=== PATIENT | female | born 1975 ===

== ENCOUNTER 2020-05-13 10:59 | Outpatient (REF) | payer OTHER, SELFPAY | END 2020-05-13 11:00 | disposition home or self-care (01) | LOC: HO.LAB 10:59 | PROVIDERS: Visit Provider Internal Medicine | DX: Z20.828 Contact with and (suspected) exposure to other viral communicable diseases (principal) | CPT/HCPCS: 87635 ==

== ENCOUNTER 2020-05-29 10:59 | Outpatient (REF) | payer OTHER, SELFPAY ==
[2020-05-29 16:51] LABS: CT PCR NOT DETECTED (Not Detect.); NG PCR NOT DETECTED (Not Detect.)
[2020-05-30 04:03] LABS: Syphilis Screen Nonreactive (Nonreactive)
[2020-05-30 04:22] LABS: ~HepC Num1 7.84 S/CO (0.00-0.79); ~Hepatitis C Antibody Reactive (Nonreactive)
[2020-05-30 04:34] LABS: HIV AB/AG Nonreactive (Nonreactive); HIV Num 1 0.31 S/CO (0.00-0.99)
[2020-05-30 13:12] LABS: BV Int Neg Control Negative (Negative); BV Int Pos Control Positive (Positive)
== END 2020-05-29 11:00 | disposition home or self-care (01) ==
LOC: HO.LAB 10:59
PROVIDERS: Visit Provider Advanced Practice Midwife
DX: N89.8 Other specified noninflammatory disorders of vagina (principal); Z20.2 Contact with and (suspected) exposure to infections with a predominantly sexual mode of transmission
CPT/HCPCS: 86780; 86803; 87389; 87480; 87491; 87510; 87591; 87660; 99212

== ENCOUNTER 2020-06-26 15:56 | Outpatient (REF) | payer OTHER, SELFPAY | END 2020-06-26 15:57 | disposition home or self-care (01) | LOC: HO.LAB 15:56 | PROVIDERS: Visit Provider Internal Medicine | DX: Z20.828 Contact with and (suspected) exposure to other viral communicable diseases (principal) | CPT/HCPCS: C9803; U0003 ==

== ENCOUNTER 2020-09-09 11:51 | Outpatient (REF) | payer OTHER, SELFPAY ==
--- NOTE | ~2020-09-09 | XR_ITS ---
EXAMINATION: XR LUMBOSACRAL SPINE CLINICAL INFORMATION: Low back pain COMPARISON: Lumbar spine radiographs 03/14/2019 TECHNIQUE: Three views of the lumbosacral spine. FINDINGS: The vertebral bodies are normal in height and there is normal lumbar lordosis. There is normal lumbar segmentation with 5 nonrib-bearing lumbar vertebrae. There is no lumbar vertebral compression, spondylolisthesis, focal disc narrowing, or erosive change. Some minor anterior vertebral spurring again noted at L3-L4. The SI joints and visualized sacrum are unremarkable. There are surgical clips again seen upper abdomen. XR/XR lumbar spine 2-3V IMPRESSION: Unremarkable examination.
== END 2020-09-09 11:52 | disposition home or self-care (01) ==
LOC: HO.XRAY 11:51
PROVIDERS: PCP Internal Medicine; Visit Provider Physician Assistant
DX: M54.5 Low back pain (principal)
CPT/HCPCS: 72100

== ENCOUNTER 2020-09-11 15:16 | Outpatient (REF) | payer OTHER, SELFPAY ==
--- NOTE | ~2020-09-11 | XR_ITS ---
EXAMINATION: XR SHOULDER, LEFT CLINICAL INFORMATION: Left shoulder pain. COMPARISON: None TECHNIQUE: AP external rotation, Grashey, scapular Y, and axillary views of the left shoulder. FINDINGS: No acute fracture or dislocation. Tiny acromioclavicular marginal osteophytes. No glenohumeral joint space narrowing or marginal osteophytes. No osseous erosion. No abnormal soft tissue calcification. XR/XR shoulder LT min 2V IMPRESSION: Mild acromioclavicular osteoarthritis.
[2020-09-12 08:22] LABS: HBc Num1 0.16 S/CO (0.00-0.79); HBsAGNum1 0.24 S/CO (0.00-0.99); HIV AB/AG Nonreactive (Nonreactive); HIV Num 1 0.18 S/CO (0.00-0.99); Hepatitis B Core Antibody Nonreactive (Nonreactive); Hepatitis B Surface Antigen Negative (Negative); ~HepC Num1 5.62 S/CO (0.00-0.79); ~Hepatitis C Antibody Reactive (Nonreactive)
[2020-09-12 08:32] LABS: ~Hepatitis B Surface Antibody REACTIVE (Nonreactive)
[2020-09-12 09:46] LABS: Syphilis Screen Nonreactive (Nonreactive)
[2020-09-14 03:56] LABS: C. trachomatis RNA TMA NOT DETECTED (NOT DETECTED); N. gonorrhoeae RNA TMA NOT DETECTED (NOT DETECTED)
== END 2020-09-11 15:17 | disposition home or self-care (01) ==
LOC: HO.LAB 15:16
PROVIDERS: PCP Internal Medicine; Visit Provider Internal Medicine
DX: M25.512 Pain in left shoulder (principal); Z20.2 Contact with and (suspected) exposure to infections with a predominantly sexual mode of transmission
CPT/HCPCS: 36415; 73030; 86704; 86706; 86780; 86803; 87340; 87389; 87491; 87591

== ENCOUNTER 2020-10-31 10:00 | Outpatient (RCR) | payer OTHER, SELFPAY ==
--- NOTE | 2020-10-03 11:34 | MHC.PT.EP ---
[facility] [place] Office [place] Office [place] Office [address] Elton Simmons [address] [phone] F: [phone] F: [phone] F: [phone] F: [phone] Physical Therapy Plan of Care Date of Evaluation: 10/03/20 Date of Surgery: N/A Diagnosis: pain in left shoulder Assessment: pt presents to physical therapy with pain, decreased range of motion, decreased strength, impaired functional mobility, and impaired postural awareness. pt is a good candidate for skilled PT due to age, potential remediation of impairments, typical disease/condition progression and prognosis, comorbidities, and motivation. pt would benefit from tailored strengthening and stretching exercise program, functional training, postural re-training, neuromuscular re-education, and modalities as needed for pain. Frequency and Duration: The patient will be seen 2x/wk for 4 wks Short Term Goals: pt will be I w/ HEP to promote self-management of condition. pt will improve L shoulder abduction by 10 degrees to facilitate ease in reaching for objects on higher shelves. Mcc Goals: pt will report a statistically significant improvement in self-reported outcome measure, SPADI, to promote return to PLOF. pt will report <1/10 L shoulder pain w/ lifting >10# to promote return to lifting and carrying grocery bags. Treatment Plan: Modalities to reduce pain, spasms and effusion. Manual therapy to restore motion and function. Therapeutic exercise to improve strength and flexibility. Neuromuscular re-education for posture and balance. Therapeutic activities to return to functional activities of daily living. Electronically signed by: Alee Candelaria PT, DPT Please sign and return to therapist. Thank you for your referral.
--- NOTE | 2020-10-31 14:33 | MHC.PT.DC ---
[facility] [place] Office [place] Office [place] Office [address] Elton Simmons 140 [facility] [phone] F: [phone] F: [phone] F: [phone] F: [phone] Physical Therapy Discharge Report Diagnosis: pain in left shoulder Date of Surgery: N/A Date of Evaluation: 10/03/20 Date of Discharge: 10/31/20 Treatments to Date: 4 Cancellations to Date: 3 No Shows to Date: 0 Discharge Status: Patient Elected to Stop Recommend MD Follow-up Discharge Summary: The patient was not reporting any improvement of her pain with physical therapy to this point. She has only attended four sessions in the course of three weeks. After her visit today she informed us she would like to discharge herself from physical therapy at this time. For that reason, she is discharged from this plan of care. Electronically signed by: Alee Candelaria PT, DPT Please sign and return to therapist. Thank you for your referral.
== END 2020-10-31 14:36 | disposition other institution (70) ==
LOC: HO.PT 10:00
PROVIDERS: PCP Internal Medicine; Visit Provider Internal Medicine
DX: M25.512 Pain in left shoulder (principal)
CPT/HCPCS: 97033; 97110; 97112; 97140; 97162

== ENCOUNTER 2020-10-31 11:51 | Outpatient (REF) | payer OTHER, SELFPAY ==
[2020-10-31 13:31] LABS: COVID-19 Test Negative (Negative); IDNOW Serial# 55D5AD1C
== END 2020-10-31 11:52 | disposition home or self-care (01) ==
LOC: HO.LAB 11:51
PROVIDERS: Visit Provider Internal Medicine
DX: Z20.822 Contact with and (suspected) exposure to COVID-19 (principal)
CPT/HCPCS: 36415; 87635; C9803

== ENCOUNTER 2020-11-20 08:37 | Outpatient (REF) | payer OTHER, SELFPAY ==
[2020-11-21 08:59] LABS: BV Int Neg Control Negative (Negative); BV Int Pos Control Positive (Positive)
== END 2020-11-20 08:38 | disposition home or self-care (01) ==
LOC: HO.LAB 08:37
PROVIDERS: PCP Internal Medicine; Visit Provider Advanced Practice Midwife
DX: Z12.4 Encounter for screening for malignant neoplasm of cervix (principal); N89.8 Other specified noninflammatory disorders of vagina
CPT/HCPCS: 87480; 87510; 87660; 99212

== ENCOUNTER 2020-12-20 01:07 | Emergency (ER) | payer OTHER, SELFPAY ==
--- NOTE | 2020-12-20 | ECG_ITS ---
Test Reason : CHEST PAIN Blood Pressure : / mmHG Vent. Rate : 070 BPM Atrial Rate : 070 BPM P-R Int : 170 ms QRS Dur : 078 ms QT Int : 410 ms P-R-T Axes : 080 -05 038 degrees QTc Int : 442 ms Normal sinus rhythm Cannot rule out Anterior infarct , age undetermined ; more likely from body habitus and lead placement Borderline ECG No significant changes when compared with the previous EKG of 08 apr 2019 Referred By: Generic ED Physician Electronically Signed By:MARISELA NOVAK
--- NOTE | ~2020-12-20 | XR_ITS ---
EXAMINATION: XR CHEST CLINICAL INFORMATION: Chest pain COMPARISON: 04/08/2019 TECHNIQUE: 2 views of the chest were obtained. FINDINGS: The lungs are well expanded. There is no focal consolidation, edema, or effusion. No pneumothorax. The cardiomediastinal silhouette is within normal limits. No acute osseous abnormality. XR/XR chest 2V IMPRESSION: Clear lungs.
[2020-12-20 01:12] VITALS: BP 147/84; PULSE 70; RESP 20; TEMP 36.7; O2SAT 100; BMI 29.0
--- NOTE | 2020-12-20 01:43 | ED_ITS ---
HPI - Chest Pain General Chief Complaint: Chest Pain Stated Complaint: Chest pain Time Seen by Provider: 12/20/20 01:38 Source: patient Mode of arrival: ambulatory Limitations: no limitations History of Present Illness HPI narrative: Patient comes emergency room complaining of chest pain. Patient states he feels very anxious, states that she has had panic attacks in the past, however this chest pain is stronger than usual. Patient denies shortness of breath, no vomiting, no diarrhea. Related Data Home Medications Medication Instructions Recorded Confirmed albuterol sulfate 90 mcg/actuation 2 puff PO Q4H PRN 05/29/20 09/11/20 aerosol inhaler budesonide-formoterol HFA 160 INHALATION 05/29/20 09/11/20 mcg-4.5 mcg/actuation aerosol inhaler hydroxyzine HCl 50 mg tablet 50 mg PO TID 05/29/20 09/11/20 meloxicam 15 mg tablet 15 mg PO DAILY PRN 05/29/20 09/11/20 trazodone 100 mg tablet 100 mg PO BEDTIME 05/29/20 09/11/20 rizatriptan 10 mg tablet See Rx Instructions PO .COMPLEX 08/20/20 09/11/20 bupropion HCl 150 mg 24 hr tablet, 150 mg PO QAM 09/11/20 09/11/20 extended release cetirizine 10 mg tablet 10 mg PO BID tab 09/11/20 09/11/20 clonazepam 0.5 mg tablet 0.5 mg PO DAILY 09/11/20 09/11/20 fluoxetine 20 mg tablet 20 mg PO BID 09/11/20 09/11/20 fremanezumab-vfrm 225 mg/1.5 mL mg SUBCUT 09/11/20 09/11/20 subcutaneous auto-injector metoclopramide HCl 5 mg tablet 5 mg PO BID tab 09/11/20 09/11/20 metronidazole 0.75 % topical cream 1 appl TOPICAL BEDTIME 09/11/20 09/11/20 montelukast 10 mg tablet 10 mg PO BEDTIME 09/11/20 09/11/20 vitamin A 2,400 mcg capsule 8,000 unit PO DAILY 09/11/20 09/11/20 Previous Rx's Medication Instructions Recorded diclofenac sodium 1 % topical gel 4 g TOPICAL TID PRN #200 g 12/21/20 pregabalin 100 mg capsule 100 mg PO BID #60 cap 09/11/20 lansoprazole 30 mg capsule,delayed 30 mg PO DAILY #90 cap 11/12/20 release metronidazole 0.75 % vaginal gel 1 appful VAGINAL BEDTIME 5 Days 11/21/20 #70 g cyclobenzaprine 10 mg tablet 10 mg PO Q8H PRN #90 tab 12/01/20 ackmlvvp-kmfqewfmj-aiekiyuzg 3.5 4 drp OTIC (EARS) TID 10 Days #10 12/17/20 mg-10,000 unit/mL-1 % ear ml drops,susp Allergies Allergy/AdvReac Type Severity Reaction Status Date / Time acetaminophen [Percocet] Allergy Unknown Tachycardia Verified 12/20/20 01:18 oxycodone [From PERCOCET] Allergy Unknown TACHYCARDIA, Verified 12/20/20 01:18 HEADACHE Sausage Allergy Unknown Unknown Uncoded 12/20/20 01:18 Review of Systems Review of Systems: Constitutional : No Weight loss, No Fever, No Chills, No Night Sweats, No Fatigue, No Malaise ENT/Mouth : No Hearing loss, No Ear Pain, No Nasal Congestion, No Sinus Pain, No Hoarseness, No sore throat, No Rhinorrhea, No Swallowing Difficulty Eyes: No Eye Pain, No Swelling, No Redness, No Foreign Body, No Discharge, No Vision Changes Cardiovascular : Complaining of left-sided chest pain No SOB, No Dyspnea on Exertion, No Orthopnea, No Edema, No Palpitations Respiratory : No Cough, No Sputum, No Wheezing, No Smoke Exposure, No Dyspnea Gastrointestinal : No Nausea, No Vomiting, No Diarrhea, No Constipation, No abdominal Pain, No Hematochezia, No Melena Genitourinary : no irregular bleeding, No Dysuria, No Urinary Frequency, No Hematuria, No Urinary Incontinence, No Urgency, No Flank Pain, No Urinary Flow Changes, No Hesitancy Musculoskeletal : No joint pain, No Myalgias, No Joint Swelling Skin : No Skin Lesions, No rash Neuro : No Weakness, No Numbness, No Paresthesias, No Loss of Consciousness, No Dizziness, No Headache Psych : Complaining of anxiety and panic attack. No Depression, No SI/HI/AH/VH, No Social Issues, Heme/Lymph: No Bruising, No Bleeding,No Lymphadenopathy Endocrine : No Polyuria, No Polydipsia, No Temperature Intolerance PMFSH Past Medical History Medical History Anxiety and depression Asthma Carpal tunnel syndrome Degenerative joint disease of cervical spine Fatty liver GERD (gastroesophageal reflux disease) Hepatitis C antibody test positive Migraine Overweight (BMI 25.0-29.9) Seasonal allergies Ulnar neuropathy Surgical History H/O: hysterectomy History of carpal tunnel release History of sleeve gastrectomy Hx of rotator cuff surgery Hx of tonsillectomy Hx of tubal ligation Family History Family History Father HTN (hypertension) Diabetes mellitus Stroke High cholesterol Mother HTN (hypertension) Diabetes mellitus High cholesterol Sister Diabetes mellitus Breast cancer Stroke Kidney disease Maternal Grandmother Liver cancer Maternal Grandfather Heart disease Social History Social History Alcohol intake: never Advance Directives: No Advance Directives Information Provided: No Patient : No Gender identity: female Physical Exam Vital Signs: Vital Signs: Last Vital Signs Temp 98.1 F 12/20/20 01:12 Pulse 70 12/20/20 01:12 Resp 20 12/20/20 01:12 BP 147/84 H 12/20/20 01:12 Pulse Ox 100 12/20/20 01:12 Body Mass Index 29.0 Appearance: Alert. Oriented X3. No acute distress. Eyes: Pupils equal, round and reactive to light. ENT: Pharynx normal. Neck: Normal inspection. Neck supple. No lymph nodes noted. No crepitus CVS: Normal heart rate and rhythm. Pulses normal. Normal S1 and S2, reproducible chest pain on palpation on the right side Respiratory: No respiratory distress. Breath sounds normal. No Wheezing. No rales Abdomen: Soft and nontender. No rigidity. No distention. good BS x4 Skin: Skin warm and dry. Normal skin color. Normal skin turgor. Extremities: No lower extremity edema. No lower extremity edema. No Lacerations. No Rash Neuro: Oriented X 3. No motor deficit. No sensory deficit. Moving all extermities. No slurred speech. Course Course Course Narrative: Patient's troponin 1. Is negative. EKG within normal limits. Patient received 1 dose of aspirin. Patient states that she feels much better but she still has mild left-sided chest pain. Patient is well appearing, talking on the phone laughing. I discussed with the patient that we will get a 2nd set of troponin, due at 05:30 in the morning Patient states that she no longer wants to wait for the 2nd troponin. I discussed with the patient that we cannot rule out cardiac etiology with 1 set of troponins, especially since the blood was taken couple of hours after the onset of symptoms. Patient understands. Patient will be leaving against medical advice, patient understands the risks of leaving AMA, including cardiac arrest and MDM - Chest Pain Lab Data Result diagrams: 12/20/20 02:23 12/20/20 02:23 Labs: Lab Results 12/20/20 12/20/20 12/20/20 Range/Units 02:23 02:23 02:23 WBC 10.1 (4.8-10.8) X10*3/uL RBC 4.89 (4.20-5.50) X10*6/uL Hgb 14.3 (12.0-16.0) g/dl Hct 43.9 (37-47) % MCV 89.8 (80-98) fL MCH 29.2 (27.0-33.0) pg MCHC 32.6 (31.0-35.0) g/dl RDW 13.0 (11.0-16.0) % Plt Count 333 (160-400) X10*3/uL MPV 8.9 L (9.4-12.3) fL Immature Gran % (Auto) 0.3 (0.0-0.4) % Neut % (Auto) 61.0 (45-73) % Lymph % (Auto) 29.0 (20-40) % [place] % (Auto) 6.1 (2-11) % Eos % (Auto) 2.8 (0-4) % Baso % (Auto) 0.8 (0-2) % Lymph # (Auto) 2.9 (1.2-4.9) X10*3/uL [place] # (Auto) 0.6 (0.1-1.2) X10*3/uL Eos # (Auto) 0.3 (0.0-0.4) X10*3/uL Baso # (Auto) 0.1 (0.0-0.2) X10*3/uL Abs Immat Gran (auto) 0.03 (0.00-0.03) X10*3/uL Absolute Neuts (auto) 6.2 (2.0-8.3) X10*3/uL Absolute Nucleated RBC 0.000 (0.0-0.012) X10*3/uL Nucleated RBC % (auto) 0.0 (0.0-0.2) /100WBC Sodium 140 (135-145) mmol/L Potassium 4.2 (3.3-5.1) mmol/L Chloride 104 (96-108) mmol/L Carbon Dioxide 28 (22-29) mmol/L Anion Gap 12 (12-20) BUN 8 L (9-16) mg/dL Creatinine 0.76 (0.5-1.4) mg/dL Estim Creat Clear Calc 102.9 Estimated GFR > 60 Random Glucose 120 H (60-115) mg/dL Calcium 9.4 (8.4-10.2) mg/dL Troponin I High Sens < 3.5 (<3.5-17.0) ng/L Imaging Data Chest x-ray: Radiologist's impression: The lungs are well expanded. There is no focal consolidation, edema, or effusion. No pneumothorax. The cardiomediastinal silhouette is within normal limits. No acute osseous abnormality. XR/XR chest 2V IMPRESSION: Clear lungs. ECG Data ECG #1: Attestation: I personally reviewed and interpreted this ECG as follows: (Sinus rhythm, heart rate 70, no ST segment depression or elevation, no T-wave inversion) Discharge Plan Discharge Clinical Impression: Chest pain Qualifiers: Chest pain type: unspecified Qualified Code(s): R07.9 - Chest pain, unspecified Patient Disposition: Left Against Medical Advice Instructions: Chest Pain (ED) Additional Instructions: You are leaving against medical advice. At this time, it cannot be ruled out if you are having a heart attack. Please follow-up with your primary care physician tomorrow. If you have any worsening or new symptoms, please return to the emergency room or call 911 Prescriptions: No Action diclofenac sodium 1 % gel 4 g topical TID PRN (Reason: pain) Qty: 200 RF: 5 lansoprazole 30 mg capsule,delayed release(DR/EC) 30 mg PO DAILY Qty: 90 RF: 2 metronidazole [Metrogel Vaginal] 0.75 % gel 1 appful vaginal BEDTIME 5 Days Qty: 70 RF: 0 cyclobenzaprine 10 mg tablet 10 mg PO Q8H PRN (Reason: for muscle spasm) Qty: 90 RF: 2 rizatriptan 10 mg tablet See Rx Instructions PO .COMPLEX RF: 0 djaphgmk-sayfjosfa-QR 3.5-10,000-1 mg/mL-unit/mL-% drops,suspension 4 drp otic (ears) TID 10 Days Qty: 10 RF: 0 clonazepam [Klonopin] 0.5 mg tablet 0.5 mg PO DAILY RF: 0 bupropion HCl 150 mg tablet extended release 24 hr 150 mg PO QAM RF: 0 metoclopramide HCl 5 mg tablet 5 mg PO BID RF: 0 fluoxetine 20 mg tablet 20 mg PO BID RF: 0 montelukast [Singulair] 10 mg tablet 10 mg PO BEDTIME RF: 0 Ajovy Autoinjector 225 mg/1.5 mL auto-injector subcut RF: 0 metronidazole [MetroCream] 0.75 % cream 1 appl topical BEDTIME RF: 0 vitamin A 8,000 unit capsule 8,000 unit PO DAILY RF: 0 pregabalin [Lyrica] 100 mg capsule 100 mg PO BID Qty: 60 RF: 0 trazodone 100 mg tablet 100 mg PO BEDTIME RF: 0 hydroxyzine HCl 50 mg tablet 50 mg PO TID RF: 0 meloxicam 15 mg tablet 15 mg PO DAILY PRN (Reason: pain) RF: 0 albuterol sulfate 90 mcg/actuation HFA aerosol inhaler 2 puff PO Q4H PRNRF: 0 budesonide-formoterol 160-4.5 mcg/actuation HFA aerosol inhaler inhalation RF: 0 cetirizine 10 mg tablet 10 mg PO BID RF: 0 Stand Alone Forms: Against Medical Advice
[2020-12-20] MEDS: Aspirin Enteric Coated 325 MG TABLET.DR PO (02:05)
[2020-12-20 02:29] LABS: Basophils Absolute Auto 0.1 X10*3/uL (0.0-0.2); Basophils Percent Auto 0.8 % (0-2); Eosinophils Absolute Auto 0.3 X10*3/uL (0.0-0.4); Eosinophils Percent Auto 2.8 % (0-4); Hematocrit 43.9 % (37-47); Hemoglobin 14.3 g/dl (12.0-16.0); Imm Gran Abs Auto 0.03 X10*3/uL (0.00-0.03); Imm Gran Pct Auto 0.3 % (0.0-0.4); Lymphocytes Absolute Auto 2.9 X10*3/uL (1.2-4.9); Mean Corpuscular HGB Conc 32.6 g/dl (31.0-35.0); Mean Corpuscular Hemoglobin 29.2 pg (27.0-33.0); Mean Corpuscular Volume 89.8 fL (80-98); Mean Platelet Volume 8.9 fL (9.4-12.3); Monocytes Absolute Auto 0.6 X10*3/uL (0.1-1.2); Monocytes Percent Auto 6.1 % (2-11); Neutrophils Absolute Auto 6.2 X10*3/uL (2.0-8.3); Platelet Count 333 X10*3/uL (160-400); Red Blood Count 4.89 X10*6/uL (4.20-5.50); White Blood Count 10.1 X10*3/uL (4.8-10.8)
[2020-12-20 02:30] LABS: MANUAL DIFF FLAG NO
[2020-12-20 03:06] LABS: Anion Gap 12 (12-20); Blood Urea Nitrogen 8 mg/dL (9-16); Calcium 9.4 mg/dL (8.4-10.2); Carbon Dioxide 28 mmol/L (22-29); Chloride 104 mmol/L (96-108); Creatinine Clr Calc Pharmacy 102.9; Estimated Glomerular Filt Rate > 60; Glucose Random 120 mg/dL (60-115); Potassium 4.2 mmol/L (3.3-5.1); Sodium 140 mmol/L (135-145)
[2020-12-20 03:12] LABS: Troponin-I High Sensitivity < 3.5 ng/L (<3.5-17.0)
== END 2020-12-20 03:46 | disposition left against medical advice (07) ==
PROVIDERS: Emergency Provider Emergency Medicine; PCP Internal Medicine
DX: R07.9 Chest pain, unspecified (principal); Z79.899 Other long term (current) drug therapy
CPT/HCPCS: 36415; 71046; 80048; 84484; 85025; 93005; 99283

== ENCOUNTER 2021-02-02 15:53 | Outpatient (REF) | payer OTHER, SELFPAY ==
--- NOTE | ~2021-02-02 | MM_ITS ---
EXAMINATION: MM SCREENING DIGITAL BREAST TOMOSYNTHESIS, BILATERAL CLINICAL INFORMATION: Screening. Asymptomatic. The lifetime risk of breast cancer based on the Tyrer-Cuzick Model is 11%. COMPARISON: Mammography: 06/28/2019, 06/22/2018, 09/28/2016 TECHNIQUE: Digital breast tomosynthesis is performed in both the craniocaudal and mediolateral oblique views along with computer-aided detection (CAD). Synthesized 2D images are generated from the tomosynthesis. Additional left MLO view is provided. FINDINGS: The breasts are heterogeneously dense, which may obscure small masses (ACR BI-RADS breast composition Category c). Breast tissue composition borders on average fibroglandular. The left breast parenchymal pattern is similar to prior studies. There is no interval mass or architectural abnormality. Neither breast shows abnormal calcifications. The axilla and skin contours are unremarkable. The right MLO view has subtle oval asymmetric density upper quadrant 7 cm from nipple. There is no correlate on CC view and this may represent summation artifact. Patient will be recalled for additional imaging. MM/MM tomosynthesis screening BI IMPRESSION: 1. Right: Asymmetric density MLO view upper quadrant mid depth, possibly summation artifact. 2. Left: No mammographic evidence of malignancy. ASSESSMENT: BI-RADS 0: Incomplete - Need Additional Imaging Evaluation RECOMMENDATION: 1. Additional views of the right breast (3-D spot MLO, 3-D ML). 2. Targeted ultrasound if warranted after review of the additional views. 3. Radiology department staff will contact the patient for additional imaging. This patient's information was entered into a reminder system with a target due date for their next mammogram.
== END 2021-02-02 15:54 | disposition home or self-care (01) ==
LOC: HO.MAMMO 15:53
PROVIDERS: Visit Provider Advanced Practice Midwife
DX: Z12.31 Encounter for screening mammogram for malignant neoplasm of breast (principal)
CPT/HCPCS: 77063; 77067

== ENCOUNTER 2021-02-11 13:11 | Outpatient (REF) | payer OTHER, SELFPAY ==
--- NOTE | ~2021-02-11 | MM_ITS ---
EXAMINATION: MM DIAGNOSTIC DIGITAL BREAST TOMOSYNTHESIS, RIGHT CLINICAL INFORMATION: Asymmetric density upper breast on MLO view, likely summation artifact. Family history breast cancer, sister. TC score 11%. COMPARISON: Mammography: 02/02/2021, 06/28/2019, 06/22/2018 TECHNIQUE: Digital breast tomosynthesis is performed. 2D images are generated from the tomosynthesis. The following views are obtained: Spot MLO x2, standard ML. FINDINGS: The breasts are heterogeneously dense, which may obscure small masses (ACR BI-RADS breast composition Category c). The additional views show no persistent asymmetric density. There is no mass or architectural abnormality. Parenchymal pattern is similar to prior studies. Results are discussed with the patient at time of visit. MM/MM tomosynthesis added views R IMPRESSION: Additional views show no persistent asymmetric density. ASSESSMENT: BI-RADS 1: Negative RECOMMENDATION: Routine annual mammography screening. This patient's information was entered into a reminder system with a target due date for their next mammogram.
== END 2021-02-11 13:12 | disposition home or self-care (01) ==
LOC: HO.MAMMO 13:11
PROVIDERS: Visit Provider Advanced Practice Midwife
DX: R92.2 Inconclusive mammogram (principal)
CPT/HCPCS: 77061; 77065

== ENCOUNTER 2021-03-26 13:15 | Outpatient (REF) | payer OTHER, SELFPAY ==
[2021-03-26 14:58] LABS: Alanine Aminotransferase 11 U/L (0-31); Albumin Level 4.2 g/dL (3.5-5.0); Alkaline Phosphatase 88 U/L (39-117); Anion Gap 10 (12-20); Aspartate Amino Transferase 13 U/L (5-31); Bilirubin Total 0.3 mg/dL (0.0-1.0); Blood Urea Nitrogen 10 mg/dL (9-16); Calcium 9.1 mg/dL (8.4-10.2); Carbon Dioxide 28 mmol/L (22-29); Chloride 108 mmol/L (96-108); Estimated Glomerular Filt Rate > 60; Glucose Random 91 mg/dL (60-115); Potassium 4.1 mmol/L (3.3-5.1); Sodium 142 mmol/L (135-145)
== END 2021-03-26 13:16 | disposition home or self-care (01) ==
LOC: HO.LAB 13:15
PROVIDERS: PCP Internal Medicine; Visit Provider Nurse Practitioner Family
DX: M79.7 Fibromyalgia (principal)
CPT/HCPCS: 36415; 80053; 99212

== ENCOUNTER 2021-04-05 22:19 | Emergency (ER) | payer OTHER, SELFPAY | END 2021-04-06 02:38 | disposition left against medical advice (07) | PROVIDERS: Emergency Provider Emergency Medicine; PCP Internal Medicine | DX: R10.9 Unspecified abdominal pain (principal) ==

== ENCOUNTER 2021-04-06 10:03 | Emergency (ER) | payer OTHER, SELFPAY | END 2021-04-06 11:53 | disposition left against medical advice (07) | PROVIDERS: Emergency Provider Emergency Medicine; PCP Internal Medicine | DX: R10.9 Unspecified abdominal pain (principal) ==

== ENCOUNTER 2021-04-08 19:29 | Emergency (ER) | payer OTHER, SELFPAY ==
--- NOTE | ~2021-04-08 | CT_ITS ---
EXAMINATION: CT ABDOMEN AND PELVIS WITH CONTRAST CLINICAL INFORMATION: Mid left abdominal pain COMPARISON: None TECHNIQUE: Multidetector volumetric images were obtained from the superior aspect of the liver through the pubic symphysis following administration 85 mL of Omnipaque 350 intravenous contrast. Sagittal and coronal reformatted images were obtained on the technologist's workstation. Oral contrast: No This CT examination was performed using dose optimization techniques as appropriate, variously including the following: *Automated exposure control *Adjustment of mA and/or kV according to patient size (this includes techniques or standardized protocols for targeted exams where dose is matched to indication/reason for exam; i.e. extremities or head) *Use of iterative reconstruction technique DLP: 667 mGy-cm FINDINGS: LUNG BASES: The visualized lung bases are unremarkable. LIVER, GALLBLADDER, AND BILIARY TREE: The liver is enlarged measuring 20.7 cm in greatest length and most likely demonstrates hepatic steatosis which has been seen on prior ultrasound studies. No focal hepatic lesion or biliary ductal dilatation is present. The gallbladder is unremarkable with no evidence of radiopaque gallstones, gallbladder wall thickening, or obvious pericholecystic inflammatory changes. PANCREAS: Unremarkable. SPLEEN: Unremarkable. ADRENAL GLANDS: Unremarkable. KIDNEYS AND URETERS: The kidneys are normal in size, shape, and attenuation. A 4 mm nonobstructing left renal calculus is present. There is mild fullness in the left renal collecting system compared to the prior study but no gross hydronephrosis or hydroureter seen. No other calculi seen. No perinephric stranding. BLADDER: Empty but no stones are seen. GASTROINTESTINAL TRACT: Status post gastric sleeve procedure. The sigmoid is narrowed, but probably just empty. No inflammatory changes are seen. The small and large bowel are otherwise unremarkable. The appendix is unremarkable. ABDOMINAL WALL: No significant hernia is appreciated. LYMPH NODES: Normal. VASCULAR: Unremarkable. PELVIC VISCERA: Surgically removed OSSEOUS STRUCTURES: Unremarkable. CT/CT abdomen pelvis w con IMPRESSION: 1. There is a nonobstructing 4 mm left renal calculus present with mild prominence of the left-sided collecting system but no cause of obstruction is seen. 2. Definitive etiology for the patient's mid left abdominal pain has not been found. 3. Incidental note made of enlarged fatty liver, gastric sleeve, now rectosigmoid probably secondary to poor distention and hysterectomy.
[2021-04-08 21:37] VITALS: BP 158/86; PULSE 87; RESP 16; TEMP 36.4; O2SAT 99; BMI 28.9
--- NOTE | 2021-04-08 22:20 | ED.ABDPAIN ---
HPI - Abdominal Pain General Chief Complaint: Abdominal Pain Stated Complaint: Abd pain Time Seen by Provider: 04/08/21 21:53 Source: patient, family and old records reviewed Mode of arrival: ambulatory Limitations: no limitations History of Present Illness HPI narrative: Patient states she has had approximately 3 days of left mid abdominal pain. She went to an urgent care 2 days ago on November 29 told her to come to the emergency department for CT scan. The way was very long so she went home. She returns today on the advice of her PCP. Positive nausea but no vomiting. Decreased p.o. intake. Constipation. No diarrhea. No prior history of similar issues. No fevers or chills. No urinary symptoms. No alleviating or exacerbating factors. Other medical issues include migraines, fibromyalgia, depression and anxiety. She takes omeprazole for gastritis. This does not feel like her gastritis pain Related Data Home Medications Medication Instructions Recorded Confirmed albuterol sulfate 90 mcg/actuation 2 puff PO Q4H PRN 05/29/20 09/11/20 aerosol inhaler budesonide-formoterol HFA 160 INHALATION 05/29/20 09/11/20 mcg-4.5 mcg/actuation aerosol inhaler trazodone 100 mg tablet 100 mg PO BEDTIME 05/29/20 09/11/20 cetirizine 10 mg tablet 10 mg PO BID tab 09/11/20 09/11/20 fremanezumab-vfrm 225 mg/1.5 mL mg SUBCUT 09/11/20 09/11/20 subcutaneous auto-injector (Ajovy) vitamin A 2,400 mcg capsule 8,000 unit PO DAILY 09/11/20 09/11/20 bupropion HCl 150 mg 24 hr tablet, 300 mg PO QAM tab 03/26/21 extended release buspirone 5 mg tablet 5 mg PO TID 03/26/21 clonazepam 0.5 mg tablet (Klonopin) 0.5 mg PO DAILY PRN 03/26/21 multivitamin 1 tab PO DAILY 03/26/21 Previous Rx's Medication Instructions Recorded diclofenac sodium 1 % topical gel 4 g TOPICAL TID PRN #200 g 01/05/21 meloxicam 15 mg tablet 15 mg PO DAILY PRN 90 Days #90 tab 02/12/21 montelukast 10 mg tablet 10 mg PO BEDTIME 90 Days #90 tab 02/12/21 (Singulair) cyclobenzaprine 10 mg tablet 10 mg PO Q8H PRN #90 tab 03/04/21 lansoprazole 30 mg capsule,delayed 30 mg PO DAILY #90 cap 03/11/21 release ondansetron HCl 4 mg tablet 4 mg PO Q8H PRN #14 tab 04/09/21 (Zofran) Allergies Allergy/AdvReac Type Severity Reaction Status Date / Time acetaminophen [Percocet] Allergy Unknown Tachycardia Verified 04/06/21 11:34 oxycodone [From PERCOCET] Allergy Unknown TACHYCARDIA, Verified 04/06/21 11:34 HEADACHE Sausage Allergy Unknown Unknown Uncoded 12/20/20 01:18 Review of Systems Constitutional: Denies fever(s) Cardiovascular: Denies chest pain and Denies dyspnea Respiratory: Denies dyspnea Gastrointestinal: Reports as per HPI Comments: No urinary symptoms Physical Exam Vital Signs: Vital Signs: Last Vital Signs Temp 97.6 F 04/08/21 21:37 Pulse 71 04/09/21 00:10 Resp 16 04/09/21 00:10 BP 135/86 04/09/21 00:10 Pulse Ox 100 04/09/21 00:10 Body Mass Index 28.9 Const: General: cooperative, healthy appearing, comfortable and no acute distress HENMT: Other: Mucosa dry Resp: Other: Clear and equal bilaterally without wheezes rales or rhonchi Cardio: Other: Regular rate and rhythm without murmurs rubs or gallops GI: Other: Tenderness to palpation left mid to upper abdomen without guarding or rebound. No right-sided abdominal tenderness. Mild distention. Abdomen is soft. Normoactive bowel sounds Skin: Other: Warm pink and dry Neuro: Other: Alert oriented without focal deficit Course Course Course Narrative: Abdominal pain Colitis Diverticulitis Gastroenteritis Constipation Fibromyalgia pain Urinary tract infection Labs and CT scan ordered IV fluids IV Toradol IV Zofran 12:46 a.m.. Patient states she is feeling much better after treatment here in the emergency department. Workup in the emergency department is reassuring. CT scan shows no acute findings which would account for her pain. Urinalysis is normal as are the rest of her labs. She has a history of back pain for which she has seen physiatry in the past. I suspect her pain is more radicular in nature at this point. Will have her continue her current outpatient medications which include meloxicam and Flexeril. Follow up with physiatry. I will add Deepak. I will also refer to gastroenterology in case this does shirt turner to be GI in origin, but she is already on Prilosec for gastritis. I do not think there is any other GI treatment we need to start out of the emergency department MDM - Abdominal Pain Lab Data Result diagrams: 04/08/21 22:56 04/08/21 22:56 Labs: Lab Results 04/08/21 04/08/21 04/09/21 Range/Units 22:56 22:56 00:12 WBC 9.4 (4.8-10.8) X10*3/uL RBC 4.56 (4.20-5.50) X10*6/uL Hgb 13.3 (12.0-16.0) g/dl Hct 40.4 (37-47) % MCV 88.6 (80-98) fL MCH 29.2 (27.0-33.0) pg MCHC 32.9 (31.0-35.0) g/dl RDW 13.1 (11.0-16.0) % Plt Count 285 (160-400) X10*3/uL MPV 8.8 L (9.4-12.3) fL Immature Gran % (Auto) 0.2 (0.0-0.4) % Neut % (Auto) 53.7 (45-73) % Lymph % (Auto) 36.0 (20-40) % [place] % (Auto) 7.1 (2-11) % Eos % (Auto) 2.4 (0-4) % Baso % (Auto) 0.6 (0-2) % Lymph # (Auto) 3.4 (1.2-4.9) X10*3/uL [place] # (Auto) 0.7 (0.1-1.2) X10*3/uL Eos # (Auto) 0.2 (0.0-0.4) X10*3/uL Baso # (Auto) 0.1 (0.0-0.2) X10*3/uL Abs Immat Gran (auto) 0.02 (0.00-0.03) X10*3/uL Absolute Neuts (auto) 5.1 (2.0-8.3) X10*3/uL Absolute Nucleated RBC 0.000 (0.0-0.012) X10*3/uL Nucleated RBC % (auto) 0.0 (0.0-0.2) /100WBC Sodium 141 (135-145) mmol/L Potassium 4.0 (3.3-5.1) mmol/L Chloride 107 (96-108) mmol/L Carbon Dioxide 28 (22-29) mmol/L Anion Gap 10 L (12-20) BUN 9 (9-16) mg/dL Creatinine 0.87 (0.5-1.4) mg/dL Estim Creat Clear Calc 92.9 Estimated GFR > 60 Random Glucose 99 (60-115) mg/dL Calcium 9.0 (8.4-10.2) mg/dL Total Bilirubin 0.6 (0.0-1.0) mg/dL Direct Bilirubin 0.2 (0.0-0.5) mg/dL AST 12 (5-31) U/L ALT 9 (0-31) U/L Alkaline Phosphatase 87 (39-117) U/L Total Protein 6.8 (6.5-8.0) g/dL Albumin 4.2 (3.5-5.0) g/dL Lipase 19 (8-78) U/L Urine Color YELLOW Urine Appearance CLEAR Urine pH 6.0 (5.0-8.0) Ur Specific [place] 1.025 (1.005-1.025) Urine Protein NEG (NEG-TRACE) MG/DL Urine Glucose (UA) NEG (NEG) MG/DL Urine Ketones NEG (NEG) MG/DL Urine Blood NEG (NEG) Urine Nitrite NEG (NEG) Ur Leukocyte Esterase NEG (NEG) Urine Test (NEGATIVE) 04/09/21 Range/Units 00:12 WBC (4.8-10.8) X10*3/uL RBC (4.20-5.50) X10*6/uL Hgb (12.0-16.0) g/dl Hct (37-47) % MCV (80-98) fL MCH (27.0-33.0) pg MCHC (31.0-35.0) g/dl RDW (11.0-16.0) % Plt Count (160-400) X10*3/uL MPV (9.4-12.3) fL Immature Gran % (Auto) (0.0-0.4) % Neut % (Auto) (45-73) % Lymph % (Auto) (20-40) % [place] % (Auto) (2-11) % Eos % (Auto) (0-4) % Baso % (Auto) (0-2) % Lymph # (Auto) (1.2-4.9) X10*3/uL [place] # (Auto) (0.1-1.2) X10*3/uL Eos # (Auto) (0.0-0.4) X10*3/uL Baso # (Auto) (0.0-0.2) X10*3/uL Abs Immat Gran (auto) (0.00-0.03) X10*3/uL Absolute Neuts (auto) (2.0-8.3) X10*3/uL Absolute Nucleated RBC (0.0-0.012) X10*3/uL Nucleated RBC % (auto) (0.0-0.2) /100WBC Sodium (135-145) mmol/L Potassium (3.3-5.1) mmol/L Chloride (96-108) mmol/L Carbon Dioxide (22-29) mmol/L Anion Gap (12-20) BUN (9-16) mg/dL Creatinine (0.5-1.4) mg/dL Estim Creat Clear Calc Estimated GFR Random Glucose (60-115) mg/dL Calcium (8.4-10.2) mg/dL Total Bilirubin (0.0-1.0) mg/dL Direct Bilirubin (0.0-0.5) mg/dL AST (5-31) U/L ALT (0-31) U/L Alkaline Phosphatase (39-117) U/L Total Protein (6.5-8.0) g/dL Albumin (3.5-5.0) g/dL Lipase (8-78) U/L Urine Color Urine Appearance Urine pH (5.0-8.0) Ur Specific [place] (1.005-1.025) Urine Protein (NEG-TRACE) MG/DL Urine Glucose (UA) (NEG) MG/DL Urine Ketones (NEG) MG/DL Urine Blood (NEG) Urine Nitrite (NEG) Ur Leukocyte Esterase (NEG) Urine Test NEGATIVE (NEGATIVE) Discharge Plan Discharge Clinical Impression: Abdominal pain Qualifiers: Abdominal location: left upper quadrant Qualified Code(s): R10.12 - Left upper quadrant pain Radiculopathy Qualifiers: Spinal region: thoracolumbar Qualified Code(s): M54.15 - Radiculopathy, thoracolumbar region Patient Disposition: Home, Self-Care Instructions: Abdominal Pain (ED), Back Pain (ED) Prescriptions: New ondansetron HCl [Zofran] 4 mg tablet 4 mg PO Q8H PRN (Reason: nausea and vomiting) Qty: 14 RF: 0 No Action diclofenac sodium 1 % gel 4 g topical TID PRN (Reason: pain) Qty: 200 RF: 11 montelukast [Singulair] 10 mg tablet 10 mg PO BEDTIME 90 Days Qty: 90 RF: 1 meloxicam 15 mg tablet 15 mg PO DAILY PRN (Reason: pain) 90 Days Qty: 90 RF: 1 cyclobenzaprine 10 mg tablet 10 mg PO Q8H PRN (Reason: for muscle spasm) Qty: 90 RF: 2 lansoprazole 30 mg capsule,delayed release(DR/EC) 30 mg PO DAILY Qty: 90 RF: 2 Ajovy Autoinjector 225 mg/1.5 mL auto-injector subcut RF: 0 vitamin A 8,000 unit capsule 8,000 unit PO DAILY RF: 0 clonazepam [Klonopin] 0.5 mg tablet 0.5 mg PO DAILY PRNRF: 0 bupropion HCl 150 mg tablet extended release 24 hr 300 mg PO QAM RF: 0 multivitamin Tablet 1 tab PO DAILY RF: 0 buspirone 5 mg tablet 5 mg PO TID RF: 0 trazodone 100 mg tablet 100 mg PO BEDTIME RF: 0 albuterol sulfate 90 mcg/actuation HFA aerosol inhaler 2 puff PO Q4H PRNRF: 0 budesonide-formoterol 160-4.5 mcg/actuation HFA aerosol inhaler inhalation RF: 0 cetirizine 10 mg tablet 10 mg PO BID RF: 0 Referrals: Naeem Connell [Physician] - 2 days [facility] Past Medical History [facility] Narrative: No sick contacts Medical History Anxiety and depression Asthma Carpal tunnel syndrome Degenerative joint disease of cervical spine Fatty liver GERD (gastroesophageal reflux disease) Hepatitis C antibody test positive Migraine Overweight (BMI 25.0-29.9) Seasonal allergies Ulnar neuropathy Surgical History H/O: hysterectomy History of carpal tunnel release History of sleeve gastrectomy Hx of rotator cuff surgery Hx of tonsillectomy Hx of tubal ligation Family History Family History Father HTN (hypertension) Diabetes mellitus Stroke High cholesterol Mother HTN (hypertension) Diabetes mellitus High cholesterol Sister Diabetes mellitus Breast cancer Stroke Kidney disease Maternal Grandmother Liver cancer Maternal Grandfather Heart disease Social History Social History Alcohol intake: never Patient Tobacco Use Status: Never used Tobacco Advance Directives: No Advance Directives Information Provided: No Patient : No Gender identity: Female
[2021-04-08 23:01] LABS: MANUAL DIFF FLAG NO
[2021-04-08 23:02] LABS: Basophils Absolute Auto 0.1 X10*3/uL (0.0-0.2); Basophils Percent Auto 0.6 % (0-2); Eosinophils Absolute Auto 0.2 X10*3/uL (0.0-0.4); Eosinophils Percent Auto 2.4 % (0-4); Hematocrit 40.4 % (37-47); Hemoglobin 13.3 g/dl (12.0-16.0); Imm Gran Abs Auto 0.02 X10*3/uL (0.00-0.03); Imm Gran Pct Auto 0.2 % (0.0-0.4); Lymphocytes Absolute Auto 3.4 X10*3/uL (1.2-4.9); Mean Corpuscular HGB Conc 32.9 g/dl (31.0-35.0); Mean Corpuscular Hemoglobin 29.2 pg (27.0-33.0); Mean Corpuscular Volume 88.6 fL (80-98); Mean Platelet Volume 8.8 fL (9.4-12.3); Monocytes Absolute Auto 0.7 X10*3/uL (0.1-1.2); Monocytes Percent Auto 7.1 % (2-11); Neutrophils Absolute Auto 5.1 X10*3/uL (2.0-8.3); Neutrophils Percent Auto 53.7 % (45-73); Platelet Count 285 X10*3/uL (160-400); Red Blood Count 4.56 X10*6/uL (4.20-5.50); Red Cell Distribution Width 13.1 % (11.0-16.0); White Blood Count 9.4 X10*3/uL (4.8-10.8)
[2021-04-08 23:18] LABS: Alanine Aminotransferase 9 U/L (0-31); Albumin Level 4.2 g/dL (3.5-5.0); Alkaline Phosphatase 87 U/L (39-117); Anion Gap 10 (12-20); Aspartate Amino Transferase 12 U/L (5-31); Bilirubin Direct 0.2 mg/dL (0.0-0.5); Bilirubin Total 0.6 mg/dL (0.0-1.0); Blood Urea Nitrogen 9 mg/dL (9-16); Carbon Dioxide 28 mmol/L (22-29); Chloride 107 mmol/L (96-108); Creatinine Clr Calc Pharmacy 92.9; Estimated Glomerular Filt Rate > 60; Glucose Random 99 mg/dL (60-115); Lipase 19 U/L (8-78); Sodium 141 mmol/L (135-145); Total Protein 6.8 g/dL (6.5-8.0)
[2021-04-08] MEDS: iohexoL 350 MG/ML 100 ML INFUS..BTL 85 ML IV (23:45)
[2021-04-09] MEDS: 0.9 % Sodium Chloride 1,000 ML 999 ML IV (00:07)
[2021-04-09] MEDS: ondansetron HCL 4 MG/2 ML VIAL IVPUSH (00:08)
[2021-04-09] MEDS: Ketorolac Tromethamine 30 MG/ML VIAL IVPUSH (00:08)
[2021-04-09 00:10] VITALS: BP 135/86; PULSE 71; RESP 16; O2SAT 100
[2021-04-09 00:17] LABS: Appearance Urine CLEAR; Color Urine YELLOW; Glucose Urine UA NEG (NEG); Leukocyte Esterase Urine NEG (NEG); Nitrite Urine NEG (NEG); Specific Gravity - Urine 1.025 (1.005-1.025); Urine Blood NEG (NEG); Urine Ketones NEG (NEG); Urine Protein NEG (NEG-TRACE)
[2021-04-09 00:18] LABS: UACC Culture Trigger NO
[2021-04-09 00:19] LABS: Urine Pregnancy NEGATIVE (NEGATIVE)
[2021-04-09 00:20] LABS: UPreg QC Valid YES
== END 2021-04-09 00:59 | disposition home or self-care (01) ==
PROVIDERS: Emergency Provider Emergency Medicine; PCP Internal Medicine
DX: M54.15 Radiculopathy, thoracolumbar region (principal); R10.12 Left upper quadrant pain; Z79.899 Other long term (current) drug therapy
CPT/HCPCS: 36415; 74177; 80048; 80076; 81003; 81025; 83690; 85025; 96361; 96374; 96375; 99284; J1885; J2405; Q9967

== ENCOUNTER 2021-05-09 14:02 | Emergency (ER) | payer OTHER, SELFPAY ==
--- NOTE | ~2021-05-09 | CT_ITS ---
EXAMINATION: CT ABDOMEN AND PELVIS WITHOUT CONTRAST CLINICAL INFORMATION: Flank pain COMPARISON: 04/08/2021 TECHNIQUE: Multidetector volumetric imaging was performed from the superior aspect of the liver through the pubic symphysis. Sagittal and coronal reformatted images were obtained on the technologist's workstation. This CT examination was performed using dose optimization techniques as appropriate, variously including the following: *Automated exposure control *Adjustment of mA and/or kV according to patient size (this includes techniques or standardized protocols for targeted exams where dose is matched to indication/reason for exam; i.e. extremities or head) *Use of iterative reconstruction technique DLP: 706 mGy-cm FINDINGS: LUNG BASES: The visualized lung bases are unremarkable. LIVER, GALLBLADDER, AND BILIARY TREE: The liver is normal in size, shape, and attenuation. No focal hepatic lesion or biliary ductal dilatation is present. The gallbladder is unremarkable with no evidence of radiopaque gallstones, gallbladder wall thickening, or obvious pericholecystic inflammatory changes. PANCREAS: Unremarkable. SPLEEN: Unremarkable. ADRENAL GLANDS: Unremarkable. KIDNEYS AND URETERS: There continues to be stable appearance of a nonobstructing left lower pole calyceal stone measuring 4 mm. Parapelvic cysts suspected. There is minimal fullness of the left renal collecting system without any obstructing source seen down to level the pelvis. No right-sided abnormality. No perinephric collection. BLADDER: Unremarkable. GASTROINTESTINAL TRACT: Gastric sleeve surgical changes again noted. Normal appendix. No other change. No acute inflammatory changes. Of note is within the root of mesentery mildly prominent lymph nodes and haziness to the mesenteric fat. ABDOMINAL WALL: No significant hernia is appreciated. LYMPH NODES: As above. VASCULAR: Unremarkable. PELVIC VISCERA: Surgically absent OSSEOUS STRUCTURES: Unremarkable. CT/CT abdomen pelvis wo con IMPRESSION: 1. Stable appearance of nonobstructing left-sided lower pole calyceal stone. 2. Stable mild fullness of the left renal collecting system without any obstructing source. Patient has urinary symptoms, consider urologic assessment. 3. 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
[2021-05-09 14:41] VITALS: BP 150/74; PULSE 76; RESP 16; TEMP 36.8; O2SAT 99; BMI 28.8
[2021-05-09 15:57] LABS: Appearance Urine CLOUDY; Color Urine ORANGE; Glucose Urine UA 100 MG/DL (NEG); Leukocyte Esterase Urine 3+ (NEG); Nitrite Urine POS (NEG); PH 5.5 (5.0-8.0); UACC Culture Trigger YES; Urine Blood 2+ (NEG); Urine Ketones NEG (NEG); Urine Protein 1+ MG/DL (NEG-TRACE)
[2021-05-09 16:08] LABS: WBC Urine TNTC /HPF (0-4)
[2021-05-09 16:09] LABS: Bacteria Urine 1+ /LPF; Mucus Urine 1+ /LPF; Squamous Epithelial Cell Urine 2+ /LPF
[2021-05-09 16:38] LABS: MANUAL DIFF FLAG NO
[2021-05-09 16:39] LABS: Basophils Absolute Auto 0.1 X10*3/uL (0.0-0.2); Basophils Percent Auto 0.6 % (0-2); Eosinophils Absolute Auto 0.2 X10*3/uL (0.0-0.4); Eosinophils Percent Auto 1.5 % (0-4); Hematocrit 40.7 % (37-47); Hemoglobin 13.5 g/dl (12.0-16.0); Imm Gran Abs Auto 0.03 X10*3/uL (0.00-0.03); Imm Gran Pct Auto 0.2 % (0.0-0.4); Lymphocytes Absolute Auto 2.8 X10*3/uL (1.2-4.9); Lymphocytes Percent Auto 22.3 % (20-40); Mean Corpuscular HGB Conc 33.2 g/dl (31.0-35.0); Mean Corpuscular Hemoglobin 29.5 pg (27.0-33.0); Mean Corpuscular Volume 88.9 fL (80-98); Mean Platelet Volume 8.9 fL (9.4-12.3); Monocytes Absolute Auto 0.9 X10*3/uL (0.1-1.2); Monocytes Percent Auto 7.2 % (2-11); Neutrophils Absolute Auto 8.4 X10*3/uL (2.0-8.3); Neutrophils Percent Auto 68.2 % (45-73); Platelet Count 325 X10*3/uL (160-400); Red Blood Count 4.58 X10*6/uL (4.20-5.50); Red Cell Distribution Width 13.2 % (11.0-16.0); White Blood Count 12.3 X10*3/uL (4.8-10.8)
[2021-05-09 16:56] LABS: Alanine Aminotransferase 12 U/L (0-31); Albumin Level 4.2 g/dL (3.5-5.0); Alkaline Phosphatase 91 U/L (39-117); Anion Gap 11 (12-20); Aspartate Amino Transferase 14 U/L (5-31); Bilirubin Total 0.2 mg/dL (0.0-1.0); Blood Urea Nitrogen 8 mg/dL (9-16); Calcium 9.2 mg/dL (8.4-10.2); Carbon Dioxide 29 mmol/L (22-29); Chloride 105 mmol/L (96-108); Creatinine Clr Calc Pharmacy 105.7; Estimated Glomerular Filt Rate > 60; Glucose Random 87 mg/dL (60-115); Potassium 4.6 mmol/L (3.3-5.1); Sodium 140 mmol/L (135-145)
[2021-05-09] MEDS: 0.9 % Sodium Chloride 1,000 ML 999 ML IVCONT (19:05)
[2021-05-09] MEDS: Ketorolac Tromethamine 15 MG/ML VIAL 30 MG IVPUSH (19:05)
--- NOTE | 2021-05-09 20:04 | ED.ABDPAIN ---
HPI - Abdominal Pain General Chief Complaint: Abdominal Pain Stated Complaint: VAGINAL BLEEDING SIDE PAIN LEG SWELLING Time Seen by Provider: 05/09/21 18:44 Source: patient Mode of arrival: ambulatory Limitations: no limitations History of Present Illness HPI narrative: 46-year-old female with a past medical history of kidney stones, GERD, recurrent UTIs, asthma, anxiety and depression presenting to the ED with complaints of 3 weeks of left flank pain with associated increased urinary urgency/frequency with dysuria and hematuria. She reports that the hematuria started last night all other symptoms started 3 weeks ago. She reports the pain initially started in her left back/left flank and is now radiated to her left lower quadrant/suprapubic area where she reports the pain as sharp/pressure sensation. The pain has subsided at this time due to her daughter gave her pyridium prior to arrival Although when it does come on it is sudden onset 10/10 pain. She denies any dizziness, headaches, change in vision, sore throat, cough, neck pain/stiffness, chest pain or shortness of breath, dyspnea on exertion, orthopnea, palpitations, nausea/vomiting/diarrhea/constipation, black or bloody stools, abnormal vaginal discharge, vaginal bleeding, focal or general weakness, recent travel or sick contacts, lower extremity edema or calf tenderness or any other symptoms complaints or concerns at this time. MD elicited complaint: abdominal pain and flank pain Pertinent past history: kidney stones Onset (ago): week(s) (3 weeks worse since yesterday) Pain Consistency: constant Location: L flank Severity: severe Pain scale (0-10): 10 Quality: stabbing, aching and sharp Radiation: LLQ and suprapubic Exacerbating factors: nothing Relieving factors: nothing Associated symptoms: dysuria Related Data Patient : No Home Medications Medication Instructions Recorded Confirmed albuterol sulfate 90 mcg/actuation 2 puff PO Q4H PRN 05/29/20 09/11/20 aerosol inhaler budesonide-formoterol HFA 160 INHALATION 05/29/20 09/11/20 mcg-4.5 mcg/actuation aerosol inhaler trazodone 100 mg tablet 100 mg PO BEDTIME 05/29/20 09/11/20 cetirizine 10 mg tablet 10 mg PO BID tab 09/11/20 09/11/20 fremanezumab-vfrm 225 mg/1.5 mL mg SUBCUT 09/11/20 09/11/20 subcutaneous auto-injector ([facility]) vitamin A 2,400 mcg capsule 8,000 unit PO DAILY 09/11/20 09/11/20 bupropion HCl 150 mg 24 hr tablet, 300 mg PO QAM tab 03/26/21 extended release buspirone 5 mg tablet 5 mg PO TID 03/26/21 clonazepam 0.5 mg tablet (Klonopin) 0.5 mg PO DAILY PRN 03/26/21 multivitamin 1 tab PO DAILY 03/26/21 Previous Rx's Medication Instructions Recorded diclofenac sodium 1 % topical gel 4 g TOPICAL TID PRN #200 g 01/05/21 meloxicam 15 mg tablet 15 mg PO DAILY PRN 90 Days #90 tab 02/12/21 montelukast 10 mg tablet 10 mg PO BEDTIME 90 Days #90 tab 02/12/21 (Singulair) cyclobenzaprine 10 mg tablet 10 mg PO Q8H PRN #90 tab 03/04/21 lansoprazole 30 mg capsule,delayed 30 mg PO DAILY #90 cap 03/11/21 release ondansetron HCl 4 mg tablet 4 mg PO Q8H PRN #14 tab 04/09/21 (Zofran) pregabalin 100 mg capsule (Lyrica) 100 mg PO BID 30 Days #60 cap 04/20/21 ibuprofen 800 mg tablet 800 mg PO Q8H PRN #14 tab 05/09/21 levofloxacin 750 mg tablet 750 mg PO DAILY 7 Days #7 tab 05/09/21 tramadol 50 mg tablet 50 mg PO Q8H PRN #14 tab 05/09/21 Allergies Allergy/AdvReac Type Severity Reaction Status Date / Time acetaminophen [Percocet] Allergy Unknown Tachycardia Verified 04/20/21 17:40 oxycodone [From PERCOCET] Allergy Unknown TACHYCARDIA, Verified 04/20/21 17:40 HEADACHE Sausage Allergy Unknown Unknown Uncoded 12/20/20 01:18 Review of Systems Review of Systems Constitutional : No Weight loss, No Fever, No Chills, No Night Sweats, No Fatigue, NoMalaise ENT/Mouth: No ear pain, No sore throat, No Difficulty swallowing Cardiovascular : No Chest Pain, No SOB, No Dyspnea on Exertion, No Orthopnea, NoEdema, No Palpitations Respiratory : No Cough, No Sputum, No Wheezing, No Dyspnea Gastrointestinal : Positive flank/left lower quadrant/suprapubic abdominal pain, No Nausea, No Vomiting, No Diarrhea, No blood streaked emesis, No coffee-ground emesis, No gross hematemesis, No blood streak stool, No gross hematochezia, No Melena Genitourinary : Positive dysuria/hematuria/increased urinary urgency/frequency, No irregular bleeding, No Urinary Incontinence Musculoskeletal : No joint pain, No Myalgias, No Joint Swelling Skin : No Skin Lesions, No rash Neuro : No Weakness, No Numbness, No Paresthesias, No Loss of Consciousness, NoDizziness, No Headache Psych : No Social Issues, Heme/Lymph: No Bruising, No Bleeding,No Lymphadenopathy Endocrine : No Polyuria, No Polydipsia, No Temperature Intolerance Yes all other systems are reviewed and are negative Physical Exam Vital Signs: Vital Signs: Last Vital Signs Temp 98.2 F 05/09/21 14:41 Pulse 76 05/09/21 14:41 Resp 16 05/09/21 14:41 BP 150/74 H 05/09/21 14:41 Pulse Ox 99 05/09/21 14:41 Body Mass Index 28.8 vital signs have been reviewed as normal and appeared to be correct. Blood pressure hypertensive 150/74. Heart rate normal. Respiration rate normal. Temperature normal. Oxygen saturation normal. Appearance: Alert. Oriented X3. No acute distress. Head: Normal external exam. Normocephalic. Eyes: PERRLA. EOMI. Conjunctiva and sclera normal. Eyelids normal. ENT: Pharynx normal. Uvula midline. Moist mucous membranes. No trismus noted. No drooling noted. No muffled voice noted. Neck: Normal inspection. Neck supple. FROM. No adenopathy. No meningeal signs. CVS: Normal heart rate and rhythm. Heart sound normal. No murmurs noted. Pulses normal throughout. Respiratory: No respiratory distress. Painless inspiration. Breath sounds normal. No wheezes/rales/rhonchi noted. Chest nontender. No accessory muscle usage noted or decreased air movement noted. Abdomen: Soft and mild tenderness palpation to left flank/left lower quadrant/suprapubic area. Nondistended. No guarding. No rigidity. Bowel sounds normal in all 4 quadrants. No distention noted. No organomegaly noted. No visible injury noted. No rebound tenderness. Negative Rovsing sign. Negative obturator's sign. Negative psoas sign. Negative Horner sign. Back: Positive left CVA tenderness. No right CVA tenderness is noted. Normal range of motion noted. No rashes are noted. Skin: Skin warm and dry. Normal skin color. Normal skin turgor. No rashes/lesions/lacerations noted. Extremities: Extremities exhibit normal range of motion. Extremities nontender. Neuro: Oriented X 3. No motor deficit. No sensory deficit. Reflexes normal. Normal steady gait. Course Course Course Narrative: 19pm - 46-year-old female with a past medical history of kidney stones, GERD, recurrent UTIs, asthma, anxiety and depression presenting to the ED with complaints of 3 weeks of left flank pain with associated increased urinary urgency/frequency with dysuria and hematuria. She reports that the hematuria started last night all other symptoms started 3 weeks ago. She reports the pain initially started in her left back/left flank and is now radiated to her left lower quadrant/suprapubic area where she reports the pain as sharp/pressure sensation. The pain has subsided at this time due to her daughter gave her pyridium prior to arrival Although when it does come on it is sudden onset 10/10 pain. Labs were obtained in triage and patient noted to [place] an [place] [id number]. Anion gap 11. BUN 8. Otherwise all other labs were within normal limits. UA revealed 100 glucose +2 blood and positive nitrates therefore will treat for UTI. Plan: Therefore at this time will provide a L of IV fluids, 30 mg of IV Toradol and a CT scan abdomen pelvis without IV contrast to evaluate for possible kidney stones and re-evaluate. Reevaluation(s) Reevaluation #1: - CT scan abdomen and pelvis without IV contrast revealed stable appearing of nonobstructing left-sided lower pole calculi stone and mild fullness of the left renal collecting system without any obstructing source. Otherwise no other acute processes. - therefore at this time patient will be treated for pyelonephritis due to she has an elevated white blood cell count has positive left CVA tenderness and has a positive nitrate. - therefore will DC home with Levaquin along with instructions to return if any new or worsening symptoms to follow up with primary care provider. As patient is tolerating p.o. fluids and solids therefore no indication for admission at this time although I explained to her if she develops this and cannot tolerate the p.o. antibiotic she will need to return DILAN. Patient understands agrees with this plan. Time: 20:43 MDM - Abdominal Pain Medical Records Attestation: I reviewed the patient's medical records. Lab Data Attestation: I reviewed the patient's lab results. Result diagrams: 05/09/21 16:32 05/09/21 16:32 Labs: Lab Results 05/09/21 05/09/21 05/09/21 Range/Units 15:48 16:32 16:32 WBC 12.3 H (4.8-10.8) X10*3/uL RBC 4.58 (4.20-5.50) X10*6/uL Hgb 13.5 (12.0-16.0) g/dl Hct 40.7 (37-47) % MCV 88.9 (80-98) fL MCH 29.5 (27.0-33.0) pg MCHC 33.2 (31.0-35.0) g/dl RDW 13.2 (11.0-16.0) % Plt Count 325 (160-400) X10*3/uL MPV 8.9 L (9.4-12.3) fL Immature Gran % (Auto) 0.2 (0.0-0.4) % Neut % (Auto) 68.2 (45-73) % Lymph % (Auto) 22.3 (20-40) % [place] % (Auto) 7.2 (2-11) % Eos % (Auto) 1.5 (0-4) % Baso % (Auto) 0.6 (0-2) % Lymph # (Auto) 2.8 (1.2-4.9) X10*3/uL [place] # (Auto) 0.9 (0.1-1.2) X10*3/uL Eos # (Auto) 0.2 (0.0-0.4) X10*3/uL Baso # (Auto) 0.1 (0.0-0.2) X10*3/uL Abs Immat Gran (auto) 0.03 (0.00-0.03) X10*3/uL Absolute Neuts (auto) 8.4 H (2.0-8.3) X10*3/uL Absolute Nucleated RBC 0.000 (0.0-0.012) X10*3/uL Nucleated RBC % (auto) 0.0 (0.0-0.2) /100WBC Sodium 140 (135-145) mmol/L Potassium 4.6 (3.3-5.1) mmol/L Chloride 105 (96-108) mmol/L Carbon Dioxide 29 (22-29) mmol/L Anion Gap 11 L (12-20) BUN 8 L (9-16) mg/dL Creatinine 0.73 (0.5-1.4) mg/dL Estim Creat Clear Calc 105.7 Estimated GFR > 60 Random Glucose 87 (60-115) mg/dL Calcium 9.2 (8.4-10.2) mg/dL Total Bilirubin 0.2 (0.0-1.0) mg/dL AST 14 (5-31) U/L ALT 12 (0-31) U/L Alkaline Phosphatase 91 (39-117) U/L Total Protein 7.0 (6.5-8.0) g/dL Albumin 4.2 (3.5-5.0) g/dL Urine Color ORANGE Urine Appearance CLOUDY Urine pH 5.5 (5.0-8.0) Ur Specific [place] 1.010 (1.005-1.025) Urine Protein 1+ H (NEG-TRACE) MG/DL Urine Glucose (UA) 100 H (NEG) MG/DL Urine Ketones NEG (NEG) MG/DL Urine Blood 2+ H (NEG) Urine Nitrite POS H (NEG) Ur Leukocyte Esterase 3+ H (NEG) Urine RBC 10-14 H (0) /HPF Urine WBC TNTC H (0-4) /HPF Ur Squamous Epith Cells 2+ /LPF Urine Bacteria 1+ /LPF Urine Mucus 1+ /LPF Imaging Data CT scan abdomen pelvis without IV contrast: Attestation: I personally reviewed and interpreted this imaging study as follows: Radiologist's impression: FINDINGS: LUNG BASES: The visualized lung bases are unremarkable.? LIVER, GALLBLADDER, AND BILIARY TREE: The liver is normal in size, shape, and attenuation. No focal hepatic lesion or biliary ductal dilatation is present. The gallbladder is unremarkable with no evidence of radiopaque gallstones, gallbladder wall thickening, or obvious pericholecystic inflammatory changes.? PANCREAS: Unremarkable.? SPLEEN: Unremarkable.? ADRENAL GLANDS: Unremarkable.? KIDNEYS AND URETERS: There continues to be stable appearance of a nonobstructing left lower pole calyceal stone measuring 4 mm. Parapelvic cysts suspected. There is minimal fullness of the left renal collecting system without any obstructing source seen down to level the pelvis. No right-sided abnormality. No perinephric collection.? BLADDER: Unremarkable.? GASTROINTESTINAL TRACT: Gastric sleeve surgical changes again noted. Normal appendix. No other change. No acute inflammatory changes. Of note is within the root of mesentery mildly prominent lymph nodes and haziness to the mesenteric fat.? ABDOMINAL WALL: No significant hernia is appreciated.? LYMPH NODES: As above. VASCULAR: Unremarkable. PELVIC VISCERA: Surgically absent? OSSEOUS STRUCTURES: Unremarkable.? CT/CT abdomen pelvis wo con IMPRESSION: ? 1. Stable appearance of nonobstructing left-sided lower pole calyceal stone. 2. Stable mild fullness of the left renal collecting system without any obstructing source. Patient has urinary symptoms, consider urologic assessment. 3. 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 Discharge Plan Discharge Clinical Impression: UTI (urinary tract infection), Kidney calculus, Pyelonephritis Patient Disposition: Home, Self-Care Instructions: Kidney Stones (ED), Urinary Tract Infection in Women (ED), Kidney Infection (ED) Prescriptions: New levofloxacin 750 mg tablet 750 mg PO DAILY 7 Days Qty: 7 RF: 0 tramadol 50 mg tablet 50 mg PO Q8H PRN (Reason: pain) Qty: 14 RF: 0 ibuprofen 800 mg tablet 800 mg PO Q8H PRN (Reason: pain) Qty: 14 RF: 0 No Action diclofenac sodium 1 % gel 4 g topical TID PRN (Reason: pain) Qty: 200 RF: 11 montelukast [Singulair] 10 mg tablet 10 mg PO BEDTIME 90 Days Qty: 90 RF: 1 meloxicam 15 mg tablet 15 mg PO DAILY PRN (Reason: pain) 90 Days Qty: 90 RF: 1 cyclobenzaprine 10 mg tablet 10 mg PO Q8H PRN (Reason: for muscle spasm) Qty: 90 RF: 2 lansoprazole 30 mg capsule,delayed release(DR/EC) 30 mg PO DAILY Qty: 90 RF: 2 ondansetron HCl [Zofran] 4 mg tablet 4 mg PO Q8H PRN (Reason: nausea and vomiting) Qty: 14 RF: 0 Ajovy Autoinjector 225 mg/1.5 mL auto-injector subcut RF: 0 vitamin A 8,000 unit capsule 8,000 unit PO DAILY RF: 0 clonazepam [Klonopin] 0.5 mg tablet 0.5 mg PO DAILY PRNRF: 0 bupropion HCl 150 mg tablet extended release 24 hr 300 mg PO QAM RF: 0 pregabalin [Lyrica] 100 mg capsule 100 mg PO BID 30 Days Qty: 60 RF: 0 multivitamin Tablet 1 tab PO DAILY RF: 0 buspirone 5 mg tablet 5 mg PO TID RF: 0 trazodone 100 mg tablet 100 mg PO BEDTIME RF: 0 albuterol sulfate 90 mcg/actuation HFA aerosol inhaler 2 puff PO Q4H PRNRF: 0 budesonide-formoterol 160-4.5 mcg/actuation HFA aerosol inhaler inhalation RF: 0 cetirizine 10 mg tablet 10 mg PO BID RF: 0 Referrals: Po,Lizandro Conley MD [Primary Care Provider] - 2 days Stand Alone Forms: Work/School Release Print Language: [place] [facility] Past Medical History Attestation statement: The following information was validated with the patient. Medical History Anxiety and depression Asthma Carpal tunnel syndrome Degenerative joint disease of cervical spine Fatty liver GERD (gastroesophageal reflux disease) Hepatitis C antibody test positive Migraine Overweight (BMI 25.0-29.9) Seasonal allergies Ulnar neuropathy Surgical History H/O: hysterectomy History of carpal tunnel release History of sleeve gastrectomy Hx of rotator cuff surgery Hx of tonsillectomy Hx of tubal ligation Family History Family History Father HTN (hypertension) Diabetes mellitus Stroke High cholesterol Mother HTN (hypertension) Diabetes mellitus High cholesterol Sister Diabetes mellitus Breast cancer Stroke Kidney disease Maternal Grandmother Liver cancer Maternal Grandfather Heart disease Social History Social History Alcohol intake: never Patient Tobacco Use Status: Never used Tobacco e-Cigarette/Vaping Use: Never Used Second Hand Smoke Exposure: No Advance Directives: Yes Advance Directives Information Provided: Yes Advance Directives on File: No Patient : No Current occupational status: disabled Gender identity: Female
[2021-05-09 21:04] LABS: HCG Quantitative < 2 mIU/mL
[2021-05-09] MEDS: levoFLOXacin 750 MG TABLET PO (21:39)
== END 2021-05-09 21:43 | disposition home or self-care (01) ==
PROVIDERS: Physician Assistant Medical; Emergency Provider Internal Medicine; PCP Internal Medicine
DX: N12 Tubulo-interstitial nephritis, not specified as acute or chronic (principal); N20.0 Calculus of kidney; N39.0 Urinary tract infection, site not specified
CPT/HCPCS: 36415; 74176; 80053; 81001; 81003; 84702; 85025; 87086; 87088; 87186; 96361; 96374; 99284; J1885

== ENCOUNTER → 2021-05-20 11:25 | Outpatient (BNVA) | payer OTHER, SELFPAY | PROVIDERS: PCP Internal Medicine; Referring Provider Internal Medicine; Visit Provider Nurse Practitioner Family | DX: Z12.11 Encounter for screening for malignant neoplasm of colon (principal); K21.9 Gastro-esophageal reflux disease without esophagitis; R13.10 Dysphagia, unspecified | CPT/HCPCS: 99212 ==

== ENCOUNTER → 2021-05-22 15:24 | Outpatient (BNVA) | payer OTHER, SELFPAY | PROVIDERS: PCP Internal Medicine; Referring Provider Surgery; Visit Provider Physician Assistant | DX: K21.9 Gastro-esophageal reflux disease without esophagitis (principal); Z90.3 Acquired absence of stomach [part of] | CPT/HCPCS: 99212 ==

== ENCOUNTER 2021-06-03 08:57 | Outpatient (REF) | payer OTHER, SELFPAY ==
[2021-06-03 10:12] LABS: Vitamin D 25-OH Total 19.8 ng/mL (>30)
[2021-06-03 10:33] LABS: Folate 7.2 ng/mL (> or = 4.0); Vitamin B12 403 pg/mL (200-900)
[2021-06-04 15:36] LABS: PTHI 70 pg/mL (14-64)
[2021-06-06 11:06] LABS: Zinc 66 mcg/dL (60-130)
[2021-06-06 13:05] LABS: Vitamin B1 8 nmol/L (8-30)
[2021-06-08 09:46] LABS: Vitamin A 48 mcg/dL (38-98)
== END 2021-06-03 08:58 | disposition home or self-care (01) ==
LOC: HO.LAB 08:57
PROVIDERS: Visit Provider Physician Assistant
DX: Z90.3 Acquired absence of stomach [part of] (principal)
CPT/HCPCS: 36415; 82306; 82607; 82746; 83970; 84425; 84590; 84630

== ENCOUNTER 2021-06-24 10:31 | Outpatient (REF) | payer OTHER, SELFPAY ==
--- NOTE | ~2021-06-24 | FL_ITS ---
EXAMINATION: FL BARIUM SWALLOW CLINICAL INFORMATION: R13.10 - Dysphagia, unspecified. Prior history gastric sleeve 2018. Patient notes dysphagia mid chest with solids and tablets. No aspiration or regurgitation. Intermittent heartburn. COMPARISON: Postop GI series 08/17/2017, upper GI series 12/03/2016 TECHNIQUE: Barium swallow examination is performed using fluoroscopic evaluation in addition to multiple fluoroscopic spot views, including cine images during swallowing. The patient is imaged both upright and prone and using both thick and thin sulfate along with effervescent granules. Evaluation with barium tablet also performed. Fluoroscopy time: 1.9 minutes DAP: 6.748 Gycm2 Images: 38 FINDINGS: Swallowing function is normal and there is no aspiration. The cervical esophagus has no web or diverticulum or stricture. The cervical thoracic junction appears normal. The thoracic esophagus shows normal motility with no obstruction, stricture, or ulceration. There is some delay in the transit of the barium tablet with some holding mid thoracic esophagus requiring additional dry swallows to advanced the stomach. There is small sliding hiatal hernia. There is spontaneous gastroesophageal reflux with patient supine extending to the proximal thoracic esophagus. There is been prior gastric sleeve. No gastric outlet obstruction on fluoroscopy assessment upper abdomen. FL/FL barium swallow IMPRESSION: 1. Small sliding hiatal hernia. 2. Spontaneous gastroesophageal reflux to the proximal thoracic esophagus. 3. No stricture or ulceration. 4. Swelling function unremarkable.
== END 2021-06-24 10:32 | disposition home or self-care (01) ==
LOC: HO.XRAY 10:31
PROVIDERS: Visit Provider Nurse Practitioner Family
DX: R13.10 Dysphagia, unspecified (principal)
CPT/HCPCS: 74220

== ENCOUNTER 2021-08-03 11:23 | Outpatient (REF) | payer OTHER, SELFPAY ==
[2021-08-03 12:23] LABS: Appearance Urine CLEAR; Color Urine YELLOW; Glucose Urine UA NEG (NEG); Leukocyte Esterase Urine NEG (NEG); Nitrite Urine NEG (NEG); Specific Gravity - Urine >= 1.030 (1.005-1.025); Urine Blood NEG (NEG); Urine Ketones NEG (NEG); Urine Protein NEG (NEG-TRACE)
== END 2021-08-03 11:24 | disposition home or self-care (01) ==
LOC: HO.LAB 11:23
PROVIDERS: PCP Internal Medicine; Visit Provider Internal Medicine
DX: R30.0 Dysuria (principal)
CPT/HCPCS: 81003

== ENCOUNTER → 2021-08-04 14:27 | Outpatient (BNVA) | payer OTHER, SELFPAY | PROVIDERS: PCP Internal Medicine | DX: N20.0 Calculus of kidney (principal) | CPT/HCPCS: 99202 ==

== ENCOUNTER 2021-08-11 08:55 | Outpatient (REF) | payer OTHER, SELFPAY ==
[2021-08-11 09:26] LABS: MANUAL DIFF FLAG NO
[2021-08-11 10:00] LABS: Basophils Percent Auto 0.2 % (0-2); Eosinophils Percent Auto 0.1 % (0-4); Hemoglobin 14.3 g/dl (12.0-16.0); Imm Gran Abs Auto 0.13 X10*3/uL (0.00-0.03); Lymphocytes Absolute Auto 2.7 X10*3/uL (1.2-4.9); Lymphocytes Percent Auto 20.7 % (20-40); Mean Corpuscular HGB Conc 31.8 g/dl (31.0-35.0); Mean Corpuscular Hemoglobin 28.7 pg (27.0-33.0); Mean Corpuscular Volume 90.4 fL (80.0-98.0); Mean Platelet Volume 9.1 fL (9.4-12.3); Monocytes Absolute Auto 0.9 X10*3/uL (0.1-1.2); Monocytes Percent Auto 6.8 % (2-11); Neutrophils Absolute Auto 9.2 x10*3/uL (2.0-8.3); Neutrophils Percent Auto 71.2 % (45-73); Platelet Count 498 X10*3/uL (160-400); Red Blood Count 4.98 X10*6/uL (4.20-5.50); Red Cell Distribution Width 13.2 % (11.0-16.0); White Blood Count 12.9 X10*3/uL (4.8-10.8)
[2021-08-11 10:29] LABS: Alanine Aminotransferase 23 U/L (0-31); Albumin Level 4.2 g/dL (3.5-5.0); Alkaline Phosphatase 84 U/L (39-117); Anion Gap 12 (12-20); Aspartate Amino Transferase 17 U/L (5-31); Bilirubin Total 0.4 mg/dL (0.0-1.0); Blood Urea Nitrogen 15 mg/dL (9-16); Calcium 9.7 mg/dL (8.4-10.2); Carbon Dioxide 29 mmol/L (22-29); Chloride 104 mmol/L (96-108); Cholesterol 184 mg/dL; Estimated Glomerular Filt Rate > 60; Glucose Random 97 mg/dL (60-115); HDL Cholesterol 58 mg/dL; LDL Cholesterol Calculated 85 mg/dl; Potassium 5.1 mmol/L (3.3-5.1); Sodium 140 mmol/L (135-145); Total Protein 7.3 g/dL (6.5-8.0); Triglycerides 206 mg/dL; Uric Acid 3.5 mg/dL (2.4-5.7)
[2021-08-11 10:48] LABS: HBc Num1 0.13 S/CO (0.00-0.79); HIV AB/AG Nonreactive (Nonreactive); HIV Num 1 0.12 S/CO (0.00-0.99); Hepatitis B Core Antibody Nonreactive (Nonreactive); ~HepC Num1 6.49 S/CO (0.00-0.79); ~Hepatitis C Antibody Reactive (Nonreactive)
[2021-08-11 10:50] LABS: Free T4 (Free Thyroxine) 0.89 ng/dL (0.71-1.85); Thyroid Stimulating Hormone 0.62 uIU/mL (0.32-4.0); Vitamin D 25-OH Total 26.3 ng/mL (>30)
[2021-08-11 11:02] LABS: Folate 9.7 ng/mL (> or = 4.0); Vitamin B12 408 pg/mL (200-900)
[2021-08-11 11:06] LABS: HBS Num1 15.61 mIU/mL (0-7.99); HBsAGNum1 0.29 S/CO (0.00-0.99); Hepatitis B Surface Antigen Negative (Negative); ~Hepatitis B Surface Antibody REACTIVE (Nonreactive)
== END 2021-08-11 08:56 | disposition home or self-care (01) ==
LOC: HO.LAB 08:55
PROVIDERS: PCP Internal Medicine; Visit Provider Internal Medicine
DX: Z00.00 Encounter for general adult medical examination without abnormal findings (principal); Z11.4 Encounter for screening for human immunodeficiency virus [HIV]; K59.04 Chronic idiopathic constipation; K21.9 Gastro-esophageal reflux disease without esophagitis; R14.0 Abdominal distension (gaseous); N20.0 Calculus of kidney; E78.00 Pure hypercholesterolemia, unspecified; R79.89 Other specified abnormal findings of blood chemistry
CPT/HCPCS: 36415; 80053; 80061; 82306; 82607; 82746; 84439; 84443; 84550; 85025; 86704; 86706; 86803; 87340; 87389; 99212

== ENCOUNTER → 2021-09-01 08:55 | Outpatient (REF) | payer OTHER, SELFPAY ==
--- NOTE | 2021-09-01 08:57 | CA_ITS ---
Acquisition Time: 2021-09-01 09:01:07 Total Exercise Time: 00:06:26 Test Indications: CP Medications: SEE CHART Protocol: MIGUEL ANGEL Max HR: 148 BPM 85% of Pred: 173 BPM Max BP: 122/062 mmHG Max Work Load: 7.6 METS Exercise stress test with exercise 6 min 26 sec of Miguel Angel protocol, with mild sob, no chest discomfort, without arrythmia, with normotensive response to exercise, without EKG changes meeting criteria for ischemia. Test reviewed with Dr Allison. Referred By: Lizandro Simon Overread By: MADIHA FIGUEROA
== END ==
LOC: HO.CARD 08:55
PROVIDERS: PCP Internal Medicine; Visit Provider Internal Medicine
DX: R07.9 Chest pain, unspecified (principal)
CPT/HCPCS: 93017

== ENCOUNTER 2021-09-02 18:23 | Emergency (ER) | payer OTHER, SELFPAY ==
--- NOTE | ~2021-09-02 | CT_ITS ---
EXAMINATION: CT ABDOMEN AND PELVIS WITHOUT CONTRAST CLINICAL INFORMATION: Left flank pain with history of stone COMPARISON: Multiple prior CT scans of the abdomen and pelvis the most recent of which was 05/09/2021 TECHNIQUE: Multidetector volumetric imaging was performed from the superior aspect of the liver through the pubic symphysis. Sagittal and coronal reformatted images were obtained on the technologist's workstation. This CT examination was performed using dose optimization techniques as appropriate, variously including the following: *Automated exposure control *Adjustment of mA and/or kV according to patient size (this includes techniques or standardized protocols for targeted exams where dose is matched to indication/reason for exam; i.e. extremities or head) *Use of iterative reconstruction technique DLP: 752 mGy-cm FINDINGS: LUNG BASES: The visualized lung bases are unremarkable. LIVER, GALLBLADDER, AND BILIARY TREE: The liver is again noted to be enlarged measuring 20 cm in greatest cephalocaudad dimension. On this exam, attenuation of the liver is significantly higher than the spleen which does not suggest hepatic steatosis. Normal in size, shape, and attenuation. No focal hepatic lesion or biliary ductal dilatation is present. The gallbladder is unremarkable with no evidence of radiopaque gallstones, gallbladder wall thickening, or obvious pericholecystic inflammatory changes. PANCREAS: Unremarkable. SPLEEN: Unremarkable. ADRENAL GLANDS: Unremarkable. KIDNEYS AND URETERS: The kidneys are normal in size, shape, and attenuation. Left midpole 4 mm stone is seen in the slightly different position than previously noted. No other calculi are seen. There is some mild fullness of both renal collecting systems but obstruction or hydronephrosis. This finding has been present on both studies dating back to 2005. No hydroureter or ureteral calculi seen. No renal masses are detected. No perinephric stranding. BLADDER: Unremarkable. GASTROINTESTINAL TRACT: There has been a gastric sleeve procedure The small and large bowel are unremarkable. The appendix is unremarkable. ABDOMINAL WALL: No significant hernia is appreciated. LYMPH NODES: Normal. VASCULAR: Unremarkable. PELVIC VISCERA: Uterus is not seen. An abnormal adnexal mass or free pelvic fluid is not present. OSSEOUS STRUCTURES: Unremarkable. CT/CT abdomen pelvis wo con IMPRESSION: 1. A cause for the patient's left flank pain is not seen. There is a nonobstructing 4 mm left renal calculus present, unchanged in size. 2. Other incidental findings described above including an enlarged liver and gastric sleeve procedure. Fleischner guidelines were followed.
[2021-09-02 19:31] VITALS: BP 136/83; PULSE 88; RESP 16; TEMP 36.6; O2SAT 99; BMI 29.7
[2021-09-02 19:55] LABS: Appearance Urine CLOUDY; Color Urine ORANGE; Glucose Urine UA 100 MG/DL (NEG); PH 6.5 (5.0-8.0); UACC Culture Trigger YES; Urine Blood 3+ (NEG); Urine Ketones NEG (NEG); Urine Protein 2+ MG/DL (NEG-TRACE)
[2021-09-02 20:05] LABS: UPreg QC Valid YES; Urine Pregnancy NEGATIVE (NEGATIVE)
[2021-09-02 20:11] LABS: WBC Clumps Urine NOTED; WBC Urine 50-75 /HPF (0-4)
[2021-09-02 20:12] LABS: Bacteria Urine TRACE /LPF; Squamous Epithelial Cell Urine TRACE /LPF
[2021-09-02 21:01] LABS: MANUAL DIFF FLAG NO
[2021-09-02 21:02] LABS: Basophils Absolute Auto 0.1 X10*3/uL (0.0-0.2); Basophils Percent Auto 0.6 % (0-2); Eosinophils Absolute Auto 0.2 X10*3/uL (0.0-0.4); Eosinophils Percent Auto 1.4 % (0-4); Hematocrit 40.7 % (37.0-47.0); Hemoglobin 13.3 g/dl (12.0-16.0); Imm Gran Abs Auto 0.07 X10*3/uL (0.00-0.03); Imm Gran Pct Auto 0.4 % (0.0-0.4); Lymphocytes Absolute Auto 4.4 X10*3/uL (1.2-4.9); Lymphocytes Percent Auto 27.4 % (20-40); Mean Corpuscular HGB Conc 32.7 g/dl (31.0-35.0); Mean Corpuscular Hemoglobin 29.4 pg (27.0-33.0); Mean Corpuscular Volume 89.8 fL (80.0-98.0); Mean Platelet Volume 8.5 fL (9.4-12.3); Monocytes Absolute Auto 1.5 X10*3/uL (0.1-1.2); Monocytes Percent Auto 9.2 % (2-11); Neutrophils Absolute Auto 9.7 x10*3/uL (2.0-8.3); Platelet Count 313 X10*3/uL (160-400); Red Blood Count 4.53 X10*6/uL (4.20-5.50); Red Cell Distribution Width 13.7 % (11.0-16.0); White Blood Count 15.9 X10*3/uL (4.8-10.8)
[2021-09-02 21:18] LABS: Anion Gap 12 (12-20); Blood Urea Nitrogen 9 mg/dL (9-16); Carbon Dioxide 25 mmol/L (22-29); Chloride 106 mmol/L (96-108); Creatinine Clr Calc Pharmacy 96.8; Estimated Glomerular Filt Rate > 60; Glucose Random 108 mg/dL (60-115); Potassium 3.6 mmol/L (3.3-5.1); Sodium 139 mmol/L (135-145)
--- NOTE | 2021-09-02 21:21 | ED.ABDPAIN ---
HPI - Abdominal Pain General Chief Complaint: Abdominal Pain Stated Complaint: kidney stones Time Seen by Provider: 09/02/21 21:16 Source: patient Mode of arrival: ambulatory Limitations: no limitations History of Present Illness HPI narrative: Patient's history of nonobstructive left kidney stone was seen here last time on 05/14, stair a similar pain on the left flank area now feels a pain in the left lower quadrant also since 16:00 today also had some blood in the urine no dysuria patient feels nauseated no vomiting also patient complaining of frequency and dysuria taking Pyridium [id number] today Related Data Home Medications Medication Instructions Recorded Confirmed albuterol sulfate 90 mcg/actuation 2 puff PO Q4H PRN 05/29/20 08/05/21 aerosol inhaler budesonide-formoterol HFA 160 INHALATION 05/29/20 08/05/21 mcg-4.5 mcg/actuation aerosol inhaler cetirizine 10 mg tablet 10 mg PO BID tab 09/11/20 08/05/21 fremanezumab-vfrm 225 mg/1.5 mL mg SUBCUT 09/11/20 08/05/21 subcutaneous auto-injector (Ajovy) bupropion HCl 150 mg 24 hr tablet, 300 mg PO QAM tab 03/26/21 08/05/21 extended release buspirone 5 mg tablet 5 mg PO TID 03/26/21 08/05/21 clonazepam 0.5 mg tablet (Klonopin) 0.5 mg PO DAILY PRN 03/26/21 08/05/21 multivitamin 1 tab PO DAILY 03/26/21 08/05/21 Previous Rx's Medication Instructions Recorded diclofenac sodium 1 % topical gel 4 g TOPICAL TID PRN #200 g 01/05/21 meloxicam 15 mg tablet 15 mg PO DAILY PRN 90 Days #90 tab 02/12/21 montelukast 10 mg tablet 10 mg PO BEDTIME 90 Days #90 tab 02/12/21 (Singulair) ondansetron HCl 4 mg tablet 4 mg PO Q8H PRN #14 tab 04/09/21 (Zofran) pregabalin 100 mg capsule (Lyrica) 100 mg PO BID 30 Days #60 cap 04/20/21 tramadol 50 mg tablet 50 mg PO Q8H PRN #14 tab 05/09/21 cholecalciferol (vitamin D3) 50 50 mcg PO DAILY #30 cap 06/08/21 mcg (2,000 unit) capsule cyclobenzaprine 10 mg tablet 10 mg PO Q8H PRN #90 tab 07/31/21 tramadol 50 mg tablet 50 mg PO Q8H #20 tab 08/04/21 psyllium husk (aspartame) 3.4 4.851496 g PO DAILY 30 Days #660 g 08/05/21 gram/5.8 gram oral powder (Metamucil [facility] Fiber) magnesium citrate (Citrate of 150 ml PO DAILY PRN #296 ml 08/11/21 Magnesia) sucralfate 1 gram tablet 1 g PO BID #60 tab 08/11/21 omeprazole 40 mg capsule,delayed 40 mg PO DAILY #90 cap 08/18/21 release lubiprostone 24 mcg capsule 24 mcg PO BID 30 Days #60 cap 08/27/21 (Amitiza) ciprofloxacin HCl 500 mg tablet 500 mg PO BID #14 tab 09/02/21 (Cipro) tramadol 50 mg tablet 50 mg PO Q6H PRN #20 tab 09/02/21 Allergies Allergy/AdvReac Type Severity Reaction Status Date / Time oxycodone [From PERCOCET] Allergy Unknown TACHYCARDIA, Verified 08/11/21 09:50 HEADACHE Sausage Allergy Unknown Unknown Uncoded 05/22/21 15:34 Review of Systems Review of Systems Yes all other systems are reviewed and are negative Physical Exam Vital Signs: Vital Signs: Last Vital Signs Temp 97.6 F 09/02/21 22:00 Pulse 82 09/02/21 22:00 Resp 15 09/02/21 22:00 BP 148/93 H 09/02/21 22:00 Pulse Ox 100 09/02/21 22:00 BMI result Body Mass Index 29.7 Appearance: Alert. Oriented X3. No acute distress. Eyes: PERRLA, No Nystagmus ENT: Pharynx normal. Oral Mucosa moist Neck: Normal inspection. Neck supple. CVS: Normal heart rate and rhythm. Pulses normal. Respiratory: No respiratory distress. Equal air entry bilateral, no wheezing/rales/rhonchi Abdomen: Soft and nontender. Bowel sounds are present, no mass palpable, + L CVA tenderness Skin: Skin warm and dry. Normal skin color. Normal skin turgor. Extremities: No lower extremity edema. No calf tenderness Neuro: Oriented X 3. No motor deficit. No sensory deficit.No cerebellar signs , cranial nerves II-XII intact MDM - Abdominal Pain Lab Data Attestation: I reviewed the patient's lab results. Result diagrams: 09/02/21 20:55 09/02/21 20:55 Labs: Lab Results 09/02/21 09/02/21 09/02/21 Range/Units 19:48 19:48 20:55 WBC 15.9 H (4.8-10.8) X10*3/uL RBC 4.53 (4.20-5.50) X10*6/uL Hgb 13.3 (12.0-16.0) g/dl Hct 40.7 (37.0-47.0) % MCV 89.8 (80.0-98.0) fL MCH 29.4 (27.0-33.0) pg MCHC 32.7 (31.0-35.0) g/dl RDW 13.7 (11.0-16.0) % Plt Count 313 D (160-400) X10*3/uL MPV 8.5 L (9.4-12.3) fL Immature Gran % (Auto) 0.4 (0.0-0.4) % Neut % (Auto) 61.0 (45-73) % Lymph % (Auto) 27.4 (20-40) % [place] % (Auto) 9.2 (2-11) % Eos % (Auto) 1.4 (0-4) % Baso % (Auto) 0.6 (0-2) % Lymph # (Auto) 4.4 (1.2-4.9) X10*3/uL [place] # (Auto) 1.5 H (0.1-1.2) X10*3/uL Eos # (Auto) 0.2 (0.0-0.4) X10*3/uL Baso # (Auto) 0.1 (0.0-0.2) X10*3/uL Abs Immat Gran (auto) 0.07 H (0.00-0.03) X10*3/uL Absolute Neuts (auto) 9.7 H (2.0-8.3) x10*3/uL Absolute Nucleated RBC 0.000 (0.0-0.012) X10*3/uL Nucleated RBC % (auto) 0.0 (0.0-0.2) /100WBC Sodium (135-145) mmol/L Potassium (3.3-5.1) mmol/L Chloride (96-108) mmol/L Carbon Dioxide (22-29) mmol/L Anion Gap (12-20) BUN (9-16) mg/dL Creatinine (0.5-1.4) mg/dL Estim Creat Clear Calc Estimated GFR Random Glucose (60-115) mg/dL Calcium (8.4-10.2) mg/dL Urine Color ORANGE A Urine Appearance CLOUDY Urine pH 6.5 (5.0-8.0) Ur Specific [place] 1.010 (1.005-1.025) Urine Protein 2+ H (NEG-TRACE) MG/DL Urine Glucose (UA) 100 H (NEG) MG/DL Urine Ketones NEG (NEG) MG/DL Urine Blood 3+ H (NEG) Urine Nitrite Not Reportable Ur Leukocyte Esterase Not Reportable Urine RBC 76-150 H (0) /HPF Urine WBC 50-75 H (0-4) /HPF Urine WBC Clumps NOTED Ur Squamous Epith Cells TRACE /LPF Urine Bacteria TRACE /LPF Urine Test NEGATIVE (NEGATIVE) 09/02/21 Range/Units 20:55 WBC (4.8-10.8) X10*3/uL RBC (4.20-5.50) X10*6/uL Hgb (12.0-16.0) g/dl Hct (37.0-47.0) % MCV (80.0-98.0) fL MCH (27.0-33.0) pg MCHC (31.0-35.0) g/dl RDW (11.0-16.0) % Plt Count (160-400) X10*3/uL MPV (9.4-12.3) fL Immature Gran % (Auto) (0.0-0.4) % Neut % (Auto) (45-73) % Lymph % (Auto) (20-40) % [place] % (Auto) (2-11) % Eos % (Auto) (0-4) % Baso % (Auto) (0-2) % Lymph # (Auto) (1.2-4.9) X10*3/uL [place] # (Auto) (0.1-1.2) X10*3/uL Eos # (Auto) (0.0-0.4) X10*3/uL Baso # (Auto) (0.0-0.2) X10*3/uL Abs Immat Gran (auto) (0.00-0.03) X10*3/uL Absolute Neuts (auto) (2.0-8.3) x10*3/uL Absolute Nucleated RBC (0.0-0.012) X10*3/uL Nucleated RBC % (auto) (0.0-0.2) /100WBC Sodium 139 (135-145) mmol/L Potassium 3.6 D (3.3-5.1) mmol/L Chloride 106 (96-108) mmol/L Carbon Dioxide 25 (22-29) mmol/L Anion Gap 12 (12-20) BUN 9 (9-16) mg/dL Creatinine 0.81 (0.5-1.4) mg/dL Estim Creat Clear Calc 96.8 Estimated GFR > 60 Random Glucose 108 (60-115) mg/dL Calcium 9.0 D (8.4-10.2) mg/dL Urine Color Urine Appearance Urine pH (5.0-8.0) Ur Specific [place] (1.005-1.025) Urine Protein (NEG-TRACE) MG/DL Urine Glucose (UA) (NEG) MG/DL Urine Ketones (NEG) MG/DL Urine Blood (NEG) Urine Nitrite Ur Leukocyte Esterase Urine RBC (0) /HPF Urine WBC (0-4) /HPF Urine WBC Clumps Ur Squamous Epith Cells /LPF Urine Bacteria /LPF Urine Test (NEGATIVE) Discharge Plan Discharge Clinical Impression: UTI (urinary tract infection), Flank pain Patient Disposition: Home, Self-Care Instructions: Kidney Stones (ED), Urinary Tract Infection in Women (DC) Additional Instructions: You still have 4 mm kidney stone on the left side follow with urologist for further care Drink plenty of fluids You might have mild infection in the bladder take antibiotic as prescribed Prescriptions: New tramadol 50 mg tablet 50 mg PO Q6H PRN (Reason: pain) Qty: 20 0RF ciprofloxacin HCl [Cipro] 500 mg tablet 500 mg PO BID Qty: 14 0RF No Action diclofenac sodium 1 % gel 4 g topical TID PRN (Reason: pain) Qty: 200 11RF montelukast [Singulair] 10 mg tablet 10 mg PO BEDTIME 90 Days Qty: 90 1RF meloxicam 15 mg tablet 15 mg PO DAILY PRN (Reason: pain) 90 Days Qty: 90 1RF cholecalciferol (vitamin D3) 50 mcg (2,000 unit) capsule 50 mcg PO DAILY Qty: 30 11RF cyclobenzaprine 10 mg tablet 10 mg PO Q8H PRN (Reason: for muscle spasm) Qty: 90 2RF omeprazole 40 mg capsule,delayed release(DR/EC) 40 mg PO DAILY Qty: 90 3RF lubiprostone [Amitiza] 24 mcg capsule 24 mcg PO BID 30 Days Qty: 60 6RF ondansetron HCl [Zofran] 4 mg tablet 4 mg PO Q8H PRN (Reason: nausea and vomiting) Qty: 14 0RF tramadol 50 mg tablet 50 mg PO Q8H PRN (Reason: pain) Qty: 14 0RF Ajovy Autoinjector 225 mg/1.5 mL auto-injector subcut 0RF clonazepam [Klonopin] 0.5 mg tablet 0.5 mg PO DAILY PRN0RF bupropion HCl 150 mg tablet extended release 24 hr 300 mg PO QAM 0RF pregabalin [Lyrica] 100 mg capsule 100 mg PO BID 30 Days Qty: 60 0RF Metamucil [facility] Fiber 3.4 gram/5.8 gram powder 4.926783 g PO DAILY 30 Days Qty: 660 3RF multivitamin Tablet 1 tab PO DAILY 0RF buspirone 5 mg tablet 5 mg PO TID 0RF albuterol sulfate 90 mcg/actuation HFA aerosol inhaler 2 puff PO Q4H PRN0RF budesonide-formoterol 160-4.5 mcg/actuation HFA aerosol inhaler inhalation 0RF cetirizine 10 mg tablet 10 mg PO BID 0RF tramadol 50 mg tablet 50 mg PO Q8H Qty: 20 0RF magnesium citrate [Citrate of Magnesia] Solution 150 ml PO DAILY PRN (Reason: constipation) Qty: 296 5RF sucralfate 1 gram tablet 1 g PO BID Qty: 60 1RF Referrals: Chaparro Florence MD [Physician] - 1 week [facility] Past Medical History Medical History Anxiety and depression Asthma Carpal tunnel syndrome Degenerative joint disease of cervical spine Fatty liver GERD (gastroesophageal reflux disease) Hepatitis C antibody test positive Migraine Overweight (BMI 25.0-29.9) Seasonal allergies Ulnar neuropathy Surgical History H/O: hysterectomy History of carpal tunnel release History of sleeve gastrectomy Hx of rotator cuff surgery Hx of tonsillectomy Hx of tubal ligation Family History Family History Father HTN (hypertension) Diabetes mellitus Stroke High cholesterol Mother HTN (hypertension) Diabetes mellitus High cholesterol Sister Diabetes mellitus Breast cancer Stroke Kidney disease Maternal Grandmother Liver cancer Maternal Grandfather Heart disease Social History Social History Housing: Apartment Alcohol intake: never Patient Tobacco Use Status: Never used Tobacco e-Cigarette/Vaping Use: Never Used Second Hand Smoke Exposure: No Advance Directives: No Advance Directives Information Provided: No Patient : No Current occupational status: disabled Gender identity: Female
[2021-09-02 21:29] VITALS: BP 159/90; PULSE 95; RESP 18; TEMP 36.4; O2SAT 100
[2021-09-02 22:00] VITALS: BP 148/93; PULSE 82; RESP 15; TEMP 36.4; O2SAT 100
[2021-09-02] MEDS: traMADoL HCL 50 MG TABLET PO (22:30)
[2021-09-02] MEDS: Ketorolac Tromethamine 60 MG/2 ML VIAL IM (22:30)
[2021-09-02] MEDS: levoFLOXacin 500 MG TABLET PO (22:31)
== END 2021-09-02 23:32 | disposition home or self-care (01) ==
PROVIDERS: Emergency Provider Internal Medicine; PCP Internal Medicine
DX: N39.0 Urinary tract infection, site not specified (principal); R10.9 Unspecified abdominal pain; N20.0 Calculus of kidney; Z90.3 Acquired absence of stomach [part of]
CPT/HCPCS: 36415; 74176; 80048; 81001; 81025; 85025; 87086; 87088; 87186; 96372; 99284; J1885

== ENCOUNTER → 2021-09-09 08:58 | Outpatient (BNVA) | payer OTHER, SELFPAY | PROVIDERS: PCP Internal Medicine; Referring Provider Internal Medicine; Visit Provider Nurse Practitioner Family | DX: Z12.11 Encounter for screening for malignant neoplasm of colon (principal); K59.04 Chronic idiopathic constipation; K21.9 Gastro-esophageal reflux disease without esophagitis; R14.0 Abdominal distension (gaseous) | CPT/HCPCS: 99212 ==

== ENCOUNTER 2021-10-06 07:56 | Outpatient (REF) | payer OTHER, SELFPAY ==
[2021-10-07 08:44] LABS: BV Int Neg Control Negative (Negative); BV Int Pos Control Positive (Positive)
== END 2021-10-06 07:57 | disposition home or self-care (01) ==
LOC: HO.LAB 07:56
PROVIDERS: PCP Internal Medicine; Visit Provider Advanced Practice Midwife
DX: R10.2 Pelvic and perineal pain (principal); R23.2 Flushing
CPT/HCPCS: 81003; 87480; 87510; 87660; 99212

== ENCOUNTER → 2021-10-14 13:14 | Outpatient (BNVA) | payer OTHER, SELFPAY | PROVIDERS: PCP Internal Medicine; Referring Provider Internal Medicine; Visit Provider Physician Assistant | DX: E66.9 Obesity, unspecified (principal); K59.04 Chronic idiopathic constipation; K21.9 Gastro-esophageal reflux disease without esophagitis; K44.9 Diaphragmatic hernia without obstruction or gangrene; Z90.3 Acquired absence of stomach [part of]; Z68.30 Body mass index [BMI] 30.0-30.9, adult | CPT/HCPCS: 99212 ==

== ENCOUNTER 2021-10-23 09:38 | Outpatient (REF) | payer OTHER, SELFPAY ==
[2021-10-27 22:13] LABS: Vitamin A 51 mcg/dL (38-98)
[2021-10-29 16:36] LABS: Vitamin B1 16 nmol/L (8-30)
== END 2021-10-23 09:39 | disposition home or self-care (01) ==
LOC: HO.LAB 09:38
PROVIDERS: PCP Internal Medicine; Visit Provider Physician Assistant
DX: Z98.84 Bariatric surgery status (principal)
CPT/HCPCS: 36415; 84425; 84590

== ENCOUNTER 2021-10-29 10:49 | Outpatient (REF) | payer OTHER, SELFPAY ==
--- NOTE | ~2021-10-29 | US_ITS ---
EXAM: Pelvic Ultrasound CLINICAL INDICATION: Pelvic and perineal pain. COMPARISON: CT abdomen pelvis 09/02/2021 and pelvic ultrasound 01/04/2013 TECHNIQUE: The pelvis was evaluated using transabdominal and transvaginal imaging. FINDINGS: The uterus is surgically absent. The left ovary measures approximately 3.9 x 2.9 x 3.1 cm and contains either two adjacent simple appearing cysts or one large cyst with a mildly thickened but avascular septation. If measured as separate cysts, the dominant cyst measures 3.5 cm, however, if this is a single septated cyst, the cyst measures 4 cm in maximum dimension. The right ovary was not clearly visualized. There is no free fluid in the pelvis. US/US pelvic and transvaginal IMPRESSION: The left ovary measures approximately 3.9 x 2.9 x 3.1 cm and contains either two adjacent simple appearing cysts or one large cyst with a mildly thickened but avascular septation. If measured as separate cysts, the dominant cyst measures 3.5 cm, however, if this is a single septated cyst, the cyst measures 4 cm in maximum dimension.
== END 2021-10-29 10:50 | disposition home or self-care (01) ==
LOC: HO.US 10:49
PROVIDERS: PCP Internal Medicine; Visit Provider Advanced Practice Midwife
DX: R10.2 Pelvic and perineal pain (principal)
CPT/HCPCS: 76830; 76856

== ENCOUNTER 2021-11-04 09:06 | Day surgery (SDC) | payer OTHER, SELFPAY ==
[2021-10-01 09:06] VITALS: BMI 30.5
[2021-10-29 19:56] VITALS: BMI 31.0
--- NOTE | 2021-11-03 09:48 | P.CONAN_ITS ---
Documented by User: Jessica Helm NP 11/03/21 09:55 HPI - Anesthesia Eval Consult details Narrative: 46yo F for Colonoscopy PMFSH Active Problems Active Problems: All Active Problems (Updated 10/29/21 @ 19:55 by Sera Tate RN) Fibromyalgia (Acute) Grief reaction (Acute) UTI (urinary tract infection) (Acute) Lumbar radiculopathy (Acute) Shoulder pain, left (Acute) Sexually transmitted disease exposure (Acute) Vaginal discharge (Acute) Vaginal dryness (Acute) Screening mammogram, encounter for (Acute) Otitis externa (Acute) Generalized anxiety disorder (Acute) Left renal stone (Acute) Colon cancer screening (Acute) Dysuria (Acute) Microscopic hematuria (Acute) Annual physical exam (Acute) Obesity (BMI 30.0-34.9) (Acute) Constipation (Acute) Chest pain (Acute) Chronic idiopathic constipation (Acute) Pelvic pain in female (Acute) Hot flashes (Acute) Hiatal hernia (Acute) History of sleeve gastrectomy (Acute) Overweight (BMI 25.0-29.9) (Acute) Asthma (Acute) GERD (gastroesophageal reflux disease) (Acute) Past Medical History Medical History Anxiety and depression Asthma Carpal tunnel syndrome Degenerative joint disease of cervical spine Fatty liver GERD (gastroesophageal reflux disease) Hepatitis C antibody test positive History of renal calculi Migraine Overweight (BMI 25.0-29.9) Seasonal allergies Ulnar neuropathy Family History Family History Father HTN (hypertension) Diabetes mellitus Stroke High cholesterol Mother HTN (hypertension) Diabetes mellitus High cholesterol Sister Diabetes mellitus Breast cancer Stroke Kidney disease Maternal Grandmother Liver cancer Maternal Grandfather Heart disease Surgical History Surgical History H/O colonoscopy H/O: hysterectomy History of carpal tunnel release History of esophagogastroduodenoscopy (EGD) History of sleeve gastrectomy Hx of rotator cuff surgery Hx of tonsillectomy Hx of tubal ligation Social History Social History Housing: Apartment Alcohol intake: current Alcohol intake frequency: holidays/special occasions only Patient Tobacco Use Status: Never used Tobacco e-Cigarette/Vaping Use: Never Used Second Hand Smoke Exposure: No Use of substances other than those prescribed or required for medical reasons: No Are you DNR?: No Advance Directives: Yes (HCP dated 04/21/16) Advance Directives Information Provided: Yes Advance Directives on File: Yes Advance Directives Date on File: 02/11/21 Recently lost weight without trying: No Nutrition Risks: No Nutritional Risk Patient : No Current occupational status: disabled Gender identity: Female Meds Allergies Allergy/AdvReac Type Severity Reaction Status Date / Time oxycodone [From PERCOCET] Allergy Intermediate TACHYCARDIA, Verified 10/14/21 13:19 HEADACHE Sausage Allergy Unknown Unknown Uncoded 09/09/21 09:16 Home Medications Medication Instructions Recorded Confirmed Last Taken Type albuterol sulfate 90 mcg/actuation 2 puff PO Q4H PRN 05/29/20 10/29/21 Unknown History aerosol inhaler budesonide-formoterol HFA 160 1 puff INHALATION DAILY 05/29/20 10/29/21 Unknown History mcg-4.5 mcg/actuation aerosol inhaler cetirizine 10 mg tablet 10 mg PO BID tab 09/11/20 10/29/21 Unknown History fremanezumab-vfrm 225 mg/1.5 mL 1 mg SUBCUT DAILY 09/11/20 10/29/21 Unknown History subcutaneous auto-injector (Ajovy) bupropion HCl 150 mg 24 hr tablet, 300 mg PO QAM tab 03/26/21 10/29/21 Unknown History extended release clonazepam 0.5 mg tablet (Klonopin) 0.5 mg PO DAILY PRN 03/26/21 10/29/21 Unknown History multivitamin 1 tab PO DAILY 03/26/21 10/29/21 Unknown History Exam Exam Date and Time: November 03, 2021 0948 Height,Weight and Vital Signs: Height 5 ft 7 in Weight 89.811 kg Pertinent Lab Results Pertinent Lab Results: Laboratory Tests 09/02/21 09/02/21 20:55 20:55 WBC 15.9 H Hgb 13.3 Hct 40.7 Plt Count 313 D Sodium 139 Potassium 3.6 D Chloride 106 Carbon Dioxide 25 BUN 9 Creatinine 0.81 Narrative Narrative: Exercise Stress 08/2021 Protocol: TOMÁS ? Max HR: 148 BPM? 85% of? Pred: 173 BPM Max BP: 122/062 mmHG Max Work Load: 7.6 METS ? Exercise stress test with exercise 6 min 26 sec of Tomás protocol, with mild ?sob, no chest discomfort, without arrythmia, with normotensive response to ?exercise, without EKG changes meeting criteria for ischemia. Test reviewed with ?Dr Allison. EKG 11/2020 Vent. Rate : 070 BPM ? ? Atrial Rate : 070 BPM ?? P-R Int : 170 ms? QRS Dur : 078 ms ? ? QT Int : 410 ms ? ? ? P-R-T Axes : 080 -05 038 degrees ?? QTc Int : 442 ms ? Normal sinus rhythm Cannot rule out Anterior infarct , age undetermined ; more likely from body habitus and lead placement Borderline ECG No significant changes when compared with the previous EKG? of 08 apr 2019 Assessment and Plan Assessment Anesthesia Assessment: Chart Reviewed Documented by User: Marisol Snyder MD 11/04/21 09:40 [facility] Past Medical History Medical History Anxiety and depression Asthma Carpal tunnel syndrome Degenerative joint disease of cervical spine Fatty liver GERD (gastroesophageal reflux disease) Hepatitis C antibody test positive History of renal calculi Migraine Overweight (BMI 25.0-29.9) Seasonal allergies Ulnar neuropathy Family History Family History Father HTN (hypertension) Diabetes mellitus Stroke High cholesterol Mother HTN (hypertension) Diabetes mellitus High cholesterol Sister Diabetes mellitus Breast cancer Stroke Kidney disease Maternal Grandmother Liver cancer Maternal Grandfather Heart disease Surgical History Surgical History H/O colonoscopy H/O: hysterectomy History of carpal tunnel release History of esophagogastroduodenoscopy (EGD) History of sleeve gastrectomy Hx of rotator cuff surgery Hx of tonsillectomy Hx of tubal ligation History of Problems with Anesthesia: No Social History Social History Housing: Apartment Alcohol intake: current Alcohol intake frequency: holidays/special occasions only Patient Tobacco Use Status: Never used Tobacco e-Cigarette/Vaping Use: Never Used Second Hand Smoke Exposure: No Use of substances other than those prescribed or required for medical reasons: No Are you DNR?: No Advance Directives: Yes (HCP dated 04/21/16) Advance Directives Information Provided: Yes Advance Directives on File: Yes Advance Directives Date on File: 02/11/21 Recently lost weight without trying: No Nutrition Risks: No Nutritional Risk Patient : No Current occupational status: disabled Gender identity: Female Meds Allergies Allergy/AdvReac Type Severity Reaction Status Date / Time oxycodone [From PERCOCET] Allergy Intermediate TACHYCARDIA, Verified 10/14/21 13:19 HEADACHE Sausage Allergy Unknown Unknown Uncoded 09/09/21 09:16 Home Medications Medication Instructions Recorded Confirmed Last Taken Type albuterol sulfate 90 mcg/actuation 2 puff PO Q4H PRN 05/29/20 10/29/21 Unknown History aerosol inhaler budesonide-formoterol HFA 160 1 puff INHALATION DAILY 05/29/20 10/29/21 Unknown History mcg-4.5 mcg/actuation aerosol inhaler cetirizine 10 mg tablet 10 mg PO BID tab 09/11/20 10/29/21 Unknown History fremanezumab-vfrm 225 mg/1.5 mL 1 mg SUBCUT DAILY 09/11/20 10/29/21 Unknown History subcutaneous auto-injector (Ajovy) bupropion HCl 150 mg 24 hr tablet, 300 mg PO QAM tab 03/26/21 10/29/21 Unknown History extended release clonazepam 0.5 mg tablet (Klonopin) 0.5 mg PO DAILY PRN 03/26/21 10/29/21 Unknown History multivitamin 1 tab PO DAILY 03/26/21 10/29/21 Unknown History Exam Airway Mallampati Class: II TM Dist: >3cm Neck ROM: Full Loose/Missing/Broken Teeth: No Heart: RRR Lungs: CTA Assessment and Plan Assessment Anesthesia Assessment: Anesthesia Plan Discussed Final Anesthetic Review History of Problems with Anesthesia: No NPO: Yes ASA Class: II Final Preanesthetic Review: Consent Obtained/Reviewed and Anes Risks/Benef Reviewed Patient Risk: Low Procedure Risk: Low Anesthetic Plan Anesthetic Plan: MAC: Disposition: Standard PACU
[2021-11-04 09:44] VITALS: BP 127/75; PULSE 78; RESP 16; TEMP 36.4; O2SAT 99
[2021-11-04] MEDS: Lactated Ringers 1,000 ML 100 ML IVCONT (09:47)
--- NOTE | 2021-11-04 10:33 | P.HPSUR_ITS ---
Pre-Procedural Eval Section A Date of Service: 11/04/21 Section B Chief Complaint: Screening Details of Present Illness: sister and uncle with colon cancer Relevant Family History (Specify if Yes): Yes Relevant Social History: None Present Medications: see Short Stay Collaborative assessment Medical History: Significant History (Anxiety and depression Asthma Carpal tunnel syndrome Degenerative joint disease of cervical spine Fatty liver GERD (gastroesophageal reflux disease) Hepatitis C antibody test positive History of renal calculi Migraine Overweight (BMI 25.0-29.9) Seasonal allergies Ulnar neuropathy) History of Previous Operations: Relevant previous surgery/procedure and date(s) (H/O colonoscopy H/O: hysterectomy History of carpal tunnel release History of esophagogastroduodenoscopy (EGD) History of sleeve gastrectomy Hx of rotator cuff surgery Hx of tonsillectomy Hx of tubal ligation) Allergies: Allergies Allergy/AdvReac Type Severity Reaction Status Date / Time oxycodone [From PERCOCET] Allergy Intermediate TACHYCARDIA, Verified 10/14/21 13:19 HEADACHE Sausage Allergy Unknown Unknown Uncoded 09/09/21 09:16 Review of Systems Sugical H&P ROS: Negative: Constitution, Cardiovascular, Respiratory, Neurologic al, Psychiatric, Hem-Onc, Allergic/Immunologic, Gastrointestinal, Genitourinary, Musculoskeletal, Integumentary, Endocrine and Eyes/Ears/Nose/Throat Exam Surgical H&P Exam: Normal: HEENT, Normal: Heart, Normal: Lungs, Normal: Extremities, Normal: Abdomen, Normal: Skin and Normal: Neurological Plan Diagnosis/Plan: Unchanged I have reviewed the history and physical and performed a pertinent physical examination on my patient. No changes have occurred unless specified.
--- NOTE | 2021-11-04 10:34 | P.BOP_ITS ---
Brief Operative Note Date of Service: 11/04/21 Pre-op diagnosis: FH of colon cancer Post-op diagnosis: same Procedure: see op note Surgeon: Jennifer Rawls MD Anesthesia: MAC Was an Billing And Insurance Coordinator used for this Procedure?: No Estimated blood loss (mL): 0 Condition: stable Disposition: PACU
--- NOTE | 2021-11-04 10:34 | P.OP_ITS ---
Operative Note Operative Note Date of Service: 11/04/21 Narrative: Operative Information Procedure Description: Colonoscopy Indication: FH of CRC, -screening--high risk Anesthesia: MAC COLONOSCOPY Instrument: Olympus variable stiffness adult scope 190L Colonoscopy Monitoring: Vital signs and clinical assessment, continuous EKG monitoring, Pulse oximetry, Carbon Dioxide monitoring and blood pressure monitoring were done throughout the procedure. Colon withdrawal time was 14 minutes. Procedure: The patient was placed in the left lateral decubitis position and pre-procedure medications were administered. After a digital rectal examination of the ano-rectum, the video colonoscope was inserted into the rectum and advanced through the colon to the cecum/TI. The colonoscope was slowly withdrawn in a retrograde panoramic fashion and the colon mucosa was carefully examined including a retroflexed view of the rectum. Findings and interventions are described below. Procedure Difficulty: easy Findings: Terminal Ileum-normal Right sided retroflexion-nml Cecum:normal Ascending Colon: normal Transverse Colon -normal Descending Colon:normal Sigmoid Colon: 4-6 mm sessile polyp removed with cold forceps Rectum: Retroflexion with small internal hemorrhoids, grade I Anorectum - normal Colon preparation: [place] Bowel Preparation Scale Right colon; 3 Transverse colon: 2 Left colon; 2 (0 = Unprepared colon segment with mucosa not seen due to solid stool that c annot be cleared. 1 = Portion of mucosa of the colon segment seen, but other areas of the colon segment not well seen due to staining, residual stool and/or opaque liquid. 2 = Minor amount of residual staining, small fragments of stool and/or opaque liquid, but mucosa of colon segment seen well. 3 = Entire mucosa of colon segment seen well with no residual staining, small fragments of stool or opaque liquid) Impression and Post Procedure Diagnosis: polyp internal hemorrhoids Plan: High fiber diet leaflet Avoid straining at stool, epsom salts and sitz bath, anusol supps or cream Repeat Colonoscopy in 5 years due to FH of CRC or earlier if clinically indicated Above findings were reviewed with the patient and relevant handouts were provided if indicated.
[2021-11-04 11:33] VITALS: BP 108/68; PULSE 77; RESP 18; TEMP 36.4; O2SAT 98
[2021-11-04 11:48] VITALS: BP 120/73; PULSE 69; RESP 18; O2SAT 99
[2021-11-04 12:03] VITALS: BP 130/80; PULSE 70; RESP 18; TEMP 36.7; O2SAT 99
== END 2021-11-04 13:09 | disposition home or self-care (01) ==
PROVIDERS: PCP Internal Medicine; Visit Provider Internal Medicine Gastroenterology
PROC: 0DJD8ZZ Inspection of Lower Intestinal Tract, Via Natural or Artificial Opening Endoscopic (ICD-10-PCS; CPT 45378; principal; 2021-11-04 11:00)
DX: Z12.11 Encounter for screening for malignant neoplasm of colon (principal); Z80.0 Family history of malignant neoplasm of digestive organs; K63.5 Polyp of colon; K64.0 First degree hemorrhoids; K59.00 Constipation, unspecified; K21.9 Gastro-esophageal reflux disease without esophagitis; K76.0 Fatty (change of) liver, not elsewhere classified; J45.909 Unspecified asthma, uncomplicated; Z79.899 Other long term (current) drug therapy; Z88.8 Allergy status to other drugs, medicaments and biological substances; Z98.84 Bariatric surgery status
CPT/HCPCS: 45380; 88305

== ENCOUNTER → 2021-11-12 11:32 | Outpatient (BNVA) | payer OTHER, SELFPAY | PROVIDERS: PCP Internal Medicine; Visit Provider Advanced Practice Midwife | DX: Z13.89 Encounter for screening for other disorder (principal) ==

== ENCOUNTER 2021-11-13 09:35 | Outpatient (REF) | payer OTHER, SELFPAY ==
[2021-11-16 14:56] LABS: CA 125 New Method 5 U/mL (<35); CA-125 4 U/mL (<35)
== END 2021-11-13 09:36 | disposition home or self-care (01) ==
LOC: HO.LAB 09:35
PROVIDERS: PCP Internal Medicine; Visit Provider Advanced Practice Midwife
DX: N83.292 Other ovarian cyst, left side (principal)
CPT/HCPCS: 36415; 86304

== ENCOUNTER → 2021-11-20 15:07 | Outpatient (BNVA) | payer OTHER, SELFPAY | PROVIDERS: PCP Internal Medicine; Referring Provider Internal Medicine; Visit Provider Nurse Practitioner Family | DX: K59.04 Chronic idiopathic constipation (principal); K21.9 Gastro-esophageal reflux disease without esophagitis | CPT/HCPCS: 99212 ==

== ENCOUNTER 2021-12-24 10:40 | Outpatient (REF) | payer OTHER, SELFPAY ==
--- NOTE | ~2021-12-24 | US_ITS ---
EXAMINATION: US PELVIS CLINICAL INFORMATION: Follow-up left ovarian cyst. Hysterectomy and tubal ligation. COMPARISON: Pelvic ultrasound dated from 10/29/2021. TECHNIQUE: Ultrasound of the pelvis is performed using both transabdominal and transvaginal transducers along with Doppler. Transvaginal imaging is performed due to inadequate visualization transabdominally. FINDINGS: The uterus is surgically absent. The left ovary measures 3.4 x 2.9 x 3.2 cm, volume of 16.7 mL. There is a 2.8 x 2.5 x 2.3 cm anechoic thin-walled cyst, previously measuring 3.5 x 2.5 cm. The additional previously described inseparable smaller cyst has resolved. No free fluid. US/US pelvic and transvaginal IMPRESSION: Decreased size of a left ovarian cyst now measuring 2.8 cm. No suspicious septations or nodularity are identified. Continue follow-up per discretion of the referring provider.
== END 2021-12-24 10:41 | disposition home or self-care (01) ==
LOC: HO.US 10:40
PROVIDERS: Visit Provider Advanced Practice Midwife
DX: N83.292 Other ovarian cyst, left side (principal)
CPT/HCPCS: 76830; 76856

== ENCOUNTER 2022-01-07 10:38 | Outpatient (REF) | payer OTHER, SELFPAY ==
[2022-01-08 08:32] LABS: BV Int Neg Control Negative (Negative); BV Int Pos Control Positive (Positive)
== END 2022-01-07 10:39 | disposition home or self-care (01) ==
LOC: HO.LAB 10:38
PROVIDERS: Visit Provider Advanced Practice Midwife
DX: R10.2 Pelvic and perineal pain (principal); N89.8 Other specified noninflammatory disorders of vagina; N94.9 Unspecified condition associated with female genital organs and menstrual cycle; Z71.2 Person consulting for explanation of examination or test findings
CPT/HCPCS: 87480; 87510; 87660; 99212

== ENCOUNTER 2022-02-08 10:41 | Outpatient (REF) | payer OTHER, SELFPAY ==
--- NOTE | ~2022-02-08 | US_ITS ---
EXAMINATION: US RETROPERITONEAL LIMITED (RENAL ONLY) CLINICAL INFORMATION: Calculus of kidney. COMPARISON: CT abdomen and pelvis 09/02/2021. Ultrasound abdomen 03/21/2017 and 09/17/2014. TECHNIQUE: Real-time imaging of the kidneys. FINDINGS: RIGHT KIDNEY: 10.5 x 5.4 x 4.9 cm (SAG x AP x TRV). The kidney is normal in size, contour, and echogenicity. Renal cortical thickness is normal. No calculi or focal parenchymal lesions. No hydronephrosis. LEFT KIDNEY: 10.5 x 5.1 x 5.0 cm (SAG x AP x TRV). The kidney is normal in size, contour, and echogenicity. Renal cortical thickness is normal. There is redemonstration of fullness of the lower pole of the collecting system, unchanged. No hydronephrosis. A 0.5 cm calculus is noted in the mid to lower pole. US/US renal BI IMPRESSION: Nonobstructive 0.5 cm left renal calculus.
== END 2022-02-08 10:42 | disposition home or self-care (01) ==
LOC: HO.US 10:41
DX: N20.0 Calculus of kidney (principal)
CPT/HCPCS: 76775

== ENCOUNTER 2022-03-15 19:49 | Inpatient (IN) | payer OTHER, SELFPAY ==
[2022-03-15 20:03] VITALS: BP 148/100; PULSE 100; RESP 16; TEMP 37.1; O2SAT 99; BMI 30.5
--- NOTE | 2022-03-15 20:19 | ED.PSYCH ---
HPI - Psych General Chief Complaint: Psychiatric Symptoms Stated Complaint: SI, told family she wont live anymore Time Seen by Provider: 03/15/22 20:11 Source: patient and EMS Mode of arrival: EMS Limitations: no limitations History of Present Illness HPI Narrative: Patient comes to the emergency room complaining of depression. Patient states that she has a longstanding history of depression. But 2 years ago when her father , the depression got much worse, states that she has not been able to recuperate since then. Patient goes to psychology therapy every 2 weeks. Today, her therapist decided that she needed to come in for further evaluation. Patient states that she ?does not want to live anymore?. However, patient states that she has never considered suicide or hurting herself, no homicidal ideation. Patient does not have any specific triggers. Patient states that everything that she does she does it wrong. Patient denies substance abuse Related Data Home Medications Medication Instructions Recorded Confirmed albuterol sulfate 90 mcg/actuation 2 puff PO Q4H PRN Shortness Of 05/29/20 11/05/21 aerosol inhaler Breath Or Wheezing budesonide-formoterol HFA 160 1 puff inhalation DAILY 05/29/20 11/05/21 mcg-4.5 mcg/actuation aerosol inhaler cetirizine 10 mg tablet 10 mg PO BID 09/11/20 11/05/21 fremanezumab-vfrm 225 mg/1.5 mL 1 mg subcut DAILY 09/11/20 11/05/21 subcutaneous auto-injector (Ajovy) bupropion HCl 150 mg 24 hr tablet, 300 mg PO QAM 03/26/21 11/05/21 extended release multivitamin 1 tab PO DAILY 03/26/21 11/05/21 clonazepam 0.5 mg tablet (Klonopin) 0.5 mg PO BID PRN Anxiety 11/05/21 11/05/21 albuterol sulfate 2.5 mg/3 mL 2.5 mg inhalation Q6H PRN 02/15/22 (0.083 %) solution for nebulization ketotifen fumarate 0.025 % (0.035 1 drp ophthalmic (eye) BID 02/15/22 %) eye drops (Alaway) metronidazole 0.75 % topical cream appl topical DAILY 02/15/22 Previous Rx's Medication Instructions Recorded meloxicam 15 mg tablet 15 mg PO DAILY PRN pain 90 days 02/12/21 #90 tabs montelukast 10 mg tablet 10 mg PO BEDTIME 90 days #90 tabs 02/12/21 (Singulair) cholecalciferol (vitamin D3) 50 50 mcg PO DAILY #30 caps 06/08/21 mcg (2,000 unit) capsule omeprazole 40 mg capsule,delayed 40 mg PO DAILY #90 caps 08/18/21 release cyclobenzaprine 10 mg tablet 10 mg PO Q8H PRN for muscle spasm 10/28/21 #90 tabs lubiprostone 24 mcg capsule 24 mcg PO BID #180 caps 11/20/21 (Amitiza) sucralfate 1 gram tablet 1 g PO BID #180 tabs 11/20/21 metronidazole 0.75 % (37.5 mg/5 1 appful vaginal BEDTIME 5 days 01/11/22 gram) vaginal gel #70 grams prednisone 20 mg tablet 20 mg PO DAILY 5 days #5 tabs 01/29/22 naproxen 500 mg tablet (Naprosyn) 500 mg PO BID PRN pain 5 days #10 02/02/22 tabs tamsulosin 0.4 mg capsule 0.4 mg PO DAILY 14 days #14 caps 02/15/22 tramadol 50 mg tablet 50 mg PO Q8H PRN pain #20 tabs 02/15/22 tramadol 50 mg tablet 50 mg PO Q8H PRN pain #20 tabs 02/15/22 tramadol 50 mg tablet 50 mg PO Q8H PRN pain #20 tabs 02/15/22 pregabalin 100 mg capsule (Lyrica) 100 mg PO BID 30 days #60 caps 02/22/22 polyethylene glycol 3350 17 238 g PO ONCE 1 day #238 grams 03/10/22 gram/dose oral powder (Miralax) Allergies Allergy/AdvReac Type Severity Reaction Status Date / Time oxycodone [From PERCOCET] Allergy Intermediate TACHYCARDIA, Verified 03/15/22 20:03 HEADACHE Sausage Allergy Unknown Unknown Uncoded 02/15/22 11:26 Review of Systems Review of Systems: Constitutional : No Weight loss, No Fever, No Chills, No Night Sweats, No Fatigue, No Malaise ENT/Mouth : No Hearing loss, No Ear Pain, No Nasal Congestion, No Sinus Pain, No Hoarseness, No sore throat, No Rhinorrhea, No Swallowing Difficulty Eyes: No Eye Pain, No Swelling, No Redness, No Foreign Body, No Discharge, No Vision Changes Cardiovascular : No Chest Pain, No SOB, No Dyspnea on Exertion, No Orthopnea, No Edema, No Palpitations Respiratory : No Cough, No Sputum, No Wheezing, No Smoke Exposure, No Dyspnea Gastrointestinal : No Nausea, No Vomiting, No Diarrhea, No Constipation, No abdominal Pain, No Hematochezia, No Melena Genitourinary : no irregular bleeding, No Dysuria, No Urinary Frequency, No Hematuria, No Urinary Incontinence, No Urgency, No Flank Pain, No Urinary Flow Changes, No Hesitancy Musculoskeletal : No joint pain, No Myalgias, No Joint Swelling Skin : No Skin Lesions, No rash Neuro : No Weakness, No Numbness, No Paresthesias, No Loss of Consciousness, No Dizziness, No Headache Psych : Complaining of anxiety, depression, vague suicidal ideation with no plan, no homicidal ideation Heme/Lymph: No Bruising, No Bleeding,No Lymphadenopathy Endocrine : No Polyuria, No Polydipsia, No Temperature Intolerance PMFSH Past Medical History Medical History Anxiety and depression Asthma Carpal tunnel syndrome Chest pain Colon cancer screening Complex cyst of left ovary Degenerative joint disease of cervical spine Encounter to discuss test results Fatty liver GERD (gastroesophageal reflux disease) Grief reaction Hepatitis C antibody test positive History of renal calculi Hot flashes Migraine Otitis externa Overweight (BMI 25.0-29.9) Pelvic cramping Pelvic pain in female Seasonal allergies Sexually transmitted disease exposure Ulnar neuropathy UTI (urinary tract infection) Vaginal burning Vaginal discharge Vaginal dryness Vaginal itching Surgical History H/O colonoscopy H/O: hysterectomy History of carpal tunnel release History of esophagogastroduodenoscopy (EGD) History of sleeve gastrectomy Hx of rotator cuff surgery Hx of tonsillectomy Hx of tubal ligation Family History Family History Father HTN (hypertension) Diabetes mellitus Stroke High cholesterol Mother HTN (hypertension) Diabetes mellitus High cholesterol Sister Diabetes mellitus Breast cancer Stroke Kidney disease Maternal Grandmother Liver cancer Maternal Grandfather Heart disease Social History Social History Housing: Apartment Alcohol intake: current Alcohol intake frequency: holidays/special occasions only Patient Tobacco Use Status: Never used Tobacco e-Cigarette/Vaping Use: Never Used Second Hand Smoke Exposure: No Advance Directives Date on File: 02/11/21 Current occupational status: disabled Gender identity: Female Cognitive needs: No Hearing needs: No Vision needs: Yes Physical Exam Vital Signs: Vital Signs: Last Vital Signs Temp 98.8 F 03/15/22 20:03 Pulse 100 03/15/22 20:03 Resp 16 03/15/22 20:03 BP 148/100 H 03/15/22 20:03 Pulse Ox 99 03/15/22 20:03 O2 Del Method 03/15/22 20:03 BMI result Body Mass Index 30.5 Const: Other: Appearance: Alert. Oriented X3. No acute distress. Eyes: Pupils equal, round and reactive to light. ENT: Pharynx normal. Neck: Normal inspection. Neck supple. No lymph nodes noted. No crepitus CVS: Normal heart rate and rhythm. Pulses normal. Normal S1 and S2 Respiratory: No respiratory distress. Breath sounds normal. No Wheezing. No rales Abdomen: Soft and nontender. No rigidity. No distention. Skin: Skin warm and dry. Normal skin color. Normal skin turgor. Extremities: No lower extremity edema. No Lacerations. No Rash Neuro: Oriented X 3. No motor deficit. No sensory deficit. Moving all extremities. No slurred speech. CN 2 through 12 grossly intact Psych: calm, cooperative, depressed, crying Course Course Course Narrative: Patient has vague suicidal ideation. Patient states that she does not want to live anymore, but also states that she has not consider hurting herself. At this time, patient is not on a Section 12. All of her labs are pending. Physician observation started at 20:23 Discharge Plan Discharge Clinical Impression: Generalized anxiety disorder, Major depression Patient Disposition: Still a Patient Prescriptions: No Action montelukast [Singulair] 10 mg tablet 10 mg PO BEDTIME 90 Days Qty: 90 1RF meloxicam 15 mg tablet 15 mg PO DAILY PRN (Reason: pain) 90 Days Qty: 90 1RF cholecalciferol (vitamin D3) 50 mcg (2,000 unit) capsule 50 mcg PO DAILY Qty: 30 11RF omeprazole 40 mg capsule,delayed release(DR/EC) 40 mg PO DAILY Qty: 90 3RF cyclobenzaprine 10 mg tablet 10 mg PO Q8H PRN (Reason: for muscle spasm) Qty: 90 2RF metronidazole 0.75 % gel 1 appful vaginal BEDTIME 5 Days Qty: 70 0RF prednisone 20 mg tablet 20 mg PO DAILY 5 Days Qty: 5 0RF naproxen [Naprosyn] 500 mg tablet 500 mg PO BID PRN (Reason: pain) 5 Days Qty: 10 0RF pregabalin [Lyrica] 100 mg capsule 100 mg PO BID 30 Days Qty: 60 0RF polyethylene glycol 3350 [Miralax] 17 gram/dose powder 238 g PO ONCE 1 Days Qty: 238 0RF Rx Instructions: take orally as directed prior to colonoscopy Ajovy Autoinjector 225 mg/1.5 mL auto-injector 1 mg subcut DAILY bupropion HCl 150 mg tablet extended release 24 hr 300 mg PO QAM clonazepam [Klonopin] 0.5 mg tablet 0.5 mg PO BID PRN (Reason: Anxiety) multivitamin Tablet 1 tab PO DAILY albuterol sulfate 90 mcg/actuation HFA aerosol inhaler 2 puff PO Q4H PRN (Reason: Shortness Of Breath Or Wheezing) budesonide-formoterol 160-4.5 mcg/actuation HFA aerosol inhaler 1 puff inhalation DAILY cetirizine 10 mg tablet 10 mg PO BID sucralfate 1 gram tablet 1 g PO BID Qty: 180 3RF lubiprostone [Amitiza] 24 mcg capsule 24 mcg PO BID Qty: 180 3RF ketotifen fumarate [Alaway] 0.025 % (0.035 %) drops 1 drp ophthalmic (eye) BID metronidazole 0.75 % cream topical DAILY albuterol sulfate 2.5 mg /3 mL (0.083 %) solution for nebulization 2.5 mg inhalation Q6H PRN tamsulosin 0.4 mg capsule 0.4 mg PO DAILY 14 Days Qty: 14 0RF tramadol 50 mg tablet 50 mg PO Q8H PRN (Reason: pain) Qty: 20 0RF tramadol 50 mg tablet 50 mg PO Q8H PRN (Reason: pain) Qty: 20 0RF tramadol 50 mg tablet 50 mg PO Q8H PRN (Reason: pain) Qty: 20 0RF
[2022-03-15 20:47] LABS: MANUAL DIFF FLAG NO
[2022-03-15 20:50] LABS: Appearance Urine Clear; Basophils Absolute Auto 0.1 X10*3/uL (0.0-0.2); Basophils Percent Auto 0.8 % (0-2); Color Urine Yellow; Eosinophils Absolute Auto 0.2 X10*3/uL (0.0-0.4); Eosinophils Percent Auto 1.3 % (0-4); Glucose Urine UA Negative (Negative); Hematocrit 43.8 % (37.0-47.0); Hemoglobin 14.2 g/dl (12.0-16.0); Imm Gran Abs Auto 0.03 X10*3/uL (0.00-0.03); Imm Gran Pct Auto 0.3 % (0.0-0.4); Leukocyte Esterase Urine Trace (Negative); Lymphocytes Absolute Auto 2.4 X10*3/uL (1.2-4.9); Lymphocytes Percent Auto 20.3 % (20-40); Mean Corpuscular HGB Conc 32.4 g/dl (31.0-35.0); Mean Corpuscular Hemoglobin 28.8 pg (27.0-33.0); Mean Corpuscular Volume 88.8 fL (80.0-98.0); Mean Platelet Volume 9.3 fL (9.4-12.3); Monocytes Absolute Auto 0.9 X10*3/uL (0.1-1.2); Monocytes Percent Auto 7.2 % (2-11); Neutrophils Absolute Auto 8.4 x10*3/uL (2.0-8.3); Neutrophils Percent Auto 70.1 % (45-73); Nitrite Urine Negative (Negative); PH 5.5 (5.0-8.0); Platelet Count 322 X10*3/uL (160-400); Red Blood Count 4.93 X10*6/uL (4.20-5.50); Red Cell Distribution Width 13.7 % (11.0-16.0); Specific Gravity - Urine 1.015 (1.005-1.025); Urine Blood Negative (Negative); Urine Ketones Negative (Negative); Urine Protein Negative (Neg-Trace)
[2022-03-15 20:55] LABS: Bacteria Urine None Seen (None Seen); Hyaline Casts Urine 0-2 /LPF (0-2); RBC Urine 0-2 /HPF (0-2); Squamous Epithelial Cell Urine 0-2 /HPF (0-2); UACC Culture Trigger YES
[2022-03-15 21:03] LABS: Ethanol < 10 mg/dL
[2022-03-15 21:06] LABS: Amphetamine Screen Urine Not Detected (Not Detect); Barbiturates, Urine Not Detected (Not Detect); Benzodiazepines Screen Urine Not Detected (Not Detect); Cannabinoid Screen Urine Not Detected (Not Detect); Cocaine Screen Urine Not Detected (Not Detect); Fentanyl, urine POSITIVE (Not Detect); Opiate Screen Urine Not Detected (Not Detect); Phencyclidine Screen Urine Not Detected (Not Detect)
[2022-03-15 21:07] LABS: Alanine Aminotransferase 12 U/L (0-31); Albumin Level 4.5 g/dL (3.5-5.0); Alkaline Phosphatase 104 U/L (39-117); Anion Gap 14 (12-20); Aspartate Amino Transferase 16 U/L (5-31); Bilirubin Total 0.3 mg/dL (0.0-1.0); Blood Urea Nitrogen 13 mg/dL (9-16); Calcium 9.5 mg/dL (8.4-10.2); Carbon Dioxide 26 mmol/L (22-29); Chloride 104 mmol/L (96-108); Creatinine Clr Calc Pharmacy 87.2; Estimated Glomerular Filt Rate > 60; Glucose Random 95 mg/dL (60-115); Potassium 3.9 mmol/L (3.3-5.1); Sodium 140 mmol/L (135-145); Total Protein 7.4 g/dL (6.5-8.0)
[2022-03-15 21:08] LABS: COVID-19 Test Negative (Negative); IDNOW Serial# 16C4AD1C
[2022-03-15 21:13] LABS: HCG Quantitative < 2 mIU/mL
[2022-03-15] MEDS: hydrOXYzine HCL 50 MG TABLET PO (23:24)
[2022-03-15] MEDS: clonazePAM 1 MG TABLET PO (23:24)
[2022-03-15 23:29] VITALS: BP 140/88; PULSE 80; RESP 16; TEMP 36.6; O2SAT 100
--- NOTE | 2022-03-16 07:04 | PC.NURSE ---
Patient slept through the night, no distress observed/reported, disposition per [facility] is section 12 inpatient bed search, VSS, medication compliant, will continue to monitor.
--- NOTE | 2022-03-16 07:21 | PC.NURSE ---
patient appears to remain asleep at present respirations are even and unlabored patient appears in no distress
--- NOTE | 2022-03-16 10:08 | PHA.MEDREC ---
Pharmacy Consult ? Medication Reconciliation Pharmacy has completed the medication reconciliation. Overnight pharmacist passed over a note stating that nursing staff (Mihcel) had talked to patient and patient claimed to use [facility]. Called [facility] and they stated the patient does not fill their, but rather [id number] on [facility]. Contacted patient's daughter which had a list of medications on them that patient currently takes. All meds could be cross referenced with claim history outside of select few (Buspirone 10mg, Amitriptyline 50mg, and Buproprion HCl ER 450mg), however daughter claims that patient takes these medications. Imitrex is said to be taken twice a day 50mg as well, with clonazepam 0.5mg being used TID.
[2022-03-16 13:46] VITALS: BP 127/80; PULSE 89; TEMP 36.8; O2SAT 100
[2022-03-16 16:30] VITALS: BP 131/85; PULSE 84; TEMP 36.7; O2SAT 100
--- NOTE | 2022-03-16 19:43 | PC.ADMIT ---
Addendum entered by Keturah Marion RN 03/16/22 22:49: Patient also mentioned that she was raised in [employer] and had rebuked the AH in the name of [place] and she said she believes that her boyfriend now is afflicted with AH; she cried when she was relaying this information and said she felt guilty for her boyfriends AH. Original Note: Patient is a 46 year old , mostly [place] speaking female, admitted as a CV admission to at 1515 and placed on 15 minute safety checks. Patient was medically cleared in the [facility], evaluated by [facility] and deemed in need of IPLOC secondary to depression with suicide attempts, taking more of her medication each night in hopes of not waking up. Patient has a diagnosis of Schizoaffective Disorder, Bipolar type; she also has medical issues: s/p gastric sleeve surgery, asthma, sciatic pain, fibromyalgia,and GERD. Patient denied any previous in patient psychiatric treatment or substance abuse history. The patient was dismissive when this screen writer asked her about feeling suicidal. Patient said I just took a little bit more of my medications each night to help me sleep, not to end my life . Patient said that she wanted to block out all of her stress by going to sleep and the extra medication helped her sleep. Patient did acknowledge that she had made mention of not waking up, but did not seem that concerned how her daughter might interpret her statements. Patient did mention that she was feeling very sad since her father's in 2019. She was sad because she was not able to be with him in the senior care, due to COVID, and still feels guilty. Patient was also dismissive of the AH and described them as the sound of her father's voice, at which point she started to cry. Patient denied any VH, or HI. With regards to her explosive behavior, patient said that her boyfriend drinks alcohol and uses other substances but feels she is the one with mental health issues. When her boyfriend speaks about her mental health issues she said that she gets angry and starts yelling and her boyfriend says You should see the way your face looks when you are screaming at me . Patient was cooperative and polite during the admission process and said she was glad to be in the hospital to get help; she is not sure if her current medications are working.
[2022-03-16] MEDS: Amitriptyline HCl 50 MG TABLET PO (20:30)
[2022-03-16] MEDS: busPIRone HCl 10 MG TABLET PO (20:31)
[2022-03-16] MEDS: Pregabalin 100 MG CAPSULE PO (20:31)
[2022-03-16] MEDS: hydrOXYzine HCL 25 MG TABLET PO (20:31)
[2022-03-16] MEDS: Loratadine 10 MG TABLET PO (20:32)
[2022-03-16] MEDS: Montelukast Sodium 10 MG TABLET PO (20:32)
[2022-03-16] MEDS: Cyclobenzaprine HCl 10 MG TABLET PO (20:46)
[2022-03-16] MEDS: clonazePAM 0.5 MG TABLET PO (20:47)
--- NOTE | 2022-03-17 | ECG_ITS ---
Test Reason : qtc check Blood Pressure : / mmHG Vent. Rate : 090 BPM Atrial Rate : 090 BPM P-R Int : 164 ms QRS Dur : 088 ms QT Int : 378 ms P-R-T Axes : 055 -17 050 degrees QTc Int : 462 ms Normal sinus rhythm Minimal voltage criteria for LVH, may be normal variant ( R in aVL ) Inferior infarct , age undetermined Abnormal ECG When compared with ECG of 20-DEC-2020 01:15, Inferior infarct is now Present Referred By: Clementina Youngblood Electronically Signed By:NHI PORTER
[2022-03-17 08:33] LABS: Estimated Average Glucose 100 mg/dL; Hemoglobin A1c % 5.1 %
[2022-03-17 08:38] LABS: Cholesterol 206 mg/dL; HDL Cholesterol 66 mg/dL; LDL Cholesterol Calculated 108 mg/dl; Magnesium 2.4 mg/dL (1.6-2.6); Triglycerides 161 mg/dL
[2022-03-17] MEDS: Azelastine HCl Nasal 137 MCG/Spray 30 ML 1 SPRAY NOSTRIL-B ×2 (08:44→22:05)
[2022-03-17] MEDS: Multivitamin TABLET 1 TAB PO (08:45)
[2022-03-17] MEDS: Pregabalin 100 MG CAPSULE PO ×2 (08:45→22:03)
[2022-03-17] MEDS: Sucralfate 1 GM TABLET PO ×2 (08:45→22:02)
[2022-03-17] MEDS: busPIRone HCl 10 MG TABLET PO ×2 (08:45→22:03)
[2022-03-17] MEDS: Loratadine 10 MG TABLET PO ×2 (08:45→22:02)
[2022-03-17] MEDS: buPROPion HCl XL 150 MG TAB.ER.24H 450 MG PO (08:45)
[2022-03-17] MEDS: Omeprazole 40 MG CAPSULE.DR PO (08:45)
[2022-03-17] MEDS: NaPROXEN 500 MG TABLET PO ×2 (08:50→22:03)
[2022-03-17 08:58] LABS: Free T4 (Free Thyroxine) 1.01 ng/dL (0.71-1.85); Thyroid Stimulating Hormone 0.92 uIU/mL (0.32-4.0)
[2022-03-17 09:01] LABS: Folate 13.2 ng/mL (> or = 4.0); Vitamin B12 445 pg/mL (200-900)
[2022-03-17 09:14] VITALS: BP 125/87; PULSE 84; RESP 18; TEMP 36.1; O2SAT 97
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
[2022-03-17 18:00] VITALS: BP 125/86; PULSE 82; TEMP 36.7; O2SAT 100
[2022-03-17] MEDS: Cyclobenzaprine HCl 10 MG TABLET PO (18:11)
[2022-03-17] MEDS: Amitriptyline HCl 50 MG TABLET PO (22:02)
[2022-03-17] MEDS: clonazePAM 0.5 MG TABLET PO (22:02)
[2022-03-17] MEDS: Montelukast Sodium 10 MG TABLET PO (22:03)
[2022-03-17] MEDS: OXcarbazepine 300 MG TABLET PO (22:03)
[2022-03-17] MEDS: Acetaminophen 325 MG TABLET 650 MG PO (22:05)
[2022-03-18 06:00] VITALS: BP 124/77; PULSE 18; RESP 16; TEMP 36.5; O2SAT 98
[2022-03-18] MEDS: Multivitamin TABLET 1 TAB PO (08:59)
[2022-03-18] MEDS: Sucralfate 1 GM TABLET PO ×2 (08:59→20:17)
[2022-03-18] MEDS: Azelastine HCl Nasal 137 MCG/Spray 30 ML 1 SPRAY NOSTRIL-B ×2 (08:59→20:20)
[2022-03-18] MEDS: busPIRone HCl 10 MG TABLET PO ×2 (08:59→20:17)
[2022-03-18] MEDS: Loratadine 10 MG TABLET PO ×2 (08:59→20:17)
[2022-03-18] MEDS: OXcarbazepine 300 MG TABLET PO (08:59)
[2022-03-18] MEDS: Omeprazole 40 MG CAPSULE.DR PO (08:59)
[2022-03-18] MEDS: buPROPion HCl XL 150 MG TAB.ER.24H 450 MG PO (08:59)
[2022-03-18] MEDS: Pregabalin 100 MG CAPSULE PO ×2 (08:59→20:18)
[2022-03-18] MEDS: NaPROXEN 500 MG TABLET PO ×2 (09:02→20:18)
[2022-03-18] MEDS: QUEtiapine Fumarate 50 MG TABLET PO (13:32)
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
[2022-03-18 17:18] VITALS: BP 125/84; PULSE 89; RESP 16; TEMP 36.6; O2SAT 99
[2022-03-18 18:48] VITALS: BP 139/65; PULSE 95; RESP 18; TEMP 36.7; O2SAT 100
[2022-03-18] MEDS: Montelukast Sodium 10 MG TABLET PO (20:17)
[2022-03-18] MEDS: Amitriptyline HCl 50 MG TABLET PO (20:17)
[2022-03-18] MEDS: OXcarbazepine 300 MG TABLET 600 MG PO (20:19)
[2022-03-18] MEDS: clonazePAM 0.5 MG TABLET PO (20:56)
[2022-03-19] MEDS: buPROPion HCl XL 150 MG TAB.ER.24H 450 MG PO (09:12)
[2022-03-19] MEDS: Azelastine HCl Nasal 137 MCG/Spray 30 ML 1 SPRAY NOSTRIL-B ×2 (09:12→19:40)
[2022-03-19] MEDS: OXcarbazepine 300 MG TABLET 600 MG PO ×2 (09:13→19:32)
[2022-03-19] MEDS: Loratadine 10 MG TABLET PO ×2 (09:13→19:33)
[2022-03-19] MEDS: Multivitamin TABLET 1 TAB PO (09:14)
[2022-03-19] MEDS: Sucralfate 1 GM TABLET PO ×2 (09:14→19:32)
[2022-03-19] MEDS: busPIRone HCl 10 MG TABLET PO ×2 (09:14→19:32)
[2022-03-19] MEDS: Pregabalin 100 MG CAPSULE PO ×2 (09:14→19:32)
[2022-03-19 09:19] VITALS: BP 145/82; PULSE 85; RESP 18; TEMP 36.7; O2SAT 97
[2022-03-19] MEDS: Milk of Magnesia 30 ML ORAL.SUSP PO (09:33)
[2022-03-19] MEDS: QUEtiapine Fumarate 50 MG TABLET PO (14:25)
[2022-03-19] MEDS: bisacodyL 5 MG TABLET.DR 10 MG PO (14:25)
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
[2022-03-19 18:00] VITALS: BP 118/78; PULSE 68; RESP 16; TEMP 36.4; O2SAT 99
[2022-03-19] MEDS: Amitriptyline HCl 50 MG TABLET PO (19:33)
[2022-03-19] MEDS: Montelukast Sodium 10 MG TABLET PO (19:33)
[2022-03-19] MEDS: clonazePAM 0.5 MG TABLET PO (20:41)
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
[2022-03-20] MEDS: Loratadine 10 MG TABLET PO ×2 (08:42→21:08)
[2022-03-20] MEDS: Multivitamin TABLET 1 TAB PO (08:42)
[2022-03-20] MEDS: busPIRone HCl 10 MG TABLET PO ×2 (08:42→21:08)
[2022-03-20] MEDS: buPROPion HCl XL 150 MG TAB.ER.24H 450 MG PO (08:42)
[2022-03-20] MEDS: Azelastine HCl Nasal 137 MCG/Spray 30 ML 1 SPRAY NOSTRIL-B (08:42)
[2022-03-20] MEDS: Sucralfate 1 GM TABLET PO ×2 (08:42→21:08)
[2022-03-20] MEDS: OXcarbazepine 300 MG TABLET 600 MG PO ×2 (08:42→21:08)
[2022-03-20] MEDS: Pregabalin 100 MG CAPSULE PO ×2 (08:42→21:08)
[2022-03-20] MEDS: Omeprazole 40 MG CAPSULE.DR PO (08:42)
[2022-03-20 08:45] VITALS: BP 119/81; PULSE 92; RESP 18; TEMP 36.2; O2SAT 99
[2022-03-20] MEDS: Cyclobenzaprine HCl 10 MG TABLET PO (13:04)
[2022-03-20] MEDS: QUEtiapine Fumarate 50 MG TABLET PO (13:05)
[2022-03-20 18:00] VITALS: BP 124/82; PULSE 75; RESP 16; TEMP 36.8; O2SAT 97
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
[2022-03-20] MEDS: Montelukast Sodium 10 MG TABLET PO (21:08)
[2022-03-20] MEDS: Amitriptyline HCl 50 MG TABLET PO (21:08)
[2022-03-20] MEDS: clonazePAM 0.5 MG TABLET PO (21:15)
[2022-03-21 08:30] VITALS: BP 128/80; RESP 16; TEMP 36.3; O2SAT 96
[2022-03-21] MEDS: NaPROXEN 500 MG TABLET PO ×2 (08:52→19:48)
[2022-03-21] MEDS: busPIRone HCl 10 MG TABLET PO ×2 (08:52→19:48)
[2022-03-21] MEDS: Pregabalin 100 MG CAPSULE PO ×2 (08:52→19:48)
[2022-03-21] MEDS: buPROPion HCl XL 150 MG TAB.ER.24H 450 MG PO (08:52)
[2022-03-21] MEDS: Loratadine 10 MG TABLET PO ×2 (08:53→19:49)
[2022-03-21] MEDS: Azelastine HCl Nasal 137 MCG/Spray 30 ML 1 SPRAY NOSTRIL-B (08:53)
[2022-03-21] MEDS: Multivitamin TABLET 1 TAB PO (08:53)
[2022-03-21] MEDS: Sucralfate 1 GM TABLET PO ×2 (08:53→19:48)
[2022-03-21] MEDS: Omeprazole 40 MG CAPSULE.DR PO (08:53)
[2022-03-21] MEDS: OXcarbazepine 300 MG TABLET 600 MG PO ×2 (08:53→19:49)
[2022-03-21] MEDS: QUEtiapine Fumarate 50 MG TABLET PO (13:18)
[2022-03-21 18:00] VITALS: BP 122/82; PULSE 99; RESP 16; TEMP 36.6; O2SAT 99
[2022-03-21] MEDS: Montelukast Sodium 10 MG TABLET PO (19:47)
[2022-03-21] MEDS: Amitriptyline HCl 50 MG TABLET PO (19:48)
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
[2022-03-22 08:40] VITALS: BP 122/66; PULSE 107; RESP 18; TEMP 36.7; O2SAT 97
[2022-03-22] MEDS: Loratadine 10 MG TABLET PO (08:48)
[2022-03-22] MEDS: buPROPion HCl XL 150 MG TAB.ER.24H 450 MG PO (08:48)
[2022-03-22] MEDS: Pregabalin 100 MG CAPSULE PO (08:48)
[2022-03-22] MEDS: OXcarbazepine 300 MG TABLET 600 MG PO (08:48)
[2022-03-22] MEDS: Sucralfate 1 GM TABLET PO (08:48)
[2022-03-22] MEDS: NaPROXEN 500 MG TABLET PO (08:48)
[2022-03-22] MEDS: Multivitamin TABLET 1 TAB PO (08:49)
[2022-03-22] MEDS: Omeprazole 40 MG CAPSULE.DR PO (08:49)
[2022-03-22] MEDS: busPIRone HCl 10 MG TABLET PO (08:49)
[2022-03-22] MEDS: Cyclobenzaprine HCl 10 MG TABLET PO (09:35)
[2022-03-22] MEDS: Sennosides 8.6 MG TABLET 17.2 MG PO (13:54)
[2022-03-22] MEDS: clonazePAM 0.5 MG TABLET PO (13:54)
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
--- NOTE | 2022-03-23 19:27 | PM.PSYDC ---
DS: Providers Provider Date of admission: 03/16/22 14:50 Primary care physician: Lizandro Simon MD DS: Diagnosis Discharge Diagnosis (1) PTSD (post-traumatic stress disorder): Status: Acute (2) Mood disorder: Status: Acute DS: Medications Discharge Medications Home Medications: Home Medications Medication Instructions Recorded Confirmed cetirizine 10 mg tablet 10 mg PO BID 09/11/20 03/15/22 bupropion HCl 150 mg 24 hr tablet, 450 mg PO DAILY 03/26/21 03/16/22 extended release clonazepam 0.5 mg tablet (Klonopin) 0.5 mg PO TID PRN Anxiety 11/05/21 03/16/22 pregabalin 100 mg capsule 1 cap PO BID 03/15/22 03/15/22 albuterol sulfate 90 mcg/actuation 2 puff PO Q4H PRN Shortness Of 03/16/22 03/16/22 aerosol inhaler (ProAir HFA) Breath amitriptyline 50 mg tablet 50 mg PO BEDTIME 03/16/22 03/16/22 azelastine 137 mcg (0.1 %) nasal 1 spray intranasal BID 03/16/22 03/16/22 spray aerosol buspirone 10 mg tablet 10 mg PO BID 03/16/22 03/16/22 cyclobenzaprine 10 mg tablet 1 tab PO Q8H PRN Muscle Spasm 03/16/22 03/16/22 fremanezumab-vfrm 225 mg/1.5 mL 225 mg subcut QMONTH 03/16/22 03/16/22 subcutaneous auto-injector (Ajovy) hydroxyzine HCl 25 mg tablet 1 tab PO Q8H 03/16/22 03/16/22 lubiprostone 24 mcg capsule 1 cap PO BID 03/16/22 03/16/22 meloxicam 15 mg tablet 1 tab PO SUMOTUWETH@0900 03/16/22 03/16/22 montelukast 10 mg tablet 1 tab PO BEDTIME 03/16/22 03/16/22 multivitamin 1 tab PO DAILY 03/16/22 03/16/22 omeprazole 40 mg capsule,delayed 40 mg PO DAILY@0630 03/16/22 03/16/22 release sucralfate 1 gram tablet 1 tab PO BID 03/16/22 03/16/22 sumatriptan succinate 50 mg tablet 1 tab PO BID 03/16/22 03/16/22 tramadol 50 mg tablet 1 tab PO Q8H PRN pain 03/16/22 03/16/22 Previous Rx's Medication Instructions Recorded oxcarbazepine 600 mg tablet 600 mg PO BID #60 tabs 03/22/22 (Trileptal) quetiapine 50 mg tablet 50 mg PO BID PRN perceptual 03/22/22 alterations, anxiety #30 tabs sennosides 8.6 mg tablet (Senna 17.2 mg PO BID #30 tabs 03/22/22 Lax) Data Data Completed and Pending Completed studies during hospitalization [Text1]: 03/17/22 03/17/22 03/17/22 07:59 07:59 07:59 Estimat Average Glucose 100 Hemoglobin A1c % 5.1 Magnesium 2.4 Triglycerides 161 Cholesterol 206 LDL Cholesterol, Calc 108 HDL Cholesterol 66 Vitamin B12 445 Folate 13.2 TSH 0.92 Free T4 1.01 03/15/22 Unknown Urine clean catch - Urine ospina top Urine Culture - Final DS: Summary Time Spent with Patient Time attestation: Total time spent providing and/or coordinating discharge services: Discharge Plan Discharge Patient Disposition: Home, Self-Care Discharge Diagnosis: Mood Disorder PTSD Referrals: Jo Ann Romano [Other] - 04/02/22 2:15 pm (Follow-up discharge appointment with therapist in office at [facility] ) Emory Willams [Other] - 04/08/22 11:00 am (Appointment with outpatient psychiatric medication provider following discharge from [facility]. Appointment is by tele-health. Check your email for a link to the appointment ) Lizandro Simon MD [Primary Care Provider] - 1 Week (office will call her with f/u appointment) Discharge Medications: New sennosides [Senna Lax] 8.6 mg Tablet 17.2 mg PO BID Qty: 30 0RF quetiapine 50 mg Tablet 50 mg PO BID PRN (Reason: perceptual alterations, anxiety) Qty: 30 1RF oxcarbazepine [Trileptal] 600 mg tablet 600 mg PO BID Qty: 60 0RF Continued pregabalin 100 mg capsule 1 cap PO BID meloxicam 15 mg tablet 1 tab PO SUMOTUWETH@0900 sucralfate 1 gram tablet 1 tab PO BID sumatriptan succinate 50 mg tablet 1 tab PO BID tramadol 50 mg tablet 1 tab PO Q8H PRN (Reason: pain) montelukast 10 mg tablet 1 tab PO BEDTIME azelastine 137 mcg (0.1 %) aerosol,spray 1 spray intranasal BID albuterol sulfate [ProAir HFA] 90 mcg/actuation HFA aerosol inhaler 2 puff PO Q4H PRN (Reason: Shortness Of Breath) lubiprostone 24 mcg capsule 1 cap PO BID Ajovy Autoinjector 225 mg/1.5 mL auto-injector 225 mg subcut QMONTH multivitamin Tablet 1 tab PO DAILY cyclobenzaprine 10 mg tablet 1 tab PO Q8H PRN (Reason: Muscle Spasm) amitriptyline 50 mg Tablet 50 mg PO BEDTIME buspirone 10 mg Tablet 10 mg PO BID hydroxyzine HCl 25 mg tablet 1 tab PO Q8H omeprazole 40 mg capsule,delayed release(DR/EC) 40 mg PO DAILY@0630 bupropion HCl 150 mg tablet extended release 24 hr 450 mg PO DAILY clonazepam [Klonopin] 0.5 mg tablet 0.5 mg PO TID PRN (Reason: Anxiety) cetirizine 10 mg tablet 10 mg PO BID Discharge Orders: Discharge Order (Routine); Ordered 03/22/22 Ordered By: Clementina Youngblood Diet: Advance to usual diet Activity on Discharge: As tolerated Stand Alone Forms: Patient Portal Discharge page, Community Support Care Plan Goals: Maintain mood and safe behaviors Take medications as prescribed Practice coping skills Continue with out pt providers Health Concerns: Mood stabilization Plan of Treatment: Follow up with primary care physician, psychiatric provider and out patient providers Take medications as prescribed You will need lab work the week of March 29, 2022. to monitor Trileptal. Please call [phone] for a lab order or discuss with your primary care physician. Discharge Date/Time: 03/22/22 17:45
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
== END 2022-03-22 17:45 | disposition home or self-care (01) | DRG 753 ==
LOC: HO.ED 20:52 → HO.PM5 03-16 14:53
PROVIDERS: Admitting Provider Psychiatry & Neurology Psychiatry; Emergency Provider Emergency Medicine; PCP Internal Medicine; Visit Provider Clinical Nurse Specialist Psychiatric/Mental Health, Adult
DX: F39 Unspecified mood [affective] disorder (principal); R45.851 Suicidal ideations; K75.81 Nonalcoholic steatohepatitis (NASH); F43.10 Post-traumatic stress disorder, unspecified; Z20.822 Contact with and (suspected) exposure to COVID-19; Z91.51 Personal history of suicidal behavior; Z88.5 Allergy status to narcotic agent; Z79.899 Other long term (current) drug therapy
CPT/HCPCS: 36415; 80053; 80061; 80307; 81001; 82077; 82607; 82746; 83036; 83735; 84439; 84443; 84702; 85025; 87086; 87635; 93005; 99284

== ENCOUNTER 2022-03-26 23:59 | Emergency (ER) | payer OTHER, SELFPAY ==
[2022-03-27] VITALS (7 sets, daily range): BP systolic 128–160; BP diastolic 69–90; PULSE 70–90; RESP 18–22; TEMP 36.1–36.8; O2SAT 97–100; BMI 27.1
--- NOTE | 2022-03-27 02:18 | ED_ITS ---
HPI - Psych General Chief Complaint: Psychiatric Symptoms Stated Complaint: crisis Time Seen by Provider: 03/27/22 02:18 Source: patient and deep tissue massage therapist Mode of arrival: EMS History of Present Illness HPI Narrative: 46-year-old female who is brought in by EMS after the daughter called, patient was recently discharged from and since being home has been very sleepy with lack of motivation. However, patient states that she has been unable to sleep and did not take additional pills but states that she took her prescribed medication but all together . She denies suicidal ideation but states that she is very depressed, eat hardly anything, and has no energy. Related Data Home Medications Medication Instructions Recorded Confirmed cetirizine 10 mg tablet 10 mg PO BID 09/11/20 03/15/22 bupropion HCl 150 mg 24 hr tablet, 450 mg PO DAILY 03/26/21 03/16/22 extended release clonazepam 0.5 mg tablet (Klonopin) 0.5 mg PO TID PRN Anxiety 11/05/21 03/16/22 pregabalin 100 mg capsule 1 cap PO BID 03/15/22 03/15/22 albuterol sulfate 90 mcg/actuation 2 puff PO Q4H PRN Shortness Of 03/16/22 03/16/22 aerosol inhaler (ProAir HFA) Breath amitriptyline 50 mg tablet 50 mg PO BEDTIME 03/16/22 03/16/22 azelastine 137 mcg (0.1 %) nasal 1 spray intranasal BID 03/16/22 03/16/22 spray aerosol buspirone 10 mg tablet 10 mg PO BID 03/16/22 03/16/22 cyclobenzaprine 10 mg tablet 1 tab PO Q8H PRN Muscle Spasm 03/16/22 03/16/22 fremanezumab-vfrm 225 mg/1.5 mL 225 mg subcut QMONTH 03/16/22 03/16/22 subcutaneous auto-injector (Ajovy) hydroxyzine HCl 25 mg tablet 1 tab PO Q8H 03/16/22 03/16/22 lubiprostone 24 mcg capsule 1 cap PO BID 03/16/22 03/16/22 meloxicam 15 mg tablet 1 tab PO SUMOTUWETH@0900 03/16/22 03/16/22 montelukast 10 mg tablet 1 tab PO BEDTIME 03/16/22 03/16/22 multivitamin 1 tab PO DAILY 03/16/22 03/16/22 omeprazole 40 mg capsule,delayed 40 mg PO DAILY@0630 03/16/22 03/16/22 release sucralfate 1 gram tablet 1 tab PO BID 03/16/22 03/16/22 sumatriptan succinate 50 mg tablet 1 tab PO BID 03/16/22 03/16/22 tramadol 50 mg tablet 1 tab PO Q8H PRN pain 03/16/22 03/16/22 Previous Rx's Medication Instructions Recorded oxcarbazepine 600 mg tablet 600 mg PO BID #60 tabs 03/22/22 (Trileptal) quetiapine 50 mg tablet 50 mg PO BID PRN perceptual 03/22/22 alterations, anxiety #30 tabs sennosides 8.6 mg tablet (Senna 17.2 mg PO BID #30 tabs 03/22/22 Lax) Allergies Allergy/AdvReac Type Severity Reaction Status Date / Time oxycodone [From PERCOCET] Allergy Intermediate TACHYCARDIA, Verified 03/15/22 20:03 HEADACHE Sausage Allergy Unknown Unknown Uncoded 02/15/22 11:26 Review of Systems Review of Systems: Pertinent positives and negatives as stated in HPI 10 point review of systems is otherwise negative. [facility] Past Medical History Source: nursing notes reviewed Medical History Anxiety and depression Asthma Carpal tunnel syndrome Chest pain Colon cancer screening Complex cyst of left ovary Degenerative joint disease of cervical spine Encounter to discuss test results Fatty liver GERD (gastroesophageal reflux disease) Grief reaction Hepatitis C antibody test positive History of renal calculi Hot flashes Migraine Mood disorder Otitis externa Overweight (BMI 25.0-29.9) Pelvic cramping Pelvic pain in female PTSD (post-traumatic stress disorder) Seasonal allergies Sexually transmitted disease exposure Ulnar neuropathy UTI (urinary tract infection) Vaginal burning Vaginal discharge Vaginal dryness Vaginal itching Surgical History H/O colonoscopy H/O: hysterectomy History of carpal tunnel release History of esophagogastroduodenoscopy (EGD) History of sleeve gastrectomy Hx of rotator cuff surgery Hx of tonsillectomy Hx of tubal ligation Family History Family History Father HTN (hypertension) Diabetes mellitus Stroke High cholesterol Mother HTN (hypertension) Diabetes mellitus High cholesterol Sister Diabetes mellitus Breast cancer Stroke Kidney disease Maternal Grandmother Liver cancer Maternal Grandfather Heart disease Social History Social History Household Members: Family Housing: House Do you presently have visiting nurse or other home services: No Alcohol intake: current Alcohol intake frequency: holidays/special occasions only Patient Tobacco Use Status: Never used Tobacco e-Cigarette/Vaping Use: Never Used Second Hand Smoke Exposure: Yes Advance Directives Date on File: 02/11/21 service: No Current occupational status: disabled Sexual orientation: Straight/Heterosexual Gender identity: Female Cognitive needs: No Hearing needs: No Vision needs: Yes Physical Exam Vital Signs: Vital Signs: Last Vital Signs Temp 97 F 03/27/22 00:16 Pulse 81 03/27/22 00:16 Resp 22 H 03/27/22 00:16 Pulse Ox 97 03/27/22 00:16 O2 Del Method 03/27/22 00:16 BMI result Body Mass Index 28.3 VITAL SIGNS: Reviewed. GENERAL: Well developed, well nourished, in no acute distress. HEAD: Normocephalic/atraumatic EYES: PERRLA, EOMI EARS: Ext canals without abnormality OROPHARYNX: no oral lesions noted, posterior pharynx clear LUNGS: Normal breath sounds. No adventitious sounds or accessory muscle use. SpO2<97> CARDIOVASCULAR: Regular rate and rhythm without noted murmurs ABDOMEN: Soft, non-tender, non-distended with bowel sounds. MUSCULOSKELETAL: No tenderness, deformities, or effusions noted on gross inspection. EXTREMITIES: No cyanosis, clubbing or edema. SKIN: Inspection of the skin reveals no rashes NEUROLOGIC: Alert and oriented x 4. Strength and sensation to light touch were grossly intact x 4, cranial nerves 2-12 are grossly intact. PSYCH: Depressed affect, cooperative Course Course Course Narrative: 46-year-old female with history and clinical presentation consistent with major depression. As patient took all medications simultaneously but did not exceed the pill number will perform basic lab work and tox screen to include EKG for medical clearance. Signed out to Dr Bains. Reevaluation(s) Reevaluation #1: Patient placed in physician observation because the patient needed more time for medical clearance and N evaluation.. At the time observation was started the patient's vital signs were stable, patient is alert and oriented, neuro: Nonfocal, CV RRR, lungs clear Time: 02:26 Discharge Plan Discharge Clinical Impression: Depression, Bipolar II disorder Patient Disposition: Still a Patient Prescriptions: No Action pregabalin 100 mg capsule 1 cap PO BID meloxicam 15 mg tablet 1 tab PO SUMOTUWETH@0900 sucralfate 1 gram tablet 1 tab PO BID sumatriptan succinate 50 mg tablet 1 tab PO BID tramadol 50 mg tablet 1 tab PO Q8H PRN (Reason: pain) montelukast 10 mg tablet 1 tab PO BEDTIME azelastine 137 mcg (0.1 %) aerosol,spray 1 spray intranasal BID albuterol sulfate [ProAir HFA] 90 mcg/actuation HFA aerosol inhaler 2 puff PO Q4H PRN (Reason: Shortness Of Breath) lubiprostone 24 mcg capsule 1 cap PO BID Ajovy Autoinjector 225 mg/1.5 mL auto-injector 225 mg subcut QMONTH multivitamin Tablet 1 tab PO DAILY cyclobenzaprine 10 mg tablet 1 tab PO Q8H PRN (Reason: Muscle Spasm) amitriptyline 50 mg Tablet 50 mg PO BEDTIME buspirone 10 mg Tablet 10 mg PO BID hydroxyzine HCl 25 mg tablet 1 tab PO Q8H omeprazole 40 mg capsule,delayed release(DR/EC) 40 mg PO DAILY@0630 sennosides [Senna Lax] 8.6 mg Tablet 17.2 mg PO BID Qty: 30 0RF quetiapine 50 mg Tablet 50 mg PO BID PRN (Reason: perceptual alterations, anxiety) Qty: 30 1RF oxcarbazepine [Trileptal] 600 mg tablet 600 mg PO BID Qty: 60 0RF bupropion HCl 150 mg tablet extended release 24 hr 450 mg PO DAILY clonazepam [Klonopin] 0.5 mg tablet 0.5 mg PO TID PRN (Reason: Anxiety) cetirizine 10 mg tablet 10 mg PO BID
--- NOTE | 2022-03-27 02:18 | ECG_ITS ---
Test Reason : OVERDOSE Blood Pressure : / mmHG Vent. Rate : 081 BPM Atrial Rate : 081 BPM P-R Int : 190 ms QRS Dur : 096 ms QT Int : 400 ms P-R-T Axes : 035 -07 016 degrees QTc Int : 464 ms Normal sinus rhythm Inferior infarct (cited on or before 18-MAR-2022) Abnormal ECG When compared with ECG of 18-MAR-2022 22:34, No significant change was found Referred By: Marisol Rocha Electronically Signed By:NHI PORTER
[2022-03-27 02:46] LABS: Appearance Urine Clear; Color Urine Yellow; Glucose Urine UA Negative (Negative); Leukocyte Esterase Urine Small (1+) (Negative); Nitrite Urine Negative (Negative); PH 6.5 (5.0-9.0); Specific Gravity - Urine <= 1.005 (1.005-1.025); Urine Blood Negative (Negative); Urine Ketones Negative (Negative); Urine Protein Negative (Neg-Trace)
[2022-03-27 02:50] LABS: Bacteria Urine 1+ (None Seen); Hyaline Casts Urine 0-2 /LPF (0-2); MANUAL DIFF FLAG NO; RBC Urine 0-2 /HPF (0-2); Squamous Epithelial Cell Urine 0-2 /HPF (0-2); UACC Culture Trigger YES; WBC Urine 0-5 /HPF (0-5)
[2022-03-27 02:51] LABS: Basophils Absolute Auto 0.1 X10*3/uL (0.0-0.2); Basophils Percent Auto 1.1 % (0-2); Eosinophils Absolute Auto 0.3 X10*3/uL (0.0-0.4); Eosinophils Percent Auto 3.1 % (0-4); Hematocrit 36.4 % (37.0-47.0); Hemoglobin 12.3 g/dl (12.0-16.0); Imm Gran Abs Auto 0.02 X10*3/uL (0.00-0.03); Imm Gran Pct Auto 0.2 % (0.0-0.4); Lymphocytes Absolute Auto 2.5 X10*3/uL (1.2-4.9); Mean Corpuscular HGB Conc 33.8 g/dl (31.0-35.0); Mean Corpuscular Volume 88.8 fL (80.0-98.0); Mean Platelet Volume 8.6 fL (9.4-12.3); Monocytes Absolute Auto 0.8 X10*3/uL (0.1-1.2); Monocytes Percent Auto 9.2 % (2-11); Neutrophils Absolute Auto 5.1 x10*3/uL (2.0-8.3); Neutrophils Percent Auto 58.4 % (45-73); Platelet Count 251 X10*3/uL (160-400); Red Cell Distribution Width 13.5 % (11.0-16.0); White Blood Count 8.8 X10*3/uL (4.8-10.8)
[2022-03-27 02:56] LABS: Prothrombin Time 11.7 SEC (10.0-13.1)
[2022-03-27 03:08] LABS: Acetaminophen LAB < 1 mcg/mL (<30); COVID-19 Test Negative (Negative); IDNOW Serial# 16C4AD1C; Salicylate < 5.0 mg/dL (15-30)
[2022-03-27 03:12] LABS: Alanine Aminotransferase 10 U/L (0-31); Alkaline Phosphatase 108 U/L (39-117); Anion Gap 13 (12-20); Aspartate Amino Transferase 14 U/L (5-31); Bilirubin Total < 0.2 mg/dL (0.0-1.0); Blood Urea Nitrogen 13 mg/dL (9-16); Calcium 8.6 mg/dL (8.4-10.2); Carbon Dioxide 25 mmol/L (22-29); Chloride 107 mmol/L (96-108); Creatinine Clr Calc Pharmacy 113.9; Estimated Glomerular Filt Rate > 60; Glucose Random 98 mg/dL (60-115); Potassium 3.5 mmol/L (3.3-5.1); Sodium 141 mmol/L (135-145); Total Protein 6.5 g/dL (6.5-8.0)
[2022-03-27 03:27] LABS: Amphetamine Screen Urine Not Detected (Not Detect); Barbiturates, Urine Not Detected (Not Detect); Benzodiazepines Screen Urine Not Detected (Not Detect); Cannabinoid Screen Urine Not Detected (Not Detect); Cocaine Screen Urine Not Detected (Not Detect); Fentanyl, urine Not Detected (Not Detect); Opiate Screen Urine Not Detected (Not Detect); Phencyclidine Screen Urine Not Detected (Not Detect)
--- NOTE | 2022-03-27 06:29 | PHA.MEDREC ---
Pharmacy Consult ? Medication Reconciliation Pharmacy has completed the medication reconciliation. Patient discharged from on 03/22/2022. Med rec completed by discharge summary. Amarilys De Los Santos, DougD
--- NOTE | 2022-03-27 10:12 | PC.NURSE ---
Pt aox3. Reports feeling depressed and agrees with plan of care for admission/observation. Food and drink provided. 1:1 monitor present. Will continue to monitor.
[2022-03-27] MEDS: Cyclobenzaprine HCl 5 MG TABLET PO (13:54)
[2022-03-27] MEDS: NaPROXEN 500 MG TABLET PO (13:55)
--- NOTE | 2022-03-27 16:23 | PC.NURSE ---
Pts daughter, Sesar Burciaga, called and updated on pts care with pts verbal consent.
[2022-03-27] MEDS: Sennosides 8.6 MG TABLET 17.2 MG PO (21:13)
[2022-03-27] MEDS: busPIRone HCl 10 MG TABLET PO (21:13)
[2022-03-27] MEDS: Pregabalin 100 MG CAPSULE PO (21:13)
[2022-03-27] MEDS: Loratadine 10 MG TABLET PO (21:13)
[2022-03-27] MEDS: Sucralfate 1 GM TABLET PO (21:13)
[2022-03-27] MEDS: OXcarbazepine 300 MG TABLET 600 MG PO (21:13)
[2022-03-27] MEDS: hydrOXYzine HCL 25 MG TABLET PO (21:13)
[2022-03-27] MEDS: Montelukast Sodium 10 MG TABLET PO (21:13)
[2022-03-27] MEDS: Cyclobenzaprine HCl 10 MG TABLET PO (22:53)
[2022-03-28 00:19] VITALS: RESP 18
[2022-03-28] MEDS: clonazePAM 0.5 MG TABLET PO (01:53)
[2022-03-28] MEDS: Amitriptyline HCl 50 MG TABLET PO (01:53)
[2022-03-28 06:31] VITALS: BP 129/82; PULSE 74; RESP 18; TEMP 36.4; O2SAT 97
[2022-03-28] MEDS: OXcarbazepine 300 MG TABLET 600 MG PO (07:59)
[2022-03-28] MEDS: buPROPion HCl XL 150 MG TAB.ER.24H 450 MG PO (07:59)
[2022-03-28] MEDS: Omeprazole 40 MG CAPSULE.DR PO (08:00)
[2022-03-28] MEDS: Multivitamin TABLET 1 TAB PO (08:00)
[2022-03-28] MEDS: Loratadine 10 MG TABLET PO (08:00)
[2022-03-28] MEDS: busPIRone HCl 10 MG TABLET PO (08:00)
[2022-03-28] MEDS: Sennosides 8.6 MG TABLET 17.2 MG PO (08:00)
[2022-03-28] MEDS: Pregabalin 100 MG CAPSULE PO (08:00)
[2022-03-28] MEDS: Sucralfate 1 GM TABLET PO (08:00)
[2022-03-28] MEDS: Cyclobenzaprine HCl 10 MG TABLET PO (08:24)
[2022-03-28] MEDS: NaPROXEN 500 MG TABLET PO (08:25)
[2022-03-28] MEDS: hydrOXYzine HCL 25 MG TABLET PO (08:26)
== END 2022-03-28 10:31 | disposition home or self-care (01) ==
PROVIDERS: Student in an Organized Health Care Education/Training Program; Emergency Provider Emergency Medicine Emergency Medical Services; PCP Internal Medicine
DX: F31.81 Bipolar II disorder (principal); F43.10 Post-traumatic stress disorder, unspecified; N39.0 Urinary tract infection, site not specified; B96.89 Other specified bacterial agents as the cause of diseases classified elsewhere; Z79.899 Other long term (current) drug therapy; Z90.3 Acquired absence of stomach [part of]
CPT/HCPCS: 36415; 80053; 80143; 80179; 80307; 81001; 85025; 85610; 87086; 87088; 87186; 87635; 93005; 99285

== ENCOUNTER 2022-04-12 10:49 | Outpatient (REF) | payer OTHER, SELFPAY ==
--- NOTE | ~2022-04-12 | US_ITS ---
EXAMINATION: US PELVIS CLINICAL INFORMATION: Follow-up left ovarian cyst. COMPARISON: Prior pelvic ultrasound examinations, most recently 01/11/2022. TECHNIQUE: Ultrasound of the pelvis is performed using both transabdominal and transvaginal transducers along with Doppler. Transvaginal imaging is performed due to inadequate visualization transabdominally. FINDINGS: Uterus: The uterus is surgically absent. Adnexa: Both ovaries are visualized. There is normal color flow to the adnexa. There is no ovarian torsion. There is no pelvic ascites or fluid collection. Right ovary measures 3.2 x 2.5 x 1.8 cm (volume 7.5 mL). The right ovary contains a 1.5 x 1.3 x 1.3 cm simple, physiologic cyst. Left ovary measures 2.9 x 1.9 x 1.8 cm (volume 5.2 mL). The left ovary contains a 1.5 x 1.4 x 1.2 cm simple, physiologic cyst. US/US pelvic and transvaginal IMPRESSION: 1. The uterus is surgically absent. 2. Small simple, physiologic bilateral ovarian cysts are now noted, as detailed. These have benign appearances, and no imaging follow-up is recommended.
== END 2022-04-12 10:50 | disposition home or self-care (01) ==
LOC: HO.US 10:49
PROVIDERS: Visit Provider Advanced Practice Midwife
DX: N83.292 Other ovarian cyst, left side (principal)
CPT/HCPCS: 76830; 76856

== ENCOUNTER → 2022-04-19 08:55 | Outpatient (BNVA) | payer OTHER, SELFPAY | PROVIDERS: PCP Internal Medicine; Visit Provider Internal Medicine Rheumatology | DX: M79.7 Fibromyalgia (principal); G56.03 Carpal tunnel syndrome, bilateral upper limbs; M47.812 Spondylosis without myelopathy or radiculopathy, cervical region; F33.9 Major depressive disorder, recurrent, unspecified; K21.9 Gastro-esophageal reflux disease without esophagitis | CPT/HCPCS: 99212 ==

== ENCOUNTER 2022-04-26 08:47 | Outpatient (REF) | payer OTHER, SELFPAY ==
[2022-04-26 10:21] LABS: Appearance Urine Clear; Color Urine Dark Yellow; Glucose Urine UA Negative (Negative); Leukocyte Esterase Urine Small (1+) (Negative); Nitrite Urine Positive (Negative); PH 6.5 (5.0-9.0); Specific Gravity - Urine 1.025 (1.005-1.025); UMIC TRIGGER UACC YES; Urine Blood Negative (Negative); Urine Ketones Trace mg/dL (Negative); Urine Protein Negative (Neg-Trace)
[2022-04-26 10:28] LABS: Bacteria Urine 4+ (None Seen); Hyaline Casts Urine 0-2 /LPF (0-2); RBC Urine 0-2 /HPF (0-2); UACC Culture Trigger YES
== END 2022-04-26 08:48 | disposition home or self-care (01) ==
LOC: HO.LAB 08:47
PROVIDERS: PCP Internal Medicine; Visit Provider Internal Medicine
DX: N20.0 Calculus of kidney (principal); N39.0 Urinary tract infection, site not specified
CPT/HCPCS: 81001; 81003; 87086; 87088; 87186

== ENCOUNTER 2022-05-17 14:59 | Outpatient (REF) | payer OTHER, SELFPAY ==
[2022-05-17 15:38] LABS: Appearance Urine Clear; Color Urine Yellow; Glucose Urine UA Negative (Negative); Leukocyte Esterase Urine Negative (Negative); Nitrite Urine Negative (Negative); PH 6.5 (5.0-9.0); Specific Gravity - Urine 1.015 (1.005-1.025); Urine Blood Negative (Negative); Urine Ketones Negative (Negative); Urine Protein Negative (Neg-Trace)
== END 2022-05-17 15:00 | disposition home or self-care (01) ==
LOC: HO.LAB 14:59
PROVIDERS: PCP Internal Medicine; Visit Provider Internal Medicine
DX: N20.0 Calculus of kidney (principal)
CPT/HCPCS: 81003

== ENCOUNTER 2022-05-21 12:43 | Outpatient (REF) | payer OTHER, SELFPAY ==
[2022-05-21 13:06] LABS: MANUAL DIFF FLAG NO
[2022-05-21 13:39] LABS: Basophils Absolute Auto 0.1 X10*3/uL (0.0-0.2); Basophils Percent Auto 1.2 % (0-2); Eosinophils Absolute Auto 0.2 X10*3/uL (0.0-0.4); Eosinophils Percent Auto 2.1 % (0-4); Hematocrit 40.2 % (37.0-47.0); Hemoglobin 13.3 g/dl (12.0-16.0); Imm Gran Abs Auto 0.02 X10*3/uL (0.00-0.03); Imm Gran Pct Auto 0.3 % (0.0-0.4); Lymphocytes Absolute Auto 2.4 X10*3/uL (1.2-4.9); Lymphocytes Percent Auto 30.7 % (20-40); Mean Corpuscular HGB Conc 33.1 g/dl (31.0-35.0); Mean Corpuscular Hemoglobin 29.5 pg (27.0-33.0); Mean Corpuscular Volume 89.1 fL (80.0-98.0); Mean Platelet Volume 9.3 fL (9.4-12.3); Monocytes Absolute Auto 0.5 X10*3/uL (0.1-1.2); Monocytes Percent Auto 6.5 % (2-11); Neutrophils Absolute Auto 4.6 x10*3/uL (2.0-8.3); Neutrophils Percent Auto 59.2 % (45-73); Platelet Count 314 X10*3/uL (160-400); Red Blood Count 4.51 X10*6/uL (4.20-5.50); Red Cell Distribution Width 13.4 % (11.0-16.0); White Blood Count 7.7 X10*3/uL (4.8-10.8)
[2022-05-21 14:16] LABS: Alanine Aminotransferase 9 U/L (0-31); Albumin Level 4.3 g/dL (3.5-5.0); Alkaline Phosphatase 108 U/L (39-117); Anion Gap 15 (12-20); Aspartate Amino Transferase 15 U/L (5-31); Bilirubin Total 0.4 mg/dL (0.0-1.0); Blood Urea Nitrogen 13 mg/dL (9-16); Calcium 9.1 mg/dL (8.4-10.2); Carbon Dioxide 24 mmol/L (22-29); Chloride 105 mmol/L (96-108); Estimated Glomerular Filt Rate > 60; Glucose Random 86 mg/dL (60-115); Potassium 4.5 mmol/L (3.3-5.1); Sodium 139 mmol/L (135-145); Total Protein 7.1 g/dL (6.5-8.0)
[2022-05-21 14:25] LABS: Syphilis Screen Nonreactive (Nonreactive)
[2022-05-21 14:30] LABS: Erythrocyte Sedimentation Rate 22 MM/HR (0-20)
[2022-05-21 14:39] LABS: Thyroid Stimulating Hormone 0.68 uIU/mL (0.32-4.0)
[2022-05-21 14:56] LABS: Appearance Urine Turbid; Color Urine Yellow; Glucose Urine UA Negative (Negative); Leukocyte Esterase Urine Small (1+) (Negative); Nitrite Urine Positive (Negative); PH >= 9.0 (5.0-9.0); UMIC TRIGGER UACC YES; Urine Blood Negative (Negative); Urine Ketones Negative (Negative); Urine Protein Negative (Neg-Trace)
[2022-05-21 14:59] LABS: Bacteria Urine 4+ (None Seen); Hyaline Casts Urine 0-2 /LPF (0-2); RBC Urine 0-2 /HPF (0-2); UACC Culture Trigger YES; WBC Urine 21-50 /HPF (0-5)
[2022-05-24 09:30] LABS: HBS Num1 15.21 mIU/mL (0-7.99); HBsAGNum1 0.57 S/CO (0.00-0.99); HIV AB/AG Nonreactive (Nonreactive); HIV Num 1 0.12 S/CO (0.00-0.99); Hepatitis B Core Antibody Nonreactive (Nonreactive); Hepatitis B Surface Antigen Negative (Negative); ~HepC Num1 4.97 S/CO (0.00-0.79); ~Hepatitis B Surface Antibody REACTIVE (Nonreactive); ~Hepatitis C Antibody Reactive (Nonreactive)
== END 2022-05-21 12:44 | disposition home or self-care (01) ==
LOC: HO.LAB 12:43
PROVIDERS: PCP Internal Medicine; Visit Provider Internal Medicine
DX: Z11.4 Encounter for screening for human immunodeficiency virus [HIV] (principal); M79.7 Fibromyalgia; R79.89 Other specified abnormal findings of blood chemistry
CPT/HCPCS: 36415; 80053; 81001; 84443; 85025; 85652; 86704; 86706; 86780; 86803; 87086; 87088; 87186; 87340; 87389; 99212

== ENCOUNTER 2022-06-03 12:00 | Outpatient (REF) | payer OTHER, SELFPAY ==
--- NOTE | 2022-06-03 10:15 | EMG_ITS ---
Bilateral median and ulnar sensory studies were performed. Bilateral radial sensory studies were performed and paraspinal muscles were tested with a needle. IMPRESSION: Mild left ulnar neuropathy across cubital tunnel. Otherwise, this study did not reveal any significant abnormality. MD NASEEM Jasso/KATELYN / [id number]
== END 2022-06-03 12:01 | disposition home or self-care (01) ==
LOC: HO.NEURO 12:00
PROVIDERS: PCP Internal Medicine; Visit Provider Internal Medicine
DX: R20.0 Anesthesia of skin (principal); R20.2 Paresthesia of skin
CPT/HCPCS: 95886; 95911

== ENCOUNTER 2022-06-14 09:23 | Outpatient (REF) | payer OTHER, SELFPAY ==
[2022-06-15 12:04] LABS: BV Int Neg Control Negative (Negative); BV Int Pos Control Positive (Positive)
== END 2022-06-14 09:24 | disposition home or self-care (01) ==
LOC: HO.LNP 09:23
PROVIDERS: Visit Provider Advanced Practice Midwife
DX: Z71.2 Person consulting for explanation of examination or test findings (principal); N94.10 Unspecified dyspareunia; N83.201 Unspecified ovarian cyst, right side; N83.202 Unspecified ovarian cyst, left side
CPT/HCPCS: 87480; 87510; 87660; 99212

== ENCOUNTER 2022-08-05 14:30 | Outpatient (REF) | payer OTHER, SELFPAY ==
--- NOTE | ~2022-08-05 | US_ITS ---
EXAMINATION: US RETROPERITONEAL LIMITED (RENAL ONLY) CLINICAL INFORMATION: Calculus of kidney. COMPARISON: Ultrasound retroperitoneal limited (renal only) 02/08/2022. CT abdomen and pelvis without contrast 09/02/2021. Ultrasound abdomen complete 03/21/2017. TECHNIQUE: Real-time imaging of the kidneys. FINDINGS: RIGHT KIDNEY: 9.6 x 5.0 x 5.1 cm (SAG x AP x TRV). The kidney is normal in size, contour, and echogenicity. Renal cortical thickness is normal. No calculi or focal parenchymal lesions. No hydronephrosis. LEFT KIDNEY: 10.6 x 4.9 x 5.2 cm (SAG x AP x TRV). The kidney is normal in size, contour, and echogenicity. Renal cortical thickness is normal. No focal parenchymal lesions. Mild pelvocaliectasis, unchanged compared to 02/08/2022. There is a 0.4 cm calculus in the lower pole. US/US renal BI IMPRESSION: 1. Unchanged mild left pelvocaliectasis. 2. Redemonstration of a 0.4 cm calculus in the lower pole of the left kidney.
== END 2022-08-05 14:31 | disposition home or self-care (01) ==
LOC: HO.HMGCX 14:30
PROVIDERS: PCP Internal Medicine
DX: N20.0 Calculus of kidney (principal)
CPT/HCPCS: 76775

== ENCOUNTER 2022-08-23 01:07 | Emergency (ER) | payer OTHER, SELFPAY ==
--- NOTE | ~2022-08-23 | CT_ITS ---
EXAMINATION: CT HEAD WITHOUT CONTRAST CLINICAL INFORMATION: New onset high blood pressure, headache COMPARISON: 05/14/2019 TECHNIQUE: Contiguous axial imaging was performed from the skull base to vertex without intravenous administration of contrast. This CT examination was performed using dose optimization techniques as appropriate, variously including the following: *Automated exposure control *Adjustment of mA and/or kV according to patient size (this includes techniques or standardized protocols for targeted exams where dose is matched to indication/reason for exam; i.e. extremities or head) *Use of iterative reconstruction technique DLP: 679 mGy-cm FINDINGS: There is no evidence of acute intracranial hemorrhage or territorial infarction. No abnormal mass-effect or midline shift is seen. Delong to white matter differentiation is well preserved. No extra-axial fluid collections are identified. The ventricles are normal in size. There is no abnormal attenuation within the brain parenchyma. The osseous structures and soft tissues are normal. The mastoid air cells and visualized portions of the paranasal sinuses are well-aerated. CT/CT head/brain wo IV con IMPRESSION: No acute intracranial pathology.
[2022-08-23 01:24] VITALS: BP 163/81; PULSE 76; RESP 20; TEMP 36.8; O2SAT 99; BMI 31.3
--- NOTE | 2022-08-23 02:05 | ED_ITS ---
HPI - Headache General Chief Complaint: Headache Stated Complaint: High BP, Migraine Time Seen by Provider: 08/23/22 01:57 Source: patient Mode of arrival: ambulatory Limitations: no limitations History of Present Illness HPI Narrative: Patient comes to the emergency room complaining of high blood pressure and headache. Patient states that she is not known to have hypertension, but she does have migraine headaches. Patient states that for the last week to 2 weeks, she has noticed that her blood pressure has been high, maximum systolic 170, maximum diastolic 100. Patient uses monitor around the wrist. For the migraine, patient has tried multiple doses of Tylenol and sumatriptan. Patient cannot take NSAIDs due to history of gastric sleeve surgery. Patient complaining of photophobia Related Data Home Medications Medication Instructions Recorded Confirmed cetirizine 10 mg tablet 10 mg PO BID 09/11/20 08/05/22 clonazepam 0.5 mg tablet (Klonopin) 0.5 mg PO TID PRN Anxiety 11/05/21 08/05/22 pregabalin 100 mg capsule 1 cap PO BID 03/15/22 08/05/22 albuterol sulfate 90 mcg/actuation 2 puff PO Q4H PRN Shortness Of 03/16/22 0 08/05/22 aerosol inhaler (ProAir HFA) Breath amitriptyline 50 mg tablet 50 mg PO BEDTIME 03/16/22 08/05/22 fremanezumab-vfrm 225 mg/1.5 mL 225 mg subcut QMONTH 03/16/22 08/05/22 subcutaneous auto-injector (Ajovy) hydroxyzine HCl 25 mg tablet 1 tab PO Q8H 03/16/22 08/05/22 montelukast 10 mg tablet 1 tab PO BEDTIME 03/16/22 08/05/22 multivitamin 1 tab PO DAILY 03/16/22 08/05/22 sucralfate 1 gram tablet 1 tab PO BID 03/16/22 08/05/22 sumatriptan succinate 50 mg tablet 1 tab PO BID 03/16/22 08/05/22 fluoxetine 20 mg capsule 20 mg PO DAILY 04/15/22 08/05/22 bupropion HCl 150 mg 24 hr tablet, 150 mg PO BID 08/05/22 08/05/22 extended release Previous Rx's Medication Instructions Recorded arm brace (Wrist Brace Medium) #1 ea 04/19/22 diclofenac sodium 1 % topical gel 2 g topical BID PRN pain #100 grams 05/21/22 docusate sodium 100 mg capsule 100 mg PO DAILY #90 caps 05/21/22 polyethylene glycol 3350 17 17 g PO DAILY #510 grams 05/21/22 gram/dose oral powder (Miralax) cyclobenzaprine 10 mg tablet 10 mg PO Q8H PRN Muscle Spasm #90 07/09/22 tabs omeprazole 40 mg capsule,delayed 40 mg PO DAILY@0630 #30 caps 08/03/22 release CANE #1 ea 08/05/22 tramadol 50 mg tablet 50 mg PO Q8H PRN pain #20 tabs 08/17/22 jtousxlqke-xfgrafbvhdibg-gowsbqhb 1 cap PO TID PRN pain #10 caps 08/23/22 50 mg-300 mg-40 mg capsule (Fioricet) metoclopramide HCl 5 mg tablet 5 mg PO DAILY PRN nausea and 08/23/22 (Reglan) vomiting #10 tabs Allergies Allergy/AdvReac Type Severity Reaction Status Date / Time oxycodone [From PERCOCET] Allergy Intermediate TACHYCARDIA, Verified 08/05/22 09:50 HEADACHE Sausage Allergy Unknown Unknown Uncoded 08/05/22 09:50 Review of Systems Review of Systems: Constitutional : No Weight loss, No Fever, No Chills, No Night Sweats, No Fatigue, No Malaise ENT/Mouth : No Hearing loss, No Ear Pain, No Nasal Congestion, No Sinus Pain, No Hoarseness, No sore throat, No Rhinorrhea, No Swallowing Difficulty Eyes: No Eye Pain, No Swelling, No Redness, No Foreign Body, No Discharge, No Vision Changes Cardiovascular : No Chest Pain, No SOB, No Dyspnea on Exertion, No Orthopnea, No Edema, No Palpitations Respiratory : No Cough, No Sputum, No Wheezing, No Smoke Exposure, No Dyspnea Gastrointestinal : No Nausea, No Vomiting, No Diarrhea, No Constipation, No abdominal Pain, No Hematochezia, No Melena Genitourinary : no irregular bleeding, No Dysuria, No Urinary Frequency, No Hematuria, No Urinary Incontinence, No Urgency, No Flank Pain, No Urinary Flow Changes, No Hesitancy Musculoskeletal : No joint pain, No Myalgias, No Joint Swelling Skin : No Skin Lesions, No rash Neuro : No Weakness, No Numbness, No Paresthesias, No Loss of Consciousness, No Dizziness, complaining of migraine headache especially on the right side and photophobia Psych : No Anxiety/Panic, No Depression, No SI/HI/AH/VH, No Social Issues, Heme/Lymph: No Bruising, No Bleeding,No Lymphadenopathy Endocrine : No Polyuria, No Polydipsia, No Temperature Intolerance [facility] Past Medical History Medical History Anxiety and depression Asthma Bilateral hand numbness Carpal tunnel syndrome Chest pain Colon cancer screening Complex cyst of left ovary Degenerative joint disease of cervical spine Fatty liver Generalized anxiety disorder GERD (gastroesophageal reflux disease) Grief reaction Hepatitis C antibody test positive History of renal calculi Hot flashes Major depression Migraine Mood disorder Otitis externa Overweight (BMI 25.0-29.9) Pelvic cramping Pelvic pain in female PTSD (post-traumatic stress disorder) Seasonal allergies Sexually transmitted disease exposure Ulnar neuropathy UTI (urinary tract infection) Vaginal burning Vaginal discharge Vaginal dryness Vaginal itching Surgical History H/O colonoscopy H/O: hysterectomy History of carpal tunnel release History of esophagogastroduodenoscopy (EGD) History of sleeve gastrectomy Hx of rotator cuff surgery Hx of tonsillectomy Hx of tubal ligation Family History Family History Father HTN (hypertension) Diabetes mellitus Stroke High cholesterol Mother HTN (hypertension) Diabetes mellitus High cholesterol Sister Diabetes mellitus Breast cancer Stroke Kidney disease Maternal Grandmother Liver cancer Maternal Grandfather Heart disease Social History Social History (Updated 08/05/22 @ 10:42 by Lizandro Simon MD) Household Members: Family Housing: House Do you presently have visiting nurse or other home services: No Alcohol intake: current Alcohol intake frequency: holidays/special occasions only Patient Tobacco Use Status: Never used Tobacco e-Cigarette/Vaping Use: Never Used Second Hand Smoke Exposure: Yes Advance Directives: No Advance Directives Date on File: 02/11/21 Patient : No service: No Current occupational status: disabled Sexual orientation: Straight/Heterosexual Gender identity: Female Cognitive needs: No Hearing needs: No Vision needs: Yes Physical Exam Vital Signs: Vital Signs: Last Vital Signs Temp 98.3 F 08/23/22 02:36 Pulse 68 08/23/22 02:36 Resp 20 08/23/22 02:36 BP 125/76 08/23/22 02:36 Pulse Ox 97 08/23/22 02:36 O2 Del Method 08/23/22 02:36 BMI result Body Mass Index 31.3 Const: Other: Appearance: Alert. Oriented X3. No acute distress. Eyes: Pupils equal, round and reactive to light. Patient has photophobia ENT: Pharynx normal. Neck: Normal inspection. Neck supple. No lymph nodes noted. No crepitus CVS: Normal heart rate and rhythm. Pulses normal. Normal S1 and S2 Respiratory: No respiratory distress. Breath sounds normal. No Wheezing. No rales Abdomen: Soft and nontender. No rigidity. No distention. Skin: Skin warm and dry. Normal skin color. Normal skin turgor. Extremities: No lower extremity edema. No Lacerations. No Rash Neuro: Oriented X 3. No motor deficit. No sensory deficit. Moving all extremities. No slurred speech. CN 2 through 12 grossly intact Psych: calm, cooperative, normal affect Course Course Course Narrative: -patient reports new onset of high blood pressure and headache. We will go ahead and get a head CT. -patient receiving IV fluids, morphine, diphenhydramine and Reglan. Toradol not given since patient has history of gastric sleeve surgery Medications Administered Discontinued Medications Generic Name Dose Route Start Last Admin Trade Name Freq PRN Reason Stop Dose Admin Diphenhydramine HCl 25 mg 08/23/22 02:01 08/23/22 02:21 Diphenhydramine Hcl 50 Mg/Ml Vial IVPUSH 08/23/22 02:02 25 mg ONCE ONE Administration Sodium Chloride 1,000 mls @ 999 mls/hr 08/23/22 02:01 08/23/22 03:00 Ns IVCONT 08/23/22 03:01 Infused .Q1H1M ONE Infusion Metoclopramide HCl 10 mg 08/23/22 02:01 08/23/22 02:21 Metoclopramide Hcl 10 Mg/2 Ml Vial IVPUSH 08/23/22 02:02 10 mg ONCE ONE Administration Morphine Sulfate 4 mg 08/23/22 02:01 08/23/22 02:21 Morphine Sulfate 4 Mg/Ml Cartridge IVPUSH 08/23/22 02:02 4 mg ONCE ONE Administration Protocol Medical Decision Making Medical Decision Making MDM Narrative: -after IV treatment, patient feeling much better, patient ready for discharge. -his CT was negative for any acute pathology -without blood pressure medications, patient's blood pressure 125/76. I discussed with the patient to keep a log of her blood pressures and then shared with her primary care physician. At this time we will not start blood pressure medications. Differential Diagnosis Differential Diagnoses: The differential diagnosis associated with the presentation includes (Tension headache, migraine headache, intracranial bleed) Independent Interpretation I performed an independent interpretation of an: CT Scan (My head CT interpretation: No intracranial hemorrhage) Radiology Impression Discussion of test interpretation with radiology: I have reviewed the radiologist's reading. Radiologist Impression: INDINGS: There is no evidence of acute intracranial hemorrhage or territorial infarction. No abnormal mass-effect or midline shift is seen. Delong to white matter differentiation is well preserved. No extra-axial fluid collections are identified. The ventricles are normal in size. There is no abnormal attenuation within the brain parenchyma. The osseous structures and soft tissues are normal. The mastoid air cells and visualized portions of the paranasal sinuses are well-aerated. ? CT/CT head/brain wo IV con IMPRESSION: No acute intracranial pathology. Prescription Management I considered prescription management with: Other (Antihypertensive medication, hydrochlorothiazide. However, this is fairly new for the patient, I asked the patient to take blood pressure in different settings and keep a log and shared with her primary care physician.) Discharge Plan Discharge Clinical Impression: Migraine Patient Disposition: Home, Self-Care Instructions: Migraine Headache (ED) Additional Instructions: Please follow-up with your primary care physician tomorrow. If you have any worsening or new symptoms, please return to the emergency room or call 911 Prescriptions: New glpqxrlnhn-ryjhyssiauatd-cmlg [Fioricet] 50-300-40 mg capsule 1 cap PO TID PRN (Reason: pain) Qty: 10 0RF metoclopramide HCl [Reglan] 5 mg tablet 5 mg PO DAILY PRN (Reason: nausea and vomiting) Qty: 10 0RF No Action cyclobenzaprine 10 mg tablet 10 mg PO Q8H PRN (Reason: Muscle Spasm) Qty: 90 1RF omeprazole 40 mg capsule,delayed release(DR/EC) 40 mg PO DAILY@0630 Qty: 30 0RF tramadol 50 mg tablet 50 mg PO Q8H PRN (Reason: pain) Qty: 20 0RF pregabalin 100 mg capsule 1 cap PO BID sucralfate 1 gram tablet 1 tab PO BID sumatriptan succinate 50 mg tablet 1 tab PO BID montelukast 10 mg tablet 1 tab PO BEDTIME albuterol sulfate [ProAir HFA] 90 mcg/actuation HFA aerosol inhaler 2 puff PO Q4H PRN (Reason: Shortness Of Breath) Ajovy Autoinjector 225 mg/1.5 mL auto-injector 225 mg subcut QMONTH multivitamin Tablet 1 tab PO DAILY amitriptyline 50 mg Tablet 50 mg PO BEDTIME hydroxyzine HCl 25 mg tablet 1 tab PO Q8H clonazepam [Klonopin] 0.5 mg tablet 0.5 mg PO TID PRN (Reason: Anxiety) bupropion HCl 150 mg tablet extended release 24 hr 150 mg PO BID (DME) CANE See Rx Instructions .Route .MEDSUPPLY Qty: 1 0RF Rx Instructions: As directed diclofenac sodium 1 % gel 2 g topical BID PRN (Reason: pain) Qty: 100 3RF Rx Instructions: to affected joints fluoxetine 20 mg capsule 20 mg PO DAILY cetirizine 10 mg tablet 10 mg PO BID polyethylene glycol 3350 [Miralax] 17 gram/dose powder 17 g PO DAILY Qty: 510 2RF docusate sodium 100 mg capsule 100 mg PO DAILY Qty: 90 3RF (DME) Wrist Brace Medium Misc See Rx Instructions .Route Qty: 1 0RF Rx Instructions: use nightly
[2022-08-23] MEDS: Metoclopramide HCl 10 MG/2 ML VIAL IVPUSH (02:21)
[2022-08-23] MEDS: Morphine Sulfate 4 MG/ML CARTRIDGE IVPUSH (02:21)
[2022-08-23] MEDS: diphenhydrAMINE HCL 50 MG/ML VIAL 25 MG IVPUSH (02:21)
[2022-08-23] MEDS: 0.9 % Sodium Chloride 1,000 ML 999 ML IVCONT (02:22)
[2022-08-23 02:36] VITALS: BP 125/76; PULSE 68; RESP 20; TEMP 36.8; O2SAT 97
--- NOTE | 2022-08-23 02:42 | PC.NURSE ---
Assessment: Pt's V/V are stable, Pt was inserted IV 20g RAC. IVF are running as order and meds were given as order.
== END 2022-08-23 04:30 | disposition home or self-care (01) ==
PROVIDERS: Emergency Provider Emergency Medicine; PCP Internal Medicine
DX: G43.909 Migraine, unspecified, not intractable, without status migrainosus (principal); I10 Essential (primary) hypertension; Z79.899 Other long term (current) drug therapy
CPT/HCPCS: 70450; 96361; 96374; 96375; 99284; J1200; J2270; J2765

== ENCOUNTER → 2022-08-24 11:30 | Outpatient (BNVA) | payer OTHER, SELFPAY | PROVIDERS: PCP Internal Medicine; Visit Provider Nurse Practitioner Family | DX: N20.0 Calculus of kidney (principal) | CPT/HCPCS: 51798; 99212 ==

== ENCOUNTER 2022-09-16 10:15 | Outpatient (REF) | payer OTHER, SELFPAY ==
--- NOTE | ~2022-09-16 | XR_ITS ---
EXAMINATION: XR ABDOMEN KUB CLINICAL INDICATION: Kidney stone COMPARISON: Previous renal ultrasound July [address] of the abdomen and pelvis August 2021 TECHNIQUE: AP view of the abdomen. FINDINGS: 4 mm stone in the lower pole of the left kidney. There is question of a smaller 2 mm stone more superiorly in the left kidney. No other stone is seen. Normal bowel gas pattern. Postsurgical changes to the stomach. Degenerative changes of the spine. XR/XR KUB IMPRESSION: Left renal stone(s).
== END 2022-09-16 10:16 | disposition home or self-care (01) ==
LOC: HO.XRAY 10:15
PROVIDERS: PCP Internal Medicine; Visit Provider Nurse Practitioner Family
DX: N20.0 Calculus of kidney (principal)
CPT/HCPCS: 74018

== ENCOUNTER → 2022-10-12 10:46 | Outpatient (BNVA) | payer OTHER, SELFPAY | PROVIDERS: PCP Internal Medicine; Visit Provider Nurse Practitioner Family | DX: N20.0 Calculus of kidney (principal); R10.9 Unspecified abdominal pain | CPT/HCPCS: 51798; 99212 ==

== ENCOUNTER 2022-10-27 07:49 | Day surgery (SDC) | payer OTHER, SELFPAY ==
[2022-10-27] VITALS (7 sets, daily range): BP systolic 108–135; BP diastolic 67–79; PULSE 64–84; RESP 16–18; TEMP 36.1–36.8; O2SAT 97–100; BMI 30.4
--- NOTE | ~2022-10-27 | XR_ITS ---
EXAMINATION: XR ABDOMEN KUB CLINICAL INDICATION: Left kidney stone. COMPARISON: KUB dated 09/16/[address] scan of the abdomen and pelvis dated 09/02/2021, renal ultrasound dated 08/05/2022 TECHNIQUE: AP view of the abdomen. FINDINGS: The bowel gas pattern is normal with no evidence of ileus or obstruction. No unusual soft tissue calcifications are noted. The bones are unremarkable. Multiple surgical clips overlie the epigastric region. XR/XR KUB IMPRESSION: No radiopaque calculi.
--- NOTE | 2022-10-27 09:16 | MHC.SHP ---
Pre-Procedural Eval Section A Date of Service: 10/27/22 The patient is an INPATIENT: No The History & Physical has been completed within 30 days and I have reviewed it.: Yes Section B Chief Complaint: Calculus of kidney, Left Allergies: Allergies Allergy/AdvReac Type Severity Reaction Status Date / Time oxycodone [From PERCOCET] Allergy Intermediate TACHYCARDIA, Verified 10/15/22 12:26 HEADACHE Sausage Allergy Unknown Unknown Uncoded 10/12/22 20:20 Plan Diagnosis/Plan: Unchanged I have reviewed the history and physical and performed a pertinent physical examination on my patient. No changes have occurred unless specified. Left ESWL. Discussed risks to include but not limited to, blood in the urine, bruising to the skin, kidney hematoma, possible need for another procedure if a stone fragment obstructs the ureter while passing, possible need to repeat procedure if stone is not completely fragmented. Time Spent With Patient Time: Total time managing care of this patient today ____ minutes.
--- NOTE | 2022-10-27 09:36 | P.CONAN_ITS ---
HPI - Anesthesia Eval Consult details Narrative: ? Details Pattie is a 47-year-old female patient of Dr. Simon. Patient presents today for nephrolithiasis.? Of note, patient was previously seen approximately 2 months ago at which time a KUB was ordered for further assess ment evaluation of left-sided nephrolithiasis. These results were reviewed with the patient today. Left-sided 4 mm lower pole calculus consistent with most recent renal imaging from July 2022.? When asked patient continues with left- sided flank pain. She otherwise denies? urinary urgency, urinary frequency, incontinence, nocturia, hematuria, dysuria, foul smelling urine, changes to urinary stream, flank pain, fever, and or chills. Patient reports she continues with vitamin B6 daily and attempting to drink adequate amount of daily fluid intake. Discussed surgical intervention versus surveillance monitoring in the setting of left-sided flank pain.? Discussed risks and benefits of both surveillance monitoring versus surgical intervention. Patient reporting she would like to move forward with left-sided ESWL. ? PMFSH Active Problems Active Problems: All Active Problems (Updated 10/15/22 @ 13:00 by Lizandro Simon MD) Fibromyalgia (Acute) Lumbar radiculopathy (Acute) Shoulder pain, left (Acute) Screening mammogram, encounter for (Acute) Left renal stone (Acute) Obesity (BMI 30.0-34.9) (Acute) Constipation (Acute) Hiatal hernia (Acute) Recurrent major depression (Acute) Encounter to discuss test results (Acute) Carpal tunnel syndrome on both sides (Acute) Fibromyalgia (Acute) Ulnar neuropathy at elbow of left upper extremity (Acute) Annual physical exam (Acute) Low back pain (Acute) Sacroiliitis (Acute) Spinal stenosis in cervical region (Acute) COVID-19 virus infection (Acute) Flank pain (Acute) Preop exam for internal medicine (Acute) Lateral epicondylitis of left elbow (Acute) Sacroiliac joint pain (Acute) Bilateral nephrolithiasis (Acute) PTSD (post-traumatic stress disorder) (Acute) Complex cyst of left ovary (Acute) Degenerative joint disease of cervical spine (Acute) History of sleeve gastrectomy (Acute) Overweight (BMI 25.0-29.9) (Acute) Asthma (Acute) GERD (gastroesophageal reflux disease) (Acute) Past Medical History Medical History Anxiety and depression Asthma Bilateral hand numbness Bilateral nephrolithiasis Carpal tunnel syndrome Chest pain Colon cancer screening Complex cyst of left ovary Degenerative joint disease of cervical spine Fatty liver Generalized anxiety disorder GERD (gastroesophageal reflux disease) Grief reaction Hepatitis C antibody test positive History of renal calculi Hot flashes Major depression Migraine Mood disorder Otitis externa Overweight (BMI 25.0-29.9) Pelvic cramping Pelvic pain in female PTSD (post-traumatic stress disorder) Seasonal allergies Sexually transmitted disease exposure Ulnar neuropathy UTI (urinary tract infection) Vaginal burning Vaginal discharge Vaginal dryness Vaginal itching Family History Family History (Updated 10/15/22 @ 12:49 by Lizandro Simon MD) Father HTN (hypertension) Diabetes mellitus Stroke High cholesterol Mother HTN (hypertension) Diabetes mellitus High cholesterol Sister Diabetes mellitus Breast cancer Stroke Kidney disease Esophageal cancer Heart disease Maternal Grandmother Liver cancer Maternal Grandfather Heart disease Family history of problems with anesthesia: No Surgical History Surgical History (Updated 10/21/22 @ 15:52 by Mary Leon RN) H/O colonoscopy H/O: hysterectomy History of carpal tunnel release History of esophagogastroduodenoscopy (EGD) History of sleeve gastrectomy Hx of rotator cuff surgery Hx of tonsillectomy Hx of tubal ligation History of Problems with Anesthesia: No Social History Social History (Updated 10/15/22 @ 12:50 by Lizandro Simon MD) Household Members: Family Housing: House Do you presently have visiting nurse or other home services: No Alcohol intake: current Alcohol intake frequency: does not drink Patient Tobacco Use Status: Never used Tobacco e-Cigarette/Vaping Use: Never Used Second Hand Smoke Exposure: Yes Are you DNR?: No Advance Directives: Yes Advance Directives on File: Yes Advance Directives Date on File: 02/11/21 service: No Current occupational status: disabled Sexual orientation: Straight/Heterosexual Gender identity: Female Cognitive needs: No Hearing needs: No Vision needs: Yes Meds Allergies Allergy/AdvReac Type Severity Reaction Status Date / Time oxycodone [From PERCOCET] Allergy Intermediate TACHYCARDIA, Verified 10/15/22 12:26 HEADACHE Sausage Allergy Unknown Unknown Uncoded 10/12/22 20:20 Active Medications: Current Medications Lactated Ringer's (Lr) 1,000 mls @ 999 mls/hr IV .Q1H1M LAUREN Stop: 10/27/22 11:30 Home Medications Medication Instructions Recorded Confirmed Last Taken Type cetirizine 10 mg tablet 10 mg PO BID 09/11/20 10/21/22 03/14/22 History clonazepam 0.5 mg tablet (Klonopin) 0.5 mg PO TID PRN Anxiety 11/05/21 10/21/22 10/27/22 History pregabalin 100 mg capsule 1 cap PO BID 03/15/22 10/21/22 03/14/22 History albuterol sulfate 90 mcg/actuation 2 puff PO Q4H PRN Shortness Of 03/16/22 10/21/22 Unknown History aerosol inhaler (ProAir HFA) Breath amitriptyline 50 mg tablet 50 mg PO BEDTIME 03/16/22 10/21/22 03/14/22 History fremanezumab-vfrm 225 mg/1.5 mL 225 mg subcut QMONTH 03/16/22 10/21/22 Unknown History subcutaneous auto-injector (Ajovy) hydroxyzine HCl 25 mg tablet 1 tab PO Q8H 03/16/22 10/15/22 Unknown History montelukast 10 mg tablet 1 tab PO BEDTIME 03/16/22 10/21/22 03/14/22 History multivitamin 1 tab PO DAILY 03/16/22 10/21/22 03/14/22 History sucralfate 1 gram tablet 1 tab PO BID 03/16/22 10/21/22 03/14/22 History sumatriptan succinate 50 mg tablet 1 tab PO BID 03/16/22 10/21/22 03/14/22 History fluoxetine 20 mg capsule 20 mg PO DAILY 04/15/22 10/21/22 Unknown History bupropion HCl 150 mg 24 hr tablet, 150 mg PO BID 08/05/22 10/15/22 10/27/22 History extended release Exam Exam Date and Time: October 27, 2022 0936 Height,Weight and Vital Signs: Height 5 ft 7 in Weight 87.997 kg Last Vital Signs Temp 98.2 F 10/27/22 09:15 Pulse 84 10/27/22 09:15 Resp 18 10/27/22 09:15 BP 115/67 10/27/22 09:15 Pulse Ox 100 10/27/22 09:15 O2 Del Method Room Air 10/27/22 09:15 Airway Mallampati Class: II TM Dist: >3cm Neck ROM: Full Heart: rrr Lungs: cta Other: legally blind Assessment and Plan Assessment Anesthesia Assessment: Anesthesia Plan Discussed and Chart Reviewed Final Anesthetic Review Family History of Problems with Anesthesia: No History of Problems with Anesthesia: No NPO: Yes ASA Class: III Final Preanesthetic Review: No Changes in Pt Med Stat, Meds/Allgs Chart Reviewed, Consent Obtained/Reviewed and Anes Risks/Benef Reviewed Patient Risk: Low Procedure Risk: Low Anesthetic Plan Anesthetic Plan: GA Disposition: Standard PACU
[2022-10-27] MEDS: Lactated Ringers 1,000 ML 999 ML IV (09:37)
--- NOTE | 2022-10-27 11:10 | W.PM.OPN ---
Operative Note Operative Note Date of Service: 10/27/22 Narrative: PreOperative Diagnosis:? ? Left Renal stone Post Operative Diagnosis:? Left? Renal stone ProCedure:? Left? ESWL Surgeon:?Dr Hope More Anesthesia:? General Indications for procedure: The patient understands ESWL may be a staged procedure and subsequent intervention may be required based on imaging after ESWL.? They also understand? there is a risk of bleeding to the kidney, infection, damage to adjacent organs, and stone migration following the procedure. - Imaging with renal ultrasound 4 x 5 mm left lower pole stone, stone not visualized well on KUB or fluoroscopy. Procedure: After informed consent was verified the patient was brought to the operating room and placed in a supine position.? Anesthesia was performed per protocol. Safety pause time-out was performed. Imaging was displayed in the room and laterality confirmed. Left ESWL was performed.?The stone was visualized well on ultrasound.? Shockwave lithotripsy was performed, the first 300 shocks at 60 hertz.? A pause for 3 minutes.? A total of 2500 shocks to a maximum of power of 18 with a maximum rate of 120 hertz.? Some fragmentation of the stone was appreciated. The patient tolerated the procedure well and was transferred to the recovery area upon completion. Complications: None
== END 2022-10-27 13:01 | disposition home or self-care (01) ==
PROVIDERS: PCP Internal Medicine; Visit Provider Urology
PROC: (CPT 50590; principal; 2022-10-27 09:30)
DX: N20.0 Calculus of kidney (principal); R10.9 Unspecified abdominal pain; Z87.442 Personal history of urinary calculi; Z87.440 Personal history of urinary (tract) infections; J45.909 Unspecified asthma, uncomplicated; K76.0 Fatty (change of) liver, not elsewhere classified; K21.9 Gastro-esophageal reflux disease without esophagitis; F41.8 Other specified anxiety disorders; F43.20 Adjustment disorder, unspecified; F43.10 Post-traumatic stress disorder, unspecified; G43.909 Migraine, unspecified, not intractable, without status migrainosus; E66.3 Overweight; Z68.29 Body mass index [BMI] 29.0-29.9, adult; M48.02 Spinal stenosis, cervical region; Z79.899 Other long term (current) drug therapy; Z88.8 Allergy status to other drugs, medicaments and biological substances; Z98.84 Bariatric surgery status; Z90.3 Acquired absence of stomach [part of]
CPT/HCPCS: 50590; 74018; J0131; J0690; J1100; J2370; J2405; J3010

== ENCOUNTER 2022-11-19 12:41 | Outpatient (REF) | payer OTHER, SELFPAY ==
--- NOTE | ~2022-11-19 | US_ITS ---
EXAMINATION: US RETROPERITONEAL LIMITED (RENAL ONLY) CLINICAL INFORMATION: Left renal stones status post left ESWL COMPARISON: Bilateral renal ultrasound dated 08/05/2022 and 02/08/2022. CT abdomen and pelvis without contrast dated 09/02/2021. TECHNIQUE: Real-time imaging of the kidneys. FINDINGS: RIGHT KIDNEY: 10.2 x 4.5 x 5.2 cm (SAG x AP x TRV). The kidney is normal in size, contour, and echogenicity. Renal cortical thickness is normal. No calculi or focal parenchymal lesions. No hydronephrosis. LEFT KIDNEY: 10.5 x 5.2 x 6.7 cm (SAG x AP x TRV). The kidney is normal in size, contour, and echogenicity. Renal cortical thickness is normal. No focal parenchymal lesions. 4 mm nonobstructing calculus in the lower pole. Mild hydronephrosis is unchanged. US/US renal BI IMPRESSION: 4 mm nonobstructing calculus in the lower pole the left kidney. Persistent mild left hydronephrosis.
== END 2022-11-19 12:42 | disposition home or self-care (01) ==
LOC: HO.US 12:41
PROVIDERS: PCP Internal Medicine; Visit Provider Urology
DX: N20.0 Calculus of kidney (principal)
CPT/HCPCS: 76775

== ENCOUNTER → 2022-12-01 13:33 | Outpatient (BNVA) | payer OTHER, SELFPAY | PROVIDERS: PCP Internal Medicine; Visit Provider Urology | DX: R10.9 Unspecified abdominal pain (principal); N20.0 Calculus of kidney | CPT/HCPCS: 99212 ==

== ENCOUNTER 2022-12-06 23:24 | Inpatient (IN) | payer OTHER, SELFPAY ==
[2022-12-06 23:33] VITALS: BP 153/113; PULSE 107; RESP 18; TEMP 36.6; O2SAT 98; BMI 29.3
--- NOTE | 2022-12-07 | ECG_ITS ---
Test Reason : med clear Blood Pressure : / mmHG Vent. Rate : 063 BPM Atrial Rate : 063 BPM P-R Int : 184 ms QRS Dur : 094 ms QT Int : 418 ms P-R-T Axes : 016 -09 021 degrees QTc Int : 427 ms Normal sinus rhythm Inferior infarct (cited on or before 18-MAR-2022) Abnormal ECG When compared with ECG of 27-MAR-2022 02:27, No significant change was found Referred By: Jessica Louis Electronically Signed By:oYan Allison
[2022-12-07 00:16] LABS: MANUAL DIFF FLAG NO
[2022-12-07 00:24] LABS: Basophils Absolute Auto 0.1 X10*3/uL (0.0-0.2); Basophils Percent Auto 0.9 % (0-2); Eosinophils Absolute Auto 0.2 X10*3/uL (0.0-0.4); Eosinophils Percent Auto 1.6 % (0-4); Hematocrit 37.2 % (37.0-47.0); Hemoglobin 12.5 g/dl (12.0-16.0); Imm Gran Abs Auto 0.03 X10*3/uL (0.00-0.03); Imm Gran Pct Auto 0.3 % (0.0-0.4); Lymphocytes Absolute Auto 2.5 X10*3/uL (1.2-4.9); Lymphocytes Percent Auto 22.1 % (20-40); Mean Corpuscular HGB Conc 33.6 g/dl (31.0-35.0); Mean Corpuscular Hemoglobin 29.3 pg (27.0-33.0); Mean Corpuscular Volume 87.3 fL (80.0-98.0); Mean Platelet Volume 9.8 fL (9.4-12.3); Monocytes Absolute Auto 0.9 X10*3/uL (0.1-1.2); Monocytes Percent Auto 8.2 % (2-11); Neutrophils Absolute Auto 7.5 x10*3/uL (2.0-8.3); Neutrophils Percent Auto 66.9 % (45-73); Platelet Count 294 X10*3/uL (160-400); Red Blood Count 4.26 X10*6/uL (4.20-5.50); Red Cell Distribution Width 13.8 % (11.0-16.0); White Blood Count 11.2 X10*3/uL (4.8-10.8)
[2022-12-07 00:26] LABS: Appearance Urine Clear; Color Urine Yellow; Glucose Urine UA Negative (Negative); Leukocyte Esterase Urine Negative (Negative); Nitrite Urine Negative (Negative); UMIC TRIGGER UA YES; Urine Blood Negative (Negative); Urine Ketones Trace mg/dL (Negative); Urine Protein 100 (2+) mg/dL (Neg-Trace)
[2022-12-07 00:27] LABS: Amphetamine Screen Urine Not Detected (Not Detect); Barbiturates, Urine Not Detected (Not Detect); Benzodiazepines Screen Urine Not Detected (Not Detect); Cannabinoid Screen Urine Not Detected (Not Detect); Cocaine Screen Urine Not Detected (Not Detect); Fentanyl, urine POSITIVE (Not Detect); Opiate Screen Urine Not Detected (Not Detect); Phencyclidine Screen Urine Not Detected (Not Detect); UPreg QC Valid YES; Urine Pregnancy NEGATIVE (NEGATIVE)
[2022-12-07 00:29] LABS: Bacteria Urine None Seen (None Seen); Hyaline Casts Urine 0-2 /LPF (0-2); RBC Urine 0-2 /HPF (0-2); Squamous Epithelial Cell Urine 0-2 /HPF (0-2); WBC Urine 0-5 /HPF (0-5)
[2022-12-07 00:31] LABS: COVID-19 Test Negative (Negative); IDNOW Serial# BCCEAD1C
[2022-12-07 00:35] LABS: Alanine Aminotransferase 9 U/L (0-31); Alkaline Phosphatase 101 U/L (39-117); Anion Gap 9 (12-20); Aspartate Amino Transferase 13 U/L (5-31); Bilirubin Total 0.4 mg/dL (0.0-1.0); Blood Urea Nitrogen 6 mg/dL (9-16); Calcium 8.5 mg/dL (8.4-10.2); Carbon Dioxide 25 mmol/L (22-29); Chloride 108 mmol/L (96-108); Creatinine Clr Calc Pharmacy 93.1; Estimated Glomerular Filt Rate > 60; Ethanol < 10 mg/dL; Glucose Random 103 mg/dL (60-115); Potassium 3.3 mmol/L (3.3-5.1); Sodium 139 mmol/L (135-145); Total Protein 6.2 g/dL (6.5-8.0)
--- NOTE | 2022-12-07 01:53 | ED.PSYCH ---
HPI - Psych General Chief Complaint: Psychiatric Symptoms Stated Complaint: Crisis Time Seen by Provider: 12/07/22 00:17 Source: patient Mode of arrival: ambulatory Limitations: no limitations History of Present Illness HPI Narrative: The patient comes to the emergency room complaining of worsening depression, vague SI. Patient states that she wants to disappear from this world. No planned patient had an argument with her daughter prior to arrival. Patient states that she is tired of being told what to do by her daughters and her partner. Since the patient had an argument with a partner as well. Related Data Home Medications Medication Instructions Recorded Confirmed budesonide-formoterol HFA 160 2 puff inhalation BID 12/06/22 12/07/22 mcg-4.5 mcg/actuation aerosol inhaler (Symbicort) bupropion HCl 300 mg 24 hr tablet, 300 mg PO DAILY 12/06/22 12/07/22 extended release clonazepam 0.5 mg tablet 1 mg PO BID 12/06/22 12/07/22 cyclobenzaprine 10 mg tablet 10 mg PO Q8H PRN muscle spasm 12/06/22 12/07/22 fluoxetine 40 mg capsule 40 mg PO DAILY 12/06/22 12/07/22 fremanezumab-vfrm 225 mg/1.5 mL 225 mg subcut QMONTH 12/06/22 12/07/22 subcutaneous auto-injector (Fernandoovteodora) lidocaine 5 % topical patch 1 patch topical DAILY 12/06/22 12/07/22 omeprazole 40 mg capsule,delayed 40 mg PO DAILY 12/06/22 12/07/22 release sucralfate 1 gram tablet 1 g PO BID 12/06/22 12/07/22 sumatriptan succinate 50 mg tablet 50 mg PO BID 12/06/22 12/07/22 tamsulosin 0.4 mg capsule 0.4 mg PO BEDTIME 12/06/22 12/07/22 amitriptyline 50 mg tablet 50 mg PO BEDTIME 12/07/22 12/07/22 docusate sodium 100 mg capsule 100 mg PO DAILY 12/07/22 12/07/22 hydroxyzine HCl 25 mg tablet 25 mg PO DAILY 12/07/22 12/07/22 pregabalin 100 mg capsule 100 mg PO BID 12/07/22 12/07/22 Allergies Allergy/AdvReac Type Severity Reaction Status Date / Time oxycodone [From PERCOCET] Allergy Intermediate TACHYCARDIA, Verified 11/16/22 10:42 HEADACHE hydromorphone [From Dilaudid] AdvReac Mild Itchy Verified 11/16/22 10:42 Sausage Allergy Unknown Unknown Uncoded 11/16/22 10:42 Review of Systems Review of Systems: Constitutional : No Weight loss, No Fever, No Chills, No Night Sweats, No Fatigue, No Malaise ENT/Mouth : No Hearing loss, No Ear Pain, No Nasal Congestion, No Sinus Pain, No Hoarseness, No sore throat, No Rhinorrhea, No Swallowing Difficulty Eyes: No Eye Pain, No Swelling, No Redness, No Foreign Body, No Discharge, No Vision Changes Cardiovascular : No Chest Pain, No SOB, No Dyspnea on Exertion, No Orthopnea, No Edema, No Palpitations Respiratory : No Cough, No Sputum, No Wheezing, No Smoke Exposure, No Dyspnea Gastrointestinal : No Nausea, No Vomiting, No Diarrhea, No Constipation, No abdominal Pain, No Hematochezia, No Melena Genitourinary : no irregular bleeding, No Dysuria, No Urinary Frequency, No Hematuria, No Urinary Incontinence, No Urgency, No Flank Pain, No Urinary Flow Changes, No Hesitancy Musculoskeletal : No joint pain, No Myalgias, No Joint Swelling Skin : No Skin Lesions, No rash Neuro : No Weakness, No Numbness, No Paresthesias, No Loss of Consciousness, No Dizziness, No Headache Psych : Complaining of anxiety, depression, vague SI, no HI Heme/Lymph: No Bruising, No Bleeding,No Lymphadenopathy Endocrine : No Polyuria, No Polydipsia, No Temperature Intolerance [facility] Past Medical History Medical History Anxiety and depression Asthma Bilateral hand numbness Bilateral nephrolithiasis Carpal tunnel syndrome Chest pain Colon cancer screening Complex cyst of left ovary Degenerative joint disease of cervical spine Fatty liver Generalized anxiety disorder GERD (gastroesophageal reflux disease) Grief reaction Hepatitis C antibody test positive History of renal calculi Hot flashes Major depression Migraine Mood disorder Otitis externa Overweight (BMI 25.0-29.9) Pelvic cramping Pelvic pain in female PTSD (post-traumatic stress disorder) Seasonal allergies Sexually transmitted disease exposure Ulnar neuropathy UTI (urinary tract infection) Vaginal burning Vaginal discharge Vaginal dryness Vaginal itching Surgical History H/O colonoscopy H/O: hysterectomy History of carpal tunnel release History of esophagogastroduodenoscopy (EGD) History of sleeve gastrectomy Hx of rotator cuff surgery Hx of tonsillectomy Hx of tubal ligation Family History Family History Father HTN (hypertension) Diabetes mellitus Stroke High cholesterol Mother HTN (hypertension) Diabetes mellitus High cholesterol Sister Diabetes mellitus Breast cancer Stroke Kidney disease Esophageal cancer Heart disease Maternal Grandmother Liver cancer Maternal Grandfather Heart disease Social History Social History Household Members: Family Housing: House Do you presently have visiting nurse or other home services: No Alcohol intake: current Alcohol intake frequency: does not drink Patient Tobacco Use Status: Never used Tobacco e-Cigarette/Vaping Use: Never Used Second Hand Smoke Exposure: Yes Advance Directives: Yes Advance Directives Information Provided: Yes Advance Directives on File: No Advance Directives Date on File: 02/11/21 service: No Current occupational status: disabled Sexual orientation: Straight/Heterosexual Gender identity: Female Cognitive needs: No Hearing needs: No Vision needs: Yes Physical Exam Vital Signs: Vital Signs: Last Vital Signs Temp 97.9 F 12/06/22 23:33 Pulse 107 H 12/06/22 23:33 Resp 18 12/06/22 23:33 BP 153/113 H 12/06/22 23:33 Pulse Ox 98 12/06/22 23:33 O2 Del Method Room Air 12/06/22 23:33 BMI result Body Mass Index 29.3 Const: Other: Appearance: Alert. Oriented X3. No acute distress. Eyes: Pupils equal, round and reactive to light. ENT: Pharynx normal. Neck: Normal inspection. Neck supple. No lymph nodes noted. No crepitus CVS: Normal heart rate and rhythm. Pulses normal. Normal S1 and S2 Respiratory: No respiratory distress. Breath sounds normal. No Wheezing. No rales Abdomen: Soft and nontender. No rigidity. No distention. Skin: Skin warm and dry. Normal skin color. Normal skin turgor. Extremities: No lower extremity edema. No Lacerations. No Rash Neuro: Oriented X 3. No motor deficit. No sensory deficit. Moving all extremities. No slurred speech. CN 2 through 12 grossly intact Psych: calm, cooperative, normal affect Medical Decision Making Medical Decision Making MDM Narrative: -care team consult pending -physician observation started at 01:00 -sign out given to Dr. Soto Lab Data 12/07/22 00:07 12/07/22 00:07 Labs: Lab Results 12/07/22 12/07/22 12/07/22 Range/Units 00:06 00:06 00:06 WBC (4.8-10.8) X10*3/uL RBC (4.20-5.50) X10*6/uL Hgb (12.0-16.0) g/dl Hct (37.0-47.0) % MCV (80.0-98.0) fL MCH (27.0-33.0) pg MCHC (31.0-35.0) g/dl RDW (11.0-16.0) % Plt Count (160-400) X10*3/uL MPV (9.4-12.3) fL Immature Gran % (Auto) (0.0-0.4) % Neut % (Auto) (45-73) % Lymph % (Auto) (20-40) % [place] % (Auto) (2-11) % Eos % (Auto) (0-4) % Baso % (Auto) (0-2) % Lymph # (Auto) (1.2-4.9) X10*3/uL [place] # (Auto) (0.1-1.2) X10*3/uL Eos # (Auto) (0.0-0.4) X10*3/uL Baso # (Auto) (0.0-0.2) X10*3/uL Abs Immat Gran (auto) (0.00-0.03) X10*3/uL Absolute Neuts (auto) (2.0-8.3) x10*3/uL Absolute Nucleated RBC (0.0-0.012) X10*3/uL Nucleated RBC % (auto) (0.0-0.2) /100WBC Sodium (135-145) mmol/L Potassium (3.3-5.1) mmol/L Chloride (96-108) mmol/L Carbon Dioxide (22-29) mmol/L Anion Gap (12-20) BUN (9-16) mg/dL Creatinine (0.5-1.4) mg/dL Estim Creat Clear Calc Estimated GFR Random Glucose (60-115) mg/dL Calcium (8.4-10.2) mg/dL Total Bilirubin (0.0-1.0) mg/dL AST (5-31) U/L ALT (0-31) U/L Alkaline Phosphatase (39-117) U/L Total Protein (6.5-8.0) g/dL Albumin (3.5-5.0) g/dL Urine Color Yellow Urine Appearance Clear Urine pH 6.0 (5.0-9.0) Ur Specific [place] 1.020 (1.005-1.025) Urine Protein 100 (2+) H (Neg-Trace) mg/dL Urine Glucose (UA) Negative (Negative) mg/dL Urine Ketones Trace (Negative) mg/dL Urine Blood Negative (Negative) Urine Nitrite Negative (Negative) Ur Leukocyte Esterase Negative (Negative) Urine RBC 0-2 (0-2) /HPF Urine WBC 0-5 (0-5) /HPF Ur Squamous Epith Cells 0-2 (0-2) /HPF Urine Bacteria None Seen (None Seen) Hyaline Casts 0-2 (0-2) /LPF Urine Test NEGATIVE (NEGATIVE) Urine Opiates Screen Not Detected (Not Detect) Urine Fentanyl Screen POSITIVE H (Not Detect) Ur Barbiturates Screen Not Detected (Not Detect) Ur Phencyclidine Scrn Not Detected (Not Detect) Ur Amphetamines Screen Not Detected (Not Detect) U Benzodiazepines Scrn Not Detected (Not Detect) Urine Cocaine Screen Not Detected (Not Detect) U Marijuana (THC) Screen Not Detected (Not Detect) Ethyl Alcohol mg/dL COVID-19 (LYNNETTE) (Negative) COVID-19 Clin Com 12/07/22 12/07/22 12/07/22 Range/Units 00:07 00:07 00:10 WBC 11.2 H (4.8-10.8) X10*3/uL RBC 4.26 (4.20-5.50) X10*6/uL Hgb 12.5 (12.0-16.0) g/dl Hct 37.2 (37.0-47.0) % MCV 87.3 (80.0-98.0) fL MCH 29.3 (27.0-33.0) pg MCHC 33.6 (31.0-35.0) g/dl RDW 13.8 (11.0-16.0) % Plt Count 294 (160-400) X10*3/uL MPV 9.8 (9.4-12.3) fL Immature Gran % (Auto) 0.3 (0.0-0.4) % Neut % (Auto) 66.9 (45-73) % Lymph % (Auto) 22.1 (20-40) % [place] % (Auto) 8.2 (2-11) % Eos % (Auto) 1.6 (0-4) % Baso % (Auto) 0.9 (0-2) % Lymph # (Auto) 2.5 (1.2-4.9) X10*3/uL [place] # (Auto) 0.9 (0.1-1.2) X10*3/uL Eos # (Auto) 0.2 (0.0-0.4) X10*3/uL Baso # (Auto) 0.1 (0.0-0.2) X10*3/uL Abs Immat Gran (auto) 0.03 (0.00-0.03) X10*3/uL Absolute Neuts (auto) 7.5 (2.0-8.3) x10*3/uL Absolute Nucleated RBC 0.000 (0.0-0.012) X10*3/uL Nucleated RBC % (auto) 0.0 (0.0-0.2) /100WBC Sodium 139 (135-145) mmol/L Potassium 3.3 D (3.3-5.1) mmol/L Chloride 108 (96-108) mmol/L Carbon Dioxide 25 (22-29) mmol/L Anion Gap 9 L (12-20) BUN 6 L (9-16) mg/dL Creatinine 0.94 (0.5-1.4) mg/dL Estim Creat Clear Calc 93.1 Estimated GFR > 60 Random Glucose 103 (60-115) mg/dL Calcium 8.5 D (8.4-10.2) mg/dL Total Bilirubin 0.4 (0.0-1.0) mg/dL AST 13 (5-31) U/L ALT 9 (0-31) U/L Alkaline Phosphatase 101 (39-117) U/L Total Protein 6.2 L (6.5-8.0) g/dL Albumin 4.0 (3.5-5.0) g/dL Urine Color Urine Appearance Urine pH (5.0-9.0) Ur Specific [place] (1.005-1.025) Urine Protein (Neg-Trace) mg/dL Urine Glucose (UA) (Negative) mg/dL Urine Ketones (Negative) mg/dL Urine Blood (Negative) Urine Nitrite (Negative) Ur Leukocyte Esterase (Negative) Urine RBC (0-2) /HPF Urine WBC (0-5) /HPF Ur Squamous Epith Cells (0-2) /HPF Urine Bacteria (None Seen) Hyaline Casts (0-2) /LPF Urine Test (NEGATIVE) Urine Opiates Screen (Not Detect) Urine Fentanyl Screen (Not Detect) Ur Barbiturates Screen (Not Detect) Ur Phencyclidine Scrn (Not Detect) Ur Amphetamines Screen (Not Detect) U Benzodiazepines Scrn (Not Detect) Urine Cocaine Screen (Not Detect) U Marijuana (THC) Screen (Not Detect) Ethyl Alcohol < 10 mg/dL COVID-19 (LYNNETTE) Negative (Negative) COVID-19 Clin Com See Note Discharge Plan Discharge Clinical Impression: Depression Patient Disposition: Still a Patient Prescriptions: No Action fluoxetine 40 mg capsule 40 mg PO DAILY cyclobenzaprine 10 mg tablet 10 mg PO Q8H PRN (Reason: muscle spasm) sucralfate 1 gram tablet 1 g PO BID clonazepam 0.5 mg tablet 1 mg PO BID sumatriptan succinate 50 mg tablet 50 mg PO BID omeprazole 40 mg capsule,delayed release(DR/EC) 40 mg PO DAILY tamsulosin 0.4 mg capsule 0.4 mg PO BEDTIME lidocaine 5 % adhesive patch,medicated 1 patch topical DAILY bupropion HCl 300 mg tablet extended release 24 hr 300 mg PO DAILY budesonide-formoterol [Symbicort] 160-4.5 mcg/actuation HFA aerosol inhaler 2 puff inhalation BID Ajovy Autoinjector 225 mg/1.5 mL auto-injector 225 mg subcut QMONTH amitriptyline 50 mg tablet 50 mg PO BEDTIME docusate sodium 100 mg capsule 100 mg PO DAILY hydroxyzine HCl 25 mg tablet 25 mg PO DAILY pregabalin 100 mg capsule 100 mg PO BID
--- NOTE | 2022-12-07 06:21 | PC.NURSE ---
Patient slept through the night, no distress observed/reported, med rec completed/pending provider's approval, VSS, behavior non concerning, labs completed/resulted, care consult ordered/pending evaluation, will continue to monitor.
[2022-12-07 06:54] VITALS: BP 126/76; PULSE 67; RESP 15; TEMP 36.4; O2SAT 99
[2022-12-07 15:09] VITALS: BP 140/82; PULSE 80; RESP 16; TEMP 37.3; O2SAT 100
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
[2022-12-07] MEDS: traMADoL HCL 50 MG TABLET PO (18:55)
[2022-12-07] MEDS: Cyclobenzaprine HCl 10 MG TABLET PO (18:55)
[2022-12-07 21:22] VITALS: BP 151/91; PULSE 70; RESP 18; TEMP 36.4; O2SAT 100
[2022-12-07] MEDS: clonazePAM 1 MG TABLET PO (21:31)
[2022-12-07] MEDS: SUMAtriptan succinate 50 MG TABLET PO (21:31)
[2022-12-07] MEDS: Tamsulosin HCL 0.4 MG CAPSULE PO (21:31)
[2022-12-07] MEDS: Amitriptyline HCl 50 MG TABLET PO (21:32)
--- NOTE | 2022-12-07 21:34 | PC.NURSE ---
Patient arrived at 21:05 from the POD on a CV for treatment of Unspecified depressive d/o. Vitals were stable upon admission. Patient reported that she is primarily Malagasy speaking. requested HS meds and to go to sleep.
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
[2022-12-08 06:00] VITALS: BP 136/70; PULSE 76; RESP 18; TEMP 36.4; O2SAT 98
[2022-12-08] MEDS: FLUoxetine HCl 20 MG CAPSULE 40 MG PO (08:30)
[2022-12-08] MEDS: buPROPion HCl XL 300 MG TAB.ER.24H PO (08:30)
[2022-12-08] MEDS: Pregabalin 100 MG CAPSULE PO ×2 (08:30→21:41)
[2022-12-08] MEDS: hydrOXYzine HCL 25 MG TABLET PO (08:30)
[2022-12-08] MEDS: Fluticasone/Vilanterol 200/25 BLST.W.DEV 1 PUFF INHALE (08:31)
[2022-12-08] MEDS: clonazePAM 1 MG TABLET PO ×2 (08:31→21:41)
[2022-12-08] MEDS: SUMAtriptan succinate 50 MG TABLET PO ×2 (08:31→21:40)
[2022-12-08] MEDS: Docusate Sodium 100 MG CAPSULE PO (08:31)
[2022-12-08] MEDS: Omeprazole 40 MG CAPSULE.DR PO (08:31)
[2022-12-08] MEDS: Sucralfate 1 GM TABLET PO ×2 (08:31→21:40)
[2022-12-08] MEDS: Acetaminophen 325 MG TABLET 650 MG PO (09:00)
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
[2022-12-08] MEDS: Cyclobenzaprine HCl 10 MG TABLET PO (17:56)
[2022-12-08] MEDS: traMADoL HCL 50 MG TABLET PO (18:31)
[2022-12-08 21:35] VITALS: BP 142/74; PULSE 69; RESP 18; TEMP 36.1; O2SAT 100
[2022-12-08] MEDS: Amitriptyline HCl 50 MG TABLET PO (21:41)
[2022-12-08] MEDS: Tamsulosin HCL 0.4 MG CAPSULE PO (21:41)
[2022-12-09 07:50] VITALS: BP 137/73; PULSE 74; RESP 18; TEMP 36.3; O2SAT 97
[2022-12-09] MEDS: Docusate Sodium 100 MG CAPSULE PO (09:05)
[2022-12-09] MEDS: SUMAtriptan succinate 50 MG TABLET PO (09:05)
[2022-12-09] MEDS: clonazePAM 1 MG TABLET PO ×2 (09:05→20:53)
[2022-12-09] MEDS: Pregabalin 100 MG CAPSULE PO ×2 (09:05→20:52)
[2022-12-09] MEDS: Omeprazole 40 MG CAPSULE.DR PO (09:06)
[2022-12-09] MEDS: hydrOXYzine HCL 25 MG TABLET PO (09:06)
[2022-12-09] MEDS: buPROPion HCl XL 300 MG TAB.ER.24H PO (09:06)
[2022-12-09] MEDS: Lidocaine 4 % Patch ADH..PATCH 1 PATCH TRANSDERMA (09:06)
[2022-12-09] MEDS: FLUoxetine HCl 20 MG CAPSULE 40 MG PO (09:06)
[2022-12-09] MEDS: Sucralfate 1 GM TABLET PO ×2 (09:06→20:53)
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
[2022-12-09] MEDS: Acetaminophen 325 MG TABLET 650 MG PO (15:11)
[2022-12-09] MEDS: Cyclobenzaprine HCl 10 MG TABLET PO (15:12)
[2022-12-09] MEDS: OLANZapine 5 MG TABLET PO (18:43)
[2022-12-09 20:45] VITALS: BP 139/82; PULSE 75; RESP 18; TEMP 36.4; O2SAT 99
[2022-12-09] MEDS: Tamsulosin HCL 0.4 MG CAPSULE PO (20:52)
[2022-12-09] MEDS: Divalproex Sodium 500 MG TABLET.DR PO (20:52)
[2022-12-09] MEDS: Amitriptyline HCl 50 MG TABLET PO (20:53)
[2022-12-10 06:00] VITALS: BP 140/82; PULSE 76; RESP 18; TEMP 36.7; O2SAT 99
[2022-12-10] MEDS: buPROPion HCL 100 MG TABLET PO (09:17)
[2022-12-10] MEDS: Sucralfate 1 GM TABLET PO ×2 (09:17→20:20)
[2022-12-10] MEDS: Omeprazole 40 MG CAPSULE.DR PO (09:17)
[2022-12-10] MEDS: Lidocaine 4 % Patch ADH..PATCH 1 PATCH TRANSDERMA (09:17)
[2022-12-10] MEDS: Docusate Sodium 100 MG CAPSULE PO (09:17)
[2022-12-10] MEDS: Pregabalin 100 MG CAPSULE PO (09:17)
[2022-12-10] MEDS: Divalproex Sodium 500 MG TABLET.DR PO ×2 (09:17→20:20)
[2022-12-10] MEDS: clonazePAM 1 MG TABLET PO ×2 (09:17→20:21)
[2022-12-10] MEDS: FLUoxetine HCl 20 MG CAPSULE 40 MG PO (09:17)
[2022-12-10] MEDS: Cyclobenzaprine HCl 10 MG TABLET PO (18:49)
[2022-12-10] MEDS: Tamsulosin HCL 0.4 MG CAPSULE PO (20:20)
[2022-12-10] MEDS: Amitriptyline HCl 50 MG TABLET PO (20:20)
[2022-12-10] MEDS: Acetaminophen 325 MG TABLET 650 MG PO (20:21)
[2022-12-10 20:24] VITALS: BP 158/83; PULSE 76; RESP 16; TEMP 36.3; O2SAT 100
[2022-12-11 08:30] VITALS: BP 156/81; PULSE 75; RESP 18; TEMP 36.6; O2SAT 100
[2022-12-11] MEDS: FLUoxetine HCl 20 MG CAPSULE 40 MG PO (09:18)
[2022-12-11] MEDS: clonazePAM 1 MG TABLET PO ×2 (09:19→20:50)
[2022-12-11] MEDS: Divalproex Sodium 500 MG TABLET.DR PO ×2 (09:20→20:50)
[2022-12-11] MEDS: Sucralfate 1 GM TABLET PO ×2 (09:20→20:50)
[2022-12-11] MEDS: buPROPion HCL 100 MG TABLET PO (09:20)
[2022-12-11] MEDS: Docusate Sodium 100 MG CAPSULE PO (09:21)
[2022-12-11] MEDS: Lidocaine 4 % Patch ADH..PATCH 1 PATCH TRANSDERMA (09:21)
[2022-12-11] MEDS: Omeprazole 40 MG CAPSULE.DR PO (09:21)
[2022-12-11] MEDS: Fluticasone/Vilanterol 200/25 BLST.W.DEV 1 PUFF INHALE (09:22)
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
[2022-12-11] MEDS: OLANZapine 5 MG TABLET PO (14:13)
[2022-12-11 20:10] VITALS: BP 143/70; PULSE 67; RESP 16; TEMP 36.6; O2SAT 98
[2022-12-11] MEDS: Tamsulosin HCL 0.4 MG CAPSULE PO (20:49)
[2022-12-11] MEDS: Amitriptyline HCl 50 MG TABLET PO (20:50)
[2022-12-11] MEDS: Pregabalin 100 MG CAPSULE PO (20:50)
--- NOTE | 2022-12-11 21:57 | PC.NURSE ---
Pattie is admitted to [facility] for safety, medication management and stabilization, diagnosis MDD. This evening she was noted to be in the dayroom intermittently, otherwise she was in her room lying in bed, Reported being sad, tired, thinking about my family. denies SI/AVH, feels safe on the unit, med adherent, no observed or reported side effects, nutritional/fluid intake adequate, grooming is good, scheduled Depakote level on 12/13/22. No acute behavior issues, POC as outlined, continues on 15 min unit safety observation.
[2022-12-12 08:15] VITALS: BP 151/77; PULSE 73; RESP 18; TEMP 36.6; O2SAT 100
[2022-12-12] MEDS: FLUoxetine HCl 20 MG CAPSULE 40 MG PO (09:08)
[2022-12-12] MEDS: buPROPion HCL 100 MG TABLET PO (09:09)
[2022-12-12] MEDS: Omeprazole 40 MG CAPSULE.DR PO (09:09)
[2022-12-12] MEDS: Docusate Sodium 100 MG CAPSULE PO (09:10)
[2022-12-12] MEDS: Sucralfate 1 GM TABLET PO ×2 (09:10→20:26)
[2022-12-12] MEDS: Divalproex Sodium 500 MG TABLET.DR PO ×2 (09:10→20:26)
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
[2022-12-12] MEDS: clonazePAM 1 MG TABLET PO ×2 (09:11→20:26)
[2022-12-12] MEDS: OLANZapine 5 MG TABLET PO (13:08)
[2022-12-12] MEDS: Milk of Magnesia 30 ML ORAL.SUSP PO (13:08)
--- NOTE | 2022-12-12 14:09 | PC.NURSE ---
1340 Pt walked to nurses station to tell me that she has burning upon urination. Dr. Denson notified U/A with culture ordered and obtained.
[2022-12-12] MEDS: Lidocaine 4 % Patch ADH..PATCH 1 PATCH TRANSDERMA (15:06)
[2022-12-12 20:07] VITALS: BP 153/90; PULSE 95; RESP 18; TEMP 36.6; O2SAT 98
[2022-12-12] MEDS: Tamsulosin HCL 0.4 MG CAPSULE PO (20:26)
[2022-12-12] MEDS: Amitriptyline HCl 50 MG TABLET PO (20:26)
[2022-12-12] MEDS: Pregabalin 100 MG CAPSULE PO (20:26)
[2022-12-13 08:25] VITALS: BP 133/73; PULSE 80; RESP 18; TEMP 36.6; O2SAT 100
[2022-12-13 08:51] LABS: Valproate 65.5 mcg/mL (50.0-100.0)
[2022-12-13] MEDS: FLUoxetine HCl 20 MG CAPSULE 40 MG PO (09:23)
[2022-12-13] MEDS: OLANZapine 5 MG TABLET PO (09:23)
[2022-12-13] MEDS: Docusate Sodium 100 MG CAPSULE PO (09:23)
[2022-12-13] MEDS: Divalproex Sodium 500 MG TABLET.DR PO ×2 (09:24→21:47)
[2022-12-13] MEDS: Sucralfate 1 GM TABLET PO ×2 (09:24→21:46)
[2022-12-13] MEDS: Omeprazole 40 MG CAPSULE.DR PO (09:25)
[2022-12-13] MEDS: buPROPion HCL 100 MG TABLET PO (09:25)
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
[2022-12-13] MEDS: Lidocaine 4 % Patch ADH..PATCH 1 PATCH TRANSDERMA (11:26)
[2022-12-13] MEDS: Cyclobenzaprine HCl 10 MG TABLET PO (18:55)
[2022-12-13] MEDS: Acetaminophen 325 MG TABLET 650 MG PO (18:56)
[2022-12-13 21:40] VITALS: RESP 16
[2022-12-13] MEDS: Pregabalin 100 MG CAPSULE PO (21:46)
[2022-12-13] MEDS: Tamsulosin HCL 0.4 MG CAPSULE PO (21:46)
[2022-12-13] MEDS: Amitriptyline HCl 50 MG TABLET PO (21:47)
[2022-12-14 08:45] VITALS: BP 132/72; PULSE 79; RESP 16; TEMP 36.7; O2SAT 98
[2022-12-14] MEDS: Fluticasone/Vilanterol 200/25 BLST.W.DEV 1 PUFF INHALE (08:47)
[2022-12-14] MEDS: Divalproex Sodium 500 MG TABLET.DR PO ×2 (08:47→20:17)
[2022-12-14] MEDS: Omeprazole 40 MG CAPSULE.DR PO (08:47)
[2022-12-14] MEDS: Docusate Sodium 100 MG CAPSULE PO (08:47)
[2022-12-14] MEDS: FLUoxetine HCl 20 MG CAPSULE 40 MG PO (08:47)
[2022-12-14] MEDS: buPROPion HCL 100 MG TABLET PO (08:47)
[2022-12-14] MEDS: Sucralfate 1 GM TABLET PO ×2 (08:49→20:17)
[2022-12-14] MEDS: Cyclobenzaprine HCl 10 MG TABLET PO ×2 (11:47→20:18)
[2022-12-14] MEDS: Lidocaine 4 % Patch ADH..PATCH 1 PATCH TRANSDERMA (11:48)
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
[2022-12-14] MEDS: Propranolol HCL 20 MG TABLET PO ×2 (15:13→20:19)
[2022-12-14] MEDS: Acetaminophen 325 MG TABLET 650 MG PO (15:20)
[2022-12-14 20:16] VITALS: BP 149/73; PULSE 75; TEMP 36.3; O2SAT 99
[2022-12-14] MEDS: Pregabalin 100 MG CAPSULE PO (20:17)
[2022-12-14] MEDS: Tamsulosin HCL 0.4 MG CAPSULE PO (20:17)
[2022-12-14] MEDS: Milk of Magnesia 30 ML ORAL.SUSP PO (20:17)
[2022-12-14] MEDS: Amitriptyline HCl 50 MG TABLET PO (20:19)
--- NOTE | 2022-12-15 00:19 | PC.NURSE ---
urine culture-prescriber notified of urine culture. bactrim DS ordered. not loaded in pyxis. research animal facility supervisor notified. will administer when medication is available.
[2022-12-15] MEDS: Omeprazole 40 MG CAPSULE.DR PO (06:45)
[2022-12-15 08:27] VITALS: BP 134/73; PULSE 69; RESP 18; TEMP 36.8; O2SAT 98
[2022-12-15] MEDS: Fluticasone/Vilanterol 200/25 BLST.W.DEV 1 PUFF INHALE (08:57)
[2022-12-15] MEDS: Sucralfate 1 GM TABLET PO ×2 (08:58→20:30)
[2022-12-15] MEDS: Propranolol HCL 20 MG TABLET PO ×2 (08:58→20:26)
[2022-12-15] MEDS: Divalproex Sodium 500 MG TABLET.DR PO ×2 (08:58→20:26)
[2022-12-15] MEDS: Docusate Sodium 100 MG CAPSULE PO (08:58)
[2022-12-15] MEDS: buPROPion HCL 100 MG TABLET PO (08:58)
[2022-12-15] MEDS: FLUoxetine HCl 20 MG CAPSULE PO (08:58)
[2022-12-15] MEDS: Cyclobenzaprine HCl 10 MG TABLET PO ×2 (08:58→20:26)
[2022-12-15] MEDS: Sulfamethox/Trimeth 800/160 TABLET 1 TAB PO ×2 (09:59→20:26)
[2022-12-15] MEDS: Lidocaine 4 % Patch ADH..PATCH 1 PATCH TRANSDERMA (13:06)
[2022-12-15 20:15] VITALS: BP 145/67; PULSE 81; RESP 18; TEMP 36.3; O2SAT 100
[2022-12-15] MEDS: Amitriptyline HCl 50 MG TABLET PO (20:24)
[2022-12-15] MEDS: Pregabalin 100 MG CAPSULE PO (20:26)
[2022-12-15] MEDS: Acetaminophen 325 MG TABLET 650 MG PO (20:28)
[2022-12-15] MEDS: Tamsulosin HCL 0.4 MG CAPSULE PO (20:28)
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
[2022-12-15] MEDS: Hydrocortisone 1 % Cream 28.35 GM TUBE 1 APPL TOPICAL (22:09)
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
[2022-12-16] MEDS: Fluticasone/Vilanterol 200/25 BLST.W.DEV 1 PUFF INHALE (08:38)
[2022-12-16] MEDS: Divalproex Sodium 500 MG TABLET.DR PO (08:39)
[2022-12-16] MEDS: FLUoxetine HCl 20 MG CAPSULE PO (08:39)
[2022-12-16] MEDS: Sulfamethox/Trimeth 800/160 TABLET 1 TAB PO (08:39)
[2022-12-16] MEDS: Propranolol HCL 20 MG TABLET PO (08:39)
[2022-12-16] MEDS: buPROPion HCL 100 MG TABLET PO (08:39)
[2022-12-16] MEDS: Docusate Sodium 100 MG CAPSULE PO (08:39)
[2022-12-16] MEDS: Sucralfate 1 GM TABLET PO (08:39)
[2022-12-16] MEDS: Omeprazole 40 MG CAPSULE.DR PO (08:39)
[2022-12-16 10:19] VITALS: BP 147/77; PULSE 68; RESP 18; TEMP 36.7; O2SAT 100
[2022-12-16] MEDS: Lidocaine 4 % Patch ADH..PATCH 1 PATCH TRANSDERMA (10:28)
[2022-12-16] MEDS: Cyclobenzaprine HCl 10 MG TABLET PO (10:49)
[2022-12-16] MEDS: OLANZapine 5 MG TABLET PO (10:57)
== END 2022-12-16 11:55 | disposition home or self-care (01) | DRG 753 ==
LOC: HO.ED 12-07 01:55 → HO.PADLT16 12-07 20:54
PROVIDERS: Admitting Provider Psychiatry & Neurology Psychiatry; Emergency Provider Emergency Medicine; PCP Internal Medicine; Visit Provider Social Worker
DX: F31.81 Bipolar II disorder (principal); R45.851 Suicidal ideations; K76.0 Fatty (change of) liver, not elsewhere classified; F41.1 Generalized anxiety disorder; F43.10 Post-traumatic stress disorder, unspecified; Z20.822 Contact with and (suspected) exposure to COVID-19; Z98.84 Bariatric surgery status; Z88.5 Allergy status to narcotic agent; Z79.899 Other long term (current) drug therapy
CPT/HCPCS: 36415; 80053; 80164; 80307; 81001; 81025; 85025; 87086; 87088; 87186; 87635; 93005; 99285; S9485

== ENCOUNTER 2023-01-12 08:12 | Outpatient (REF) | payer OTHER, SELFPAY ==
--- NOTE | ~2023-01-12 | CT_ITS ---
EXAMINATION: CT ABDOMEN AND PELVIS WITHOUT CONTRAST CLINICAL INFORMATION: Calculus of kidney. COMPARISON: Renal ultrasound 11/19/2022 TECHNIQUE: Multidetector volumetric imaging was performed from the superior aspect of the liver through the pubic symphysis. Sagittal and coronal reformatted images were obtained on the technologist's workstation. This CT examination was performed using dose optimization techniques as appropriate, variously including the following: *Automated exposure control *Adjustment of mA and/or kV according to patient size (this includes techniques or standardized protocols for targeted exams where dose is matched to indication/reason for exam; i.e. extremities or head) *Use of iterative reconstruction technique DLP: 672.48 mGy-cm FINDINGS: LUNG BASES: The visualized lung bases are unremarkable. LIVER, GALLBLADDER, AND BILIARY TREE: The liver is normal in size, shape, and attenuation. No focal hepatic lesion or biliary ductal dilatation is present. The gallbladder is unremarkable with no evidence of radiopaque gallstones, gallbladder wall thickening, or obvious pericholecystic inflammatory changes. PANCREAS: Unremarkable. SPLEEN: Unremarkable. ADRENAL GLANDS: Unremarkable. KIDNEYS AND URETERS: The kidneys are normal in size, shape, and attenuation. There is a small 3 mm calculus present at the lower pole the left kidney. I suspect what was called hydronephrosis on the left kidney on the ultrasound exam is parapelvic cysts, although this could only be proven with a CT urogram. No gross hydronephrosis, hydroureter, or ureteral or right-sided calculi seen. No perinephric stranding. BLADDER: Empty and cannot be evaluated. GASTROINTESTINAL TRACT: Status post sleeve gastrectomy. The small and large bowel are unremarkable. The appendix is unremarkable. ABDOMINAL WALL: No significant hernia is appreciated. LYMPH NODES: Normal. VASCULAR: Unremarkable. PELVIC VISCERA: Uterus is not seen. A benign 2.7 x 2.0 x 0.4 cm left ovarian cyst may be present. OSSEOUS STRUCTURES: Unremarkable. CT/CT abdomen pelvis wo IV con IMPRESSION: 1. Nonobstructing 3 mm left lower pole renal calculus. 2. I suspect what was has been called hydronephrosis on some prior ultrasound exams may be parapelvic cysts, although this could only be proven with a CT urogram. If this were the case, these would be benign. In any event, there is no significant interval change when compared to prior studies. 3. Other incidental findings as described above. Fleischner guidelines were followed.
== END 2023-01-12 08:13 | disposition home or self-care (01) ==
LOC: HO.CT 08:12
PROVIDERS: PCP Internal Medicine; Visit Provider Urology
DX: N20.0 Calculus of kidney (principal); R10.9 Unspecified abdominal pain
CPT/HCPCS: 74176

== ENCOUNTER 2023-01-14 13:47 | Outpatient (AMB) | payer OTHER, SELFPAY ==
--- NOTE | 2023-01-14 14:15 | A.OFFVIS_ITS ---
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 01/14/23-- The patient is Frisian speaking female. Certified fabric stretcher was present during the visit. Significant PMH gastric bypass procedure. Pt has chronic neck pain. She was seen on 12/01/22 for follow-up after the left ESWl which was performed on 10/25/22. At that time I reviewed US results which noted there was no significant change to the 4 mm left kidney stone. She was having flank pain at that time. She is post CT imaging. Renal US results reviewed--11/19/22--findings of 4 mm nonobstructing calculus in the lower pole. Today, the patient states having flank pain. States having gross hematuria twice in the past and history of UTI. CTAP results reviewed--01/12/23--I reviewed films, small left kidney stone; radiology official reading is pending Plan: Monitor for renal calculi. Discussed to consume adequate amount of water Renal US in one year Follow-up after a year. [facility] Medical History Anxiety and depression Asthma Bilateral hand numbness Bilateral nephrolithiasis Carpal tunnel syndrome Chest pain Colon cancer screening Complex cyst of left ovary Degenerative joint disease of cervical spine Fatty liver Foul smelling urine Generalized anxiety disorder GERD (gastroesophageal reflux disease) Grief reaction Hepatitis C antibody test positive History of renal calculi Hot flashes Left flank pain Major depression Migraine Mood disorder Otitis externa Overweight (BMI 25.0-29.9) Pelvic cramping Pelvic pain in female PTSD (post-traumatic stress disorder) Seasonal allergies Sexually transmitted disease exposure Ulnar neuropathy UTI (urinary tract infection) Vaginal burning Vaginal discharge Vaginal dryness Vaginal itching Surgical History H/O colonoscopy H/O: hysterectomy History of carpal tunnel release History of esophagogastroduodenoscopy (EGD) History of sleeve gastrectomy Hx of rotator cuff surgery Hx of tonsillectomy Hx of tubal ligation Family History Father HTN (hypertension) Diabetes mellitus Stroke High cholesterol Mother HTN (hypertension) Diabetes mellitus High cholesterol Sister Diabetes mellitus Breast cancer Stroke Kidney disease Esophageal cancer Heart disease Maternal Grandmother Liver cancer Maternal Grandfather Heart disease Social History Household Members: Family Housing: Assisted Living Facility Do you presently have visiting nurse or other home services: No Unable to assess alcohol history related to: Unknown Alcohol intake: current Alcohol intake frequency: a few times a month Patient Tobacco Use Status: Never used Tobacco e-Cigarette/Vaping Use: Never Used Second Hand Smoke Exposure: Yes Advance Directives Date on File: 02/11/21 service: No Current occupational status: disabled Sexual orientation: Straight/Heterosexual Gender identity: Female Cognitive needs: No Hearing needs: No Vision needs: Yes Female Reproductive History Menstrual Age of Menarche: 8 Review of Systems Const Reports as per HPI Eyes Reports no additional complaints ENT Reports no additional complaints Card Reports no additional complaints Resp Reports no additional complaints GI Reports no additional complaints Reports as per HPI Musc Reports no additional complaints Neuro Reports as per HPI Psych Reports no additional complaints Endo Reports no additional complaints Gerber/Lymph Reports no additional complaints Aller/Immun Reports no additional complaints Results Reviewed Results Reviewed: Date of Service: 11/19/22 EXAMINATION: US RETROPERITONEAL LIMITED (RENAL ONLY) CLINICAL INFORMATION: Left renal stones status post left ESWL COMPARISON: Bilateral renal ultrasound dated 08/05/2022 and 02/08/2022. CT abdomen and pelvis without contrast dated 09/02/2021. TECHNIQUE: Real-time imaging of the kidneys.? FINDINGS: RIGHT KIDNEY: 10.2 x 4.5 x 5.2 cm (SAG x AP x TRV). The kidney is normal in size, contour, and echogenicity. Renal cortical thickness is normal. No calculi or focal parenchymal lesions. No hydronephrosis. LEFT KIDNEY: 10.5 x 5.2 x 6.7 cm (SAG x AP x TRV). The kidney is normal in size, contour, and echogenicity. Renal cortical thickness is normal. No focal parenchymal lesions. 4 mm nonobstructing calculus in the lower pole. Mild hydronephrosis is unchanged. IMPRESSION: 4 mm nonobstructing calculus in the lower pole the left kidney. Persistent mild left hydronephrosis. Assessment & Plan Assessment & Plan (1) Left renal stone: Comment: October [address] Frantz francois Code(s): N20.0 - Calculus of kidney (2) Left flank pain: Code(s): R10.9 - Unspecified abdominal pain Plan Monitor for renal calculi. Discussed to consume adequate amount of water Renal US prior was ordered. Follow-up after a year. Orders: Orders US renal BI 10 Months N20.0 - Calculus of kidney Patient Instructions: The patient had an opportunity to ask questions regarding treatment plan. All questions were answered. Imaging, Laboratory studies and physical exam results were discussed and reviewed in detail. No major barriers to understanding were identified. The patient expressed understanding and agreement with the above tr eatment plan. The patient is aware they should contact our office by phone for worsening of their current condition or the appearance of new symptoms. Compliance is encouraged with any medications and followup testing that is ordered. It is a privilege to be allowed the opportunity to participate in the urologic care of your patient. If you have any questions or concerns regarding treatment for the above conditions please do not hesitate to contact me. The office telephone contact is [phone]. This note is constructed in part using voice recognition software. While every effort has been made to ensure accuracy re recording mixer errors may have been included. Yours sincerely, Hope More MD Coding Level of Care Code Est Pt Level 3 (75573) Diagnoses Left renal stone N20.0 Left flank pain R10.9
== END 2023-01-14 15:13 | disposition home or self-care (01) ==
LOC: HO.HUSH 13:47
PROVIDERS: PCP Internal Medicine; Visit Provider Urology
DX: N20.0 Calculus of kidney (principal); R10.9 Unspecified abdominal pain
CPT/HCPCS: 99024; 99213

== ENCOUNTER → 2023-01-14 13:47 | Outpatient (BNVA) | payer OTHER, SELFPAY | PROVIDERS: PCP Internal Medicine; Visit Provider Urology | DX: N20.0 Calculus of kidney (principal); R10.9 Unspecified abdominal pain | CPT/HCPCS: 99212 ==

== ENCOUNTER 2023-01-17 16:06 | Outpatient (REF) | payer OTHER, SELFPAY ==
--- NOTE | ~2023-01-17 | XR_ITS ---
EXAMINATION: XR LUMBOSACRAL SPINE CLINICAL INFORMATION: Lower back pain. COMPARISON: Radiographs dated 09/09/2020. TECHNIQUE: AP and lateral views of the lumbar spine and lateral view of the lumbosacral junction. FINDINGS: There is bony demineralization. Vertebral body heights and alignment are normal. The disc spaces are well-maintained. No acute fracture or spondylolisthesis is seen. There is mild anterior spondylosis of the L3 and L4 upper endplates. The posterior elements are intact. The paravertebral soft tissues are unremarkable. There are upper abdominal surgical clips. XR/XR lumbar spine 2-3V IMPRESSION: 1. No acute fracture or spondylolisthesis is seen. 2. The disc spaces are well-maintained. 3. There is mild anterior spondylosis of the L3-L4 upper endplates.
== END 2023-01-17 16:07 | disposition home or self-care (01) ==
LOC: HO.XRAY 16:06
PROVIDERS: PCP Internal Medicine; Visit Provider Internal Medicine
DX: M54.50 Low back pain, unspecified (principal)
CPT/HCPCS: 72100

== ENCOUNTER → 2023-01-24 11:06 | Outpatient (BNVA) | payer OTHER, SELFPAY | PROVIDERS: PCP Internal Medicine; Visit Provider Internal Medicine Rheumatology | DX: M48.02 Spinal stenosis, cervical region (principal); M79.7 Fibromyalgia | CPT/HCPCS: 99212 ==

== ENCOUNTER 2023-02-28 13:30 | Outpatient (AMB) | payer OTHER, SELFPAY ==
--- NOTE | 2023-02-28 13:31 | A.OFFVIS_ITS ---
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 Patient reports ongoing pain for more than 3 months, she notices that it gets swollen and stiffness. She states that her pain starts from her mid bicep down to her elbow to her hand. 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 She is right hand dominant. denies any injury or trauma. Has tried OTC antiinflammatories with no relief. [facility] Medical History Anxiety and depression Asthma Bilateral hand numbness Bilateral nephrolithiasis Carpal tunnel syndrome Chest pain Colon cancer screening Complex cyst of left ovary Degenerative joint disease of cervical spine Fatty liver Foul smelling urine Generalized anxiety disorder GERD (gastroesophageal reflux disease) Grief reaction Hepatitis C antibody test positive History of renal calculi Hot flashes Left flank pain Major depression Migraine Mood disorder Otitis externa Overweight (BMI 25.0-29.9) Pelvic cramping Pelvic pain in female PTSD (post-traumatic stress disorder) Seasonal allergies Sexually transmitted disease exposure Ulnar neuropathy UTI (urinary tract infection) Vaginal burning Vaginal discharge Vaginal dryness Vaginal itching Surgical History H/O colonoscopy H/O: hysterectomy History of carpal tunnel release History of esophagogastroduodenoscopy (EGD) History of sleeve gastrectomy Hx of rotator cuff surgery Hx of tonsillectomy Hx of tubal ligation Family History Father HTN (hypertension) Diabetes mellitus Stroke High cholesterol Mother HTN (hypertension) Diabetes mellitus High cholesterol Sister Diabetes mellitus Breast cancer Stroke Kidney disease Esophageal cancer Heart disease Maternal Grandmother Liver cancer Maternal Grandfather Heart disease Social History Household Members: Family Housing: Assisted Living Facility Do you presently have visiting nurse or other home services: No Unable to assess alcohol history related to: Unknown Alcohol intake: current Alcohol intake frequency: a few times a month Patient Tobacco Use Status: Never used Tobacco e-Cigarette/Vaping Use: Never Used Second Hand Smoke Exposure: Yes Advance Directives Date on File: 02/11/21 service: No Current occupational status: disabled Sexual orientation: Straight/Heterosexual Gender identity: Female Cognitive needs: No Hearing needs: No Vision needs: Yes Female Reproductive History Menstrual Age of Menarche: 8 Review of Systems Const All systems reviewed & are unremarkable except as noted in HPI and below Physical Exam Vital Signs: BMI result Body Mass Index 29.8 Const General: cooperative, healthy appearing and no acute distress Resp Effort & Inspection: normal respiratory effort and able to speak in complete sentences Cardio Rate: regular rate Peripheral pulses: Peripheral pulses 2+ throughout GI Palpation (GI): Soft to palpation Skin Lesions: no lesions Rashes: no rashes Extrem Other: Left elbow full flexion extension, pronation, supination. Tenderness to palpation over the lateral epicondyle. NVI. Office Procedures Joint Injection/Drain Joint Injection/Drain Primary Site: left tennis elbow Prep: site was prepped using aseptic technique, ethochloride spray was applied and injection warnings given Injected: 40 mg of, DepoMedrol, with 1 mL of (2% plain lido ) and other (lateral epicondyle) Approach Used: anterolateral Procedure: The patient tolerated the procedure well, but had some pain with the injection and there was some relief with the local anesthesia Coding 95211 - Epicondyle Procedure code (CPT) selection complete Results Reviewed Results Reviewed: 02/28/23 13:39 Lidocaine HCl 2 % MPF [Xylocaine 2 % MPF] 5 ml .ROUTE .STK-MED ONE methylPREDNISolone acetate [DEPO-MedroL] 40 mg .ROUTE .STK-MED ONE Assessment & Plan Assessment & Plan (1) Lateral epicondylitis of left elbow: Code(s): M77.12 - Lateral epicondylitis, left elbow Plan: Ms. Valeria Cardenas is a 47 yo female who presents to the office today for evaluation of left elbow pain. She is right hand dominant. denies any injury or trauma. Has tried OTC antiinflammatories with no relief. I offered a cortisone injection in while she has consented to move forward with today. After obtaining consent I injected the left lateral epicondyle with 0mg depo and 1 cc plain 2% lido. Patient tolerated the procedure well with no complication. Recommendation given for OTC tennis elbow brace. She will f/u prn, sooner if needed. Coding Level of Care Code New Pt Level 3 (74384) Diagnoses Lateral epicondylitis of left elbow M77.12 CPT Codes Coding - Joint 2: 28146 - Epicondyle ([id number])
[2023-02-28 13:37] VITALS: BMI 29.8
== END 2023-02-28 13:49 | disposition home or self-care (01) ==
PROVIDERS: PCP Internal Medicine; Visit Provider Physician Assistant
DX: M77.12 Lateral epicondylitis, left elbow (principal)
CPT/HCPCS: 20550; 99204

== ENCOUNTER 2023-03-07 12:58 | Outpatient (AMB) | payer OTHER, SELFPAY ==
--- NOTE | 2023-03-07 13:00 | A.OFFVIS_ITS ---
Intake Vital Signs 03/07/23 13:06 Height 5 ft 7 in Weight 193 lb 9.054 oz BMI 30.3 BP 123/69 Blood Pressure Location Rt brachial Position Sitting Pulse 95 Intake Visit Reasons: pt req appointment Intake Note: Pattie presents in office as a est.patient for a f/u for constipation PT CC: Patient c/o GERD, nausea, and heartburn d/t all medication she is taking. Pt also reports constipation is better with medication given. 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 Patient is taking that at noon time and at bedtime. Continue avoiding dietary triggers and late night snacking. Constipation Patient has tried multiple different medications for constipation. Unsure if patient is taking the medication as ordered. She states that Amitiza does not work for her that well patient was also taking Senokot and states that it was not working. I will start her on bisacodyl tablets in the evening with docusate sodium and MiraLax in the morning. Patient was encouraged to drink plenty fluids, increase activity to promote better bowel motility. IBS (irritable bowel syndrome) Patient has occasional abdominal pain. Pain is located in the lower abdomen. There is no radiation. Patient states that the pain is worse when she is sitting down. Unsure if the pain is related to patient having muscular spasms. Nothing acute in the abdomen on exam. It could be also the patient continues to be constipated. Patient was encouraged to follow FODMAP diet as this could be a gas trapping pain due to patient being constipated. Patient will be seen in 1 month, sooner on as needed basis. Patient is agreeable to this plan and verbalizes understanding of instructions. She was given the opportunity to ask questions and all questions answered. ? Thank you for allowing me to participate in her care Plan Medications New bisacodyl (Dulcolax (bisacodyl)) 10 mg (2 x 5 mg) PO BEDTIME 180 tabs 4RF polyethylene glycol 3350 (Miralax) 17 grams PO DAILY 510 grams 2RF omeprazole 40 mg PO DAILY@0630 90 caps 2RF docusate sodium 100 mg PO DAILY 90 caps 3RF K59.00 Discontinued sennosides Discontinued Reason: Doctor's Order 17.2 mg (2 x 8.6 mg) PO BID 30 tabs 0RF TODAY'S VISIT: Patient is here today for follow-up. Patient reports that she has been continuing to have epigastric discomfort postprandially. Reports occasional postprandial abdominal bloating. Patient states that she has heartburn with occasional dyspepsia without dysphagia or odynophagia. Patient did not change any of her diet. Patient denies any nausea or vomiting. Reports that occasionally she still feel constipated, however she reports that it is much better after she started Dulcolax. Patient states that she takes Dulcolax. Denies any abdominal pain, discomfort, cramping. Patient denies melena, hematochezia, unintentional weight loss or ribbon like stools. [facility] Medical History (Updated 03/18/23 @ 16:21 by Lizandro Simon MD) Anxiety and depression Asthma Bilateral hand numbness Bilateral nephrolithiasis Carpal tunnel syndrome Chest pain Colon cancer screening Complex cyst of left ovary Degenerative joint disease of cervical spine Fatty liver Foul smelling urine Generalized anxiety disorder GERD (gastroesophageal reflux disease) Grief reaction Hepatitis C antibody test positive History of renal calculi Hot flashes Left flank pain Major depression Migraine Mood disorder Otitis externa Overweight (BMI 25.0-29.9) Pelvic cramping Pelvic pain in female PTSD (post-traumatic stress disorder) Seasonal allergies Sexually transmitted disease exposure Ulnar neuropathy UTI (urinary tract infection) Vaginal burning Vaginal discharge Vaginal dryness Vaginal itching Surgical History H/O colonoscopy H/O: hysterectomy History of carpal tunnel release History of esophagogastroduodenoscopy (EGD) History of sleeve gastrectomy Hx of rotator cuff surgery Hx of tonsillectomy Hx of tubal ligation Family History Father HTN (hypertension) Diabetes mellitus Stroke High cholesterol Mother HTN (hypertension) Diabetes mellitus High cholesterol Sister Diabetes mellitus Breast cancer Stroke Kidney disease Esophageal cancer Heart disease Maternal Grandmother Liver cancer Maternal Grandfather Heart disease Social History Household Members: Family Housing: Assisted Living Facility Do you presently have visiting nurse or other home services: No Unable to assess alcohol history related to: Unknown Alcohol intake: current Alcohol intake frequency: a few times a month Patient Tobacco Use Status: Never used Tobacco e-Cigarette/Vaping Use: Never Used Second Hand Smoke Exposure: Yes Advance Directives Date on File: 02/11/21 service: No Current occupational status: disabled Sexual orientation: Straight/Heterosexual Gender identity: Female Cognitive needs: No Hearing needs: No Vision needs: Yes Female Reproductive History Menstrual Age of Menarche: 8 Review of Systems Const Denies weight gain and Denies weight loss ENT Reports no additional complaints, Denies dysphagia and Denies odynophagia Card Reports no additional complaints Resp Reports no additional complaints GI Reports abdominal pain (Epigastric), Denies belching, Denies melena, Denies bloating, Reports constipation, Denies dysphagia, Denies excessive flatus, Denies dyspepsia, Reports heartburn, Denies diarrhea, Denies loose stools, Denies nausea, Denies odynophagia and Denies vomiting Reports no additional complaints Musc Reports no additional complaints Neuro Reports no additional complaints Psych Reports no additional complaints Endo Reports no additional complaints Physical Exam Vital Signs: Last Vital Signs Pulse 95 03/07/23 13:06 BP 123/69 03/07/23 13:06 BMI result Body Mass Index 30.3 Const General: healthy appearing, no acute distress and well developed Nutritional Appearance: obese Orientation/consciousness: patient oriented x3 HEENT Head: Yes normal to inspection, Yes normocephalic and Yes atraumatic Face and sinus: Yes normal facial exam Mouth: Normal oral and palatal mucosa present Throat: Yes posterior oropharynx normal, Yes tonsils normal and Yes uvula midline Eyes General: appearance normal, both eyes and all related structures Neck Neck: Yes normal visual inspection, Yes full ROM and Yes trachea midline Thyroid: Thyroid normal Resp Effort & Inspection: normal respiratory effort, able to speak in complete sentences, no tracheal deviation and symmetric chest movement Auscultation: clear to auscultation bilaterally Cardio Rate: regular rate Heart sounds: S1 normal heart sound present and S2 normal heart sound present GI Inspection: Yes normal to inspection, No distended and Yes obesity Palpation (GI): Soft to palpation, not firm, nontender and No hepatosplenomegaly present Auscultation: normal bowel sounds General: Yes no CVA tenderness Back/Spine/Pelvis Back: no CVA tenderness Skin General skin exam: elasticity normal, turgor normal and dry skin Neuro General: patient oriented x3 Psych Appearance: grossly normal Mental Status: mental status grossly normal Speech and movement: Normal speech and movement present Assessment & Plan Assessment & Plan (1) GERD (gastroesophageal reflux disease): Code(s): K21.9 - Gastro-esophageal reflux disease without esophagitis Qualifiers: Esophagitis presence: without esophagitis Qualified Code(s): K21.9 - Gastro-esophageal reflux disease without esophagitis Plan: Patient will start lansoprazole in the morning and sucralfate twice a day. Discussed with patient avoiding dietary triggers in late night snacking. Staying upright for minimum 3 hours after meals discussed with patient. Patient was also encouraged to eat smaller meals. History of gastric sleeve (2) Constipation: Code(s): K59.00 - Constipation, unspecified Qualifiers: Constipation type: chronic idiopathic constipation Qualified Code(s): K59.04 - Chronic idiopathic constipation Plan: Continue Dulcolax. Patient was also encouraged to increase fluid intake and activity to promote better bowel motility (3) IBS (irritable bowel syndrome): Code(s): K58.9 - Irritable bowel syndrome without diarrhea Qualifiers: Irritable bowel syndrome type: without diarrhea Qualified Code(s): K58.9 - Irritable bowel syndrome without diarrhea Plan: Low FODMAP diet discussed with patient. List of food recommended as well as list of food to avoid given to patient. Patient was also encouraged to increase food intake activity. She is constipated needs to move her bowels better I will see patient in 6 weeks, sooner on as needed basis. Patient is agreeable to this plan and verbalizes understanding of instructions. She was given the opportunity to ask questions and all questions answered. Thank you for allowing me to participate in her care Medications: New sucralfate 1 g PO BID 180 tabs 3RF lansoprazole 30 mg PO DAILY 30 caps 3RF K21.9 - Gastro-esophageal reflux disease without esophagitis docusate sodium 100 mg PO DAILY 90 caps 3RF bisacodyl (Dulcolax (bisacodyl)) 10 mg (2 x 5 mg) PO BEDTIME 180 tabs 4RF Coding Level of Care Code Est Pt Level 3 (38522) Diagnoses GERD (gastroesophageal reflux disease) K21.9 Esophagitis presence: without esophagitis Constipation K59.04 Constipation type: chronic idiopathic constipation IBS (irritable bowel syndrome) K58.9 Irritable bowel syndrome type: without diarrhea Time Spent (min) 30 Comment 20 minutes spent with patient and additional 10 minutes spent reviewing her records
[2023-03-07 13:06] VITALS: BP 123/69; PULSE 95; BMI 30.3
== END 2023-03-07 13:38 | disposition home or self-care (01) ==
PROVIDERS: PCP Internal Medicine; Visit Provider Nurse Practitioner Family
DX: K21.9 Gastro-esophageal reflux disease without esophagitis (principal); K59.04 Chronic idiopathic constipation; K58.9 Irritable bowel syndrome, unspecified
CPT/HCPCS: 99213

== ENCOUNTER → 2023-03-07 12:58 | Outpatient (BNVA) | payer OTHER, SELFPAY | PROVIDERS: PCP Internal Medicine; Visit Provider Nurse Practitioner Family | DX: K21.9 Gastro-esophageal reflux disease without esophagitis (principal); K59.04 Chronic idiopathic constipation; K58.9 Irritable bowel syndrome, unspecified; Z90.3 Acquired absence of stomach [part of] | CPT/HCPCS: 99212 ==

== ENCOUNTER 2023-03-24 10:18 | Outpatient (REF) | payer OTHER, SELFPAY ==
[2023-03-25 08:04] LABS: HBS Num1 13.22 mIU/mL (0-7.99); HBc Num1 0.12 S/CO (0.00-0.79); HIV AB/AG Nonreactive (Nonreactive); Hepatitis B Core Antibody Nonreactive (Nonreactive); Hepatitis B Surface Antigen Negative (Negative); ~HepC Num1 4.56 S/CO (0.00-0.79); ~Hepatitis B Surface Antibody REACTIVE (Nonreactive); ~Hepatitis C Antibody Reactive (Nonreactive)
[2023-03-25 08:29] LABS: Syphilis Screen Nonreactive (Nonreactive)
== END 2023-03-24 10:19 | disposition home or self-care (01) ==
LOC: HO.LAB 10:18
PROVIDERS: PCP Internal Medicine; Visit Provider Internal Medicine
DX: Z11.4 Encounter for screening for human immunodeficiency virus [HIV] (principal); Z20.2 Contact with and (suspected) exposure to infections with a predominantly sexual mode of transmission; R79.89 Other specified abnormal findings of blood chemistry
CPT/HCPCS: 36415; 86704; 86706; 86780; 86803; 87340; 87389

== ENCOUNTER 2023-05-02 13:43 | Outpatient (AMB) | payer OTHER, SELFPAY ==
[2023-05-02 13:45] VITALS: BP 130/86; PULSE 93; O2SAT 96; BMI 31.5
--- NOTE | 2023-05-02 13:45 | MHC.PC.OV ---
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 Allergies oxycodone [From PERCOCET] Allergy (Intermediate, Verified 05/02/23 13:45) TACHYCARDIA, HEADACHE hydromorphone [From Dilaudid] Adverse Reaction (Mild, Verified 05/02/23 13:45) Itchy Sausage Allergy (Unknown, Uncoded 05/02/23 13:45) Unknown Medication List - Last Reconciled 05/02/23 by Lizandro Conley Po, albuterol sulfate 2.5 mg (3 mL) inhalation Q6H PRN albuterol sulfate 90 mcg/actuation (ProAir HFA) 2 puffs PO Q4H PRN amitriptyline 50 mg PO BEDTIME bisacodyl (Dulcolax (bisacodyl)) 10 mg (2 x 5 mg) PO BEDTIME budesonide-formoterol 160-4.5 mcg/actuation (Symbicort) 2 puffs inhalation BID bupropion HCl 300 mg PO DAILY bupropion HCl 150 mg PO QAM cetirizine 10 mg PO BID cholecalciferol (vitamin D3) 50 mcg PO DAILY clonazepam 1 mg PO BID cyclobenzaprine 10 mg PO Q8H PRN diclofenac sodium 1% 2 grams topical QID divalproex 500 mg PO BID docusate sodium 100 mg PO DAILY fluoxetine 40 mg PO DAILY fluticasone furoate 200 mcg/actuation 1 inh PO DAILY fremanezumab-vfrm (Ajovy) 225 mg subcut QMONTH hydrocortisone 1% 1 appl See Protocol topical BID PRN hydroxyzine HCl 25 mg PO DAILY ketotifen fumarate 0.025%(0.035%) 1 drp ophthalmic (eye) BID lansoprazole 30 mg PO DAILY lidocaine 5% 1 patch topical DAILY ondansetron 8 mg PO Q12H PRN pregabalin 100 mg PO BID propranolol 20 mg See Protocol PO BID sucralfate 1 g PO BID tamsulosin 0.4 mg PO BEDTIME tramadol 50 mg PO Q8H PRN Tobacco use date assessed: 05/02/23 Dental Screening Dental Screen Date: 05/02/23 Did you have a dental visit in the last 12 months?: Yes Did you have a dental problem in the last 6 months where you did not have access to dental care?: No Was dental information given to patient?: Patient has dentist HPI LBP, NEck pain HPI Details 48-year-old overweight female with bipolar disorder nephrolithiasis cervical spinal stenosis GERD coming in for follow-up. Last seen in December 2022 patient's colonoscopy is up-to-date mammogram is due. Patient has seen the Gastroenterology in February for constipation patient was given docusate sodium and MiraLax. Patient was seen by the Ortho in February 2023 for left elbow lateral epicondylitis patient had the injection done. Patient has also seen the Rheumatology in January 2023 for diagnosis of fibromyalgia advised physical therapy and aerobic activity can stay on Lyrica.. PAtient states has been seen by pain managment Dr. Fernandez - patient was told by PSS needs referral to surgeon for ?stimulator but has not heard [facility] Medical History (Updated 05/02/23 @ 14:24 by Lizandro Simon MD) Left flank pain Foul smelling urine Bilateral nephrolithiasis Mood disorder PTSD (post-traumatic stress disorder) Major depression Bilateral hand numbness Pelvic cramping Vaginal burning Vaginal itching Complex cyst of left ovary History of renal calculi Hot flashes Pelvic pain in female Chest pain Colon cancer screening Generalized anxiety disorder Otitis externa Vaginal dryness Vaginal discharge Sexually transmitted disease exposure Degenerative joint disease of cervical spine UTI (urinary tract infection) Grief reaction Overweight (BMI 25.0-29.9) Anxiety and depression Asthma GERD (gastroesophageal reflux disease) Hepatitis C antibody test positive Ulnar neuropathy Fatty liver Seasonal allergies Carpal tunnel syndrome Migraine Surgical History History of esophagogastroduodenoscopy (EGD) H/O colonoscopy History of sleeve gastrectomy Hx of rotator cuff surgery History of carpal tunnel release Hx of tonsillectomy Hx of tubal ligation H/O: hysterectomy Family History Father HTN (hypertension) Diabetes mellitus Stroke High cholesterol Mother HTN (hypertension) Diabetes mellitus High cholesterol Sister Diabetes mellitus Breast cancer Stroke Kidney disease Esophageal cancer Heart disease Maternal Grandmother Liver cancer Maternal Grandfather Heart disease Social History Household Members: Family Housing: Assisted Living Facility Do you presently have visiting nurse or other home services: No Unable to assess alcohol history related to: Unknown Alcohol intake: current Alcohol intake frequency: a few times a month Patient Tobacco Use Status: Never used Tobacco e-Cigarette/Vaping Use: Never Used Second Hand Smoke Exposure: Yes Advance Directives Date on File: 02/11/21 service: No Current occupational status: disabled Sexual orientation: Straight/Heterosexual Gender identity: Female Cognitive needs: No Hearing needs: No Vision needs: Yes Female Reproductive History Menstrual Age of Menarche: 8 Questionnaire Thrive Questionnaire Date Thrive assessed: 10/15/22 AUDIT C Alcohol Use Questionnaire (AUDIT-C) 1. How often do you have a drink containing alcohol?: Never 3. How often do you have six or more drinks on one occasion?: Never Total Score: 0 DEUCE-7 AMB Questionnaire DEUCE-7 Date DEUCE - 7 assessed: 10/15/22 Source: Developed by Drs. Naeem Moran, Salome Dahl, Olivier Bennett and colleagues, with an educational cookie from [employer]. Physical exam (Primary Care) Vital Signs: Last Vital Signs Pulse 93 05/02/23 13:45 BP 130/86 05/02/23 13:45 Pulse Ox 96 05/02/23 13:45 Oxygen Delivery Method Room Air 05/02/23 13:45 BMI result Body Mass Index 31.5 Tobacco/Smoking Status: Tobacco use Status Tobacco use date assessed 05/02/23 05/02/23 13:46 Patient Tobacco Use Status Never used Tobacco 05/02/23 13:46 e-Cigarette/Vaping Use Never Used 05/02/23 13:46 Thrive Assessment: Date of Thrive Assessment Date Thrive assessed 10/15/22 05/02/23 13:46 Const General: alert; No acute distress Eyes Conjunctivae: conjunctivae normal Resp Auscultation: clear to auscultation bilaterally Cardio Rate: regular rate Rhythm: regular rhythm GI Inspection: Yes normal to inspection Extrem General: Yes normal to inspection and No edema Office Procedures Flu Questionnaire Does the patient have a severe egg allergy?: No Does the patient have severe life threatening allergies?: No Does the patient have a fever or illness today?: No Has the patient ever had Guillain-[place] Syndrome?: No Has the patient ever had any past reaction to a flu shot?: No Immunizations flu vacc [id number] 6mos up(PF) 60 mcg(15 mcgx4)/0.5 mL IM syringe Performing Provider: Lizandro Simon MD [facility] Administered by: AILEEN De León on 05/02/23 13:57 Dose Route Admin Location Dispensed Lot Number Expiration Date NDC Manager Hematology 0.5 mL IM Left Deltoid 0.5 mL [id number] 01/22/24 [id number] [employer] VIS Given Date VIS Provided VIS Publication Date 05/02/23 Single Vaccine 21 Eligibility Eligibility Date Funding Source Not [facility] Eligible 05/02/23 Private Assessment and Plan Assessment & Plan (1) GERD (gastroesophageal reflux disease): Code(s): K21.9 - Gastro-esophageal reflux disease without esophagitis Qualifiers: Esophagitis presence: without esophagitis Qualified Code(s): K21.9 - Gastro-esophageal reflux disease without esophagitis Plan: Avoid the foods that causes that usually spicy foods, tomato products, juices, coffee, soda and foods that your sensitive to. After eating do not lie down, allow 3-4 hours before in lie down. And keep the head of bed above 30 degrees to avoid the acid from going up. Patient follows up with Gastroenterology placed on lansoprazole and Carafate (2) History of sleeve gastrectomy: Comment: 2018 Code(s): Z90.3 - Acquired absence of stomach [part of] (3) Degenerative joint disease of cervical spine: Comment: Right C7-T1 injection Dr. Toribio September 2018 MRI July 2022MRI done of the brain and does cervical spine 08/27/2022 showing minimal nonspecific bifrontal white matter signal changes no acute process, mild to moderate cervical spondylosis disc osteophyte complex and central disc protrusion distorting the ventral cord at the C5-C6 level with [id number] central canal stenosis and severe left foraminal encroachment. Mild central canal stenosis due to disc osteophyte complex at the C5-C6 level, small central disc protrusion C3-C4 and C6-C7 levels facet spurring with left foraminal encroachment abutting left C7 nerve root as well as C6 and C7 Code(s): M47.812 - Spondylosis without myelopathy or radiculopathy, cervical region Plan: Patient has seen Orthopedics Dr. Fernandez on pregabalin for pain (4) Bipolar 2 disorder, major depressive episode: Comment: Jo Ann therapshreya , PSychiatry Anshul Willams 12/2022 Code(s): F31.81 - Bipolar II disorder Plan: Continue with counseling and therapy (5) Fibromyalgia: Code(s): M79.7 - Fibromyalgia Plan: Patient has been seen by Rheumatology in and continuing with pregabalin (6) Obesity (BMI 30.0-34.9): Code(s): E66.9 - Obesity, unspecified Plan: Diet and exercise (7) Screening mammogram, encounter for: Code(s): Z12.31 - Encounter for screening mammogram for malignant neoplasm of breast (8) Breast cancer screening by mammogram: Code(s): Z12.31 - Encounter for screening mammogram for malignant neoplasm of breast Orders: Orders Influenza [id number] Immunization Today Z23 - Encounter for immunization MM tomosynthesis screening BI Today Z12.31 - Encounter for screening mammogram for malignant neoplasm of breast Referrals Pain Management Referral M54.16 - Radiculopathy, lumbar region Medications: Refilled tramadol 50 mg PO Q8H PRN 90 tabs 0RF pain M54.16 - Radiculopathy, lumbar region albuterol sulfate 90 mcg/actuation (ProAir HFA) 2 puffs PO Q4H PRN 6.7 grams 3RF Shortness Of Breath J45.20 - Mild intermittent asthma, uncomplicated lansoprazole 30 mg PO DAILY 90 caps 3RF K21.9 - Gastro-esophageal reflux disease without esophagitis Coding Level of Care Code Est Pt Level 4 (86663) Diagnoses Gastroesophageal reflux disease without esophagitis K21.9 Esophagitis presence: without esophagitis History of sleeve gastrectomy Z90.3 Degenerative joint disease of cervical spine M47.812 Bipolar 2 disorder, major depressive episode F31.81 Fibromyalgia M79.7 Obesity (BMI 30.0-34.9) E66.9 Screening mammogram, encounter for Z07.24
== END 2023-05-02 14:28 | disposition home or self-care (01) ==
PROVIDERS: PCP Internal Medicine; Visit Provider Internal Medicine
DX: K21.9 Gastro-esophageal reflux disease without esophagitis (principal); Z90.3 Acquired absence of stomach [part of]; M47.812 Spondylosis without myelopathy or radiculopathy, cervical region; F31.81 Bipolar II disorder; Z23 Encounter for immunization; M79.7 Fibromyalgia; E66.9 Obesity, unspecified; Z12.31 Encounter for screening mammogram for malignant neoplasm of breast
CPT/HCPCS: 90471; 90686; 99214

== ENCOUNTER 2023-05-16 12:33 | Outpatient (REF) | payer OTHER, SELFPAY | END 2023-05-16 12:34 | disposition home or self-care (01) | LOC: HO.MAMMO 12:33 | PROVIDERS: PCP Internal Medicine; Visit Provider Internal Medicine | DX: Z12.31 Encounter for screening mammogram for malignant neoplasm of breast (principal) | CPT/HCPCS: 77063; 77067; 99212 ==

== ENCOUNTER → 2023-05-16 13:00 | Outpatient (BNV) | payer OTHER, SELFPAY | PROVIDERS: PCP Internal Medicine; Visit Provider Radiology Diagnostic Radiology | DX: Z12.31 Encounter for screening mammogram for malignant neoplasm of breast (principal) | CPT/HCPCS: 77063; 77067 ==

== ENCOUNTER 2023-05-16 13:51 | Outpatient (AMB) | payer OTHER, SELFPAY ==
[2023-05-16 14:08] VITALS: BP 137/81; PULSE 88; O2SAT 100; BMI 32.6
--- NOTE | 2023-05-16 14:08 | A.OFFVIS_ITS ---
Intake Vital Signs 05/16/23 14:08 Height 5 ft 7 in Weight 208 lb 1.862 oz BMI 32.6 BP 137/81 Blood Pressure Location Rt brachial Position Sitting Pulse 88 Pulse Source Pulse Oximeter Pulse Oximetry (%) 100 Oxygen Delivery Method Room Air Intake Visit Reasons: 6 week follow up Intake Note: Pt presents to the office today for a 6 week follow up for constipation. Pt states she hasn't had any improvement with her bowels. Pt states she gets nauseous everyday but denies any vomiting or diarrhea. Pt also states she usually only has one bowel movement a week and at most 3 times a week but she states that its rare for her to go 3 times in one week. Allergies oxycodone [From PERCOCET] Allergy (Intermediate, Verified 05/24/23 09:11) TACHYCARDIA, HEADACHE hydromorphone [From Dilaudid] Adverse Reaction (Mild, Verified 05/24/23 09:11) Itchy Sausage Allergy (Unknown, Uncoded 05/24/23 09:11) Unknown HPI 6 week follow up HPI Details LAST VISIT GERD (gastroesophageal reflux disease) Patient will start lansoprazole in the morning and sucralfate twice a day. Discussed with patient avoiding dietary triggers in late night snacking. Staying upright for minimum 3 hours after meals discussed with patient. Patient was also encouraged to eat smaller meals. History of gastric sleeve Constipation Continue Dulcolax. Patient was also encouraged to increase fluid intake and activity to promote better bowel motility IBS (irritable bowel syndrome) Low FODMAP diet discussed with patient. List of food recommended as well as list of food to avoid given to patient. Patient was also encouraged to increase food intake activity. She is constipated needs to move her bowels better I will see patient in 6 weeks, sooner on as needed basis. Patient is agreeable to this plan and verbalizes understanding of instructions. She was given the opportunity to ask questions and all questions answered. TODAY'S VISIT Patient is here today for follow-up. Patient reports that she continues to be constipated. Patient is taking Dulcolax every evening and states that she continues to move her bowels only every 3-4 days. Patient reports to be feeling nauseous. Denies any vomiting. Patient also reports postprandial abdominal and epigastric discomfort. Patient is taking lansoprazole in the morning and sucralfate twice a day. She reports that for the most part she does not have a acid reflux, however she does reports to be feeling nauseous. Patient did not change her diet, she gained 15 lb since last visit. [facility] Medical History Left flank pain Foul smelling urine Bilateral nephrolithiasis Mood disorder PTSD (post-traumatic stress disorder) Major depression Bilateral hand numbness Pelvic cramping Vaginal burning Vaginal itching Complex cyst of left ovary History of renal calculi Hot flashes Pelvic pain in female Chest pain Colon cancer screening Generalized anxiety disorder Otitis externa Vaginal dryness Vaginal discharge Sexually transmitted disease exposure Degenerative joint disease of cervical spine UTI (urinary tract infection) Grief reaction Overweight (BMI 25.0-29.9) Anxiety and depression Asthma GERD (gastroesophageal reflux disease) Hepatitis C antibody test positive Ulnar neuropathy Fatty liver Seasonal allergies Carpal tunnel syndrome Migraine Surgical History History of esophagogastroduodenoscopy (EGD) H/O colonoscopy History of sleeve gastrectomy Hx of rotator cuff surgery History of carpal tunnel release Hx of tonsillectomy Hx of tubal ligation H/O: hysterectomy Family History Father HTN (hypertension) Diabetes mellitus Stroke High cholesterol Mother HTN (hypertension) Diabetes mellitus High cholesterol Sister Diabetes mellitus Breast cancer Stroke Kidney disease Esophageal cancer Heart disease Maternal Grandmother Liver cancer Maternal Grandfather Heart disease Social History (Updated 05/16/23 @ 14:11 by Rachael Kendall MA) Household Members: Family Housing: House Do you presently have visiting nurse or other home services: No Unable to assess alcohol history related to: Unknown Alcohol intake: current Alcohol intake frequency: a few times a month Patient Tobacco Use Status: Never used Tobacco e-Cigarette/Vaping Use: Never Used Second Hand Smoke Exposure: Yes Advance Directives Date on File: 02/11/21 service: No Current occupational status: disabled Sexual orientation: Straight/Heterosexual Gender identity: Female Cognitive needs: No Hearing needs: No Vision needs: Yes Female Reproductive History Menstrual Age of Menarche: 8 Review of Systems Const Denies weight gain and Denies weight loss ENT Reports no additional complaints, Denies dysphagia and Denies odynophagia Card Reports no additional complaints Resp Reports no additional complaints GI Reports abdominal pain (Cramping), Denies belching, Denies melena, Reports bloating, Denies change in bowel habits, Reports constipation, Denies dysphagia, Denies excessive flatus, Denies dyspepsia, Denies heartburn, Denies diarrhea, Denies loose stools, Reports nausea, Denies odynophagia and Denies vomiting Reports no additional complaints Musc Reports no additional complaints Neuro Reports no additional complaints Psych Reports no additional complaints Endo Reports no additional complaints Physical Exam Vital Signs: Last Vital Signs Pulse 88 05/16/23 14:08 BP 137/81 05/16/23 14:08 Pulse Ox 100 05/16/23 14:08 Oxygen Delivery Method Room Air 05/16/23 14:08 BMI result Body Mass Index 32.6 Const General: healthy appearing, no acute distress and well developed Nutritional Appearance: obese Orientation/consciousness: patient oriented x3 HEENT Head: Yes normal to inspection, Yes normocephalic and Yes atraumatic Face and sinus: Yes normal facial exam Mouth: Normal oral and palatal mucosa present Throat: Yes posterior oropharynx normal, Yes tonsils normal and Yes uvula midline Eyes General: appearance normal, both eyes and all related structures Neck Neck: Yes normal visual inspection, Yes full ROM and Yes trachea midline Thyroid: Thyroid normal Resp Effort & Inspection: normal respiratory effort, able to speak in complete sentences, no tracheal deviation and symmetric chest movement Auscultation: clear to auscultation bilaterally Cardio Rate: regular rate Heart sounds: S1 normal heart sound present and S2 normal heart sound present GI Inspection: Yes normal to inspection, No distended and Yes obesity Palpation (GI): Soft to palpation, not firm, nontender and No hepatosplenomegaly present Auscultation: normal bowel sounds General: Yes no CVA tenderness Back/Spine/Pelvis Back: no CVA tenderness Skin General skin exam: elasticity normal, turgor normal and dry skin Neuro General: patient oriented x3 Psych Appearance: grossly normal Mental Status: mental status grossly normal Speech and movement: Normal speech and movement present Assessment & Plan Assessment & Plan (1) GERD (gastroesophageal reflux disease): Code(s): K21.9 - Gastro-esophageal reflux disease without esophagitis Qualifiers: Esophagitis presence: without esophagitis Qualified Code(s): K21.9 - Gastro-esophageal reflux disease without esophagitis (2) Constipation: Code(s): K59.00 - Constipation, unspecified Qualifiers: Constipation type: chronic idiopathic constipation Qualified Code(s): K59.04 - Chronic idiopathic constipation (3) IBS (irritable bowel syndrome): Code(s): K58.9 - Irritable bowel syndrome without diarrhea Qualifiers: Irritable bowel syndrome type: with constipation Qualified Code(s): K58.1 - Irritable bowel syndrome with constipation (4) Nausea: Code(s): R11.0 - Nausea (5) Postprandial abdominal bloating: Code(s): R14.0 - Abdominal distension (gaseous) Plan Will check for H pylori, pancreatic insufficiency, celiac. Will check patient's thyroid study. She continues to be constipated. Her will order Linzess 145 mcg daily. Patient reports occasional left upper quadrant pain will order lipase, liver panel. Patient had positive hep C antibody will check viral load. I will see her in 5 weeks, sooner on as needed basis. Patient is agreeable to this plan and verbalizes understanding of instructions. She was given the opportunity to ask questions and all questions answered. Thank you for allowing me to participate in her care Orders: Orders H pylori Ag Stool 05/16/23 K21.9 - Gastro-esophageal reflux disease without esophagitis TSH reflex Free T4 05/18/23 K59.00 - Constipation, unspecified Vitamin D 25-OH (D2 and D3) 05/18/23 E55.9 - Vitamin D deficiency, unspecified Vitamin B12 and Folate 05/18/23 R19.7 - Diarrhea, unspecified Transglutaminase Ab IgG 05/18/23 R10.9 - Unspecified abdominal pain Hepatitis C Viral Load 05/18/23 Z86.19 - Personal history of other infectious and parasitic diseases Pancreatic Elastase-1 05/16/23 R10.9 - Unspecified abdominal pain Lipase 05/18/23 R10.9 - Unspecified abdominal pain Liver Panel 05/18/23 R10.9 - Unspecified abdominal pain Transglutaminase IgA 05/18/23 R10.9 - Unspecified abdominal pain Medications: New linaclotide (Linzess) 145 mcg PO DAILY 30 caps 2RF Coding Level of Care Code Est Pt Level 4 (12784) Diagnoses Gastroesophageal reflux disease without esophagitis K21.9 Esophagitis presence: without esophagitis Chronic idiopathic constipation K59.04 Constipation type: chronic idiopathic constipation Irritable bowel syndrome with constipation K58.1 Irritable bowel syndrome type: with constipation Nausea R11.0 Postprandial abdominal bloating R14.0 Time Spent (min) 35 Comment 20 minutes spent with patient and additional 15 minutes spent reviewing her records
== END 2023-05-16 14:55 | disposition home or self-care (01) ==
PROVIDERS: PCP Internal Medicine; Visit Provider Nurse Practitioner Family
DX: K21.9 Gastro-esophageal reflux disease without esophagitis (principal); K59.04 Chronic idiopathic constipation; K58.1 Irritable bowel syndrome with constipation; R11.0 Nausea; R14.0 Abdominal distension (gaseous)
CPT/HCPCS: 99214

== ENCOUNTER 2023-05-18 13:24 | Outpatient (REF) | payer OTHER, SELFPAY ==
[2023-05-18 15:12] LABS: Alanine Aminotransferase 15 U/L (0-31); Alkaline Phosphatase 96 U/L (39-117); Aspartate Amino Transferase 18 U/L (5-31); Bilirubin Direct 0.1 mg/dL (0.0-0.5); Bilirubin Total 0.3 mg/dL (0.0-1.0); Lipase 35 U/L (8-78)
[2023-05-18 15:24] LABS: TSH reflex Free T4 0.48 uIU/mL (0.32-4.0)
[2023-05-18 15:39] LABS: Folate 8.7 ng/mL (> or = 4.0); Vitamin B12 488 pg/mL (200-900)
[2023-05-20 12:54] LABS: Transglutaminase Ab IgG <1.0 U/mL; Transglutaminase IgA <1.0 U/mL
[2023-05-20 14:58] LABS: HCV Log PCR <1.18 NOT DETECTED Log IU/mL (NOT DETECTED); HepC Viral Load <15 NOT DETECTED IU/mL (NOT DETECTED)
[2023-05-22 16:59] LABS: Vitamin D 25-OH, D2 <4 ng/mL; Vitamin D 25-OH, D3 24 ng/mL; Vitamin D 25-OH, Total 24 ng/mL (30-100)
== END 2023-05-18 13:25 | disposition home or self-care (01) ==
LOC: HO.LAB 13:24
PROVIDERS: PCP Internal Medicine; Visit Provider Nurse Practitioner Family
DX: E55.9 Vitamin D deficiency, unspecified (principal); R19.7 Diarrhea, unspecified; K59.00 Constipation, unspecified; R10.9 Unspecified abdominal pain; Z86.19 Personal history of other infectious and parasitic diseases
CPT/HCPCS: 36415; 80076; 82306; 82607; 82746; 83690; 84443; 86364; 87522

== ENCOUNTER 2023-05-24 08:58 | Outpatient (AMB) | payer OTHER, SELFPAY ==
--- NOTE | 2023-05-24 09:08 | MHC.OFFVIS ---
Intake Vital Signs 05/24/23 09:09 Height 5 ft 7 in Blood Pressure Location Rt brachial Position Sitting Respiration 12 Pulse 80 Pulse Source Pulse Oximeter Pulse Oximetry (%) 100 Oxygen Delivery Method Room Air Intake Visit Reasons: Lower Back Pain, Pain Down (R) Leg/confirmed Office Services Manager Required: Yes Office Services Manager Name: Denzel #[id number] Allergies oxycodone [From PERCOCET] Allergy (Intermediate, Verified 05/24/23 09:11) TACHYCARDIA, HEADACHE hydromorphone [From Dilaudid] Adverse Reaction (Mild, Verified 05/24/23 09:11) Itchy Sausage Allergy (Unknown, Uncoded 05/24/23 09:11) Unknown Medication List - Last Reconciled 05/24/23 by Asia Shoemaker LPN albuterol sulfate 2.5 mg (3 mL) inhalation Q6H PRN albuterol sulfate 90 mcg/actuation (ProAir HFA) 2 puffs PO Q4H PRN amitriptyline 50 mg PO BEDTIME bisacodyl (Dulcolax (bisacodyl)) 10 mg (2 x 5 mg) PO BEDTIME bupropion HCl 300 mg PO DAILY bupropion HCl 150 mg PO QAM cetirizine 10 mg PO BID cholecalciferol (vitamin D3) 50 mcg PO DAILY clonazepam 1 mg PO BID cyclobenzaprine 10 mg PO Q8H PRN diclofenac sodium 1% 2 grams topical QID divalproex 500 mg PO BID docusate sodium 100 mg PO DAILY fluoxetine 40 mg PO DAILY fluticasone furoate 200 mcg/actuation 1 inh PO DAILY fremanezumab-vfrm (Ajovy) 225 mg subcut QMONTH hydrocortisone 1% 1 appl See Protocol topical BID PRN hydroxyzine HCl 25 mg PO DAILY ketotifen fumarate 0.025%(0.035%) 1 drp ophthalmic (eye) BID lansoprazole 30 mg PO DAILY lidocaine 5% 1 patch topical DAILY linaclotide (Linzess) 145 mcg PO DAILY ondansetron 8 mg PO Q12H PRN pregabalin 100 mg PO BID propranolol 20 mg See Protocol PO BID sucralfate 1 g PO BID tamsulosin 0.4 mg PO BEDTIME tramadol 50 mg PO Q8H PRN HPI HPI Comments History of Present Illness Details Pattie is a very pleasant 48 year old female patient who presents to the office today for evaluation and management of her chronic lower back pain. Visit completed utilizing casting trucker Denzel #[id number] Patient c/o pain across her lower back with radiation into the left thigh and right groin. She has been suffering with this pain for greater than 5 years, denies inciting injury. She has not attempted PT in several years. She is currently taking tramadol and lyrica for the pain. She does not take lyrica twice daily but uses it as needed. Patient has previously been a patient at [facility] where she received SIJ injections and RFA. RFA provided only short term pain relief. She was told they were referring her to a neurosurgeon but nobody ever called her to schedule. Her last LS MRI was completed more than 2 years ago, she did not tolerate closed MRI and would need any further MRI's to be completed at a facility with open machine. She describes the pain as burning, throbbing and constant. Pain over bilateral PSIS that is worse with walking, standing and stairs. Patient denies red flag symptoms including new loss of bowel, bladder or saddle anesthesia. Pain is negatively impacting patients general activity, enjoyment of life, normal work, sleeping and ability to perform activities of daily living. [facility] Medical History Left flank pain Foul smelling urine Bilateral nephrolithiasis Mood disorder PTSD (post-traumatic stress disorder) Major depression Bilateral hand numbness Pelvic cramping Vaginal burning Vaginal itching Complex cyst of left ovary History of renal calculi Hot flashes Pelvic pain in female Chest pain Colon cancer screening Generalized anxiety disorder Otitis externa Vaginal dryness Vaginal discharge Sexually transmitted disease exposure Degenerative joint disease of cervical spine UTI (urinary tract infection) Grief reaction Overweight (BMI 25.0-29.9) Anxiety and depression Asthma GERD (gastroesophageal reflux disease) Hepatitis C antibody test positive Ulnar neuropathy Fatty liver Seasonal allergies Carpal tunnel syndrome Migraine Surgical History History of esophagogastroduodenoscopy (EGD) H/O colonoscopy History of sleeve gastrectomy Hx of rotator cuff surgery History of carpal tunnel release Hx of tonsillectomy Hx of tubal ligation H/O: hysterectomy Family History Father HTN (hypertension) Diabetes mellitus Stroke High cholesterol Mother HTN (hypertension) Diabetes mellitus High cholesterol Sister Diabetes mellitus Breast cancer Stroke Kidney disease Esophageal cancer Heart disease Maternal Grandmother Liver cancer Maternal Grandfather Heart disease Social History (Updated 05/16/23 @ 14:11 by Rachael Kendall MA) Household Members: Family Housing: House Do you presently have visiting nurse or other home services: No Unable to assess alcohol history related to: Unknown Alcohol intake: current Alcohol intake frequency: a few times a month Patient Tobacco Use Status: Never used Tobacco e-Cigarette/Vaping Use: Never Used Second Hand Smoke Exposure: Yes Advance Directives Date on File: 02/11/21 service: No Current occupational status: disabled Sexual orientation: Straight/Heterosexual Gender identity: Female Cognitive needs: No Hearing needs: No Vision needs: Yes Female Reproductive History Menstrual Age of Menarche: 8 Review of Systems Const All systems reviewed & are unremarkable except as noted in HPI and below Physical Exam Vital Signs: Last Vital Signs Pulse 80 05/24/23 09:09 Resp 12 05/24/23 09:09 Pulse Ox 100 05/24/23 09:09 Oxygen Delivery Method Room Air 05/24/23 09:09 General: awake, alert, oriented. Answers questions appropriately. Fully engaged in examination. Skin: warm, dry, intact HEENT: Normocephalic. Hearing intact. Cardiac: External chest normal in appearance. Respiratory: No cough, audible wheezing or stridor. Abdomen: without gross distension. Neurological: Oriented to person, place, time and situation. Thought process intact. Psychiatric: Appropriate mood and affect. Good judgment and insight. Back/Spine/Pelvis Other: Lumbar exam: Able to stand on bilateral tiptoes and bilateral heels. Able to transition from sit to stand unassisted. Ambulates with bilaterally normal heel strike and toe off Visual inspection without gross abnormality Tender to palpation over lumbar paraspinal muscles and bilateral PSIS left worse than right. ROM: limited secondary to pain with extension to 10 degrees. flexion to 70 degrees Strength: 5/5 BLE Straight leg raises with and without dorsiflexion negative bilaterally Facet loading positive bilaterally ALEXANDER positive bilaterally SI compression positive bilaterally Gaenslens positive bilaterally Results Reviewed Results Reviewed: 01/17/23 XR/XR lumbar spine 2-3V FINDINGS: There is bony demineralization. Vertebral body heights and alignment are normal. The disc spaces are well-maintained. No acute fracture or spondylolisthesis is seen. There is mild anterior spondylosis of the L3 and L4 upper endplates. The posterior elements are intact. The paravertebral soft tissues are unremarkable. There are upper abdominal surgical clips. IMPRESSION: 1. No acute fracture or spondylolisthesis is seen. 2. The disc spaces are well-maintained. 3. There is mild anterior spondylosis of the L3-L4 upper endplates. Assessment & Plan Assessment & Plan (1) Lumbar radiculopathy: Code(s): M54.16 - Radiculopathy, lumbar region (2) Sacroiliac joint dysfunction of both sides: Code(s): M53.3 - Sacrococcygeal disorders, not elsewhere classified (3) Lumbar spondylosis: Code(s): M47.816 - Spondylosis without myelopathy or radiculopathy, lumbar region (4) Post laminectomy syndrome: Comment: October 2022 patient had C5-C6 anterior cervical discectomy fusion and plating by Dr. Vallecillo Code(s): M96.1 - Postlaminectomy syndrome, not elsewhere classified Plan Pattie is a very pleasant 48 year old Mauritian speaking patient who presented to the office today for evaluation and management of her chronic lower back pain. History, physical exam and provocative testing consistant with bilateral SIJ dysfunction, lumbar spondylosis and post laminectomy syndrome. Order placed for MRI LS without contrast for further evaluation given patients chcf lower back pain that has been refractory to PT, oral medications and interventional management in the past. Order placed for PT eval and treat Continue with medications as prescribed. Discussed options for treatment including diagnostic interventional testing, epidural steroid injections, peripheral nerve stimulation with Sprint, RFA and more permanent neuromodulation. If no relief with PT and pending MRI results will plan for Diagnostic bilateral SIJ injections with local anesthetic. If positive results will proceed with therapeutic injection vs fusion-(patient reports unsatisfactory results with previous RFA). All questions and concerns have been answered and patient agrees with the plan. Follow up after MRI and PT, sooner if needed. Orders: Orders MR lumbar spine wo con Today M54.16 - Radiculopathy, lumbar region PT Evaluation and Treatment Today M47.816 - Spondylosis without myelopathy or radiculopathy, lumbar region, M53.3 - Sacrococcygeal disorders, not elsewhere classified Coding Level of Care Code New Pt Level 4 (51871) Diagnoses Lumbar radiculopathy M54.16 Sacroiliac joint dysfunction of both sides M53.3 Lumbar spondylosis M47.816 Post laminectomy syndrome M96.1
[2023-05-24 09:09] VITALS: PULSE 80; RESP 12; O2SAT 100
== END 2023-05-24 09:31 | disposition home or self-care (01) ==
PROVIDERS: PCP Internal Medicine; Visit Provider Registered Nurse Emergency
DX: M54.16 Radiculopathy, lumbar region (principal); M53.3 Sacrococcygeal disorders, not elsewhere classified; M47.816 Spondylosis without myelopathy or radiculopathy, lumbar region; M96.1 Postlaminectomy syndrome, not elsewhere classified
CPT/HCPCS: 99204

== ENCOUNTER → 2023-05-24 08:58 | Outpatient (BNVA) | payer OTHER, SELFPAY | PROVIDERS: PCP Internal Medicine; Visit Provider Registered Nurse Emergency | DX: M54.16 Radiculopathy, lumbar region (principal); M53.3 Sacrococcygeal disorders, not elsewhere classified; M47.816 Spondylosis without myelopathy or radiculopathy, lumbar region; M96.1 Postlaminectomy syndrome, not elsewhere classified | CPT/HCPCS: 99202 ==

== ENCOUNTER 2023-08-02 10:38 | Outpatient (AMB) | payer OTHER, SELFPAY ==
--- NOTE | 2023-08-02 10:42 | MHC.OFFVIS ---
Intake Vital Signs 08/02/23 10:49 Height 5 ft 7 in Weight 216 lb 14.958 oz BMI 34.0 BP 116/78 Blood Pressure Location Rt brachial Position Sitting Pulse 91 Pulse Source Pulse Oximeter Temp 97.6 F Temp Source Skin Pulse Oximetry (%) 98 Oxygen Delivery Method Room Air Intake Visit Reasons: fm Intake Note: c/o hand shakiness c/o erick shoulder pain c/o frequent falls due to right knee giving out Allergies oxycodone [From PERCOCET] Allergy (Intermediate, Verified 08/02/23 10:49) TACHYCARDIA, HEADACHE hydromorphone [From Dilaudid] Adverse Reaction (Mild, Verified 08/02/23 10:49) Itchy Sausage Allergy (Unknown, Uncoded 08/02/23 10:49) Unknown Medication List - Last Reconciled 08/02/[address] Apodaca MD albuterol sulfate 90 mcg/actuation (ProAir HFA) 2 puffs PO Q4H PRN albuterol sulfate 2.5 mg (3 mL) inhalation Q6H PRN amitriptyline 50 mg PO BEDTIME bisacodyl (Dulcolax (bisacodyl)) 10 mg (2 x 5 mg) PO BEDTIME bupropion HCl 300 mg PO DAILY bupropion HCl 150 mg PO QAM cetirizine 10 mg PO BID cholecalciferol (vitamin D3) 50 mcg PO DAILY clonazepam 1 mg PO BID cyclobenzaprine 10 mg PO Q8H PRN diclofenac sodium 1% 2 grams topical QID divalproex 500 mg PO BID docusate sodium 100 mg PO DAILY fluoxetine 40 mg PO DAILY fluticasone furoate 200 mcg/actuation 1 inh PO DAILY fremanezumab-vfrm (Ajovy) 225 mg subcut QMONTH hydrocortisone 1% 1 appl See Protocol topical BID PRN hydroxyzine HCl 25 mg PO DAILY ketotifen fumarate 0.025%(0.035%) 1 drp ophthalmic (eye) BID lansoprazole 30 mg PO DAILY lidocaine 5% 1 patch topical DAILY linaclotide (Linzess) 145 mcg PO DAILY ondansetron 8 mg PO Q12H PRN pregabalin 100 mg PO BEDTIME propranolol 20 mg See Protocol PO BID sucralfate 1 g PO BID tamsulosin 0.4 mg PO BEDTIME tramadol 50 mg PO Q8H PRN HPI HPI Comments History of Present Illness Details 48-year-old female with fibromyalgia returns for follow-up. She states that she continues to have diffuse pain everywhere. Continues to have bilateral hip pain. She states that she takes the pregabalin nightly. Most recent history by Dr. Cooley 01/2023: The patient returns for evaluation of her fibromyalgia. She again relates widespread pains involving the neck, shoulders, lower back, lateral hips, knees and feet. She had surgery in October for a disc problem in the neck. She apparently had artificial discs implanted at [facility] at [facility]. The paresthesias in her arms are better but she still has pain in the upper shoulders and neck. She is awaiting some physical therapy time. She was hospitalized in November in the psych unit for depression. Her chart indicates she is taking 4 different antidepressants, I am not sure she actually is taking all of those as she cannot recognize any of them. She also takes Lyrica 100 b.i.d. and occasional cyclobenzaprine. We had stopped the meloxicam because it was given her stomach pain. [facility] Medical History Left flank pain Foul smelling urine Bilateral nephrolithiasis Mood disorder PTSD (post-traumatic stress disorder) Major depression Bilateral hand numbness Pelvic cramping Vaginal burning Vaginal itching Complex cyst of left ovary History of renal calculi Hot flashes Pelvic pain in female Chest pain Colon cancer screening Generalized anxiety disorder Otitis externa Vaginal dryness Vaginal discharge Sexually transmitted disease exposure Degenerative joint disease of cervical spine UTI (urinary tract infection) Grief reaction Overweight (BMI 25.0-29.9) Anxiety and depression Asthma GERD (gastroesophageal reflux disease) Hepatitis C antibody test positive Ulnar neuropathy Fatty liver Seasonal allergies Carpal tunnel syndrome Migraine Surgical History History of esophagogastroduodenoscopy (EGD) H/O colonoscopy History of sleeve gastrectomy Hx of rotator cuff surgery History of carpal tunnel release Hx of tonsillectomy Hx of tubal ligation H/O: hysterectomy Family History Father HTN (hypertension) Diabetes mellitus Stroke High cholesterol Mother HTN (hypertension) Diabetes mellitus High cholesterol Sister Diabetes mellitus Breast cancer Stroke Kidney disease Esophageal cancer Heart disease Maternal Grandmother Liver cancer Maternal Grandfather Heart disease Social History Household Members: Family Housing: House Do you presently have visiting nurse or other home services: No Unable to assess alcohol history related to: Unknown Alcohol intake: current Alcohol intake frequency: a few times a month Patient Tobacco Use Status: Never used Tobacco e-Cigarette/Vaping Use: Never Used Second Hand Smoke Exposure: Yes Advance Directives Date on File: 02/11/21 service: No Current occupational status: disabled Sexual orientation: Straight/Heterosexual Gender identity: Female Cognitive needs: No Hearing needs: No Vision needs: Yes Female Reproductive History Menstrual Age of Menarche: 8 Review of Systems Musc Reports back pain, Reports myalgias, Reports arthralgias and Reports stiffness Physical Exam Vital Signs: Last Vital Signs Temp 97.6 F 08/02/23 10:49 Pulse 91 08/02/23 10:49 BP 116/78 08/02/23 10:49 Pulse Ox 98 08/02/23 10:49 Oxygen Delivery Method Room Air 08/02/23 10:49 BMI result Body Mass Index 34.0 Const General: cooperative, healthy appearing and comfortable Nutritional Appearance: obese morbidly obese Orientation/consciousness: patient oriented x3 Limitations: no limitations HEENT Head: Yes normocephalic and Yes atraumatic Mouth: moist mucous membranes Resp Effort & Inspection: normal respiratory effort and able to speak in complete sentences Auscultation: clear to auscultation bilaterally Cardio Rate: regular rate Rhythm: regular rhythm Skin General skin exam: no rashes or lesions noted Neuro General: patient oriented x3 Extrem Other: No active synovitis Few fibromyalgia tender points No knee pain with flexion-extension bilaterally Right trochanteric bursa area tenderness with equivocal Mela's test Left trochanteric bursa area tenderness Right buttock tenderness Assessment & Plan Assessment & Plan (1) Fibromyalgia: Code(s): M79.7 - Fibromyalgia Plan: 48-year-old female with fibromyalgia and returns for follow-up. Doing about the same overall. Continues to have widespread pains with no inflammatory arthritis. She has been taking Lyrica 100 mg nightly and it is well tolerated. She can continue with that. She exercises about twice a week. Advised patient to have a more regular exercise program. Low-impact exercises. (2) Greater trochanteric pain syndrome of both lower extremities: Code(s): M25.551 - Pain in right hip; M25.552 - Pain in left hip Plan: I gave patient a printout of home exercises to do. Can consider injections in the future if needed Plan I spent 16 minutes reviewing patient's chart, evaluating patient, counseling patient and documenting in the chart Coding Level of Care Code Est Pt Level 3 (45398) Diagnoses Fibromyalgia M79.7 Greater trochanteric pain syndrome of both lower extremities M25.551; M25.552
[2023-08-02 10:49] VITALS: BP 116/78; PULSE 91; TEMP 36.4; O2SAT 98; BMI 34.0
== END 2023-08-02 11:08 | disposition home or self-care (01) ==
PROVIDERS: PCP Internal Medicine; Visit Provider Student in an Organized Health Care Education/Training Program
DX: M79.7 Fibromyalgia (principal); M25.551 Pain in right hip; M25.552 Pain in left hip
CPT/HCPCS: 99213

== ENCOUNTER → 2023-08-02 10:38 | Outpatient (BNVA) | payer OTHER, SELFPAY | PROVIDERS: PCP Internal Medicine; Visit Provider Student in an Organized Health Care Education/Training Program | DX: M79.7 Fibromyalgia (principal); M25.551 Pain in right hip; M25.552 Pain in left hip | CPT/HCPCS: 99212 ==

== ENCOUNTER 2023-08-15 11:37 | Outpatient (AMB) | payer OTHER, SELFPAY ==
[2023-08-15 11:40] VITALS: BP 132/74; PULSE 94; BMI 34.2
--- NOTE | 2023-08-15 11:40 | MHC.OFFVIS ---
Intake Vital Signs 08/15/23 11:40 Height 5 ft 7 in Weight 218 lb 4.122 oz BMI 34.2 BP 132/74 Blood Pressure Location Lt brachial Position Sitting Pulse 94 Intake Visit Reasons: f/u constipation Intake Note: Pattie presents in the office as a follow up for constipation. CC: She states that she is having issues - she states that the medication to have a BM is not working. Filing Or Registry Clerk Required: Yes Filing Or Registry Clerk Name: [id number] Allergies oxycodone [From PERCOCET] Allergy (Intermediate, Verified 08/15/23 11:43) TACHYCARDIA, HEADACHE hydromorphone [From Dilaudid] Adverse Reaction (Mild, Verified 08/15/23 11:43) Itchy Sausage Allergy (Unknown, Uncoded 08/15/23 11:43) Unknown HPI f/u constipation HPI Details LAST VISIT GERD (gastroesophageal reflux disease) Constipation IBS (irritable bowel syndrome) Nausea Postprandial abdominal bloating Plan Will check for H pylori, pancreatic insufficiency, celiac. Will check patient's thyroid study. She continues to be constipated. Her will order Linzess 145 mcg daily. Patient reports occasional left upper quadrant pain will order lipase, liver panel. Patient had positive hep C antibody will check viral load. I will see her in 5 weeks, sooner on as needed basis. Patient is agreeable to this plan and verbalizes understanding of instructions. She was given the opportunity to ask questions and all questions answered. ? Thank you for allowing me to participate in her care Orders Orders H pylori Ag Stool 05/16/23 K21.9 TSH reflex Free T4 05/18/23 K59.00 Vitamin D 25-OH (D2 and D3) 05/18/23 E55.9 Vitamin B12 and Folate 05/18/23 R19.7 Transglutaminase Ab IgG 05/18/23 R10.9 Hepatitis C Viral Load 05/18/23 Z86.19 Pancreatic Elastase-1 05/16/23 R10.9 Lipase 05/18/23 R10.9 Liver Panel 05/18/23 R10.9 Transglutaminase IgA 05/18/23 R10.9 Medications New linaclotide (Linzess) 145 mcg PO DAILY 30 caps 2RF TODAY'S VISIT Patient is here today for follow-up and to discuss lab results. Patient had all her blood work done everything came back normal. Patient reports that [facility] was working in the very beginning, however it stopped working after few weeks. Patient is taking that in the evening, she also takes sucralfate at noon time and at bedtime and that could also contribute to patient being more constipated and Linzess not working well. Patient denies any melena, hematochezia, unintentional weight loss or ribbon like stools. Patient reports dyspepsia if she forgets to take her lansoprazole in the morning. Patient denies dysphagia or odynophagia. Patient denies any abdominal pain or discomfort. Denies any nausea or vomiting [facility] Medical History Left flank pain Foul smelling urine Bilateral nephrolithiasis Mood disorder PTSD (post-traumatic stress disorder) Major depression Bilateral hand numbness Pelvic cramping Vaginal burning Vaginal itching Complex cyst of left ovary History of renal calculi Hot flashes Pelvic pain in female Chest pain Colon cancer screening Generalized anxiety disorder Otitis externa Vaginal dryness Vaginal discharge Sexually transmitted disease exposure Degenerative joint disease of cervical spine UTI (urinary tract infection) Grief reaction Overweight (BMI 25.0-29.9) Anxiety and depression Asthma GERD (gastroesophageal reflux disease) Hepatitis C antibody test positive Ulnar neuropathy Fatty liver Seasonal allergies Carpal tunnel syndrome Migraine Surgical History History of esophagogastroduodenoscopy (EGD) H/O colonoscopy History of sleeve gastrectomy Hx of rotator cuff surgery History of carpal tunnel release Hx of tonsillectomy Hx of tubal ligation H/O: hysterectomy Family History Father HTN (hypertension) Diabetes mellitus Stroke High cholesterol Mother HTN (hypertension) Diabetes mellitus High cholesterol Sister Diabetes mellitus Breast cancer Stroke Kidney disease Esophageal cancer Heart disease Maternal Grandmother Liver cancer Maternal Grandfather Heart disease Social History Household Members: Family Housing: House Do you presently have visiting nurse or other home services: No Unable to assess alcohol history related to: Unknown Alcohol intake: current Alcohol intake frequency: a few times a month Patient Tobacco Use Status: Never used Tobacco e-Cigarette/Vaping Use: Never Used Second Hand Smoke Exposure: Yes Advance Directives Date on File: 02/11/21 service: No Current occupational status: disabled Sexual orientation: Straight/Heterosexual Gender identity: Female Cognitive needs: No Hearing needs: No Vision needs: Yes Female Reproductive History Menstrual Age of Menarche: 8 Review of Systems Const Denies weight gain and Denies weight loss ENT Reports no additional complaints, Denies dysphagia and Denies odynophagia Card Reports no additional complaints Resp Reports no additional complaints GI Denies abdominal pain, Denies belching, Denies melena, Denies bloating, Denies change in bowel habits, Reports constipation, Denies dysphagia, Denies excessive flatus, Reports dyspepsia (Occasional), Denies heartburn, Denies diarrhea, Denies loose stools, Denies nausea, Denies odynophagia and Denies vomiting Reports no additional complaints Musc Reports no additional complaints Neuro Reports no additional complaints Psych Reports no additional complaints Endo Reports no additional complaints Physical Exam Vital Signs: Last Vital Signs Pulse 94 08/15/23 11:40 BP 132/74 08/15/23 11:40 BMI result Body Mass Index 34.2 Const General: healthy appearing, no acute distress and well developed Nutritional Appearance: obese Orientation/consciousness: patient oriented x3 Resp Effort & Inspection: normal respiratory effort, able to speak in complete sentences, no tracheal deviation and symmetric chest movement Auscultation: clear to auscultation bilaterally Cardio Rate: regular rate GI Inspection: Yes normal to inspection, No distended and Yes obesity Palpation (GI): Soft to palpation, not firm, nontender and No hepatosplenomegaly present Auscultation: normal bowel sounds General: Yes no CVA tenderness Back/Spine/Pelvis Back: no CVA tenderness Skin General skin exam: elasticity normal, turgor normal and dry skin Neuro General: patient oriented x3 Psych Appearance: grossly normal Mental Status: mental status grossly normal Results Reviewed Results Reviewed: Laboratory Tests 03/24/23 05/18/23 10:26 13:30 Total Bilirubin 0.3 Direct Bilirubin 0.1 AST 18 ALT 15 Alkaline Phosphatase 96 Lipase 35 Vitamin B12 488 25-OH Vitamin D Total 24 L Folate 8.7 TSH 0.48 Tiss Transglutamin IgG <1.0 Tiss Transglutamin IgA <1.0 Hepatitis C Ab (EIA) Reactive H Hep C Viral Load <15 NOT DETECTED Hep C Viral Load Log <1.18 NOT DETECTED Assessment & Plan Assessment & Plan (1) GERD (gastroesophageal reflux disease): Code(s): K21.9 - Gastro-esophageal reflux disease without esophagitis Qualifiers: Esophagitis presence: without esophagitis Qualified Code(s): K21.9 - Gastro-esophageal reflux disease without esophagitis (2) Constipation: Code(s): K59.00 - Constipation, unspecified Qualifiers: Constipation type: chronic idiopathic constipation Qualified Code(s): K59.04 - Chronic idiopathic constipation (3) IBS (irritable bowel syndrome): Code(s): K58.9 - Irritable bowel syndrome without diarrhea Qualifiers: Irritable bowel syndrome type: with constipation Qualified Code(s): K58.1 - Irritable bowel syndrome with constipation (4) Nausea: Code(s): R11.0 - Nausea (5) Postprandial abdominal bloating: Code(s): R14.0 - Abdominal distension (gaseous) Plan Continue lansoprazole. Will have patient take sucralfate at bedtime only. Patient was encouraged to avoid dietary triggers and late night snacking. Staying upright for minimum 3 hours after meals discussed with patient. Patient was encouraged to take Linzess in the morning instead of at night time. Patient was encouraged to drink plenty fluids throughout the day. Increase activity to promote better bowel motility. Will increase Linzess to 290 mcg daily. She can continue taking Colace at bedtime. I will see patient in 4 months, sooner on as needed basis. Patient is agreeable to this plan and verbalizes understanding of instructions. She was given the opportunity to ask questions and all questions answered. Thank you for allowing me to participate in her care Medications: New linaclotide (Linzess) 290 mcg PO QAM 30 caps 4RF K59.00 - Constipation, unspecified Changed From sucralfate 1 g PO BID 180 tabs 3RF To sucralfate 1 g PO BEDTIME 90 tabs 3RF Refilled lansoprazole 30 mg PO DAILY 90 caps 3RF K21.9 - Gastro-esophageal reflux disease without esophagitis Discontinued linaclotide (Linzess) Discontinued Reason: Doctor's Order 145 mcg PO DAILY 30 caps 2RF Coding Level of Care Code Est Pt Level 4 (96821) Diagnoses Gastroesophageal reflux disease without esophagitis K21.9 Esophagitis presence: without esophagitis Chronic idiopathic constipation K59.04 Constipation type: chronic idiopathic constipation Irritable bowel syndrome with constipation K58.1 Irritable bowel syndrome type: with constipation Nausea R11.0 Postprandial abdominal bloating R14.0 Time Spent (min) 35 Comment 20 minutes spent with patient and additional 15 minutes spent reviewing her records
== END 2023-08-15 12:22 | disposition home or self-care (01) ==
PROVIDERS: PCP Internal Medicine; Visit Provider Nurse Practitioner Family
DX: K21.9 Gastro-esophageal reflux disease without esophagitis (principal); K59.04 Chronic idiopathic constipation; K58.1 Irritable bowel syndrome with constipation; R11.0 Nausea; R14.0 Abdominal distension (gaseous)
CPT/HCPCS: 99214

== ENCOUNTER → 2023-08-15 11:37 | Outpatient (BNVA) | payer OTHER, SELFPAY | PROVIDERS: PCP Internal Medicine; Visit Provider Nurse Practitioner Family | DX: K21.9 Gastro-esophageal reflux disease without esophagitis (principal); K59.04 Chronic idiopathic constipation; K58.1 Irritable bowel syndrome with constipation; R11.0 Nausea; R14.0 Abdominal distension (gaseous) | CPT/HCPCS: 99212 ==

== ENCOUNTER 2023-08-25 13:16 | Outpatient (REF) | payer OTHER, SELFPAY ==
[2023-08-25 18:35] LABS: CT PCR NOT DETECTED (Not Detect.); NG PCR NOT DETECTED (Not Detect.)
[2023-08-26 08:02] LABS: Syphilis Screen Nonreactive (Nonreactive)
[2023-08-26 08:23] LABS: HBc Num1 0.16 S/CO (0.00-0.79); HIV AB/AG Nonreactive (Nonreactive); HIV Num 1 0.07 S/CO (0.00-0.99); Hepatitis B Core Antibody Nonreactive (Nonreactive); ~HepC Num1 6.37 S/CO (0.00-0.79); ~Hepatitis C Antibody Reactive (Nonreactive)
[2023-08-26 13:59] LABS: BV Int Neg Control Negative (Negative); BV Int Pos Control Positive (Positive)
== END 2023-08-25 13:17 | disposition home or self-care (01) ==
LOC: HO.LAB 13:16
PROVIDERS: Visit Provider Advanced Practice Midwife
DX: Z01.419 Encounter for gynecological examination (general) (routine) without abnormal findings (principal); R35.0 Frequency of micturition; R82.998 Other abnormal findings in urine; N89.8 Other specified noninflammatory disorders of vagina; N64.4 Mastodynia; Z20.2 Contact with and (suspected) exposure to infections with a predominantly sexual mode of transmission; Z90.710 Acquired absence of both cervix and uterus
CPT/HCPCS: 0353U; 36415; 81003; 86704; 86780; 86803; 87389; 87480; 87510; 87660; 99396

== ENCOUNTER 2023-08-25 13:16 | Outpatient (AMB) | payer OTHER, SELFPAY ==
--- NOTE | 2023-08-25 13:19 | A.OFFVIS_ITS ---
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 Doing well with concerns: Her recently cheated on her when he was in [place] for the last 4 months. She reports an odor in the urine. Currently is sexually active. She denies vaginal itching and irritation, admits to vaginal dryness. She tries to eat healthy and stays active with exercise. Hysterectomy for: AUB/fibroids. Having hot flashes for years. Denies family history of ovarian or colon cancer. Family history of her sister with metastatic breast cancer. She reports over the last 2 weeks she has noticed an increase in right sided breast pain. She denies any nipple discharge or injuries to the area. Mammogram: 04/2023. [facility] Medical History Left flank pain Foul smelling urine Bilateral nephrolithiasis Mood disorder PTSD (post-traumatic stress disorder) Major depression Bilateral hand numbness Pelvic cramping Vaginal burning Vaginal itching Complex cyst of left ovary History of renal calculi Hot flashes Pelvic pain in female Chest pain Colon cancer screening Generalized anxiety disorder Otitis externa Vaginal dryness Vaginal discharge Sexually transmitted disease exposure Degenerative joint disease of cervical spine UTI (urinary tract infection) Grief reaction Overweight (BMI 25.0-29.9) Anxiety and depression Asthma GERD (gastroesophageal reflux disease) Hepatitis C antibody test positive Ulnar neuropathy Fatty liver Seasonal allergies Carpal tunnel syndrome Migraine Surgical History H/O neck surgery History of esophagogastroduodenoscopy (EGD) H/O colonoscopy History of sleeve gastrectomy Hx of rotator cuff surgery History of carpal tunnel release Hx of tonsillectomy Hx of tubal ligation H/O: hysterectomy Family History (Updated 08/25/23 @ 13:51 by Marie Leon CNM) Father HTN (hypertension) Diabetes mellitus Stroke High cholesterol Mother HTN (hypertension) Diabetes mellitus High cholesterol Sister Diabetes mellitus Breast cancer, Onset Age: 51 Stroke Kidney disease Esophageal cancer Heart disease Maternal Grandmother Liver cancer Maternal Grandfather Heart disease Social History Household Members: Family Housing: House Do you presently have visiting nurse or other home services: No Unable to assess alcohol history related to: Unknown Alcohol intake: current Alcohol intake frequency: a few times a month Patient Tobacco Use Status: Never used Tobacco e-Cigarette/Vaping Use: Never Used Second Hand Smoke Exposure: Yes Advance Directives Date on File: 02/11/21 service: No Current occupational status: disabled Sexual orientation: Straight/Heterosexual Gender identity: Female Cognitive needs: No Hearing needs: No Vision needs: Yes Female Reproductive History Menstrual Age of Menarche: 8 Menopause type: surgical Total pregnancies: 3 Full term: 3 Number of Living Children: 3 Date of Mammogram: 05/16/23 (Birad 1) Review of Systems Const All systems reviewed & are unremarkable except as noted in HPI and below Reports as per HPI Eyes Reports no additional complaints ENT Reports no additional complaints Card Reports no additional complaints Resp Reports no additional complaints GI Reports as per HPI and Reports no additional complaints Reports as per HPI Musc Reports no additional complaints Skin/Breast Reports as per HPI Neuro Reports no additional complaints Psych Reports no additional complaints Endo Reports no additional complaints Gerber/Lymph Reports no additional complaints Aller/Immun Reports no additional complaints Physical Exam Vital Signs: Last Vital Signs BP 110/72 08/25/23 13:20 BMI result Body Mass Index 34.3 Const General: cooperative, healthy appearing, no acute distress, well developed and alert Orientation/consciousness: patient oriented x3 HEENT Head: Yes normal to inspection Eyes General: appearance normal, both eyes and all related structures Neck Neck: Yes normal visual inspection Thyroid: Thyroid normal Chest Chest palpation & inspection: normal inspection of the chest and other (no puckering, dimpling, peau de orange, retraction, discharge, masses) Breast/axilla inspection: normal inspection of the breasts Breast/axilla palpation: normal palpation of the breasts Resp Effort & Inspection: normal respiratory effort GI Inspection: Yes normal to inspection Palpation (GI): Soft to palpation Rectal Exam - Female: deferred General: Yes bladder normal to palpation External Female Exam: normal external appearance and normal appearance of the urethra Speculum Exam - Vagina: normal appearance of the vagina, normal palpation and abnormal vaginal discharge (White and clumpy) Speculum Exam - Cervix: Cervix absent (vag cuff) Bimanual exam- vagina & uterus: normal bimanual exam, normal palpation, bladder normal to palpation and uterus absent Bimanual Exam- Adnexa, other: no masses Skin General skin exam: no rashes or lesions noted Rashes: no rashes Neuro General: patient oriented x3 Cognition (Neuro): normal cognition Extrem General: Yes normal to inspection Psych Attitude: cooperative Thought process: Normal thought process present Results AMB Urinalysis, Automated UA Leukoctes 1 Aaliyah/uL Last Edit by AILEEN Alvarado on 08/25/23 13:38 UA Nitrite Negative Last Edit by Shirlene Willson Joan on 08/25/23 13:38 UA Urobilinogen 0 mg/dL Last Edit by Shirlene Willson [facility] on 08/25/23 13:3 8 UA Protein 0 mg/dL Last Edit by Shirlene Willson Joan on 08/25/23 13:38 UA pH 5.5 Last Edit by Shirlene Willson [facility] on 08/25/23 13:38 UA Blood 0 Jaiden/uL Last Edit by Shirlene Willson [facility] on 08/25/23 13:38 UA Specific [place] 1.020 Last Edit by Shirlene Willson Joan on 08/25/23 13:38 UA Ketone Negative Last Edit by Shirlene Willson [facility] on 08/25/23 13:38 UA Bilirubin 0 mg/dL Last Edit by Shirlene Willson Joan on 08/25/23 13:38 UA Glucose 0 mg/dL Last Edit by Shirlene Willson [facility] on 08/25/23 13:38 Results Reviewed Results Reviewed: Laboratory Last Values Urine pH (Auto) 5.5 08/25/23 13:36 Specific [place] (Auto) 1.020 08/25/23 13:36 Urine Protein (Auto) 0 mg/dL 08/25/23 13:36 Glucose (UA)(Auto) 0 mg/dL 08/25/23 13:36 Urine Ketones (Auto) Negative 08/25/23 13:36 Urine Blood (Auto) 0 Jaiden/uL 08/25/23 13:36 Urine Nitrite (Auto) Negative 08/25/23 13:36 Urine Bilirubin (Auto) 0 mg/dL 08/25/23 13:36 Urine Urobilinogen (Auto) 0 mg/dL 08/25/23 13:36 Leukocyte Esterase (Auto) 1 Aaliyah/uL 08/25/23 13:36 Assessment & Plan Assessment & Plan (1) Encounter for well woman exam with routine gynecological exam: Code(s): Z01.419 - Encounter for gynecological examination (general) (routine) without abnormal findings Plan Discussed: Current recommendations for pap smears per ASCCP guidelines. Breast awareness and periodic breast exams. Maintain a healthy lifestyle including a well balanced diet and routine exercise. Mammogram yearly. Breast ultrasound and diagnostic mammogram due to the bilateral breasts pain. Plan return to the office for ultrasound results. STD blood work and screening today. Patient verbalizes understanding and agrees to the plan of care. She was given opportunity to ask questions and all questions were answered to the best of my ability. RTO in one year for annual beach expert examination. This note is constructed using voice recognition software. While every effort has been made to ensure accuracy, cost accounting analyst errors may have been included. Orders: Orders HIV Ab/Ag Today Z20.2 - Contact with and (suspected) exposure to infections with a predominantly sexual mode of transmission Syphilis Screen Today Z20.2 - Contact with and (suspected) exposure to infections with a predominantly sexual mode of transmission Hepatitis B Core Antibody Today Z20.2 - Contact with and (suspected) exposure to infections with a predominantly sexual mode of transmission US breast RT complete Today N64.4 - Mastodynia MM tomosynthesis diagnostic BI Today N64.4 - Mastodynia, Z12.31 - Encounter for screening mammogram for malignant neoplasm of breast AMB Urinalysis Automated Today R35.0 - Frequency of micturition Hepatitis C Antibody Today Z20.2 - Contact with and (suspected) exposure to infections with a predominantly sexual mode of transmission Bacterial Vaginosis Panel Today N64.4 - Mastodynia, N89.8 - Other specified noninflammatory disorders of vagina CT NG by PCR Today Z20.2 - Contact with and (suspected) exposure to infections with a predominantly sexual mode of transmission US breast LT complete Today N64.4 - Mastodynia Coding Level of Care Code Est Pt Prev Care 40-64y(30704) Diagnoses Encounter for well woman exam with routine gynecological exam Z01.419
[2023-08-25 13:20] VITALS: BP 110/72; BMI 34.3
== END 2023-08-25 14:10 | disposition home or self-care (01) ==
PROVIDERS: Visit Provider Advanced Practice Midwife
DX: Z01.419 Encounter for gynecological examination (general) (routine) without abnormal findings (principal); R35.0 Frequency of micturition
CPT/HCPCS: 99396

== ENCOUNTER → 2023-09-26 14:30 | Outpatient (BNV) | payer OTHER, SELFPAY | PROVIDERS: PCP Internal Medicine; Visit Provider Radiology Diagnostic Radiology | DX: N64.4 Mastodynia (principal) | CPT/HCPCS: 76642; 77062; 77066 ==

== ENCOUNTER 2023-09-26 14:39 | Outpatient (REF) | payer OTHER, SELFPAY ==
--- NOTE | ~2023-09-26 | US_ITS ---
EXAMINATION: MM DIAGNOSTIC DIGITAL BREAST TOMOSYNTHESIS, BILATERAL US BREAST LIMITED, BILATERAL MAMMOGRAPHY: CLINICAL INFORMATION: 48-year-old female complaining of lateral breast pain of both breasts. COMPARISON: Mammography: 05/16/2023, 02/11/2021, 02/02/2021, 06/28/2019, and dating back to 2017. TECHNIQUE: Digital breast tomosynthesis is performed in both the craniocaudal and mediolateral oblique views along with computer-aided detection (CAD). Synthesized 2D images are generated from the tomosynthesis. FINDINGS: The breasts are heterogeneously dense, which may obscure small masses (ACR BI-RADS breast composition Category c). There are no suspicious masses, suspicious grouped calcifications, or areas of architectural distortion in either breast. The parenchymal pattern is stable from prior exams. There is no skin or axillary abnormality. No mammographic abnormality in the lateral aspects of either breast in the regions of breast pain. ULTRASOUND: CLINICAL INFORMATION: Bilateral, lateral breast pain. COMPARISON: No relevant ultrasound. TECHNIQUE: Targeted sonographic evaluation was performed using a high frequency linear transducer. Attention was given to the entire right breast, and lateral left breast as directed by the patient. Selected archived documentation. FINDINGS: RIGHT BREAST: No suspicious mass is seen. There is no pathologic acoustic shadowing. There is no cystic abnormality. There is no ultrasonographic correlate for lateral breast pain. LEFT BREAST: No suspicious mass is seen. There is no pathologic acoustic shadowing. There is no cystic abnormality. There is no ultrasonographic correlate for lateral breast pain. US/US breast BI limited mamm only IMPRESSION: No findings suspicious for malignancy in either breast. No significant changes from prior studies. No ultrasonographic or mammographic correlate to the regions of the lateral breast pain in either breast. Recommend clinical management. Otherwise, recommend resuming routine annual screening. OVERALL ASSESSMENT: Mammography: BI-RADS 1 - Negative Ultrasound: BI-RADS 1 - Negative RECOMMENDATION: 1. Patient should be managed based on the clinical impression. 2. Otherwise, routine annual screening mammography. This patient's information was entered into a reminder system with a target due date for their next mammogram.
== END 2023-09-26 14:40 | disposition home or self-care (01) ==
LOC: HO.MAMMO 14:39
PROVIDERS: PCP Internal Medicine; Visit Provider Internal Medicine
DX: N64.4 Mastodynia (principal)
CPT/HCPCS: 76642; 77062; 77066

== ENCOUNTER 2023-11-09 09:54 | Outpatient (AMB) | payer OTHER, SELFPAY ==
[2023-11-09 09:56] VITALS: BP 112/62; PULSE 74; O2SAT 98; BMI 35.2
--- NOTE | 2023-11-09 09:56 | A.OFFPC_ITS ---
Vital Signs 11/09/23 09:56 Height 5 ft 7 in Weight 225 lb BMI 35.2 BP 112/62 Blood Pressure Location Lt brachial Position Sitting Pulse 74 Pulse Source Pulse Oximeter Pulse Oximetry (%) 98 Oxygen Delivery Method Room Air Intake Visit Reasons: Physical Allergies oxycodone [From PERCOCET] Allergy (Intermediate, Verified 11/09/23 09:57) TACHYCARDIA, HEADACHE hydromorphone [From Dilaudid] Adverse Reaction (Mild, Verified 11/09/23 09:57) Itchy Sausage Allergy (Unknown, Uncoded 11/09/23 09:57) Unknown Medication List - Last Reconciled 11/09/23 by Lizandro Conley Po, albuterol sulfate 90 mcg/actuation (ProAir HFA) 2 puffs PO Q4H PRN albuterol sulfate 2.5 mg (3 mL) inhalation Q6H PRN amitriptyline 50 mg PO BEDTIME bisacodyl (Dulcolax (bisacodyl)) 10 mg (2 x 5 mg) PO BEDTIME bupropion HCl XL 300 mg PO DAILY bupropion HCl XL 150 mg PO QAM cetirizine 10 mg PO BID cholecalciferol (vitamin D3) 50 mcg PO DAILY clonazepam 1 mg PO BID cyclobenzaprine 10 mg PO Q8H PRN diclofenac sodium 1% 2 grams topical QID divalproex 500 mg PO BID docusate sodium 100 mg PO DAILY fluoxetine 40 mg PO DAILY fluticasone furoate 200 mcg/actuation 1 inh PO DAILY fremanezumab-vfrm (Ajovy) 225 mg subcut QMONTH hydrocortisone 1% 1 appl See Protocol topical BID PRN hydroxyzine HCl 25 mg PO DAILY lansoprazole 30 mg PO DAILY lidocaine 5% 1 patch topical DAILY linaclotide (Linzess) 290 mcg PO QAM ondansetron 8 mg PO Q12H PRN pregabalin 100 mg PO BEDTIME propranolol 20 mg See Protocol PO BID sucralfate 1 g PO BEDTIME tramadol 50 mg PO Q8H PRN Tobacco use date assessed: 11/09/23 Dental Screening Dental Screen Date: 11/09/23 Did you have a dental visit in the last 12 months?: Yes Did you have a dental problem in the last 6 months where you did not have access to dental care?: No Was dental information given to patient?: Patient has dentist HPI Physical HPI Details 48-year-old obese female with a history of sleeve gastrectomy GERD cervical degenerative disc disease bipolar disorder coming in for physical exam last seen in April 2023. Patient is mammogram is up-to-date colonoscopy up-to-date October 2021. Patient follows up with Gastroenterology for the reflux constipation IBS on lansoprazole, Carafate Linzess in the morning. And Colace patient also has met with the Rheumatology in July for the fibromyalgia on Lyrica 100 mg nightly advised exercise. Patient also follows up with pain management for the lower back pain advised MRI physical therapy requested Lucio Patrick [id number]. [address] Jim Dawson, [facility] for dizziness, 08/2023-has nausea, feels dysphagia, ff up with gastro, states chest pain, on pressing of chest or elevating [facility] Medical History (Updated 11/09/23 @ 10:47 by Lizandro Simon MD) Obesity (BMI 30.0-34.9) Left flank pain Foul smelling urine Bilateral nephrolithiasis Mood disorder PTSD (post-traumatic stress disorder) Major depression Bilateral hand numbness Pelvic cramping Vaginal burning Vaginal itching Complex cyst of left ovary History of renal calculi Hot flashes Pelvic pain in female Chest pain Colon cancer screening Generalized anxiety disorder Otitis externa Vaginal dryness Vaginal discharge Sexually transmitted disease exposure Degenerative joint disease of cervical spine UTI (urinary tract infection) Grief reaction Overweight (BMI 25.0-29.9) Anxiety and depression Asthma GERD (gastroesophageal reflux disease) Hepatitis C antibody test positive Ulnar neuropathy Fatty liver Seasonal allergies Carpal tunnel syndrome Migraine Surgical History H/O neck surgery History of esophagogastroduodenoscopy (EGD) H/O colonoscopy History of sleeve gastrectomy Hx of rotator cuff surgery History of carpal tunnel release Hx of tonsillectomy Hx of tubal ligation H/O: hysterectomy Family History (Updated 08/25/23 @ 13:51 by Maire Leno CNM) Father HTN (hypertension) Diabetes mellitus Stroke High cholesterol Mother HTN (hypertension) Diabetes mellitus High cholesterol Sister Diabetes mellitus Breast cancer, Onset Age: 51 Stroke Kidney disease Esophageal cancer Heart disease Maternal Grandmother Liver cancer Maternal Grandfather Heart disease Social History (Updated 11/09/23 @ 10:37 by Lizandro Simon MD) Household Members: Family Housing: House Do you presently have visiting nurse or other home services: No Alcohol intake: current Alcohol intake frequency: a few times a month Comment: 2x a month 3 brittanys Patient Tobacco Use Status: Never used Tobacco e-Cigarette/Vaping Use: Never Used Second Hand Smoke Exposure: Yes Advance Directives Date on File: 02/11/21 service: No Current occupational status: disabled Sexual orientation: Straight/Heterosexual Gender identity: Female Cognitive needs: No Hearing needs: No Vision needs: Yes Female Reproductive History Menstrual Age of Menarche: 8 Questionnaire PHQ-9 Over the last 2 weeks, how often have you been bothered by any of the following problems? 1. Little interest or pleasure in doing things: nearly every day 2. Feeling down, depressed, or hopeless: nearly every day 3. Trouble falling or staying asleep, or sleeping too much: nearly every day 4. Feeling tired or having little energy: nearly every day 5. Poor appetite or overeating: nearly every day 6. Feeling bad about yourself - or that you are a failure or have let yourself or your family down: not at all 7. Trouble concentrating on things, such as reading the newspaper or watching television: not at all 8. Moving or speaking so slowly that other people could have noticed. Or the opposite - being so fidgety or restless that you have been moving around a lot more than usual: not at all 9. Thoughts that you would be better off or of hurting yourself in some way: not at all Total score: 15 Depression Screening Interpretation: Positive Depression Screening Done: Yes Source: Developed by Drs. Naeem Moran, Salome Dahl, Olivier Bennett and colleagues, with an educational cookie from [employer]. Thrive Questionnaire Date Thrive assessed: 11/09/23 I am a: Patient What is your living situation today?: I have a steady place to live Within the past 12 months, did the food you bought not last and you didn't have the money to get more?: Never true Within the past 12 months, did you worry whether your food would run out before you got money to buy more?: Never true Do you have trouble paying for medicines?: No Do you have trouble getting transportation to medical appointments?: No Do you have trouble paying your heating and electricity bill?: No Do you have trouble taking care of your child, family member or friend?: No Do you have trouble with day-to-day activities such as bathing, preparing meals, shopping, managing finances, etc.?: No Are you currently unemployed and looking for a job?: No Are you interested in more education?: No Currently or been in a relationship where the following occur: no concerns reported THRIVE Score: 0 AUDIT C Alcohol Use Questionnaire (AUDIT-C) 1. How often do you have a drink containing alcohol?: Never 3. How often do you have six or more drinks on one occasion?: Never Total Score: 0 DEUCE-7 AMB Questionnaire DEUCE-7 Date DEUCE - 7 assessed: 11/09/23 Feeling nervous, anxious, or on edge: 1 = Several days Not being able to stop or control worryin = Several days Worrying too much about different things: 1 = Several days Trouble relaxin = Several days Being so restless that it is hard to sit still: 0 = Not at all Becoming easily annoyed or irritable: 1 = Several days Feeling afraid as if something awful might happen: 1 = Several days Total DEUCE-7 score (0-4 normal; 5-9 mild; 10-14 moderate; 15-21 severe): 6 Source: Developed by Drs. Naeem Moran, Salome Dahl, Olivier Bennett and colleagues, with an educational cookie from [employer]. Review of Systems Const Denies poor appetite and Denies weakness Eyes Denies no additional complaints ENT Reports Normal hearing present, Denies dizziness, Denies nasal congestion, Denies tinnitus and Denies sore throat Card Denies chest pain, Denies syncope, Denies rapid heart rate and Denies dyspnea Resp Denies cough and Denies dyspnea GI Denies change in stool character, Reports constipation, Denies diarrhea, Denies nausea and Denies vomiting Denies urinary frequency, Denies difficulty voiding and Denies dysuria Neuro Reports Normal hearing present, Denies confusion, Denies dizziness, Denies syncope and Denies weakness Psych Denies confusion Physical exam (Primary Care) Vital Signs: Last Vital Signs Pulse 74 11/09/23 09:56 BP 112/62 11/09/23 09:56 Pulse Ox 98 11/09/23 09:56 Oxygen Delivery Method Room Air 11/09/23 09:56 BMI result Body Mass Index 35.2 Tobacco/Smoking Status: Tobacco use Status Tobacco use date assessed 11/09/23 11/09/23 10:06 Patient Tobacco Use Status Never used Tobacco 11/09/23 10:06 e-Cigarette/Vaping Use Never Used 11/09/23 10:06 PHQ-9: PHQ-9 Score PHQ-9: Total score 15 11/09/23 10:06 Depression Screening Interpretation: Positive Thrive Assessment: Date of Thrive Assessment Date Thrive assessed 11/09/23 11/09/23 10:06 Currently or been in a relationship where the following occur: no concerns reported Const General: No confusion Orientation/consciousness: No confusion HENMT Head: Yes normocephalic Ears: external ears normal and TM's normal bilaterally Face and sinus: Yes normal facial exam Mouth: moist mucous membranes Throat: Yes tonsils normal Eyes Conjunctivae: conjunctivae normal Pupils: Equal, round and reactive pupils present and Pupil accommodation reflex normal Direct Ophthalmoscopy: normal light reflex Neck Neck: No lymphadenopathy Thyroid: Thyroid normal Chest Chest palpation & inspection: normal inspection of the chest Resp Effort & Inspection: normal respiratory effort and no audible wheezes Auscultation: clear to auscultation bilaterally, no crackles, no wheezes and lung sounds not diminished Cardio Rate: regular rate Rhythm: regular rhythm Peripheral pulses: radial pulses present and dorsalis pedis present GI Palpation (GI): no masses Auscultation: normal bowel sounds and normoactive bowel sounds Rectal Exam - Female: deferred Skin General skin exam: no rashes or lesions noted Rashes: no rashes Neuro General: No confusion Cranial nerves: Yes Equal, round and reactive pupils present and Yes Normal hearing present Cognition (Neuro): normal cognition Gait exam (Neuro): Normal gait present Motor exam (neuro): 5/5 motor strength present throughout Deep tendon reflexes (DTR's): Right brachioradialis reflex intensity grade: 2+, Left brachioradialis reflex intensity grade: 2+, Right patellar reflex intensity grade: 2+ and Left patellar reflex intensity grade: 2+ Extrem General: No edema Assessment and Plan Assessment & Plan (1) Annual physical exam: Code(s): Z00.00 - Encounter for general adult medical examination without abnormal findings (2) Post laminectomy syndrome: Comment: October 2022 patient had C5-C6 anterior cervical discectomy fusion and plating by Dr. Avel LUI Code(s): M96.1 - Postlaminectomy syndrome, not elsewhere classified Plan: Keep active patient follows up with pain management presently (3) Bipolar 2 disorder, major depressive episode: Comment: [facility] therapise , PSychiatry Anshul Willams 12/2022 Code(s): F31.81 - Bipolar II disorder Plan: Continue to follow-up with counseling and therapy (4) Fibromyalgia: Code(s): M79.7 - Fibromyalgia Plan: Patient has been prescribed Lyrica and follows up with Rheumatology (5) History of sleeve gastrectomy: Comment: 2018 Code(s): Z90.3 - Acquired absence of stomach [part of] Plan: Patient is advised to follow-up with diet and exercise (6) Asthma: Code(s): J45.909 - Unspecified asthma, uncomplicated Qualifiers: Asthma severity: mild Asthma persistence: intermittent Asthma complication type: uncomplicated Qualified Code(s): J45.20 - Mild intermittent asthma, uncomplicated Plan: Continue with inhaler as needed on albuterol (7) GERD (gastroesophageal reflux disease): Code(s): K21.9 - Gastro-esophageal reflux disease without esophagitis Qualifiers: Esophagitis presence: without esophagitis Qualified Code(s): K21.9 - Gastro-esophageal reflux disease without esophagitis Plan: Avoid the foods that causes that usually spicy foods, tomato products, juices, coffee, soda and foods that your sensitive to. After eating do not lie down, allow 3-4 hours before in lie down. And keep the head of bed above 30 degrees to avoid the acid from going up. (8) Obesity (BMI 30-39.9): Code(s): E66.9 - Obesity, unspecified Plan: Diet and exercise (9) SOB (shortness of breath): Code(s): R06.02 - Shortness of breath Orders: Orders Complete Blood Count Auto Diff Today K21.9 - Gastro-esophageal reflux disease without esophagitis Comprehensive Met. Panel Today K21.9 - Gastro-esophageal reflux disease without esophagitis Erythrocyte Sedimentation Rate Today K21.9 - Gastro-esophageal reflux disease without esophagitis Lipid Panel Today E78.00 - Pure hypercholesterolemia, unspecified, K21.9 - Gastro-esophageal reflux disease without esophagitis Vitamin D 25-OH Total Today K21.9 - Gastro-esophageal reflux disease without esophagitis PFT pulmonary function test Today R06.02 - Shortness of breath UA CC w/rflx Micro + Cult Today F31.81 - Bipolar II disorder, R30.0 - Dysuria HIV-1 Gen Rflx RNA Qn PCR Today Z20.2 - Contact with and (suspected) exposure to infections with a predominantly sexual mode of transmission Hepatitis B,C Profile Today R79.89 - Other specified abnormal findings of blood chemistry, Z20.2 - Contact with and (suspected) exposure to infections with a predominantly sexual mode of transmission Free T4 (Free Thyroxine) Today K21.9 - Gastro-esophageal reflux disease without esophagitis Vitamin B12 and Folate Today K21.9 - Gastro-esophageal reflux disease without esophagitis Thyroid Stimulating Hormone Today K21.9 - Gastro-esophageal reflux disease without esophagitis C Reactive Protein Today K21.9 - Gastro-esophageal reflux disease without esophagitis XR chest 2V Today R06.02 - Shortness of breath CT NG by PCR Today Z20.2 - Contact with and (suspected) exposure to infections with a predominantly sexual mode of transmission Bacterial Vaginosis Panel Today Z20.2 - Contact with and (suspected) exposure to infections with a predominantly sexual mode of transmission Referrals Medical Weight Management Referral E66.9 - Obesity, unspecified Coding Level of Care Code Est Pt Prev Care 40-64y(50289) Diagnoses Annual physical exam Z00.00 Post laminectomy syndrome M96.1 Bipolar 2 disorder, major depressive episode F31.81 Fibromyalgia M79.7 History of sleeve gastrectomy Z90.3 Mild intermittent asthma without complication J45.20 Asthma severity: mild Asthma persistence: intermittent Asthma complication type: uncomplicated Gastroesophageal reflux disease without esophagitis K21.9 Esophagitis presence: without esophagitis Obesity (BMI 30-39.9) E66.9 SOB (shortness of breath) R06.02
== END 2023-11-09 11:04 | disposition home or self-care (01) ==
PROVIDERS: PCP Internal Medicine; Visit Provider Internal Medicine
DX: Z00.00 Encounter for general adult medical examination without abnormal findings (principal); F31.81 Bipolar II disorder; M96.1 Postlaminectomy syndrome, not elsewhere classified; M79.7 Fibromyalgia; Z90.3 Acquired absence of stomach [part of]; J45.20 Mild intermittent asthma, uncomplicated; K21.9 Gastro-esophageal reflux disease without esophagitis; Z68.35 Body mass index [BMI] 35.0-35.9, adult; E66.9 Obesity, unspecified; R06.02 Shortness of breath
CPT/HCPCS: 99396

== ENCOUNTER 2023-11-10 10:05 | Outpatient (REF) | payer OTHER, SELFPAY ==
[2023-11-10 10:26] LABS: MANUAL DIFF FLAG NO
[2023-11-10 10:41] LABS: Basophils Absolute Auto 0.1 X10*3/uL (0.0-0.2); Basophils Percent Auto 0.8 % (0-2); Eosinophils Absolute Auto 0.2 X10*3/uL (0.0-0.4); Eosinophils Percent Auto 2.5 % (0-4); Hematocrit 38.9 % (37.0-47.0); Hemoglobin 12.6 g/dl (12.0-16.0); Imm Gran Abs Auto 0.03 X10*3/uL (0.00-0.03); Imm Gran Pct Auto 0.3 % (0.0-0.4); Lymphocytes Absolute Auto 3.3 X10*3/uL (1.2-4.9); Lymphocytes Percent Auto 34.6 % (20-40); Mean Corpuscular HGB Conc 32.4 g/dl (31.0-35.0); Mean Corpuscular Hemoglobin 29.6 pg (27.0-33.0); Mean Corpuscular Volume 91.3 fL (80.0-98.0); Mean Platelet Volume 9.1 fL (9.4-12.3); Monocytes Absolute Auto 0.8 X10*3/uL (0.1-1.2); Monocytes Percent Auto 8.2 % (2-11); Neutrophils Absolute Auto 5.2 x10*3/uL (2.0-8.3); Neutrophils Percent Auto 53.6 % (45-73); Platelet Count 271 X10*3/uL (160-400); Red Blood Count 4.26 X10*6/uL (4.20-5.50); Red Cell Distribution Width 13.7 % (11.0-16.0); White Blood Count 9.6 X10*3/uL (4.8-10.8)
[2023-11-10 11:14] LABS: Alanine Aminotransferase 12 U/L (0-31); Albumin Level 3.9 g/dL (3.5-5.0); Alkaline Phosphatase 85 U/L (39-117); Anion Gap 10 (12-20); Aspartate Amino Transferase 14 U/L (5-31); Bilirubin Total 0.4 mg/dL (0.0-1.0); Blood Urea Nitrogen 10 mg/dL (9-16); C Reactive Protein 1.92 mg/dL (< or = 0.50); Calcium 8.6 mg/dL (8.4-10.2); Carbon Dioxide 26 mmol/L (22-29); Chloride 109 mmol/L (96-108); Cholesterol 179 mg/dL (<200); Estimated Glomerular Filt Rate > 60; Glucose Random 92 mg/dL (60-115); HDL Cholesterol 58 mg/dL (>40); LDL Cholesterol Calculated 91 mg/dL (<100); Potassium 4.1 mmol/L (3.3-5.1); Sodium 141 mmol/L (135-145); Total Protein 6.9 g/dL (6.5-8.0); Triglycerides 150 mg/dL (<150)
[2023-11-10 11:23] LABS: Erythrocyte Sedimentation Rate 27 MM/HR (0-20)
[2023-11-10 11:31] LABS: HBS Num1 12.21 mIU/mL (0-7.99); HBc Num1 0.11 S/CO (0.00-0.79); HBsAGNum1 0.29 S/CO (0.00-0.99); Hepatitis B Core Antibody Nonreactive (Nonreactive); Hepatitis B Surface Antigen Negative (Negative); ~HepC Num1 5.75 S/CO (0.00-0.79); ~Hepatitis B Surface Antibody REACTIVE (Nonreactive); ~Hepatitis C Antibody Reactive (Nonreactive)
[2023-11-10 11:36] LABS: Appearance Urine Cloudy; Color Urine Yellow; Glucose Urine UA Negative (Negative); Leukocyte Esterase Urine Small (1+) (Negative); Nitrite Urine Positive (Negative); PH 6.5 (5.0-9.0); UMIC TRIGGER UACC YES; Urine Blood Negative (Negative); Urine Ketones Trace mg/dL (Negative); Urine Protein Negative (Neg-Trace)
[2023-11-10 11:40] LABS: Free T4 (Free Thyroxine) 0.76 ng/dL (0.71-1.85); Thyroid Stimulating Hormone 0.69 uIU/mL (0.32-4.0); Vitamin D 25-OH Total 31.4 ng/mL (>30)
[2023-11-10 12:20] LABS: Bacteria Urine 4+ (None Seen); Hyaline Casts Urine 0-2 /LPF (0-2); RBC Urine 0-2 /HPF (0-2); UACC Culture Trigger YES; WBC Urine 0-5 /HPF (0-5)
[2023-11-10 18:25] LABS: Folate 6.6 ng/mL (> or = 4.0); Vitamin B12 456 pg/mL (200-900)
[2023-11-13 19:58] LABS: HIV RNA PCR Qn Copies Not Detected Copies/mL; HIV RNA PCR Qn Log Copies Not Detected Log cps/mL
== END 2023-11-10 10:06 | disposition home or self-care (01) ==
LOC: HO.LAB 10:05
PROVIDERS: PCP Internal Medicine; Visit Provider Internal Medicine
DX: K21.9 Gastro-esophageal reflux disease without esophagitis (principal); R30.0 Dysuria; F31.81 Bipolar II disorder; E78.00 Pure hypercholesterolemia, unspecified; R79.89 Other specified abnormal findings of blood chemistry; Z20.2 Contact with and (suspected) exposure to infections with a predominantly sexual mode of transmission
CPT/HCPCS: 36415; 80053; 80061; 81001; 82306; 82607; 82746; 84439; 84443; 85025; 85652; 86140; 86704; 86706; 86803; 87086; 87088; 87186; 87340; 87536; 87900

== ENCOUNTER 2023-11-15 11:03 | Outpatient (REF) | payer OTHER, SELFPAY ==
--- NOTE | ~2023-11-15 | XR_ITS ---
EXAMINATION: XR CHEST CLINICAL INFORMATION: Shortness of breath COMPARISON: Chest 12/20/2020 TECHNIQUE: 2 views of the chest were obtained. FINDINGS: No significant abnormality is noted involving the heart, lungs, mediastinum or soft tissues. Fusion hardware is seen and the lower cervical, upper thoracic spine. XR/XR chest 2V IMPRESSION: No acute disease.
--- NOTE | ~2023-11-15 | US_ITS ---
EXAMINATION: US RETROPERITONEAL LIMITED (RENAL ONLY) CLINICAL INFORMATION: Calculus of kidney. COMPARISON: CT abdomen and pelvis 01/12/2023. Renal ultrasound 11/19/2022. X-ray abdomen KUB 10/27/2022 and 09/16/2022. Renal ultrasound 08/05/2022. TECHNIQUE: Real-time imaging of the kidneys. FINDINGS: RIGHT KIDNEY: 9.9 x 4.3 x 5.3 cm (SAG x AP x TRV). The kidney is normal in size, contour, and echogenicity. Renal cortical thickness is normal. No calculi or focal parenchymal lesions. No hydronephrosis. LEFT KIDNEY: 11.2 x 5.3 x 5.2 cm (SAG x AP x TRV). The kidney is normal in size, contour, and echogenicity. Renal cortical thickness is normal. No focal parenchymal lesions or hydronephrosis. 7 mm nonobstructing calculus in the lower pole. BLADDER: Bilateral ureteral jets are demonstrated. US/US renal BI IMPRESSION: 7 mm nonobstructing calculus in the lower pole left kidney. Previously this measured 4 mm on ultrasound 11/19/2022. No hydronephrosis.
== END 2023-11-15 11:04 | disposition home or self-care (01) ==
LOC: HO.US 11:03
PROVIDERS: Absent Provider Internal Medicine; PCP Internal Medicine; Visit Provider Urology
DX: N20.0 Calculus of kidney (principal); R06.02 Shortness of breath
CPT/HCPCS: 71046; 76775

== ENCOUNTER 2023-12-09 13:17 | Outpatient (AMB) | payer OTHER, SELFPAY ==
--- NOTE | 2023-12-09 13:23 | MHC.OFFVIS ---
Vital Signs 12/09/23 13:37 Height 5 ft 7 in Weight 224 lb 13.944 oz BMI 35.2 BP 122/74 Intake Visit Reasons: MM/US follow up/30 mins Hatchery Attendant Required: Yes Hatchery Attendant Language: Precise Winder Name: Ana GALLAGHER Information Interpreted: non-clinical & clinical Accompanied by: Self / Same As Patient Allergies oxycodone [From PERCOCET] Allergy (Intermediate, Verified 11/09/23 09:57) TACHYCARDIA, HEADACHE hydromorphone [From Dilaudid] Adverse Reaction (Mild, Verified 11/09/23 09:57) Itchy Sausage Allergy (Unknown, Uncoded 11/09/23 09:57) Unknown HPI Comments Details: Patient is here today for a follow up test results for a mammogram and diagnostic right breast ultrasound, prior visit she had complaint of increased pain tenderness on her right breast. She reports her pain is resolved. [facility] Medical History Obesity (BMI 30.0-34.9) Left flank pain Foul smelling urine Bilateral nephrolithiasis Mood disorder PTSD (post-traumatic stress disorder) Major depression Bilateral hand numbness Pelvic cramping Vaginal burning Vaginal itching Complex cyst of left ovary History of renal calculi Hot flashes Pelvic pain in female Chest pain Colon cancer screening Generalized anxiety disorder Otitis externa Vaginal dryness Vaginal discharge Sexually transmitted disease exposure Degenerative joint disease of cervical spine UTI (urinary tract infection) Grief reaction Overweight (BMI 25.0-29.9) Anxiety and depression Asthma GERD (gastroesophageal reflux disease) Hepatitis C antibody test positive Ulnar neuropathy Fatty liver Seasonal allergies Carpal tunnel syndrome Migraine Surgical History H/O neck surgery History of esophagogastroduodenoscopy (EGD) H/O colonoscopy History of sleeve gastrectomy Hx of rotator cuff surgery History of carpal tunnel release Hx of tonsillectomy Hx of tubal ligation H/O: hysterectomy Family History Father HTN (hypertension) Diabetes mellitus Stroke High cholesterol Mother HTN (hypertension) Diabetes mellitus High cholesterol Sister Diabetes mellitus Breast cancer, Onset Age: 51 Stroke Kidney disease Esophageal cancer Heart disease Maternal Grandmother Liver cancer Maternal Grandfather Heart disease Social History Household Members: Family Housing: House Do you presently have visiting nurse or other home services: No Alcohol intake: current Alcohol intake frequency: a few times a month Comment: 2x a month 3 beers Patient Tobacco Use Status: Never used Tobacco e-Cigarette/Vaping Use: Never Used Second Hand Smoke Exposure: Yes Advance Directives Date on File: 02/11/21 service: No Current occupational status: disabled Sexual orientation: Straight/Heterosexual Gender identity: Female Cognitive needs: No Hearing needs: No Vision needs: Yes Female Reproductive History Menstrual Age of Menarche: 8 Review of Systems Const All systems reviewed & are unremarkable except as noted in HPI and below Reports no additional complaints Skin/Breast Reports system reviewed and no additional complaints, except as documented and Reports as per HPI Physical Exam Vital Signs: Last Vital Signs BP 122/74 12/09/23 13:37 BMI result Body Mass Index 35.2 Const General: cooperative, healthy appearing and no acute distress Chest Breast/axilla inspection: normal inspection of the breasts and normal inspection of the axillae Breast/axilla palpation: normal palpation of the breasts Skin General skin exam: no rashes or lesions noted Results Reviewed Results Reviewed: [facility] [address] [place], [place] [address] Mammography Report Signed Patient: Pattie Richmond MR#: [id number] : 1975 Acct:[id number] Age/Sex: 48 / F ADM Date: 09/26/23 Loc: MAMMO Attending Dr: Lizandro Simon MD Ordering Physician: Marie Leon CNM Results: 1Negative Date of Service: 09/26/23 Follow Up: 1 Year From Original Mammogram Procedure(s): MM tomosynthesis diagnostic BI Accession Number(s): [id number] cc: Marie Leon CNM; Lizandro Simon MD~ EXAMINATION: MM DIAGNOSTIC DIGITAL BREAST TOMOSYNTHESIS, BILATERAL US BREAST LIMITED, BILATERAL MAMMOGRAPHY: CLINICAL INFORMATION: 48-year-old female complaining of lateral breast pain of both breasts. COMPARISON: Mammography: 05/16/2023, 02/11/2021, 02/02/2021, 06/28/2019, and dating back to 2017. TECHNIQUE: Digital breast tomosynthesis is performed in both the craniocaudal and mediolateral oblique views along with computer-aided detection (CAD). Synthesized 2D images are generated from the tomosynthesis. FINDINGS: The breasts are heterogeneously dense, which may obscure small masses (ACR BI-RADS breast composition Category c). There are no suspicious masses, suspicious grouped calcifications, or areas of architectural distortion in either breast. The parenchymal pattern is stable from prior exams. There is no skin or axillary abnormality. No mammographic abnormality in the lateral aspects of either breast in the regions of breast pain. ULTRASOUND: CLINICAL INFORMATION: Bilateral, lateral breast pain. COMPARISON: No relevant ultrasound. TECHNIQUE: Targeted sonographic evaluation was performed using a high frequency linear transducer. Attention was given to the entire right breast, and lateral left breast as directed by the patient. Selected archived documentation. FINDINGS: RIGHT BREAST: No suspicious mass is seen. There is no pathologic acoustic shadowing. There is no cystic abnormality. There is no ultrasonographic correlate for lateral breast pain. LEFT BREAST: No suspicious mass is seen. There is no pathologic acoustic shadowing. There is no cystic abnormality. There is no ultrasonographic correlate for lateral breast pain. MM/MM tomosynthesis diagnostic BI IMPRESSION: No findings suspicious for malignancy in either breast. No significant changes from prior studies. No ultrasonographic or mammographic correlate to the regions of the lateral breast pain in either breast. Recommend clinical management. Otherwise, recommend resuming routine annual screening. OVERALL ASSESSMENT: Mammography: BI-RADS 1 - Negative Ultrasound: BI-RADS 1 - Negative RECOMMENDATION: 1. Patient should be managed based on the clinical impression. 2. Otherwise, routine annual screening mammography. This patient's information was entered into a reminder system with a target due date for their next mammogram. Dictated By: Vu Bradley MD Signed By: <Electronically signed by Vu Bradley MD in OV> 09/26/23 1553 DD/ 1500 TD/TT: Hearing Aid Dispenser: Assessment & Plan Assessment & Plan (1) Encounter to discuss test results: Code(s): Z71.2 - Person consulting for explanation of examination or test findings Plan Discussed: Ultrasound and mammogram findings are normal BI-RADS 1, keep routine screenings. If any breast pain, skin changes, nipple discharge, swelling of the breast or other concerns call the office for immediate evaluation. Next appointment is scheduled for August 2024 for elevator operator freight annual. All of her questions and concerns were addressed to the best of my ability and shared decision making. She is agreeable to the plan of care. This note is constructed using voice recognition software. While every effort has been made to ensure accuracy, civil preparedness coordinator errors may have been included. Coding Level of Care Code Est Pt Level 3 (88759) Diagnoses Encounter to discuss test results Z71.2
[2023-12-09 13:37] VITALS: BP 122/74; BMI 35.2
== END 2023-12-09 14:07 | disposition home or self-care (01) ==
LOC: HO.HWS 13:17
PROVIDERS: PCP Internal Medicine; Visit Provider Advanced Practice Midwife
DX: Z71.2 Person consulting for explanation of examination or test findings (principal)
CPT/HCPCS: 99213

== ENCOUNTER → 2023-12-09 13:17 | Outpatient (BNVA) | payer OTHER, SELFPAY | PROVIDERS: PCP Internal Medicine; Visit Provider Advanced Practice Midwife | DX: Z71.2 Person consulting for explanation of examination or test findings (principal) | CPT/HCPCS: 99212 ==

== ENCOUNTER 2023-12-14 12:35 | Outpatient (AMB) | payer OTHER, SELFPAY ==
[2023-12-14 12:46] VITALS: BP 142/96; PULSE 90; BMI 35.6
--- NOTE | 2023-12-14 12:46 | A.OFFVIS_ITS ---
Vital Signs 12/14/23 12:46 Height 5 ft 7 in Weight 227 lb 1.218 oz BMI 35.6 BP 142/96 H Blood Pressure Location Lt brachial Position Sitting Pulse 90 Intake Visit Reasons: 4 month follow up constipation Intake Note: Pattie presents to in office today in 4 months follow up of constipation. CC: Patient states that she continues having constipation. Second Watch Sergeant Required: No Accompanied by: Self / Same As Patient Allergies oxycodone [From PERCOCET] Allergy (Intermediate, Verified 12/14/23 12:48) TACHYCARDIA, HEADACHE hydromorphone [From Dilaudid] Adverse Reaction (Mild, Verified 12/14/23 12:48) Itchy Sausage Allergy (Unknown, Uncoded 11/09/23 09:57) Unknown HPI HPI 4 month follow up constipation: Details: LAST VISIT: GERD (gastroesophageal reflux disease) Constipation IBS (irritable bowel syndrome) Nausea Postprandial abdominal bloating Plan Continue lansoprazole. Will have patient take sucralfate at bedtime only. Patient was encouraged to avoid dietary triggers and late night snacking. Staying upright for minimum 3 hours after meals discussed with patient. Patient was encouraged to take Linzess in the morning instead of at night time. Patient was encouraged to drink plenty fluids throughout the day. Increase activity to promote better bowel motility. Will increase Linzess to 290 mcg daily. She can continue taking Colace at bedtime. I will see patient in 4 months, sooner on as needed basis. Patient is agreeable to this plan and verbalizes understanding of instructions. She was given the opportunity to ask questions and all questions answered. ? Thank you for allowing me to participate in her care Medications New linaclotide (Linzess) 290 mcg PO QAM 30 caps 4RF K59.00 Changed Changed From sucralfate 1 g PO BID 180 tabs 3RF Changed To sucralfate 1 g PO BEDTIME 90 tabs 3RF Refilled lansoprazole 30 mg PO DAILY 90 caps 3RF K21.9 Discontinued linaclotide (Linzess) Discontinued Reason: Doctor's Order 145 mcg PO DAILY 30 caps 2RF TODAY'S VISIT: Patient is here today for follow-up. Patient reports that lansoprazole has been working for her, denies any acid reflux, dyspepsia, dysphagia or odynophagia. However patient admits that she continues to have trouble with her bowels. Initially Linzess was working and now patient is taking every morning with Dulcolax in the evening and she has a bowel movement maybe once a week. Patient reports that she is drinking plenty fluids. Patient denies melena, hematochezia, unintentional weight loss or ribbon like stools. Last colonoscopy in October of 2021, and due to family history patient will need to report for colonoscopy in [facility] Medical History Obesity (BMI 30.0-34.9) Left flank pain Foul smelling urine Bilateral nephrolithiasis Mood disorder PTSD (post-traumatic stress disorder) Major depression Bilateral hand numbness Pelvic cramping Vaginal burning Vaginal itching Complex cyst of left ovary History of renal calculi Hot flashes Pelvic pain in female Chest pain Colon cancer screening Generalized anxiety disorder Otitis externa Vaginal dryness Vaginal discharge Sexually transmitted disease exposure Degenerative joint disease of cervical spine UTI (urinary tract infection) Grief reaction Overweight (BMI 25.0-29.9) Anxiety and depression Asthma GERD (gastroesophageal reflux disease) Hepatitis C antibody test positive Ulnar neuropathy Fatty liver Seasonal allergies Carpal tunnel syndrome Migraine Surgical History H/O neck surgery History of esophagogastroduodenoscopy (EGD) H/O colonoscopy History of sleeve gastrectomy Hx of rotator cuff surgery History of carpal tunnel release Hx of tonsillectomy Hx of tubal ligation H/O: hysterectomy Family History Father HTN (hypertension) Diabetes mellitus Stroke High cholesterol Mother HTN (hypertension) Diabetes mellitus High cholesterol Sister Diabetes mellitus Breast cancer, Onset Age: 51 Stroke Kidney disease Esophageal cancer Heart disease Maternal Grandmother Liver cancer Maternal Grandfather Heart disease Social History Household Members: Family Housing: House Do you presently have visiting nurse or other home services: No Alcohol intake: current Alcohol intake frequency: a few times a month Comment: 2x a month 3 beers Patient Tobacco Use Status: Never used Tobacco e-Cigarette/Vaping Use: Never Used Second Hand Smoke Exposure: Yes Advance Directives Date on File: 02/11/21 service: No Current occupational status: disabled Sexual orientation: Straight/Heterosexual Gender identity: Female Cognitive needs: No Hearing needs: No Vision needs: Yes Female Reproductive History Menstrual Age of Menarche: 8 Review of Systems Const Denies weight gain and Denies weight loss ENT Reports no additional complaints, Denies dysphagia and Denies odynophagia Card Reports no additional complaints Resp Reports no additional complaints GI Denies abdominal pain, Denies belching, Denies melena, Reports bloating, Denies change in bowel habits, Reports constipation, Denies dysphagia, Denies excessive flatus, Denies dyspepsia, Denies heartburn, Denies diarrhea, Denies loose stools, Denies nausea, Denies odynophagia and Denies vomiting Reports no additional complaints Musc Reports no additional complaints Neuro Reports no additional complaints Psych Reports no additional complaints Endo Reports no additional complaints Physical Exam Vital Signs: Last Vital Signs Pulse 90 12/14/23 12:46 BP 142/96 H 12/14/23 12:46 BMI result Body Mass Index 35.6 Const General: healthy appearing, no acute distress and well developed Nutritional Appearance: obese Orientation/consciousness: patient oriented x3 Resp Effort & Inspection: normal respiratory effort, able to speak in complete sentences, no tracheal deviation and symmetric chest movement Auscultation: clear to auscultation bilaterally Cardio Rate: regular rate GI Inspection: Yes normal to inspection, No distended and Yes obesity Palpation (GI): Soft to palpation, not firm, nontender and No hepatosplenomegaly present Auscultation: normal bowel sounds General: Yes no CVA tenderness Back/Spine/Pelvis Back: no CVA tenderness Skin General skin exam: elasticity normal, turgor normal and dry skin Neuro General: patient oriented x3 Psych Appearance: grossly normal Mental Status: mental status grossly normal Assessment & Plan Assessment & Plan (1) GERD (gastroesophageal reflux disease): Code(s): K21.9 - Gastro-esophageal reflux disease without esophagitis Category: Medical Qualifiers: Esophagitis presence: without esophagitis Qualified Code(s): K21.9 - Gastro-esophageal reflux disease without esophagitis (2) Constipation: Code(s): K59.00 - Constipation, unspecified Category: Medical Qualifiers: Constipation type: chronic idiopathic constipation Qualified Code(s): K59.04 - Chronic idiopathic constipation (3) IBS (irritable bowel syndrome): Code(s): K58.9 - Irritable bowel syndrome without diarrhea Qualifiers: Irritable bowel syndrome type: with constipation Qualified Code(s): K58.1 - Irritable bowel syndrome with constipation (4) Nausea: Code(s): R11.0 - Nausea (5) Postprandial abdominal bloating: Code(s): R14.0 - Abdominal distension (gaseous) Plan Will change patient's treatment to Motegrity. Patient was encouraged to increase fluid intake and activity to promote better bowel motility. Continue pantoprazole and sucralfate at bedtime. If patient will continue to be constipated we might need to stop sucralfate and order famotidine as that might be contributing to her symptoms. Patient was also encouraged to avoid dietary triggers and late night snacking. Increase fluid intake and activity to promote better bowel motility. I will see patient in 7 weeks, sooner on as needed basis. She is agreeable to this plan and verbalizes understanding of instructions. She was given the opportunity to ask questions and all questions answered. Thank you for allowing me to participate in her care Medications: New prucalopride (Motegrity) 2 mg PO DAILY 30 tabs 2RF K59.04 - Chronic idiopathic constipation Refilled sucralfate 1 g PO BEDTIME 90 tabs 3RF Discontinued bisacodyl Discontinued Reason: Doctor's Order 10 mg (2 x 5 mg) PO BEDTIME 180 tabs 4RF linaclotide Discontinued Reason: Doctor's Order 290 mcg PO QAM 30 caps 4RF K59.00 - Constipation, unspecified Coding Level of Care Code Est Pt Level 3 (63430) Diagnoses Gastroesophageal reflux disease without esophagitis K21.9 Esophagitis presence: without esophagitis Chronic idiopathic constipation K59.04 Constipation type: chronic idiopathic constipation Irritable bowel syndrome with constipation K58.1 Irritable bowel syndrome type: with constipation Nausea R11.0 Postprandial abdominal bloating R14.0 Time Spent (min) 30 Comment 20 minutes spent with patient and additional 10 minutes spent reviewing her records
== END 2023-12-14 13:39 | disposition home or self-care (01) ==
PROVIDERS: PCP Internal Medicine; Visit Provider Nurse Practitioner Family
DX: K21.9 Gastro-esophageal reflux disease without esophagitis (principal); K59.04 Chronic idiopathic constipation; K58.1 Irritable bowel syndrome with constipation; R11.0 Nausea; R14.0 Abdominal distension (gaseous)
CPT/HCPCS: 99213

== ENCOUNTER → 2023-12-14 12:35 | Outpatient (BNVA) | payer OTHER, SELFPAY | PROVIDERS: PCP Internal Medicine; Visit Provider Nurse Practitioner Family | DX: K21.9 Gastro-esophageal reflux disease without esophagitis (principal); K59.04 Chronic idiopathic constipation; K58.1 Irritable bowel syndrome with constipation; R14.0 Abdominal distension (gaseous); R11.0 Nausea | CPT/HCPCS: 99212 ==

== ENCOUNTER 2024-01-16 15:00 | Outpatient (AMB) | payer OTHER, SELFPAY ==
--- NOTE | 2024-01-16 15:01 | AM.OFFWIN_ITS ---
Intake Vital Signs 01/16/24 15:03 Height 5 ft 7 in Weight 228 lb BMI 35.7 BP 140/100 H Blood Pressure Location Rt brachial Position Sitting Pulse 78 Pulse Source Pulse Oximeter Pulse Oximetry (%) 98 Oxygen Delivery Method Room Air Intake Visit Reasons: EP fluid behind the knee Intake Note: Patient here for fluid in left knee, pt states it is very painful and is having a hard time bending the knee. pt also mentioned that on tuesday she fell on the left side which is caused more pain and in shoulder and hip. Patient Tobacco Use Status: Never used Tobacco Allergies oxycodone [From PERCOCET] Allergy (Intermediate, Verified 01/16/24 15:06) TACHYCARDIA, HEADACHE hydromorphone [From Dilaudid] Adverse Reaction (Mild, Verified 01/16/24 15:06) Itchy Sausage Allergy (Unknown, Uncoded 01/16/24 15:06) Unknown Do you need a note to return to daycare/school/sports/work: No HPI HPI Comments History of Present Illness Details Patient presents to the walk-in today for sick visit Complaining of left knee pain Was recently in [place] for a family emergency, evaluated in the emergency room Had x-rays and ultrasound of the left knee Was told her fluid behind the knee Pain is worse with flexion and ambulation [facility] Medical History Obesity (BMI 30.0-34.9) Left flank pain Foul smelling urine Bilateral nephrolithiasis Mood disorder PTSD (post-traumatic stress disorder) Major depression Bilateral hand numbness Pelvic cramping Vaginal burning Vaginal itching Complex cyst of left ovary History of renal calculi Hot flashes Pelvic pain in female Chest pain Colon cancer screening Generalized anxiety disorder Otitis externa Vaginal dryness Vaginal discharge Sexually transmitted disease exposure Degenerative joint disease of cervical spine UTI (urinary tract infection) Grief reaction Overweight (BMI 25.0-29.9) Anxiety and depression Asthma GERD (gastroesophageal reflux disease) Hepatitis C antibody test positive Ulnar neuropathy Fatty liver Seasonal allergies Carpal tunnel syndrome Migraine Surgical History H/O neck surgery History of esophagogastroduodenoscopy (EGD) H/O colonoscopy History of sleeve gastrectomy Hx of rotator cuff surgery History of carpal tunnel release Hx of tonsillectomy Hx of tubal ligation H/O: hysterectomy Family History Father HTN (hypertension) Diabetes mellitus Stroke High cholesterol Mother HTN (hypertension) Diabetes mellitus High cholesterol Sister Diabetes mellitus Breast cancer, Onset Age: 51 Stroke Kidney disease Esophageal cancer Heart disease Maternal Grandmother Liver cancer Maternal Grandfather Heart disease Social History Household Members: Family Housing: House Do you presently have visiting nurse or other home services: No Alcohol intake: current Alcohol intake frequency: a few times a month Comment: 2x a month 3 beereleanor Patient Tobacco Use Status: Never used Tobacco e-Cigarette/Vaping Use: Never Used Second Hand Smoke Exposure: Yes Advance Directives Date on File: 02/11/21 service: No Current occupational status: disabled Sexual orientation: Straight/Heterosexual Gender identity: Female Cognitive needs: No Hearing needs: No Vision needs: Yes Female Reproductive History Menstrual Age of Menarche: 8 Review of Systems Const All systems reviewed & are unremarkable except as noted in HPI and below Physical Exam Vital Signs: Last Vital Signs Pulse 78 01/16/24 15:03 BP 140/100 H 01/16/24 15:03 Pulse Ox 98 01/16/24 15:03 Oxygen Delivery Method Room Air 01/16/24 15:03 BMI result Body Mass Index 35.7 General: awake, alert, oriented. Answers questions appropriately. Fully engaged in examination. Skin: warm, dry, intact HEENT: Normocephalic. Hearing intact. Cardiac: External chest normal in appearance. Respiratory: No cough, audible wheezing or stridor. Abdomen: without gross distension. MS: Left knee: Tender to palpation, pain with flexion, decreased range of motion, tenderness to lateral joint line Neurological: Oriented to person, place, time and situation. Thought process intact. No gait abnormalities appreciated. Psychiatric: Appropriate mood and affect. Good judgment and insight. Assessment & Plan Assessment & Plan (1) Left knee sprain: Code(s): S83.92XA - Sprain of unspecified site of left knee, initial encounter Plan Knee brace applied, patient and daughter advised on use Diclofenac 25 mg p.o. twice daily. Patient advised on cautions for use. Take with food. Do not take with other nonsteroidal anti-inflammatory medications Referral placed for Orthopedics Follow up with PCP or return here for any new or worsening symptoms Orders: Referrals Orthopedics Referral S83.92XA - Sprain of unspecified site of left knee, initial encounter Medications: New diclofenac potassium 25 mg PO BID 30 tabs 0RF Coding Level of Care Code Est Pt Level 3 (61423) Diagnoses Left knee sprain S83.92XA
[2024-01-16 15:03] VITALS: BP 140/100; PULSE 78; O2SAT 98; BMI 35.7
== END 2024-01-16 15:41 | disposition home or self-care (01) ==
PROVIDERS: PCP Internal Medicine; Visit Provider Registered Nurse Emergency
DX: S83.92XA Sprain of unspecified site of left knee, initial encounter (principal)
CPT/HCPCS: 99213

== ENCOUNTER 2024-01-31 10:30 | Outpatient (AMB) | payer OTHER, SELFPAY ==
--- NOTE | 2024-01-31 10:36 | MHC.OFFVIS ---
Vital Signs 01/31/24 10:41 Height 5 ft 7 in Weight 227 lb 15.327 oz BMI 35.7 BP 117/70 Blood Pressure Location Lt brachial Position Sitting Respiration 16 Pulse 94 Pulse Source Pulse Oximeter Pulse Oximetry (%) 97 Oxygen Delivery Method Room Air Intake Visit Reasons: FMS/CM Intake Note: Patient presents for FMS. Spanish Language Lecturer Required: Yes Spanish Language Lecturer Services: Spanish Language Lecturer Offered & Declined Spanish Language Lecturer Name: Carroll Escoto Friend Allergies oxycodone [From PERCOCET] Allergy (Intermediate, Verified 01/31/24 10:40) TACHYCARDIA, HEADACHE hydromorphone [From Dilaudid] Adverse Reaction (Mild, Verified 01/31/24 10:40) Itchy Sausage Allergy (Unknown, Uncoded 01/16/24 15:06) Unknown Medication List - Last Reconciled 01/31/[address] Apodaca MD albuterol sulfate 90 mcg/actuation (ProAir HFA) 2 puffs PO Q4H PRN albuterol sulfate 2.5 mg (3 mL) inhalation Q6H PRN amitriptyline 50 mg PO BEDTIME bupropion HCl XL 300 mg PO DAILY bupropion HCl XL 150 mg PO QAM cetirizine 10 mg PO BID cholecalciferol (vitamin D3) 50 mcg PO DAILY clonazepam 1 mg PO BID cyclobenzaprine 10 mg PO Q8H PRN diclofenac potassium 25 mg PO BID diclofenac sodium 1% 2 grams topical QID divalproex 500 mg PO BID docusate sodium 100 mg PO DAILY fluoxetine 40 mg PO DAILY fluticasone furoate 200 mcg/actuation 1 inh PO DAILY fremanezumab-vfrm (Ajovy) 225 mg subcut QMONTH hydrocortisone 1% 1 appl See Protocol topical BID PRN hydroxyzine HCl 25 mg PO DAILY lansoprazole 30 mg PO DAILY lidocaine 5% 1 patch topical DAILY ondansetron 8 mg PO Q12H PRN pregabalin 100 mg PO BEDTIME propranolol 20 mg See Protocol PO BID prucalopride (Motegrity) 2 mg PO DAILY sucralfate 1 g PO BEDTIME tramadol 50 mg PO Q8H PRN HPI Comments Details: 48-year-old female with fibromyalgia returns for follow-up. Last month when she was in [place] she developed left knee pain and swelling. She went to the emergency room and had an x-ray. She was told that she has fluid in the back of her knee and no specific treatment was given. She was advised to seek care with her PCP. She states that the swelling has gone down but she continues to get knee pain with exertion and when standing up after sitting for some time. Uses Voltaren gel nightly. Most recent history by Dr. Cooley 01/2023: The patient returns for evaluation of her fibromyalgia. She again relates widespread pains involving the neck, shoulders, lower back, lateral hips, knees and feet. She had surgery in October for a disc problem in the neck. She apparently had artificial discs implanted at [facility] at C5 and C6. The paresthesias in her arms are better but she still has pain in the upper shoulders and neck. She is awaiting some physical therapy time. She was hospitalized in November in the psych unit for depression. Her chart indicates she is taking 4 different antidepressants, I am not sure she actually is taking all of those as she cannot recognize any of them. She also takes Lyrica 100 b.i.d. and occasional cyclobenzaprine. We had stopped the meloxicam because it was given her stomach pain. [facility] Medical History Obesity (BMI 30.0-34.9) Left flank pain Foul smelling urine Bilateral nephrolithiasis Mood disorder PTSD (post-traumatic stress disorder) Major depression Bilateral hand numbness Pelvic cramping Vaginal burning Vaginal itching Complex cyst of left ovary History of renal calculi Hot flashes Pelvic pain in female Chest pain Colon cancer screening Generalized anxiety disorder Otitis externa Vaginal dryness Vaginal discharge Sexually transmitted disease exposure Degenerative joint disease of cervical spine UTI (urinary tract infection) Grief reaction Overweight (BMI 25.0-29.9) Anxiety and depression Asthma GERD (gastroesophageal reflux disease) Hepatitis C antibody test positive Ulnar neuropathy Fatty liver Seasonal allergies Carpal tunnel syndrome Migraine Surgical History H/O neck surgery History of esophagogastroduodenoscopy (EGD) H/O colonoscopy History of sleeve gastrectomy Hx of rotator cuff surgery History of carpal tunnel release Hx of tonsillectomy Hx of tubal ligation H/O: hysterectomy Family History Father HTN (hypertension) Diabetes mellitus Stroke High cholesterol Mother HTN (hypertension) Diabetes mellitus High cholesterol Sister Diabetes mellitus Breast cancer, Onset Age: 51 Stroke Kidney disease Esophageal cancer Heart disease Maternal Grandmother Liver cancer Maternal Grandfather Heart disease Social History Household Members: Family Housing: House Do you presently have visiting nurse or other home services: No Alcohol intake: current Alcohol intake frequency: a few times a month Comment: 2x a month 3 beers Patient Tobacco Use Status: Never used Tobacco e-Cigarette/Vaping Use: Never Used Second Hand Smoke Exposure: Yes Advance Directives Date on File: 02/11/21 service: No Current occupational status: disabled Sexual orientation: Straight/Heterosexual Gender identity: Female Cognitive needs: No Hearing needs: No Vision needs: Yes Female Reproductive History Menstrual Age of Menarche: 8 Review of Systems Musc Reports arthralgias and Reports stiffness Physical Exam Vital Signs: Last Vital Signs Pulse 94 01/31/24 10:41 Resp 16 01/31/24 10:41 BP 117/70 01/31/24 10:41 Pulse Ox 97 01/31/24 10:41 Oxygen Delivery Method Room Air 01/31/24 10:41 BMI result Body Mass Index 35.7 Const General: cooperative, healthy appearing and comfortable Nutritional Appearance: obese morbidly obese Orientation/consciousness: patient oriented x3 Limitations: no limitations HEENT Head: Yes normocephalic and Yes atraumatic Mouth: moist mucous membranes Resp Effort & Inspection: normal respiratory effort and able to speak in complete sentences Auscultation: clear to auscultation bilaterally Cardio Rate: regular rate Rhythm: regular rhythm Skin General skin exam: no rashes or lesions noted Neuro General: patient oriented x3 Extrem Other: No active synovitis Few fibromyalgia tender points Minimal left knee warmth Left knee pain with full flexion and extension Assessment & Plan Assessment & Plan (1) Fibromyalgia: Code(s): M79.7 - Fibromyalgia Category: Medical Plan: 48-year-old female with fibromyalgia and returns for follow-up. Doing about the same overall. Continues to have widespread pains with no inflammatory arthritis. She has been taking Lyrica 100 mg nightly and it is well tolerated. She can continue with that. (2) Osteoarthritis of left knee: Code(s): M17.12 - Unilateral primary osteoarthritis, left knee Category: Medical Qualifiers: Osteoarthritis type: primary Qualified Code(s): M17.12 - Unilateral primary osteoarthritis, left knee Plan: Advised patient to use her Voltaren gel 4 times a day. I provided patient with a printout of home exercises. She is going on a cruise next month. Advised patient that if her knee pain gets progressively worse, she can call us and we will consider left knee steroid injection Plan I spent 26 minutes reviewing patient's chart, evaluating patient, counseling patient and documenting in the chart Coding Level of Care Code Est Pt Level 4 (09508) Diagnoses Fibromyalgia M79.7 Primary osteoarthritis of left knee M17.12 Osteoarthritis type: primary
[2024-01-31 10:41] VITALS: BP 117/70; PULSE 94; RESP 16; O2SAT 97; BMI 35.7
== END 2024-01-31 11:17 | disposition home or self-care (01) ==
PROVIDERS: PCP Internal Medicine; Visit Provider Student in an Organized Health Care Education/Training Program
DX: M79.7 Fibromyalgia (principal); M17.12 Unilateral primary osteoarthritis, left knee
CPT/HCPCS: 99214

== ENCOUNTER → 2024-01-31 10:30 | Outpatient (BNVA) | payer OTHER, SELFPAY | PROVIDERS: PCP Internal Medicine; Visit Provider Student in an Organized Health Care Education/Training Program | DX: M79.7 Fibromyalgia (principal); M17.12 Unilateral primary osteoarthritis, left knee; Z79.899 Other long term (current) drug therapy | CPT/HCPCS: 99212 ==

== ENCOUNTER 2024-02-08 10:00 | Outpatient (AMB) | payer OTHER, SELFPAY ==
[2024-02-08 10:10] VITALS: BP 124/78; PULSE 100; O2SAT 98; BMI 35.7
--- NOTE | 2024-02-08 10:10 | A.OFFPC_ITS ---
Vital Signs 02/08/24 10:10 Height 5 ft 7 in Weight 228 lb BMI 35.7 BP 124/78 Blood Pressure Location Lt brachial Position Sitting Pulse 100 Pulse Source Pulse Oximeter Pulse Oximetry (%) 98 Oxygen Delivery Method Room Air Intake Visit Reasons: 3M Follow Up Intake Note: Left knee pain that radiates up her thigh. Patient feels she is swollen. She was told in [place] that she had fluid behind her knee. Allergies oxycodone [From PERCOCET] Allergy (Intermediate, Verified 02/08/24 10:11) TACHYCARDIA, HEADACHE hydromorphone [From Dilaudid] Adverse Reaction (Mild, Verified 02/08/24 10:11) Itchy Sausage Allergy (Unknown, Uncoded 02/08/24 10:11) Unknown Tobacco use date assessed: 11/09/23 Dental Screening Dental Screen Date: 11/09/23 HPI 3M Follow Up HPI Details 48-year-old obese female with multiple m edical problems patient had a history of sleeve gastrectomy post laminectomy syndrome bipolar disorder fibromyalgia asthma GERD last seen in 11/12/2023 patient is up-to-date with colonoscopy 11/11/2021 mammogram is up-to-date 05/13/2023. Review of the notes January 2024 was in [place] left knee pain and swelling was told fluid in the back of the knee on Voltaren gel cervical disc surgery in October on physical therapy. Hospitalized for a psychiatric depression in 12/12/2023. Patient did see Gastroenterology in November also for constipation M[employer]grity prescription sent advised to increase fluids continuing with GERD medications if still constipated. Carafate and place famotidine. Ultrasound done in October showing 7 mm left lower kidney pole [facility] Medical History Obesity (BMI 30.0-34.9) Left flank pain Foul smelling urine Bilateral nephrolithiasis Mood disorder PTSD (post-traumatic stress disorder) Major depression Bilateral hand numbness Pelvic cramping Vaginal burning Vaginal itching Complex cyst of left ovary History of renal calculi Hot flashes Pelvic pain in female Chest pain Colon cancer screening Generalized anxiety disorder Otitis externa Vaginal dryness Vaginal discharge Sexually transmitted disease exposure Degenerative joint disease of cervical spine UTI (urinary tract infection) Grief reaction Overweight (BMI 25.0-29.9) Anxiety and depression Asthma GERD (gastroesophageal reflux disease) Hepatitis C antibody test positive Ulnar neuropathy Fatty liver Seasonal allergies Carpal tunnel syndrome Migraine Surgical History H/O neck surgery History of esophagogastroduodenoscopy (EGD) H/O colonoscopy History of sleeve gastrectomy Hx of rotator cuff surgery History of carpal tunnel release Hx of tonsillectomy Hx of tubal ligation H/O: hysterectomy Family History Father HTN (hypertension) Diabetes mellitus Stroke High cholesterol Mother HTN (hypertension) Diabetes mellitus High cholesterol Sister Diabetes mellitus Breast cancer, Onset Age: 51 Stroke Kidney disease Esophageal cancer Heart disease Maternal Grandmother Liver cancer Maternal Grandfather Heart disease Social History Household Members: Family Housing: House Do you presently have visiting nurse or other home services: No Alcohol intake: current Alcohol intake frequency: a few times a month Comment: 2x a month 3 bri Patient Tobacco Use Status: Never used Tobacco e-Cigarette/Vaping Use: Never Used Second Hand Smoke Exposure: Yes Advance Directives Date on File: 02/11/21 service: No Current occupational status: disabled Sexual orientation: Straight/Heterosexual Gender identity: Female Cognitive needs: No Hearing needs: No Vision needs: Yes Female Reproductive History Menstrual Age of Menarche: 8 Questionnaire PHQ-9 Over the last 2 weeks, how often have you been bothered by any of the following problems? 1. Little interest or pleasure in doing things: nearly every day 2. Feeling down, depressed, or hopeless: nearly every day 3. Trouble falling or staying asleep, or sleeping too much: nearly every day 4. Feeling tired or having little energy: nearly every day 5. Poor appetite or overeating: nearly every day 6. Feeling bad about yourself - or that you are a failure or have let yourself or your family down: not at all 7. Trouble concentrating on things, such as reading the newspaper or watching television: not at all 8. Moving or speaking so slowly that other people could have noticed. Or the opposite - being so fidgety or restless that you have been moving around a lot more than usual: not at all 9. Thoughts that you would be better off or of hurting yourself in some way: not at all Total score: 15 Depression Screening Interpretation: Positive Depression Screening Done: Yes Source: Developed by Drs. Naeem Moran, Olivier Galeana and colleagues, with an educational cookie from [employer]. Thrive Questionnaire Date Thrive assessed: 11/09/23 AUDIT C Alcohol Use Questionnaire (AUDIT-C) 1. How often do you have a drink containing alcohol?: Never 3. How often do you have six or more drinks on one occasion?: Never Total Score: 0 DEUCE-7 AMB Questionnaire DEUCE-7 Date DEUCE - 7 assessed: 11/09/23 Source: Developed by Salome Pearson Kurt Kroenke and colleagues, with an educational cookie from [employer]. Physical exam (Primary Care) Vital Signs: Oxygen Delivery Method Room Air 02/08/24 10:10 Tobacco/Smoking Status: Tobacco use Status Tobacco use date assessed 11/09/23 01/16/24 14:51 Patient Tobacco Use Status Never used Tobacco 01/16/24 15:03 e-Cigarette/Vaping Use Never Used 01/16/24 14:51 Depression Screening Interpretation: Positive Thrive Assessment: Date of Thrive Assessment Date Thrive assessed 11/09/23 01/16/24 14:51 Const General: alert; No acute distress Eyes Conjunctivae: conjunctivae normal Resp Auscultation: clear to auscultation bilaterally Cardio Rate: regular rate Rhythm: regular rhythm GI Inspection: Yes normal to inspection Extrem Other: Tender on the posteromedial and anteromedial and inferior left knee left knee concerns about and certain bursitis and meniscal tear. Assessment and Plan Assessment & Plan (1) Obesity (BMI 30-39.9): Code(s): E66.9 - Obesity, unspecified Plan: Diet and exercise (2) History of sleeve gastrectomy: Comment: 2019 Code(s): Z90.3 - Acquired absence of stomach [part of] Plan: Continue to follow-up with bariatric surgery (3) GERD (gastroesophageal reflux disease): Code(s): K21.9 - Gastro-esophageal reflux disease without esophagitis Qualifiers: Esophagitis presence: without esophagitis Qualified Code(s): K21.9 - Gastro-esophageal reflux disease without esophagitis Plan: Avoid the foods that causes that usually spicy foods, tomato products, juices, coffee, soda and foods that your sensitive to. After eating do not lie down, allow 3-4 hours before in lie down. And keep the head of bed above 30 degrees to avoid the acid from going up. (4) Spinal stenosis in cervical region: Comment: October 2022 patient had C5-C6 anterior cervical diskectomy fusion and plating by Dr. Vallecillo Code(s): M48.02 - Spinal stenosis, cervical region Plan: Keep active and do exercises (5) Recurrent major depression: Comment: 2015 [facility] counselling, once a week Ggii (04/2022) [facility] Code(s): F33.9 - Major depressive disorder, recurrent, unspecified Plan: Continue to follow-up with psychiatry and counseling (6) Left renal stone: Comment: October [address] Frantz francois, ultrasound left lower pole renal calculi 7 mm Code(s): N20.0 - Calculus of kidney Plan: Increase oral fluids and continue to follow-up with urology (7) Osteoarthritis of left knee: Code(s): M17.12 - Unilateral primary osteoarthritis, left knee Qualifiers: Osteoarthritis type: primary Qualified Code(s): M17.12 - Unilateral primary osteoarthritis, left knee Plan: Keep active lose the weight, xray L knee requested and physical therapy concern about anserine bursitis as well as meniscal tears. (8) Constipation: Code(s): K59.00 - Constipation, unspecified Qualifiers: Constipation type: chronic idiopathic constipation Qualified Code(s): K59.04 - Chronic idiopathic constipation Plan: Three rules for constipation 1. Diet need to have a high fiber diet less of meat 2. Increase oral fluids 3. Exercise patient follows up with Gastroenterology Orders: Orders XR knee LT 3V Today M17.12 - Unilateral primary osteoarthritis, left knee PT Evaluation and Treatment Today M17.12 - Unilateral primary osteoarthritis, left knee Medications: New famotidine 20 mg PO BID 60 tabs 1RF K21.9 - Gastro-esophageal reflux disease without esophagitis Refilled cyclobenzaprine 10 mg PO Q8H PRN 90 tabs 0RF muscle spasm M17.12 - Unilateral primary osteoarthritis, left knee lansoprazole 30 mg PO DAILY 90 caps 3RF K21.9 - Gastro-esophageal reflux disease without esophagitis tramadol 50 mg PO Q8H PRN 90 tabs 0RF pain M54.16 - Radiculopathy, lumbar region Coding Level of Care Code Est Pt Level 4 (01274) Complex EM visit Add On G2211 Diagnoses Obesity (BMI 30-39.9) E66.9 History of sleeve gastrectomy Z90.3 Gastroesophageal reflux disease without esophagitis K21.9 Esophagitis presence: without esophagitis Spinal stenosis in cervical region M48.02 Recurrent major depression F33.9 Left renal stone N20.0 Primary osteoarthritis of left knee M17.12 Osteoarthritis type: primary Chronic idiopathic constipation K59.04 Constipation type: chronic idiopathic constipation
== END 2024-02-08 10:46 | disposition home or self-care (01) ==
PROVIDERS: PCP Internal Medicine; Visit Provider Internal Medicine
DX: K21.9 Gastro-esophageal reflux disease without esophagitis (principal); E66.9 Obesity, unspecified; F33.9 Major depressive disorder, recurrent, unspecified; Z68.35 Body mass index [BMI] 35.0-35.9, adult; Z90.3 Acquired absence of stomach [part of]; M48.02 Spinal stenosis, cervical region; N20.0 Calculus of kidney; M17.12 Unilateral primary osteoarthritis, left knee; K59.04 Chronic idiopathic constipation
CPT/HCPCS: 99214; G2211

== ENCOUNTER 2024-02-08 10:59 | Outpatient (REF) | payer OTHER, SELFPAY ==
--- NOTE | ~2024-02-08 | XR_ITS ---
EXAMINATION: XR KNEE, LEFT CLINICAL INFORMATION: Pain COMPARISON: None available. TECHNIQUE: Three views of the left knee. FINDINGS: No evidence of acute fracture. Small effusion.. Alignment is anatomic. Joint spaces are maintained. Small marginal patellar spur. No abnormal soft tissue calcification. XR/XR knee LT 3V IMPRESSION: No radiographically evident acute fracture. Small effusion. Study is assigned to [place] for dictation on March 01, 2024
== END 2024-02-08 11:00 | disposition home or self-care (01) ==
LOC: HO.XRAY 10:59
PROVIDERS: PCP Internal Medicine; Visit Provider Internal Medicine
DX: M17.12 Unilateral primary osteoarthritis, left knee (principal)
CPT/HCPCS: 73562

== ENCOUNTER 2024-02-17 09:24 | Outpatient (AMB) | payer MEDICAID, SELFPAY ==
--- NOTE | 2024-02-17 09:30 | A.OFFVIS_ITS ---
Vital Signs 02/17/24 09:37 Height 5 ft 7 in Weight 228 lb BMI 35.7 Intake Visit Reasons: New Prob - left knee pain Intake Note: Pattie is a 48 year old female who presents today for a evaluation of her left knee pain. Patient reports having pain in her knee about a month. No hx of injury/fall. Patient reports her pain is mainly behind her knee and it takes over her whole knee. Patient has tried and failed 3 + months of taking Tylenol/NSAIDs. Patient has tried and failed 3 + months using a knee brace. Patient tried and failed 3 + months of using lidocaine patches but had to stop using them due to getting a allergic reaction to her skin. Pain is worse when using the stairs and walking for long distances. Allergies oxycodone [From PERCOCET] Allergy (Intermediate, Verified 02/17/24 09:36) TACHYCARDIA, HEADACHE hydromorphone [From Dilaudid] Adverse Reaction (Mild, Verified 02/17/24 09:36) Itchy Sausage Allergy (Unknown, Uncoded 02/08/24 10:11) Unknown HPI HPI New Prob - left knee pain: Details: 48-year-old female, who is Japanese speaking, presents in the office today for an evaluation of left knee pain. The patient was seen in urgent care on 01/16/24 with a complaint of edema and pain in the left knee?status post a fall causing her to land on the left side of the body. She was placed in a knee brace and prescribed diclofenac 25 mg PO BID.? ? Patient was seen by Rheumatology on 01/31/24 when she was advised to use Volt aren gel four times daily and she was supplied with a home exercise handout. ? ? Patient followed up with her PCP on 02/08/24 when x-rays were ordered, and she was referred to physical therapy. ? ? While in the office today, the patient reports pain in her left knee that began about a month ago. She claims the pain is behind her left knee and radiated throughout the knee. She states the pain increases when going up the stairs?and ambulating long distances. Patient reports trying over three months of Tylenol and NSAIDs, with no relief. She reports the use of a lidocaine patch but states she had to discontinue the use of these due to an allergic reaction.?She also reports the use of a knee brace for over three months with no relief. She denies any known injury or fall. ? ? The patient reports she was in [place] when she was seen for left knee pain in the ED. She was told she has some edema in the knee. She followed up with her PCP who referred her to our office. She states her pain is a 7/10 in the office today. ? [facility] Medical History Obesity (BMI 30.0-34.9) Left flank pain Foul smelling urine Bilateral nephrolithiasis Mood disorder PTSD (post-traumatic stress disorder) Major depression Bilateral hand numbness Pelvic cramping Vaginal burning Vaginal itching Complex cyst of left ovary History of renal calculi Hot flashes Pelvic pain in female Chest pain Colon cancer screening Generalized anxiety disorder Otitis externa Vaginal dryness Vaginal discharge Sexually transmitted disease exposure Degenerative joint disease of cervical spine UTI (urinary tract infection) Grief reaction Overweight (BMI 25.0-29.9) Anxiety and depression Asthma GERD (gastroesophageal reflux disease) Hepatitis C antibody test positive Ulnar neuropathy Fatty liver Seasonal allergies Carpal tunnel syndrome Migraine Surgical History H/O neck surgery History of esophagogastroduodenoscopy (EGD) H/O colonoscopy History of sleeve gastrectomy Hx of rotator cuff surgery History of carpal tunnel release Hx of tonsillectomy Hx of tubal ligation H/O: hysterectomy Family History Father HTN (hypertension) Diabetes mellitus Stroke High cholesterol Mother HTN (hypertension) Diabetes mellitus High cholesterol Sister Diabetes mellitus Breast cancer, Onset Age: 51 Stroke Kidney disease Esophageal cancer Heart disease Maternal Grandmother Liver cancer Maternal Grandfather Heart disease Social History (Updated 02/17/24 @ 09:37 by Aylin Cardenas) Household Members: Family Housing: House Do you presently have visiting nurse or other home services: No Alcohol intake: current Alcohol intake frequency: holidays/special occasions only Comment: 2x a month 3 beers Patient Tobacco Use Status: Never used Tobacco e-Cigarette/Vaping Use: Never Used Second Hand Smoke Exposure: Yes Advance Directives Date on File: 02/11/21 service: No Current occupational status: disabled Sexual orientation: Straight/Heterosexual Gender identity: Female Cognitive needs: No Hearing needs: No Vision needs: Yes Female Reproductive History Menstrual Age of Menarche: 8 Review of Systems Const All systems reviewed & are unremarkable except as noted in HPI and below Physical Exam Vital Signs: BMI result Body Mass Index 35.7 Const General: cooperative and no acute distress Orientation/consciousness: patient oriented x3 Resp Effort & Inspection: normal respiratory effort and able to speak in complete sentences Cardio Peripheral pulses: Peripheral pulses 2+ throughout Skin General skin exam: no rashes or lesions noted Neuro General: patient oriented x3 Extrem Other: Left knee: Normal to inspection. No ecchymosis, erythema, or joint effusion. No tenderness to palpation along the lateral joint line. Tenderness to palpation along the medial joint line. Full knee extension and flexion. Negative Tao's. NVI.?? Office Procedures Joint Injection/Aspiration Joint Injection/Aspiration Primary Site: left knee Prep: site was prepped using aseptic technique, ethochloride spray was applied and injection warnings given Injected: 80 mg of, DepoMedrol, with 8 mL of (2% plain lido ) and in the joint Approach Used: anterolateral Procedure: The patient tolerated the procedure well, but had some pain with the injection and there was some relief with the local anesthesia Coding 86441 - Large joint Procedure code (CPT) selection complete Assessment & Plan Assessment & Plan (1) Internal derangement of left knee: Code(s): M23.92 - Unspecified internal derangement of left knee Category: Medical Plan Ms. Dennis Martínez is a 48-year-old female, who is Japanese speaking, presents in the office today for an evaluation of left knee pain. The patient was seen in urgent care on 01/16/24 with a complaint of edema and pain in the left knee?status post a fall causing her to land on the left side of the body. She was placed in a knee brace and prescribed diclofenac 25 mg PO BID.? ? Patient was seen by Rheumatology on 01/31/24 when she was advised to use Voltaren gel four times daily and she was supplied with a home exercise handout. ? ? Patient followed up with her PCP on 02/08/24 when x-rays were ordered, and she was referred to physical therapy. ? ? While in the office today, the patient reports pain in her left knee that began about a month ago. She claims the pain is behind her left knee and radiated throughout the knee. She states the pain increases when going up the stairs?and ambulating long distances. Patient reports trying over three months of Tylenol and NSAIDs, with no relief. She reports the use of a lidocaine patch but states she had to discontinue the use of these due to an allergic reaction.?She also reports the use of a knee brace for over three months with no relief. She denies any known injury or fall. ? ? The patient reports she was in [place] when she was seen for left knee pain in the ED. She was told she has some edema in the knee. She followed up with her PCP who referred her to our office. She states her pain is a 7/10 in the office today.? ? The patient was offered a cortisone injection in the left knee with 80 mg of DepoMedrol. The patient was explained the risks, benefits, and alternatives to receiving this injection. After receiving consent for the injection, the patient had the procedure done while in the office today. The patient tolerated the procedure well with no complications.? ? We discussed it could take a week before she notices any relief. Should she have any pain or discomfort I recommend the use of ice, Tylenol, or ibuprofen. Follow-up will be PRN, or sooner if needed. ? ? X-rays of the left knee obtained on 02/08/24 were reviewed by me, Poonam Lazo PA-C, revealed: no acute fracture or dislocation. Mild degenerative changes noted. Patient Instructions: Scribed by Chinyere Escobar medical coding technician, for Poonam Lazo PA-C on 02/17/2024 at 9:27 am, EST.? Coding Level of Care Code Est Pt Level 3 (76524) Diagnoses Internal derangement of left knee M23.92 CPT Codes Coding - 65876 Large joint: 62939 - Large joint ([id number])
[2024-02-17 09:37] VITALS: BMI 35.7
== END 2024-02-17 10:08 | disposition home or self-care (01) ==
PROVIDERS: PCP Internal Medicine; Visit Provider Physician Assistant
DX: M23.92 Unspecified internal derangement of left knee (principal)
CPT/HCPCS: 20610; 99213

== ENCOUNTER → 2024-02-17 09:24 | Outpatient (BNVA) | payer MEDICAID, SELFPAY | PROVIDERS: PCP Internal Medicine; Visit Provider Physician Assistant | DX: M23.92 Unspecified internal derangement of left knee (principal) | CPT/HCPCS: 20610; 99212; J1010 ==

== ENCOUNTER 2024-03-27 10:27 | Outpatient (AMB) | payer MEDICARE, MEDICAID, SELFPAY ==
--- NOTE | 2024-03-27 10:36 | MHC.PC.OV ---
Vital Signs 03/27/24 10:37 Height 5 ft 7 in Weight 221 lb BMI 34.6 BP 134/78 Blood Pressure Location Lt brachial Position Sitting Pulse 87 Pulse Source Pulse Oximeter Pulse Oximetry (%) 98 Oxygen Delivery Method Room Air Intake Visit Reasons: obesity, fibromyalgia Intake Note: Patient is asking about weight loss injection, her BP has been high and she is not sure if it is due to the pain she is having as she has been without medications for a month due to a change in insurances. She is needing all medications to be sent to the pharmacy so it can be processed to new insurance. She is also asking for PRODUCTION [employer] hours. Also is complaining of blurred vision. Allergies oxycodone [From PERCOCET] Allergy (Intermediate, Verified 03/27/24 10:37) TACHYCARDIA, HEADACHE hydromorphone [From Dilaudid] Adverse Reaction (Mild, Verified 03/27/24 10:37) Itchy Sausage Allergy (Unknown, Uncoded 03/27/24 10:37) Unknown Medication List - Last Reconciled 03/27/24 by Lizandro Simon MD albuterol sulfate 90 mcg/actuation 2 puffs PO Q4H PRN albuterol sulfate 2.5 mg (3 mL) inhalation Q6H PRN amitriptyline 50 mg PO BEDTIME bupropion HCl XL 300 mg PO DAILY bupropion HCl XL 150 mg PO QAM cetirizine 10 mg PO BID cholecalciferol (vitamin D3) 50 mcg PO DAILY clonazepam 1 mg PO BID cyclobenzaprine 10 mg PO Q8H PRN diclofenac potassium 25 mg PO BID diclofenac sodium 1% 2 grams topical QID divalproex 500 mg PO BID 90 days docusate sodium 100 mg PO DAILY famotidine 20 mg PO BID fluoxetine 40 mg PO DAILY fluticasone furoate 200 mcg/actuation 1 inh PO DAILY fremanezumab-vfrm (Ajovy) 225 mg subcut QMONTH hydrocortisone 1% 1 appl See Protocol topical BID PRN hydroxyzine HCl 25 mg PO DAILY lansoprazole 30 mg PO DAILY lidocaine 5% 1 patch topical DAILY ondansetron 8 mg PO Q12H PRN pregabalin 100 mg PO BEDTIME propranolol 20 mg See Protocol PO BID prucalopride (Motegrity) 2 mg PO DAILY tirzepatide (Mounjaro) 2.5 mg (0.5 mL) subcut QWEEK tramadol 50 mg PO Q8H PRN Tobacco use date assessed: 03/27/24 Dental Screening Dental Screen Date: 03/27/24 Did you have a dental visit in the last 12 months?: Yes Did you have a dental problem in the last 6 months where you did not have access to dental care?: No Was dental information given to patient?: Patient has dentist HPI obesity, fibromyalgia HPI Details 48-year-old obese female with a history of sleeve gastrectomy GERD cervical spinal stenosis recurrent major depression nephrolithiasis coming in for follow-up. Last seen in January 2024. Patient's colonoscopy is up-to-date October 2021 mammogram is up-to-date 05/13/2023. Review of the notes in January was seen by the ortho for the left knee pain had injection done with Depo-Medrol mary alice Razo [id number] interpret . hand get numb bilateral states 2 months also and have problem with cerical neck area. problem with new insurance. PAtient is asking for med for weight loss injection. does follow up with [facility] Medical History Obesity (BMI 30.0-34.9) Left flank pain Foul smelling urine Bilateral nephrolithiasis Mood disorder PTSD (post-traumatic stress disorder) Major depression Bilateral hand numbness Pelvic cramping Vaginal burning Vaginal itching Complex cyst of left ovary History of renal calculi Hot flashes Pelvic pain in female Chest pain Colon cancer screening Generalized anxiety disorder Otitis externa Vaginal dryness Vaginal discharge Sexually transmitted disease exposure Degenerative joint disease of cervical spine UTI (urinary tract infection) Grief reaction Overweight (BMI 25.0-29.9) Anxiety and depression Asthma GERD (gastroesophageal reflux disease) Hepatitis C antibody test positive Ulnar neuropathy Fatty liver Seasonal allergies Carpal tunnel syndrome Migraine Surgical History H/O neck surgery History of esophagogastroduodenoscopy (EGD) H/O colonoscopy History of sleeve gastrectomy Hx of rotator cuff surgery History of carpal tunnel release Hx of tonsillectomy Hx of tubal ligation H/O: hysterectomy Family History Father HTN (hypertension) Diabetes mellitus Stroke High cholesterol Mother HTN (hypertension) Diabetes mellitus High cholesterol Sister Diabetes mellitus Breast cancer, Onset Age: 51 Stroke Kidney disease Esophageal cancer Heart disease Maternal Grandmother Liver cancer Maternal Grandfather Heart disease Social History (Updated 02/17/24 @ 09:37 by Aylin Cardenas) Household Members: Family Housing: House Do you presently have visiting nurse or other home services: No Alcohol intake: current Alcohol intake frequency: holidays/special occasions only Comment: 2x a month 3 beers Patient Tobacco Use Status: Never used Tobacco Tobacco use type: Cigarette e-Cigarette/Vaping Use: Never Used Second Hand Smoke Exposure: Yes Advance Directives Date on File: 02/11/21 service: No Current occupational status: disabled Sexual orientation: Straight/Heterosexual Gender identity: Female Cognitive needs: No Hearing needs: No Vision needs: Yes Female Reproductive History Menstrual Age of Menarche: 8 Questionnaire PHQ-9 Over the last 2 weeks, how often have you been bothered by any of the following problems? 1. Little interest or pleasure in doing things: nearly every day 2. Feeling down, depressed, or hopeless: nearly every day 3. Trouble falling or staying asleep, or sleeping too much: nearly every day 4. Feeling tired or having little energy: nearly every day 5. Poor appetite or overeating: nearly every day 6. Feeling bad about yourself - or that you are a failure or have let yourself or your family down: not at all 7. Trouble concentrating on things, such as reading the newspaper or watching television: not at all 8. Moving or speaking so slowly that other people could have noticed. Or the opposite - being so fidgety or restless that you have been moving around a lot more than usual: not at all 9. Thoughts that you would be better off or of hurting yourself in some way: not at all Total score: 15 Depression Screening Interpretation: Positive Depression Screening Done: Yes 88646 - PHQ-9 Billing: Yes Source: Developed by Drs. Naeem Moran, Salome Dahl, Olivier Bennett and colleagues, with an educational cookie from [employer]. Thrive Questionnaire Date Thrive assessed: 11/09/23 DEUCE-7 AMB Questionnaire DEUCE-7 Date DEUCE - 7 assessed: 03/27/24 Feeling nervous, anxious, or on edge: 1 = Several days Not being able to stop or control worryin = Several days Worrying too much about different things: 1 = Several days Trouble relaxin = Not at all Being so restless that it is hard to sit still: 0 = Not at all Becoming easily annoyed or irritable: 1 = Several days Feeling afraid as if something awful might happen: 0 = Not at all Total DEUCE-7 score (0-4 normal; 5-9 mild; 10-14 moderate; 15-21 severe): 4 Source: Developed by Drs. Naeem Moran, Salome Dalh, Olivier Bennett and colleagues, with an educational cookie from [employer]. DEUCE-7 Assessment Billing DEUCE-7 Assessment Tool: DEUCE-7 Assessment [id number] Physical exam (Primary Care) Vital Signs: Last Vital Signs Pulse 87 03/27/24 10:37 BP 134/78 03/27/24 10:37 Pulse Ox 98 03/27/24 10:37 Oxygen Delivery Method Room Air 03/27/24 10:37 BMI result Body Mass Index 34.6 Tobacco/Smoking Status: Tobacco use Status Tobacco use date assessed 03/27/24 03/27/24 10:43 Patient Tobacco Use Status Never used Tobacco 03/27/24 10:43 Tobacco use type Cigarette 03/27/24 10:43 e-Cigarette/Vaping Use Never Used 03/27/24 10:43 PHQ-9: PHQ-9 Score PHQ-9: Total score 15 03/27/24 10:43 Depression Screening Interpretation: Positive Thrive Assessment: Date of Thrive Assessment Date Thrive assessed 11/09/23 03/27/24 10:43 Const General: alert; No acute distress Eyes Conjunctivae: conjunctivae normal Resp Auscultation: clear to auscultation bilaterally Cardio Rate: regular rate Rhythm: regular rhythm GI Inspection: Yes normal to inspection Extrem General: Yes normal to inspection and No edema Assessment and Plan Assessment & Plan (1) Osteoarthritis of left knee: Code(s): M17.12 - Unilateral primary osteoarthritis, left knee Qualifiers: Osteoarthritis type: primary Qualified Code(s): M17.12 - Unilateral primary osteoarthritis, left knee Plan: Patient just had an injection under Orthopedics. (2) Obesity (BMI 30-39.9): Code(s): E66.9 - Obesity, unspecified Plan: Diet and exercise (3) History of sleeve gastrectomy: Comment: 2018 Code(s): Z90.3 - Acquired absence of stomach [part of] Plan: Continue to follow-up with bariatric surgeon. (4) Spinal stenosis in cervical region: Comment: October 2022 patient had C5-C6 anterior cervical diskectomy fusion and plating by Dr. Vallecillo Code(s): M48.02 - Spinal stenosis, cervical region Plan: Continue to be active and do stretches early in the morning (5) Bipolar 2 disorder, major depressive episode: Comment: [facility] therapise , PSychiatry Anshul Willams 12/2022 Code(s): F31.81 - Bipolar II disorder Plan: Continue with counseling and therapy (6) Blood pressure elevated without history of HTN: Code(s): R03.0 - Elevated blood-pressure reading, without diagnosis of hypertension Orders: Orders XR cervical spine 3V Today M47.812 - Spondylosis without myelopathy or radiculopathy, cervical region Medications: New tirzepatide (Mounjaro) for 4 weeks 2.5 mg (0.5 mL) subcut QWEEK 2 mL 0RF E66.9 - Obesity, unspecified Coding Level of Care Code Est Pt Level 4 (01929) Diagnoses Primary osteoarthritis of left knee M17.12 Osteoarthritis type: primary Obesity (BMI 30-39.9) E66.9 History of sleeve gastrectomy Z90.3 Spinal stenosis in cervical region M48.02 Bipolar 2 disorder, major depressive episode F31.81 Blood pressure elevated without history of HTN R03.0 Additional Codes DEUCE-7 Assessment Billing - DEUCE-7 Assessment Tool: DEUCE-7 Assessment [id number] ([id number])
[2024-03-27 10:37] VITALS: BP 134/78; PULSE 87; O2SAT 98; BMI 34.6
== END 2024-03-27 11:33 | disposition home or self-care (01) ==
PROVIDERS: PCP Internal Medicine; Visit Provider Internal Medicine
DX: M17.12 Unilateral primary osteoarthritis, left knee (principal); E66.9 Obesity, unspecified; F31.81 Bipolar II disorder; Z68.34 Body mass index [BMI] 34.0-34.9, adult; Z90.3 Acquired absence of stomach [part of]; M48.02 Spinal stenosis, cervical region; R03.0 Elevated blood-pressure reading, without diagnosis of hypertension
CPT/HCPCS: 99214

== ENCOUNTER 2024-03-29 12:46 | Outpatient (REF) | payer MEDICARE, MEDICAID, SELFPAY ==
--- NOTE | ~2024-03-29 | XR_ITS ---
EXAMINATION: XR CERVICAL SPINE CLINICAL INFORMATION: Spondylosis without myelopathy or radiculopathy. COMPARISON: 09/19/2018 TECHNIQUE: 4 views of the cervical spine were obtained. FINDINGS: Solid osseous fusion at C5-C6 status post ACDF. Mild degenerative disc disease at C4-C5 with loss of intervertebral disc height and endplate osteophytes. Facet joints appear relatively well preserved. Vertebral body heights are normal. No fracture or malalignment. Prevertebral soft tissues are normal. Lung apices are clear. XR/XR cervical spine 3V IMPRESSION: 1. Solid osseous fusion at C5-C6 status post ACDF. 2. Mild degenerative disc disease at C4-C5. Electronically signed by: Vu Nuñez MD 04/16/2024 11:10 PM EDT
== END 2024-03-29 12:47 | disposition home or self-care (01) ==
LOC: HO.XRAY 12:46
PROVIDERS: PCP Internal Medicine; Visit Provider Internal Medicine
DX: M47.812 Spondylosis without myelopathy or radiculopathy, cervical region (principal)
CPT/HCPCS: 72040

== ENCOUNTER 2024-04-10 11:29 | Outpatient (AMB) | payer MEDICARE, MEDICAID, SELFPAY ==
--- NOTE | 2024-04-10 11:35 | AM.OFFWIN_ITS ---
Intake Vital Signs 04/10/24 11:36 Height 5 ft 7 in Weight 222 lb BMI 34.8 BP 130/80 Blood Pressure Location Rt brachial Position Sitting Pulse 82 Pulse Source Pulse Oximeter Pulse Oximetry (%) 98 Oxygen Delivery Method Room Air Intake Visit Reasons: EP RT shoulder/back pain due to fall Intake Note: Patient here because she fell on Tuesday and fell backwards and now has lower back pain and also has right shoulder pain. Patient Tobacco Use Status: Never used Tobacco Allergies oxycodone [From PERCOCET] Allergy (Intermediate, Verified 04/10/24 11:38) TACHYCARDIA, HEADACHE hydromorphone [From Dilaudid] Adverse Reaction (Mild, Verified 04/10/24 11:38) Itchy Sausage Allergy (Unknown, Uncoded 04/10/24 11:38) Unknown Do you need a note to return to daycare/school/sports/work: No HPI HPI Comments History of Present Illness Details This is a 48-year-old female presenting for evaluation of low back pain that she has had since falling on Saturday April 06, 2024. Patient states she was walking when she suddenly felt lightheaded and fell backwards onto the ground. Patient denies any head injury or loss of consciousness as a result of her fall and was able to get up independently. Patient is complaining of pain in her right low back that radiates to her right buttock. Patient has been taking tramadol only without relief of her discomfort. [facility] Medical History Obesity (BMI 30.0-34.9) Left flank pain Foul smelling urine Bilateral nephrolithiasis Mood disorder PTSD (post-traumatic stress disorder) Major depression Bilateral hand numbness Pelvic cramping Vaginal burning Vaginal itching Complex cyst of left ovary History of renal calculi Hot flashes Pelvic pain in female Chest pain Colon cancer screening Generalized anxiety disorder Otitis externa Vaginal dryness Vaginal discharge Sexually transmitted disease exposure Degenerative joint disease of cervical spine UTI (urinary tract infection) Grief reaction Overweight (BMI 25.0-29.9) Anxiety and depression Asthma GERD (gastroesophageal reflux disease) Hepatitis C antibody test positive Ulnar neuropathy Fatty liver Seasonal allergies Carpal tunnel syndrome Migraine Surgical History H/O neck surgery History of esophagogastroduodenoscopy (EGD) H/O colonoscopy History of sleeve gastrectomy Hx of rotator cuff surgery History of carpal tunnel release Hx of tonsillectomy Hx of tubal ligation H/O: hysterectomy Family History Father HTN (hypertension) Diabetes mellitus Stroke High cholesterol Mother HTN (hypertension) Diabetes mellitus High cholesterol Sister Diabetes mellitus Breast cancer, Onset Age: 51 Stroke Kidney disease Esophageal cancer Heart disease Maternal Grandmother Liver cancer Maternal Grandfather Heart disease Social History (Updated 02/17/24 @ 09:37 by Aylin Cardenas) Household Members: Family Housing: House Do you presently have visiting nurse or other home services: No Alcohol intake: current Alcohol intake frequency: holidays/special occasions only Comment: 2x a month 3 beers Patient Tobacco Use Status: Never used Tobacco Tobacco use type: Cigarette e-Cigarette/Vaping Use: Never Used Second Hand Smoke Exposure: Yes Advance Directives Date on File: 02/11/21 service: No Current occupational status: disabled Sexual orientation: Straight/Heterosexual Gender identity: Female Cognitive needs: No Hearing needs: No Vision needs: Yes Female Reproductive History Menstrual Age of Menarche: 8 Review of Systems Const All systems reviewed & are unremarkable except as noted in HPI and below Denies chills, Denies fatigue, Denies fever(s), Denies frequent falls and Denies headache(s) Eyes Reports no additional complaints ENT Reports dizziness and Denies headache(s) Card Reports no additional complaints Resp Reports no additional complaints GI Reports no additional complaints Reports no additional complaints Musc Reports back pain (right low back pain with radiation to right buttock) Skin/Breast Reports system reviewed and no additional complaints, except as documented Neuro Reports no additional complaints, Reports dizziness, Denies frequent falls and Denies headache(s) Psych Reports no additional complaints Endo Denies fatigue Aller/Immun Reports no additional complaints Physical Exam Vital Signs: Last Vital Signs Pulse 82 04/10/24 11:36 BP 130/80 04/10/24 11:36 Pulse Ox 98 04/10/24 11:36 Oxygen Delivery Method Room Air 04/10/24 11:36 BMI result Body Mass Index 34.8 Const General: cooperative, comfortable, no acute distress, well developed, alert, awake and Physically active; No ill appearing or lethargic Nutritional Appearance: overweight Orientation/consciousness: patient oriented x3 and No lethargic Limitations: no limitations Resp Effort & Inspection: normal respiratory effort, able to speak in complete sentences, normal respiratory pattern, no audible wheezes, no cough and no respiratory distress Auscultation: clear to auscultation bilaterally Cardio Rate: regular rate Rhythm: regular rhythm Back/Spine/Pelvis Cervical Spine: cervical ROM normal, No cervical muscular tenderness and No Cervical spine tenderness Thoracic/Lumbar Spine: thoracic and lumbar spine normal to inspection, paraspinal muscle tenderness (right lumbar paraspinous tenderness) on the right, No thoracic spinal tenderness, No lumbar spinal tenderness and No straight leg raise positive Pelvis: sciatic notch tenderness (right) Sacroiliac joints: on the right tender to palpation and on the left nontender to palpation Skin General skin exam: no rashes or lesions noted Nails: normal Neuro General: patient oriented x3 Cognition (Neuro): normal cognition Gait exam (Neuro): Normal gait present Extrem General: Yes normal to inspection and Yes no calf tenderness Psych Appearance: grossly normal Mental Status: mental status grossly normal Insight: Good insight present (Psych) Judgement: Good judgement present (Psych) Assessment & Plan Assessment & Plan (1) Right lumbar pain: Comment: There is no vertebral pain upon evaluation and therefore imaging is deferred at this time. Code(s): M54.50 - Low back pain, unspecified Plan: Naprosyn and Robaxin will be utilized for ongoing management of her lumbar and right sciatic pain. Patient is instructed to not utilize any other muscle relaxants that were previously prescribed. (2) Sciatic pain: Code(s): M54.30 - Sciatica, unspecified side Qualifiers: Laterality: right Qualified Code(s): M54.31 - Sciatica, right side Plan: Naprosyn and Robaxin as prescribed. Patient is encouraged to follow up with her primary care provider in 10-14 days for a re-evaluation of her symptoms. Medications: New methocarbamol 750 mg PO Q8H 20 tabs 0RF naproxen (Naprosyn) 500 mg PO BID 20 tabs 0RF Coding Level of Care Code Est Pt Level 3 (80188) Diagnoses Right lumbar pain M54.50 Right sciatic nerve pain M54.31 Laterality: right Time Spent (min) 20
[2024-04-10 11:36] VITALS: BP 130/80; PULSE 82; O2SAT 98; BMI 34.8
== END 2024-04-10 11:54 | disposition home or self-care (01) ==
PROVIDERS: PCP Internal Medicine; Visit Provider Physician Assistant
DX: M54.50 Low back pain, unspecified (principal); M54.31 Sciatica, right side

== ENCOUNTER → 2024-04-10 11:29 | Outpatient (BNVA) | payer MEDICARE, MEDICAID, SELFPAY | PROVIDERS: PCP Internal Medicine | DX: M54.50 Low back pain, unspecified (principal); M54.31 Sciatica, right side | CPT/HCPCS: 99212 ==